=== PATIENT | male | born 1990 | race Caucasian/White ===

== ENCOUNTER 2021-06-25 10:27 | Outpatient (REF) | payer OTHER, SELFPAY ==
[2021-06-25 13:42] LABS: Alanine Aminotransferase 44 U/L (0-40); Albumin Level 4.2 g/dL (3.5-5.0); Alkaline Phosphatase 74 U/L (39-117); Anion Gap 11 (12-20); Aspartate Amino Transferase 26 U/L (5-37); Bilirubin Total 0.5 mg/dL (0.0-1.0); Blood Urea Nitrogen 16 mg/dL (9-16); Calcium 9.6 mg/dL (8.4-10.2); Carbon Dioxide 27 mmol/L (22-29); Chloride 106 mmol/L (96-108); Cholesterol 184 mg/dL; Estimated Glomerular Filt Rate > 60; Glucose Fasting 88 mg/dL (60-99); HDL Cholesterol 37 mg/dL; LDL Cholesterol Calculated 123 mg/dl; Potassium 4.7 mmol/L (3.3-5.1); Sodium 139 mmol/L (135-145); Total Protein 6.7 g/dL (6.5-8.0); Triglycerides 122 mg/dL
[2021-06-25 14:04] LABS: TSH reflex Free T4 2.23 uIU/mL (0.32-4.0)
[2021-06-26 07:52] LABS: HBc Num1 0.06 S/CO (0.00-0.79); HBsAGNum1 0.17 S/CO (0.00-0.99); HIV AB/AG Nonreactive (Nonreactive); HIV Num 1 0.06 S/CO (0.00-0.99); Hepatitis B Core Antibody Nonreactive (Nonreactive); Hepatitis B Surface Antigen Negative (Negative); ~HepC Num1 0.15 S/CO (0.00-0.79); ~Hepatitis B Surface Antibody REACTIVE (Nonreactive); ~Hepatitis C Antibody Nonreactive (Nonreactive)
[2021-06-26 08:18] LABS: Syphilis Screen Nonreactive (Nonreactive)
== END 2021-06-25 10:28 | disposition home or self-care (01) ==
LOC: HO.WFDLDS 10:27
PROVIDERS: Visit Provider Family Medicine
DX: Z00.00 Encounter for general adult medical examination without abnormal findings (principal); Z11.4 Encounter for screening for human immunodeficiency virus [HIV]
CPT/HCPCS: 36415; 80053; 80061; 84443; 86704; 86706; 86780; 86803; 87340; 87389

== ENCOUNTER 2021-10-07 07:46 | Outpatient (REF) | payer OTHER, SELFPAY ==
--- NOTE | ~2021-10-07 | XR_ITS ---
EXAMINATION: XR KNEE, BILATERAL AP STANDING XR KNEE, BILATERAL CLINICAL INFORMATION: Pain. COMPARISON: None TECHNIQUE: AP bilateral knee standing. 2 views each knee. FINDINGS: AP BILATERAL KNEE STANDING: The medial and lateral compartment joint spaces are maintained normal. No bony erosive changes, loose body or soft tissue swelling seen. RIGHT KNEE: The patellofemoral compartment joint space is normal. There are no loose bodies, bony erosive changes or joint effusion. LEFT KNEE: The patellofemoral compartment joint space is maintained. There are no bony erosive changes. No spurring or suprapatellar joint effusion. XR/XR knee RT 2V IMPRESSION: Unremarkable AP bilateral knee standing. Unremarkable bilateral knees.
--- NOTE | ~2021-10-07 | XR_ITS ---
EXAMINATION: XR KNEE, BILATERAL AP STANDING XR KNEE, BILATERAL CLINICAL INFORMATION: Pain. COMPARISON: None TECHNIQUE: AP bilateral knee standing. 2 views each knee. FINDINGS: AP BILATERAL KNEE STANDING: The medial and lateral compartment joint spaces are maintained normal. No bony erosive changes, loose body or soft tissue swelling seen. RIGHT KNEE: The patellofemoral compartment joint space is normal. There are no loose bodies, bony erosive changes or joint effusion. LEFT KNEE: The patellofemoral compartment joint space is maintained. There are no bony erosive changes. No spurring or suprapatellar joint effusion. XR/XR knee LT 2V IMPRESSION: Unremarkable AP bilateral knee standing. Unremarkable bilateral knees.
--- NOTE | ~2021-10-07 | XR_ITS ---
EXAMINATION: XR KNEE, BILATERAL AP STANDING XR KNEE, BILATERAL CLINICAL INFORMATION: Pain. COMPARISON: None TECHNIQUE: AP bilateral knee standing. 2 views each knee. FINDINGS: AP BILATERAL KNEE STANDING: The medial and lateral compartment joint spaces are maintained normal. No bony erosive changes, loose body or soft tissue swelling seen. RIGHT KNEE: The patellofemoral compartment joint space is normal. There are no loose bodies, bony erosive changes or joint effusion. LEFT KNEE: The patellofemoral compartment joint space is maintained. There are no bony erosive changes. No spurring or suprapatellar joint effusion. XR/XR knee standing BI IMPRESSION: Unremarkable AP bilateral knee standing. Unremarkable bilateral knees.
== END 2021-10-07 07:47 | disposition home or self-care (01) ==
LOC: HO.HOSX 07:46
PROVIDERS: Visit Provider Physician Assistant
DX: M22.2X1 Patellofemoral disorders, right knee (principal); M22.2X2 Patellofemoral disorders, left knee; R60.9 Edema, unspecified
CPT/HCPCS: 73560; 73565; 99202

== ENCOUNTER 2021-11-12 14:00 | Outpatient (RCR) | payer OTHER, SELFPAY ==
--- NOTE | 2021-10-01 11:56 | MHC.PT.EP ---
[facility] [place] Office [place] Office [place] Office [address] [phone] F: [phone] F: [phone] F: [phone] F: [phone] Physical Therapy Plan of Care Date of Evaluation: Date of Surgery: n/a Diagnosis: knee pain Assessment: Patient is a 31 year old R handed male who presents with s/s consistent with knee pain. He works with daily job demands including kneeling and negotiating a lot of stairs at [employer]. Patient past medical history includes wrist surgeries. Current impairments include pain, posture, ROM, strength, activity tolerance and functional mobility. Functional limitations include decreased ability to stand, run, knee, and negotiate stairs. Patient is motivated with good rehab potential. Skilled PT will address impairments and functional limitations in order to achieve goals. Frequency and Duration: The patient will be seen 2x/week for 5 weeks Short Term Goals: I With HEP - 2 weeks 90/90 lacking less than 20 - 3 weeks gastroc normal flex b/l - 3 weeks Mcfp Goals: pain free stairs - 5 weeks LEFS 60/80 - 5 weeks Pain with work 2/10 max - 5 weeks Treatment Plan: Modalities to reduce pain, spasms and effusion. Manual therapy to restore motion and function. Therapeutic exercise to improve strength and flexibility. Neuromuscular re-education for posture and balance. Therapeutic activities to return to functional activities of daily living. Electronically signed by: Jerry Woodall PT Please sign and return to therapist. Thank you for your referral.
--- NOTE | 2022-02-05 08:57 | MHC.PT.DC ---
[facility] [place] Office [place] Office [place] Office [address] [place] [address] [phone] F: [phone] F: [phone] F: [phone] F: [phone] Physical Therapy Discharge Report Diagnosis: knee pain Date of Surgery: n/a Date of Evaluation: 10/01/21 Date of Discharge: 02/05/22 Treatments to Date: 5 Cancellations to Date: No Shows to Date: Discharge Status: Improved Function Independent with HEP Discharge Summary: pt had to stop pt after last appt. pt progressing well with above program to manage s/s. however, we did discuss at length the likelihood that s/s will persist as long as stimulus/cause is still present (kneeling at work). Electronically signed by: Jerry Woodall, PT Please sign and return to therapist. Thank you for your referral.
== END 2022-02-05 08:58 | disposition home or self-care (01) ==
LOC: HO.PTCHIC 14:00
PROVIDERS: PCP Family Medicine; Visit Provider Family Medicine
DX: M25.561 Pain in right knee (principal); M25.562 Pain in left knee
CPT/HCPCS: 97110; 97140; 97161; 97530

== ENCOUNTER 2021-11-25 08:10 | Outpatient (REF) | payer OTHER, SELFPAY ==
[2021-11-25 12:20] LABS: Alanine Aminotransferase 24 U/L (0-40); Albumin Level 4.7 g/dL (3.5-5.0); Alkaline Phosphatase 76 U/L (39-117); Anion Gap 16 (12-20); Aspartate Amino Transferase 20 U/L (5-37); Bilirubin Total 0.3 mg/dL (0.0-1.0); Blood Urea Nitrogen 22 mg/dL (9-16); Calcium 9.4 mg/dL (8.4-10.2); Carbon Dioxide 25 mmol/L (22-29); Chloride 105 mmol/L (96-108); Estimated Glomerular Filt Rate > 60; Glucose Random 75 mg/dL (60-115); Potassium 4.3 mmol/L (3.3-5.1); Sodium 142 mmol/L (135-145); Total Protein 7.2 g/dL (6.5-8.0)
== END 2021-11-25 08:11 | disposition home or self-care (01) ==
LOC: HO.WFDLDS 08:10
PROVIDERS: Visit Provider Family Medicine
DX: R74.01 Elevation of levels of liver transaminase levels (principal)
CPT/HCPCS: 36415; 80053

== ENCOUNTER 2022-09-23 14:22 | Outpatient (AMB) | payer OTHER, SELFPAY ==
--- NOTE | 2022-09-23 14:30 | MHC.PC.OV ---
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 No recent labs to review. Pt reports GERD. Pt also reports diarrhea that comes intermittently in bouts. 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 Laureano Garcia, Yahaira Phan, Odilon Souza and colleagues, with an educational radha from [employer]. Review of Systems Const Denies chills, Denies fatigue, Denies fever(s), Denies headache(s) and Denies weakness Eyes Denies change in vision ENT Denies dizziness, Denies headache(s), Denies hearing loss, Denies nasal congestion, Denies sinus pain, Denies sinus pressure and Denies sore throat Card Denies chest pain, Denies lightheadedness, Denies dyspnea and Denies other (palpitations) Resp Denies cough, Denies dyspnea and Denies wheezing GI Denies abdominal pain, Denies melena, Denies hematochezia, Denies change in bowel habits, Denies dyspepsia and Denies nausea Denies hematuria and Denies dysuria Musc Denies abnormal gait, Denies myalgias, Denies arthralgias, Denies numbness and Denies tingling Skin/Breast Denies rash, Denies unusual bruising and Denies wounds Neuro Denies abnormal gait, Denies dizziness, Denies headache(s), Denies memory loss, Denies numbness, Denies Sensory deficit (Neuro), Denies tingling and Denies weakness Psych Denies anxiety, Denies depression and Denies memory loss Endo Denies cold intolerance, Denies fatigue, Denies heat intolerance, Denies polydipsia and Denies polyuria José Imguel/Lymph Denies easy bleeding and Denies easy bruising Aller/Immun Denies wheezing Physical exam (Primary Care) Vital Signs: Last Vital Signs Pulse 83 09/23/22 14:37 BP 110/62 09/23/22 14:37 Pulse Ox 99 09/23/22 14:37 BMI result Body Mass Index 31.9 Tobacco/Smoking Status: Tobacco use Status Tobacco use date assessed 09/23/22 09/23/22 14:39 Patient Tobacco Use Status Never used Tobacco 09/23/22 14:37 e-Cigarette/Vaping Use Never Used 09/23/22 14:37 Const General: no acute distress, well developed, alert and awake Nutritional Appearance: well nourished Orientation/consciousness: patient oriented x3 HENMT Head: Yes normocephalic and Yes atraumatic Ears: hearing grossly normal bilaterally and TM's normal bilaterally General nose exam: Normal external nose present and Normal nares present Mouth: Normal oral and palatal mucosa present and moist mucous membranes Teeth and gingiva: dentition normal Throat: Yes posterior oropharynx normal Eyes General: appearance normal, both eyes and all related structures Pupils: Equal, round and reactive pupils present and Pupil accommodation reflex normal EOM: EOMs intact bilaterally Neck Neck: Yes normal visual inspection, Yes no lymphadenopathy and Yes trachea midline Thyroid: Thyroid normal Carotids: no bruits Lymphatic: no lymphadenopathy noted Chest Chest palpation & inspection: normal inspection of the chest Resp Effort & Inspection: normal respiratory effort Auscultation: clear to auscultation bilaterally Cardio Rate: regular rate Rhythm: regular rhythm Heart sounds: S1 normal heart sound present, S2 normal heart sound present, no gallops, no murmurs and no rubs Bruits: no abdominal aortic bruits and no carotid bruits GI Palpation (GI): No Abdominal aortic bruit present, Soft to palpation, nontender, No hepatosplenomegaly present and No Rebound tenderness present Auscultation: normal bowel sounds General: Yes no CVA tenderness Back/Spine/Pelvis Back: no CVA tenderness Cervical Spine: cervical ROM normal and No Cervical spine tenderness Thoracic/Lumbar Spine: thoraco-lumbar ROM normal, No pain with thoraco-lumbar ROM, No thoracic spinal tenderness and No lumbar spinal tenderness Skin Lesions: no lesions Rashes: no rashes Trauma: no lacerations or abrasions Wounds: no wounds Nails: normal Neuro General: patient oriented x3 Cranial nerves: Yes Equal, round and reactive pupils present Cognition (Neuro): normal cognition Gait exam (Neuro): Normal gait present Motor exam (neuro): 5/5 motor strength present throughout Sensory Exam: No Sensory deficit (Neuro) Deep tendon reflexes (DTR's): Right patellar reflex intensity grade: 2+ and Left patellar reflex intensity grade: 2+ Extrem General: Yes normal to inspection and No edema Psych Appearance: grossly normal Affect: normal affect Attitude: cooperative Thought process: Normal thought process present Assessment and Plan Assessment & Plan (1) GERD (gastroesophageal reflux disease): Code(s): K21.9 - Gastro-esophageal reflux disease without esophagitis Plan: Trial omeprazole (2) Diarrhea: Code(s): R19.7 - Diarrhea, unspecified Plan: Hydrate well Trial FiberCon, soluble fiber (3) Immunization counseling: Code(s): Z71.85 - Encounter for immunization safety counseling Plan: Check titers (4) Adult general medical exam: Code(s): Z00.00 - Encounter for general adult medical examination without abnormal findings Plan: 32-year-old male presents for complete physical exam Encouraged healthy diet with active lifestyle and plenty of exercise Orders: Orders Comprehensive [place]. Panel Fast Today Z00.00 - Encounter for general adult medical examination without abnormal findings Lipid Panel Today Z00.00 - Encounter for general adult medical examination without abnormal findings TSH reflex Free T4 Today Z00.00 - Encounter for general adult medical examination without abnormal findings Microalbumin, Random (w Creat) Today I10 - Essential (primary) hypertension UA and rflx microscopic Today Z00.00 - Encounter for general adult medical examination without abnormal findings Hepatitis B,C Profile Today Z11.3 - Encounter for screening for infections with a predominantly sexual mode of transmission Mumps Virus IgG Antibody Today Z71. - Encounter for immunization safety counseling Rubeola IgG (Measles) Today Z71. - Encounter for immunization safety counseling Rubella IgG Antibody Today Z71. - Encounter for immunization safety counseling Varicella IgG Antibody Today Z71. - Encounter for immunization safety counseling CT NG by PCR Today Z11.3 - Encounter for screening for infections with a predominantly sexual mode of transmission Medications: New omeprazole 40 mg PO DAILY 30 days 30 caps 3RF calcium polycarbophil (FiberCon) 625 mg PO DAILY 30 days 30 tabs 2RF Coding Level of Care Code Est Pt Prev Care 18-39y(21637) Diagnoses GERD (gastroesophageal reflux disease) K21.9 Diarrhea R19.7 Immunization counseling Z71.85 Adult general medical exam Z00.00
[2022-09-23 14:37] VITALS: BP 110/62; PULSE 83; O2SAT 99; BMI 31.9
== END 2022-09-23 15:15 | disposition home or self-care (01) ==
PROVIDERS: PCP Family Medicine; Visit Provider Family Medicine
DX: K21.9 Gastro-esophageal reflux disease without esophagitis (principal); R19.7 Diarrhea, unspecified; Z71.85 Encounter for immunization safety counseling; Z00.00 Encounter for general adult medical examination without abnormal findings
CPT/HCPCS: 99395

== ENCOUNTER 2022-09-24 07:18 | Outpatient (REF) | payer OTHER, SELFPAY ==
[2022-09-24 11:48] LABS: Appearance Urine Turbid; Color Urine Yellow; Glucose Urine UA Negative (Negative); Leukocyte Esterase Urine Negative (Negative); Nitrite Urine Negative (Negative); Specific Gravity - Urine >= 1.030 (1.005-1.025); Urine Blood Negative (Negative); Urine Ketones Negative (Negative); Urine Protein Negative (Neg-Trace)
[2022-09-24 12:12] LABS: Alanine Aminotransferase 25 U/L (0-40); Albumin Level 4.4 g/dL (3.5-5.0); Alkaline Phosphatase 76 U/L (39-117); Anion Gap 16 (12-20); Aspartate Amino Transferase 19 U/L (5-37); Bilirubin Total 0.7 mg/dL (0.0-1.0); Blood Urea Nitrogen 17 mg/dL (9-16); Calcium 9.5 mg/dL (8.4-10.2); Carbon Dioxide 24 mmol/L (22-29); Chloride 106 mmol/L (96-108); Cholesterol 215 mg/dL; Estimated Glomerular Filt Rate > 60; Glucose Fasting 87 mg/dL (60-99); HDL Cholesterol 42 mg/dL; LDL Cholesterol Calculated 143 mg/dl; Potassium 4.7 mmol/L (3.3-5.1); Sodium 141 mmol/L (135-145); Total Protein 7.2 g/dL (6.5-8.0); Triglycerides 151 mg/dL
[2022-09-24 12:21] LABS: Creatinine Urine 126.33 mg/dL; Microalbum/Creatinine Ratio Ur 3.9 ug/mg cr
[2022-09-24 12:24] LABS: HBc Num1 0.07 S/CO (0.00-0.79); HBsAGNum1 0.36 S/CO (0.00-0.99); Hepatitis B Core Antibody Nonreactive (Nonreactive); Hepatitis B Surface Antigen Negative (Negative); ~HepC Num1 0.12 S/CO (0.00-0.79); ~Hepatitis B Surface Antibody REACTIVE (Nonreactive); ~Hepatitis C Antibody Nonreactive (Nonreactive)
[2022-09-24 12:30] LABS: TSH reflex Free T4 2.25 uIU/mL (0.32-4.0)
[2022-09-26 07:09] LABS: Rubella IgG Antibody 4.96 Index; Varicella IgG Antibody <135.00 index
== END 2022-09-24 07:19 | disposition home or self-care (01) ==
LOC: HO.WFDLDS 07:18
PROVIDERS: Visit Provider Family Medicine
DX: Z00.00 Encounter for general adult medical examination without abnormal findings (principal); Z71.85 Encounter for immunization safety counseling; Z11.3 Encounter for screening for infections with a predominantly sexual mode of transmission; I10 Essential (primary) hypertension
CPT/HCPCS: 36415; 80053; 80061; 81003; 82043; 84443; 86704; 86706; 86735; 86762; 86765; 86787; 86803; 87340

== ENCOUNTER 2022-10-21 13:51 | Outpatient (AMB) | payer OTHER, SELFPAY ==
--- NOTE | 2022-10-21 13:48 | MHC.PC.OV ---
Intake Visit Reasons: f/u CPE-labs Intake Note: Patient is calling to go over labs today. Allergies No Known Allergies Allergy (Verified 10/21/22 13:49) Tobacco use date assessed: 10/21/22 Dental Screening Dental Screen Date: 10/21/22 Did you have a dental visit in the last 12 months?: Yes Did you have a dental problem in the last 6 months where you did not have access to dental care?: No Was dental information given to patient?: Patient has dentist HPI f/u CPE-labs HPI Details Telemedicine encounter to follow-up lab work from his CPE Had had a previous elevation of ALT but this remains within normal limits LDL cholesterol is elevated at 143 and triglycerides have risen to 151 Urine spec gravity is high Varicella antibody is below 135 - should repeat vaccination [facility] Surgical History H/O hand surgery Social History Housing: House Alcohol intake: current Alcohol intake frequency: holidays/special occasions only Patient Tobacco Use Status: Never used Tobacco e-Cigarette/Vaping Use: Never Used Second Hand Smoke Exposure: No service: Yes Current occupational status: employed 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 Laureano Garcia, Yahaira Phan, Odilon Souza and colleagues, with an educational radha from [employer]. Physical exam (Primary Care) Tobacco/Smoking Status: Tobacco use Status Tobacco use date assessed 10/21/22 10/21/22 13:50 Patient Tobacco Use Status Never used Tobacco 10/21/22 13:50 e-Cigarette/Vaping Use Never Used 10/21/22 13:50 Telehealth Telehealth Location of provider rendering services: practice address Location of patient: other Patient Identification confirmed using: Name, : Yes Telehealth method: voice only Patient verbally consented to treatment: Yes Patient verbally consented to billing insurance company: Yes Patient informed of any privacy concerns related to visit: Yes Minutes spent on Phone/Video with Pt.: 7 Assessment and Plan Assessment & Plan (1) Hyperlipidemia: Code(s): E78.5 - Hyperlipidemia, unspecified Plan: TC and LDL cholesterol are elevated and triglycerides are slightly elevated Encouraged diet low in saturated fats and cholesterol, encouraged exercise and weight loss He will return in 3 months to recheck lipids and if he has not been able to make a significant dent in these values, will discuss medication. (2) Elevated transaminase level: Code(s): R74.01 - Elevation of levels of liver transaminase levels Plan: This appears resolved (3) Encounter for counseling regarding immunization: Code(s): Z71.85 - Encounter for immunization safety counseling Plan: Titer show immunity to measles mumps and rubella. Also you to hepatitis B Does not reach threshold for immunity to varicella so I have ordered this and Orders: Orders Basic Metabolic Panel Fasting Today E78.5 - Hyperlipidemia, unspecified Lipid Panel Today Z00.00 - Encounter for general adult medical examination without abnormal findings Varicella Immunization Today Z23 - Encounter for immunization Medications: New Varivax (PF) (varicella virus vacc live (PF)) 0.5 mL subcut ONCE 1 ea 0RF NS Z23 - Encounter for immunization Coding Level of Care Code Tele Est Pt Level 2 (34040) Diagnoses Hyperlipidemia E78.5 Elevated transaminase level R74.01 Encounter for counseling regarding immunization Z71.85
== END 2022-10-21 16:43 | disposition home or self-care (01) ==
LOC: HO.HMGFM 13:51
PROVIDERS: PCP Family Medicine; Visit Provider Family Medicine
DX: E78.5 Hyperlipidemia, unspecified (principal); R74.01 Elevation of levels of liver transaminase levels; Z71.85 Encounter for immunization safety counseling
CPT/HCPCS: 99212

== ENCOUNTER 2023-03-25 10:33 | Outpatient (AMB) | payer OTHER, SELFPAY ==
[2023-03-25 10:43] VITALS: BP 112/70; PULSE 74; RESP 13; TEMP 36.5; O2SAT 98; BMI 32.3
--- NOTE | 2023-03-25 10:43 | A.OFFPC_ITS ---
Vital Signs 3 03/25/23 10:43 Height 5 ft 7 in Weight 206 lb 4 oz BMI 32.3 BP 112/70 Blood Pressure Location Rt brachial Position Sitting Respiration 13 Pulse 74 Pulse Source Pulse Oximeter Temp 97.7 F Temp Source Temporal Artery Scan Pulse Oximetry (%) 98 Oxygen Delivery Method Room Air Intake Visit Reasons: right elbow pain Intake Note: Patient states that hes been experiencing the pain for the past 6 months. Patient states that he hasn't hit it or hurt it in anyway but his job is very active and he thinks that may be the cause. Patient states that pain feels more like an ache and is traveling down arm and into his pinky finger and finger next to pinky. Patient is also having issues with left pointer finger, there is a lumo preventing him from bending and flexing that finger fully. Media Monitor Required: No Accompanied by: Self / Same As Patient Allergies No Known Allergies Allergy (Verified 03/25/23 10:58) Medication List - Last Reconciled 03/25/23 by STEPHEN Greer calcium polycarbophil (FiberCon) 625 mg PO DAILY 30 days omeprazole 40 mg PO DAILY 30 days Tobacco use date assessed: 03/25/23 Dental Screening Dental Screen Date: 03/25/23 Did you have a dental visit in the last 12 months?: Yes Was dental information given to patient?: Patient has dentist HPI HPI Comments 2 History of Present Illness0 Details right elbow pain present for 6 months denies overt injury admits lots of physical labor at home and at work thinks this is tennis elbow tx at home - nsaids, ice w/o relief, sleeve like maria antonia wrap right hand dominant swinging hammer makes it much worse pain is on lateral aspect of elbow has radiation of pain down forearm and affects 4th and 5th fingers left index finger, has a lump, that has been present since October when he shot a nail into this same area. He shows me a picture and then shows me the area that he is concerned about on the left index finger. The area correlates directly with the puncture from the nail in October. He reports that he is up-to-date on tetanus shot. 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 Laureano Garcia, Yahaira Phan, Odilon Souza and colleagues, with an educational radha from [employer]. Review of Systems Const All systems reviewed & are unremarkable except as noted in HPI and below Physical exam (Primary Care) Vital Signs: Last Vital Signs Temp 97.7 F 03/25/23 10:43 Pulse 74 03/25/23 10:43 Resp 13 03/25/23 10:43 BP 112/70 03/25/23 10:43 Pulse Ox 98 03/25/23 10:43 Oxygen Delivery Method Room Air 03/25/23 10:43 BMI result Body Mass Index 32.3 Tobacco/Smoking Status: Tobacco use Status Tobacco use date assessed 03/25/23 03/25/23 10:52 Patient Tobacco Use Status Never used Tobacco 03/25/23 10:52 e-Cigarette/Vaping Use Never Used 03/25/23 10:52 Extrem Elbow/forearm/wrist images: 2 1. pain over lateral epicondyle w/ palp no erythema, edema or deformity normal strength and ROM Hand/finger images: 2 1. palpable scar tissues over the area where the nail injury occurred 10/2022. No erythema, edema. Does have restricted ability to close but no nerve impairment or entrapment Assessment and Plan Assessment & Plan (1) Olecranon bursitis of right elbow: Code(s): M70.21 - Olecranon bursitis, right elbow Plan: This note is constructed using voice recognition software. While every effort has been made to ensure accuracy in push connector assembler, still errors may have been included Sometimes, these errors may affect the content or meaning of the given sentence . Encouraged him to use the counterforce band. Time spent reviewing the pathophysiology and treatment of this disorder. Total time spent caring for the patient today was 40 minutes. This includes time spent before the visit reviewing the chart, time spent during the visit, and time spent after the visit on documentation (2) Keloid scar of skin: Comment: of L index finger Code(s): L91.0 - Hypertrophic scar Plan: Reassured. Advised him to massage the area to help break up the scar tissue. I do not think the needs referral to a hand surgeon or any imaging. If this continues to be a bother to him or he would like any further management he can certainly let us know. Medications: New 2 meloxicam 15 mg PO DAILY 30 days 30 tabs 0RF Changed 2 From calcium polycarbophil (FiberCon) 625 mg PO DAILY 30 days 30 tabs 2RF To calcium polycarbophil (FiberCon) 625 mg PO DAILY 90 days 90 tabs 2RF Patient Instructions: buy a counter force band and use daily use the at home exercises Coding Level of Care Code Est Pt Level 5 (24250) Diagnoses Olecranon bursitis of right elbow M70.21 Keloid scar of skin L91.0
== END 2023-03-25 11:19 | disposition home or self-care (01) ==
PROVIDERS: PCP Family Medicine; Visit Provider Nurse Practitioner Family
DX: M70.21 Olecranon bursitis, right elbow (principal); L91.0 Hypertrophic scar
CPT/HCPCS: 99215

== ENCOUNTER 2023-09-23 08:39 | Outpatient (REF) | payer OTHER, SELFPAY ==
[2023-09-23 11:53] LABS: Anion Gap 9 (12-20); Blood Urea Nitrogen 17 mg/dL (9-16); Calcium 10.3 mg/dL (8.4-10.2); Carbon Dioxide 29 mmol/L (22-29); Chloride 103 mmol/L (96-108); Cholesterol 223 mg/dL (<200); Estimated Glomerular Filt Rate > 60; Glucose Fasting 89 mg/dL (60-99); HDL Cholesterol 45 mg/dL (>40); LDL Cholesterol Calculated 147 mg/dL (<100); Potassium 4.3 mmol/L (3.3-5.1); Sodium 137 mmol/L (135-145); Triglycerides 158 mg/dL (<150)
[2023-09-23 13:01] LABS: CT PCR NOT DETECTED (Not Detect.); NG PCR NOT DETECTED (Not Detect.)
== END 2023-09-23 08:40 | disposition home or self-care (01) ==
LOC: HO.WFDLDS 08:39
PROVIDERS: Visit Provider Family Medicine
DX: Z00.00 Encounter for general adult medical examination without abnormal findings (principal); E78.5 Hyperlipidemia, unspecified; Z11.3 Encounter for screening for infections with a predominantly sexual mode of transmission
CPT/HCPCS: 80048; 80061; 87491; 87591

== ENCOUNTER 2023-10-02 08:57 | Outpatient (AMB) | payer OTHER, SELFPAY ==
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
[2023-10-02 09:18] VITALS: BP 90/60; PULSE 79; RESP 16; TEMP 36.6; O2SAT 97; BMI 32.3
== END 2023-10-02 10:19 | disposition home or self-care (01) ==
PROVIDERS: PCP Family Medicine; Visit Provider Family Medicine
DX: Z00.00 Encounter for general adult medical examination without abnormal findings (principal); E78.5 Hyperlipidemia, unspecified; K21.9 Gastro-esophageal reflux disease without esophagitis; M79.672 Pain in left foot; T30.0 Burn of unspecified body region, unspecified degree
CPT/HCPCS: 99213; 99395

== ENCOUNTER 2023-12-30 08:53 | Outpatient (REF) | payer OTHER, SELFPAY ==
[2023-12-30 12:16] LABS: Alanine Aminotransferase 41 U/L (0-40); Albumin Level 4.4 g/dL (3.5-5.0); Alkaline Phosphatase 77 U/L (39-117); Anion Gap 10 (12-20); Aspartate Amino Transferase 31 U/L (5-37); Bilirubin Total 0.6 mg/dL (0.0-1.0); Blood Urea Nitrogen 16 mg/dL (9-16); Calcium 9.4 mg/dL (8.4-10.2); Carbon Dioxide 27 mmol/L (22-29); Chloride 106 mmol/L (96-108); Cholesterol 128 mg/dL (<200); Estimated Glomerular Filt Rate > 60; Glucose Fasting 89 mg/dL (60-99); HDL Cholesterol 39 mg/dL (>40); LDL Cholesterol Calculated 75 mg/dL (<100); Potassium 4.3 mmol/L (3.3-5.1); Sodium 139 mmol/L (135-145); Triglycerides 72 mg/dL (<150)
== END 2023-12-30 08:54 | disposition home or self-care (01) ==
LOC: HO.WFDLDS 08:53
PROVIDERS: Visit Provider Family Medicine
DX: Z00.00 Encounter for general adult medical examination without abnormal findings (principal); E78.5 Hyperlipidemia, unspecified
CPT/HCPCS: 36415; 80053; 80061

== ENCOUNTER 2024-01-05 15:32 | Outpatient (AMB) | payer OTHER, SELFPAY ==
--- NOTE | 2024-01-05 15:41 | MHC.PC.OV ---
Vital Signs 01/05/24 15:42 Height 5 ft 7 in Weight 202 lb BMI 31.6 BP 116/68 Blood Pressure Location Rt brachial Position Sitting Respiration 16 Pulse 87 Pulse Source Pulse Oximeter Temp 98.4 F Temp Source Temporal Artery Scan Pulse Oximetry (%) 96 Oxygen Delivery Method Room Air Intake Visit Reasons: f/u HLD Intake Note: f/u for labs Allergies No Known Allergies Allergy (Verified 01/05/24 15:42) Tobacco use date assessed: 03/25/23 Dental Screening Dental Screen Date: 03/25/23 HPI f/u HLD HPI Details 33 y/o male presents to f/u HLD. Had started him on artovastatin. Checking x-ray for L foot pain. Patient had mentioned last office visit he wears boots for the every day and is on his feet for over 12 hours a day. Labs drawn 12/30/23. Reviewed labs with pt. Elevated ALT of 41. AST 31. Triglycerides 72. TC improved from 223 to 128. LDL improved from 147 to 75. HDL low at 39. Did note he made some diet changes. HPI Comments History of Present Illness Details Documentation assistance for Mikey Greenberg MD, was provided by Jai He,? Head Of Business Development on 01/05/2024 at 4:04 PM EST. I, Dr. Greenberg, have read, observed, and verified documentation. 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 1. Little interest or pleasure in doing things: not at all 2. Feeling down, depressed, or hopeless: not at all 3. Trouble falling or staying asleep, or sleeping too much: not at all 4. Feeling tired or having little energy: not at all 5. Poor appetite or overeating: not at all 6. Feeling bad about yourself - or that you are a failure or have let yourself or your family down: not at all 7. Trouble concentrating on things, such as reading the newspaper or watching television: not at all 8. Moving or speaking so slowly that other people could have noticed. Or the opposite - being so fidgety or restless that you have been moving around a lot more than usual: not at all 9. Thoughts that you would be better off or of hurting yourself in some way: not at all Total score: 0 Source: Developed by Drs. Laureano Garcia, Yahaira Phan, Odilon Souza and colleagues, with an educational radha from [employer]. Thrive Questionnaire Date Thrive assessed: 10/02/23 I am a: Patient What is your living situation today?: I have a steady place to live Within the past 12 months, did the food you bought not last and you didn't have the money to get more?: Never true Within the past 12 months, did you worry whether your food would run out before you got money to buy more?: Never true Do you have trouble paying for medicines?: No Do you have trouble getting transportation to medical appointments?: No Do you have trouble paying your heating and electricity bill?: No Do you have trouble taking care of your child, family member or friend?: No Do you have trouble with day-to-day activities such as bathing, preparing meals, shopping, managing finances, etc.?: No Are you currently unemployed and looking for a job?: No Are you interested in more education?: No Please select the resources that you would like help with: None Currently or been in a relationship where the following occur: No concerns reported THRIVE Score: 0 AUDIT C Alcohol Use Questionnaire (AUDIT-C) 1. How often do you have a drink containing alcohol?: 2-4 times a month 2. How many drinks containing alcohol do you have on a typical day when you are drinking?: 1 or 2 3. How often do you have six or more drinks on one occasion?: Monthly Total Score: 4 OXANA-7 AMB Questionnaire OXANA-7 Date OXANA - 7 assessed: 10/02/23 Feeling nervous, anxious, or on edge: 0 = Not at all Not being able to stop or control worryin = Not at all Worrying too much about different things: 0 = Not at all Trouble relaxin = Not at all Being so restless that it is hard to sit still: 0 = Not at all Becoming easily annoyed or irritable: 0 = Not at all Feeling afraid as if something awful might happen: 0 = Not at all Total OXANA-7 score (0-4 normal; 5-9 mild; 10-14 moderate; 15-21 severe): 0 Source: Developed by Drs. Laureano Garcia, Yahaira Phan, Odilon Souza and colleagues, with an educational radha from [employer]. Review of Systems Const Denies chills, Denies fatigue, Denies fever(s), Denies headache(s) and Denies weakness ENT Denies dizziness and Denies headache(s) Card Denies dyspnea Resp Denies cough, Denies dyspnea, Denies wheezing and Denies other (shortness of breath) Musc Denies numbness and Denies tingling Neuro Denies dizziness, Denies headache(s), Denies numbness, Denies tingling and Denies weakness Psych Denies anxiety and Denies depression Endo Denies fatigue Aller/Immun Denies wheezing Physical exam (Primary Care) Vital Signs: Last Vital Signs Temp 98.4 F 01/05/24 15:42 Pulse 87 01/05/24 15:42 Resp 16 01/05/24 15:42 BP 116/68 01/05/24 15:42 Pulse Ox 96 01/05/24 15:42 Oxygen Delivery Method Room Air 01/05/24 15:42 BMI result Body Mass Index 31.6 Tobacco/Smoking Status: Tobacco use Status Tobacco use date assessed 03/25/23 01/05/24 15:45 Patient Tobacco Use Status Never used Tobacco 01/05/24 15:45 e-Cigarette/Vaping Use Never Used 01/05/24 15:45 PHQ-9: PHQ-9 Score PHQ-9: Total score 0 01/05/24 15:48 Thrive Assessment: Date of Thrive Assessment Date Thrive assessed 10/02/23 01/05/24 15:45 Currently or been in a relationship where the following occur: No concerns reported Const General: well developed; No acute distress Nutritional Appearance: well nourished Orientation/consciousness: patient oriented x3 HENMT Head: Yes normocephalic and Yes atraumatic Eyes General: appearance normal, both eyes and all related structures Pupils: Equal, round and reactive pupils present EOM: EOMs intact bilaterally Resp Effort & Inspection: normal respiratory effort Neuro General: patient oriented x3 and gait normal Cranial nerves: Yes Equal, round and reactive pupils present Psych Affect: normal affect Coding Level of Care Code Est Pt Level 4 (56467) Diagnoses Hyperlipidemia E78.5 Elevated ALT measurement R74.01 GERD (gastroesophageal reflux disease) K21.9 Assessment & Plan Assessment & Plan (1) Hyperlipidemia: Code(s): E78.5 - Hyperlipidemia, unspecified Category: Medical Plan: Lipids?much?improved?on?atorvastatin?20?mg?daily HDL?has?dropped?a?little?too?low?however Will?have?him?switch?to?atorvastatin?20?mg?daily?and?recheck?in?a?few?months. He?will?continue?lifestyle?changes (2) Elevated ALT measurement: Code(s): R74.01 - Elevation of levels of liver transaminase levels Category: Medical Plan: Mild?elevation?in?ALT Hydrate?well Decreasing?atorvastatin?from?20?mg?daily?to?10?mg?daily?though?I?doubt?this?is?the?underlying?cause Will?recheck?this?prior?to?next?visit (3) GERD (gastroesophageal reflux disease): Code(s): K21.9 - Gastro-esophageal reflux disease without esophagitis Category: Medical Plan: Patient?notes?that?omeprazole?is?helping?and?still?working?at?lower?dose?of?20?mg?daily.? ?Continue?omeprazole Orders: Orders Comprehensive [place]. Panel Fast Today R74.01 - Elevation of levels of liver transaminase levels, Z00.00 - Encounter for general adult medical examination without abnormal findings Lipid Panel Today E78.5 - Hyperlipidemia, unspecified, Z00.00 - Encounter for general adult medical examination without abnormal findings Medications: Changed From atorvastatin 20 mg PO BEDTIME 90 days 90 tabs 1RF To atorvastatin 10 mg PO BEDTIME 90 days 90 tabs 1RF
[2024-01-05 15:42] VITALS: BP 116/68; PULSE 87; RESP 16; TEMP 36.9; O2SAT 96; BMI 31.6
== END 2024-01-05 16:06 | disposition home or self-care (01) ==
PROVIDERS: PCP Family Medicine; Visit Provider Family Medicine
DX: E78.5 Hyperlipidemia, unspecified (principal); R74.01 Elevation of levels of liver transaminase levels; K21.9 Gastro-esophageal reflux disease without esophagitis

== ENCOUNTER → 2024-01-05 15:32 | Outpatient (BNVA) | payer OTHER, SELFPAY | PROVIDERS: PCP Family Medicine; Visit Provider Family Medicine | DX: E78.5 Hyperlipidemia, unspecified (principal); R74.01 Elevation of levels of liver transaminase levels; K21.9 Gastro-esophageal reflux disease without esophagitis | CPT/HCPCS: 96127; 99212 ==

== ENCOUNTER 2024-01-26 14:29 | Outpatient (AMB) | payer OTHER, SELFPAY ==
[2024-01-26 14:37] VITALS: BP 132/74; PULSE 68; O2SAT 97; BMI 32.4
--- NOTE | 2024-01-26 14:37 | A.OFFVIS_ITS ---
Vital Signs 01/26/24 14:37 Height 5 ft 7 in Weight 206 lb 12.697 oz BMI 32.4 BP 132/74 Blood Pressure Location Rt brachial Position Sitting Pulse 68 Pulse Source Pulse Oximeter Pulse Oximetry (%) 97 Oxygen Delivery Method Room Air Intake Visit Reasons: Gastroesophageal reflux disease (GERD) Intake Note: Daryn presents in office today for a scheduled initial assessment. Pt had lab work done within the last month. CC; Relevant GI Sx as reported per pt? Abd pain, diarrhea, typically nocturnal in nature. Pt also reporting the frequent GERD. ? Recent hx of relevant surgeries? None. ? Relevant FMHx? No relevant information per pt. 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 Patient has been treated for acid reflux by his PCP and currently is taking omeprazole. Patient reports that sometimes it does help and sometimes it does not. Epigastric pain postprandially. Patient denies any nausea or vomiting. Patient reports frequent abdominal bloating and loose stools. Usually patient wakes up during the night and has to go to the bathroom urgently. Patient denies melena, hematochezia, unintentional weight loss or ribbon like stools. Patient denies dyspepsia, dysphagia or odynophagia. Patient was not tested for H pylori. No family history of IBD. No family history of celiac that he knows of. Patient denies any nausea or vomiting. Symptoms chronic nature, occasionally worse depending on what he eats. Can not pinpoint any particular food of why his symptoms would be worse 1 day and under control another day. 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 Current occupational exposures/hazards: No Cognitive needs: No Hearing needs: No Vision needs: Yes Review of Systems Const Denies weight gain and Denies weight loss ENT Reports no additional complaints, Denies dysphagia and Denies odynophagia Card Reports no additional complaints Resp Reports no additional complaints GI Reports abdominal pain (Cramping), Denies belching, Denies melena, Reports bloating, Denies change in bowel habits, Denies dysphagia, Denies excessive flatus, Denies dyspepsia, Reports heartburn, Denies diarrhea, Reports loose stools, Denies nausea, Denies odynophagia and Denies vomiting Reports no additional complaints Musc Reports no additional complaints Neuro Reports no additional complaints Psych Reports no additional complaints Endo Reports no additional complaints Physical Exam Vital Signs: Last Vital Signs Pulse 68 01/26/24 14:37 BP 132/74 01/26/24 14:37 Pulse Ox 97 01/26/24 14:37 Oxygen Delivery Method Room Air 01/26/24 14:37 BMI result Body Mass Index 32.4 Const General: healthy appearing, no acute distress and well developed Nutritional Appearance: well nourished Orientation/consciousness: patient oriented x3 Resp Effort & Inspection: normal respiratory effort, able to speak in complete sentences, no tracheal deviation and symmetric chest movement Auscultation: clear to auscultation bilaterally Cardio Rate: regular rate GI Inspection: Yes normal to inspection and No distended Palpation (GI): Soft to palpation, not firm, nontender and No hepatosplenomegaly present Auscultation: normal bowel sounds General: Yes no CVA tenderness Back/Spine/Pelvis Back: no CVA tenderness Skin General skin exam: elasticity normal, turgor normal and dry skin Neuro General: patient oriented x3 Psych Appearance: grossly normal Mental Status: mental status grossly normal Assessment & Plan Assessment & Plan (1) Elevated ALT measurement: Code(s): R74.01 - Elevation of levels of liver transaminase levels Category: Medical (2) Diarrhea: Code(s): R19.7 - Diarrhea, unspecified Category: Medical Qualifiers: Diarrhea type: functional diarrhea Qualified Code(s): K59.1 - Functional diarrhea (3) GERD (gastroesophageal reflux disease): Code(s): K21.9 - Gastro-esophageal reflux disease without esophagitis Category: Medical Qualifiers: Esophagitis presence: esophagitis presence not specified Qualified Code(s): K21.9 - Gastro-esophageal reflux disease without esophagitis (4) Postprandial abdominal bloating: Code(s): R14.0 - Abdominal distension (gaseous) (5) Postprandial epigastric pain: Code(s): R10.13 - Epigastric pain Plan Patient reports acid reflux currently on omeprazole. Patient will start taking famotidine and stop omeprazole will return for H pylori testing. Will stop famotidine 48 hours before coming to the office. Upper GI with barium swallow ordered to evaluate reflux, check for hiatal hernia. Will do lab work, thyroid study, vitamin B12, folate, vitamin-D levels. Epigastric pain postprandially n ot sure if it is related to food. Will check transglutaminase to rule out celiac. Patient was also encouraged to take probiotics and fiber. Low FODMAP diet discussed with patient. List of food recommended as well as list of food to avoid given to patient. Patient will follow-up in the office in 2 months, sooner on as needed basis. He is agreeable to this plan and verbalizes understanding of instructions. He was given the opportunity to ask questions and all questions answered. Thank you for allowing me to participate in his care Orders: Orders FL upper GI w Ba Swallow 01/26/24 K21.9 - Gastro-esophageal reflux disease without esophagitis Vitamin B12 and Folate 01/26/24 R19.7 - Diarrhea, unspecified TSH reflex Free T4 01/26/24 K59.00 - Constipation, unspecified H Pylori Breath Test 01/26/24 K21.9 - Gastro-esophageal reflux disease without esophagitis Vitamin D 25-OH (D2 and D3) 01/26/24 E55.9 - Vitamin D deficiency, unspecified Transglutaminase Ab IgG 01/26/24 R10.9 - Unspecified abdominal pain Transglutaminase IgA 01/26/24 R10.9 - Unspecified abdominal pain Medications: New famotidine (Pepcid) 20 mg PO BID 30 tabs 1RF K29.70 - Gastritis, unspecified, without bleeding Coding Level of Care Code New Pt Level 4 (69343) Diagnoses Elevated ALT measurement R74.01 Functional diarrhea K59.1 Diarrhea type: functional diarrhea Gastroesophageal reflux disease, unspecified whether esophagitis present K21.9 Esophagitis presence: esophagitis presence not specified Postprandial abdominal bloating R14.0 Postprandial epigastric pain R10.13 Time Spent (min) 45 Comment 30 minutes spent with patient and additional 15 minutes spent reviewing his records
--- OUTSIDE RECORDS SUMMARY | 2024-02-02 14:58 | XMS_ITS | Continuity of Care Document ---
Author Name [facility] Organization [facility] Care Team Providers Care Distance Education Faculty Liaison Name Role Phone [facility] Unavailable Unavailable Problems Combined list of problems from 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 It does not include entries that were removed or entered in error. Problem Status Onset Date Problem Type Date of Resolution Comments Source Encounter for issue of other medical certificate Active [address] [place] [address] ASSESSMENT, POST-DEPLOYMENT, DOCUMENTED ON MG1028 Inactive 8 Condition [facility] Pain, unspecified Inactive 8 Condition [facility] Regular astigmatism, bilateral Active 7 Condition DoD Diarrhea Active Condition Ambulatory Pharmacy GERD - Gastro-esophageal reflux disease Active Condition [facility]ulatory Pharm[facility] Hyperlipidemia Active Condition [facility] LBP - Low back pain Active Condition [facility]ulatory [facility] Obesity Active Condition [facility]ulatory [facility] obesity Active Condition DoD Outpatient Physician Consultation Active Condition DoD injury of upper extremity hand Inactive Condition DoD visit for: services physical Inactive Condition DoD refractive error - hypermetropia Inactive Condition DoD astigmatism regular Inactive Condition [facility] visit: ears/hearing exam for hearing conservation, treatment Inactive Condition [facility] visit for: occupational health / fitness exam Inactive Condition [facility] visit for: administrative purpose Inactive Condition [facility] visit for: services physical accession Inactive Condition DoD Medications Combined list of outpatient medications from 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Medications provided include 1) outpatient medications from the last 15 months, and 2) patient-reported medications. Medication Details Route Status Patient Instructions Prescription Expires Prescription Number Last Dispense Date Ordering Provider Order Date Order Qty Source diclofenac 1% topical gel See instruct ions, Apply 2 grams (upper extremit ies) or 4 grams (lower extremit ies) to affected area topicall y four times daily as needed for pain. Max total body dose of 32 grams per day, # 100 g, 0 total refill(s ), Maintena nce Ordered 100.0 0310A-A F-C-66t h [facility] [employer] Fiber Tabs 1,250 mg, Oral, 0 total refill(s ), Maintena nce Oral (given by mouth) Or[facility] (MELOXICAM) , 15 MG, TABLET, ORAL, [employer] 100 ea. BOTTLE Active [id number] 2023 30 Pharmac y Data Transac tion Service Facilit y OMEPRAZOLE (omeprazole ), 40 MG, CAPSULE DR, ORAL, GLENMARK PHARMA, 1000 ea. BOTTLE Active [id number] 4 2023 30 Pharmac y Data Transac tion Service Facilit y OMEPRAZOLE (omeprazole ), 40 MG, CAPSULE DR, ORAL, GLENMARK PHARMA, 1000 ea. BOTTLE Active [id number] 4 2023 30 Pharmac y Data Transac tion Service Facilit y OMEPRAZOLE (omeprazole ), 40 MG, CAPSULE DR, ORAL, GLENMARK PHARMA, 1000 ea. BOTTLE Active [id number] 4 2023 30 Pharmac y Data Transac tion Service Facilit y OMEPRAZOLE (omeprazole ), 40 MG, CAPSULE DR, ORAL, GLENMARK PHARMA, 1000 ea. BOTTLE Active [id number] 4 2023 30 Pharmac y Data Transac tion Service Facilit y OMEPRAZOLE (OMEPRAZOLE ), 40 MG, CAPSULE DR, ORAL, ZYDUS PHARMACEU, 1000 ea. BOTTLE Active [id number] 3 2023 30 Pharmac y Data Transac tion Service Facilit y omeprazole 40 mg oral delayed release capsule 1 cap(s), Oral, Daily, 30 to 60 minutes before a meal, # 90 cap(s), 3 total refill(s ), Maintena nce, 1 cap(s) Oral Daily,In str:30 to 60 minutes before a meal, Pharmacy : [facility] Oral (given by mouth) Ordered 90.0 0010C-D [facility] Allergies, Adverse Reactions, Alerts Combined list of allergies from 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 It does not include entries that were removed or entered in error. Substance Category Reaction Severity Reaction type Status Date Reported Comments Source No Known Allergies Drug allergy (disorder) active 09/16/2011 [facility] Immunizations Combined list of available immunizations from the 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 Immunization Series Date Given Administered By Site Reaction Lot Number CVX Code Drug Library Services Assistant Status Comments Source COVID Vaccine Pfizer 2020 WENDYGRUBER Shoul cassy, left (delt oid) [id number] PFIZER complet ed COVID Vaccine Pfizer 11/30/20 Given 0010C-D [facility] influenza, recombinant, quadrivalent, injectable, preservative free 2020 NEELA RAM, () Not Given influenza , recombina nt, quadrival ent,injec table, preservat wendy free DoD COVID Vaccine Pfizer 2020 FENIXRMARTIN Shoul cassy, left (delt oid) [id number] PFIZER complet ed COVID Vaccine Pfizer 11/02/20 Given 0010C-D [facility] influenza virus vaccine, inactivated 2020 88 sanofi pasteur complet ed influenza virus vaccine, inactivat ed 03/17/20 Given Ambulat ory Pharmac y influenza, recombinant, quadrivalent, injectable, preservative free 2020 NEELA RAM, () Not Given influenza , recombina nt, quadrival ent,injec table, preservat wendy free DoD influenza, injectable, quadrivalent- pf 2018 [id number] 150 Seqirus complet ed influenza , injectabl e, quadrival ent-pf 01/05/19 Given Ambulat ory Pharmac y Influenza, injectable, quadrivalent, preservative free 9 2018 [id number] 150 Seqirus (SEQ) complet ed Influenza , injectabl e, quadrival ent, preservat wendy free DoD anthrax vaccine 2018 [id number] Emergent Biosolutions complet ed anthrax vaccine 11/29/18 Given Ambulat ory Pharmac y anthrax vaccine 6 2018 [id number] [employer] [place] (MIP) complet ed anthrax vaccine DoD influenza, injectable, quadrivalent- pf 2017 [id number] Seqirus complet ed influenza , injectabl e, quadrival ent-pf 12/04/17 Given Ambulat ory Pharmac y Influenza, injectable, quadrivalent, preservative free 8 2017 [id number] 150 Seqirus (SEQ) comple t ed Influenza , injectabl e, quadrival ent, preservat wendy free DoD typhoid Vi capsular polysaccharid e vac 2016 [id number] 101 sanofi pasteur complet ed typhoid Vi capsular polysacch aride vac 12/19/16 Given Ambulat ory Pharmac y anthrax vaccine 2016 [id number] 24 [employer] complet ed anthrax vaccine 12/19/16 Given Ambulat ory Pharmac y Influenza, inj, MDCK, quadrivalent- pf [id number] Seqirus complet ed Influenza , inj, MDCK, quadrival ent-pf 12/19/16 Given Ambulat ory Pharmac y anthrax vaccine 5 2016 [id number] 24 [employer] [place] (MIP) complet ed anthrax vaccine DoD typhoid Vi capsular polysaccharid e vaccine 2 2016 [id number] 101 Sanofi Pasteur (PMC) complet ed typhoid Vi capsular polysacch aride vaccine DoD Influenza, injectable, Madin Susan Canine Kidney, preservative free, quadrivalent 7 [id number] Seqirus (SEQ) comple t ed Influenza , injectabl e, Madin [place] Canine Kidney, preservat wendy free, quadrival ent DoD tuberculin purified protein derivative 2016 [id number] 96 [facility] complet ed tuberculi n purified protein derivativ e 06/06/16 Given Ambulat ory Pharmac y tuberculin purified protein derivative 2016 [id number] 96 [facility] complet ed tuberculi n purified protein derivativ e 05/29/16 Given Ambulat ory Pharmac y Human Papillomaviru s 9-valent vaccine 2016 [id number] 165 Merck & Company Inc complet ed Human Papilloma virus 9-valent vaccine 03/04/16 Given Ambulat ory Pharmac y Human Papillomaviru s 9-valent vaccine 3 2016 [id number] 165 Merck (MSD) complet ed Human Papilloma virus 9-valent vaccine DoD Human Papillomaviru s 9-valent vaccine 2015 [id number] 165 Merck & Company Inc complet ed Human Papilloma virus 9-valent vaccine 11/02/15 Given Ambulat ory Pharmac y influenza, injectable, quadrivalent- pf 2015 [id number] 150 [place] complet ed influenza , injectabl e, quadrival ent-pf 11/02/15 Given Ambulat ory Pharmac y Influenza, injectable, quadrivalent, preservative free 6 2015 [id number] 150 [facility] (B) complet ed Influenza , injectabl e, quadrival ent, preservat wendy free DoD Human Papillomaviru s 9-valent vaccine 2 2015 [id number] 165 Merck (MSD) complet ed Human Papilloma virus 9-valent vaccine DoD Human Papillomaviru s 9-valent vaccine 2015 [id number] 165 [employer]. [employer] Mark One Inc complet ed Human Papilloma virus 9-valent vaccine 08/23/15 Given Ambulat ory Pharmac y Guinean Encephalitis IM 2015 [id number] 134 Valneva complet ed Guinean Encephali tis IM 08/23/15 Given Ambulat ory Pharmac y anthrax vaccine 2015 [id number] 24 [employer] Bios[employer] complet ed anthrax vaccine 08/23/15 Given Ambulat ory Pharmac y anthrax vaccine 4 2015 [id number] 24 [employer] Isela (MIP) complet ed anthrax vaccine DoD Guinean Encephalitis vaccine for intramuscular administratio n 3 2015 [id number] 134 [facility] (INT) complet ed Guinean Encephali tis vaccine for intramusc ular administr ation DoD Human Papillomaviru s 9-valent vaccine 1 2015 [id number] 165 Merck (MSD) complet ed Human Papilloma virus 9-valent vaccine DoD anthrax vaccine 2014 [id number] 24 [employer] complet ed anthrax vaccine 02/09/15 Given Ambulat ory Pharmac y anthrax vaccine 3 2014 [id number] 24 [employer] [place] (MIP) complet ed anthrax vaccine DoD influenza, injectable, quadrivalent 2014 [id number] 158 GlaxoSmithKli ne complet ed influenza , injectabl e, quadrival ent 11/30/14 Given Ambulat ory Pharmac y influenza, injectable, quadrivalent, contains preservative 0 2014 [id number] 158 [place] (SKB) complet ed influenza , injectabl e, quadrival ent, contains preservat wendy DoD Guinean Encephalitis IM 2014 [id number] [id number] 134 Valneva complet ed Guinean Encephali tis IM 08/15/14 Given Ambulat ory Pharmac y anthrax vaccine 2014 [id number] 24 [employer]olutions complet ed anthrax vaccine 08/15/14 Given Ambulat ory Pharmac y anthrax vaccine 2 2014 [id number] 24 [employer] [place] ([facility]) complet ed anthrax vaccine DoD Guinean Encephalitis vaccine for intramuscular administratio n 2 2014 [id number] 134 Intercell [employer]ical (INT) complet ed Guinean Encephali tis vaccine for intramusc ular administr ation DoD Guinean Encephalitis IM 2014 [id number] [id number] 134 Valneva complet ed Guinean Encephali tis IM 06/08/14 Given Ambulat ory Pharmac y Guinean Encephalitis vaccine for intramuscular administratio n 1 2014 [id number] [id number] 134 [employer] (INT) complet ed Guinean Encephali tis vaccine for intramusc ular administr ation DoD vaccinia (smallpox) vaccine 2014 [id number] 75 Sanofi Pasteur Incorporated complet ed vaccinia (smallpox ) vaccine 06/01/14 Given Ambulat ory Pharmac y vaccinia (smallpox) vaccine 1 2014 [id number] 75 (JASSON) complet ed vaccinia (smallpox ) vaccine DoD anthrax vaccine 2014 [id number] 24 Emergent [employer]olutions complet ed anthrax vaccine 04/25/14 Given Ambulat ory Pharmac y anthrax vaccine 0 2014 [id number] 24 [employer] [place] ([facility]) complet ed anthrax vaccine DoD typhoid Vi capsular polysaccharid e vac 2014 K1200 101 sanofi pasteur complet ed typhoid Vi capsular polysacch aride vac 04/24/14 Given Ambulat ory Pharmac y measles/mumps /rubella virus vaccine 2014 [id number] 03 Merck & Company Inc complet ed measles/m umps/rube lla virus vaccine 04/24/14 Given Ambulat ory Pharmac y measles, mumps and rubella virus vaccine 1 2014 [id number] 03 Merck (MSD) complet ed measles, mumps and rubella virus vaccine DoD typhoid Vi capsular polysaccharid e vaccine 1 2014 K1200 101 Sanofi Pasteur (PMC) complet ed typhoid Vi capsular polysacch aride vaccine DoD influenza, injectable, quadrivalent- pf 2013 [id number] 150 ID [employer] comple t ed influenza , injectabl e, quadrival ent-pf 12/02/13 Given Ambulat ory Pharmac y Influenza, injectable, quadrivalent, preservative free 4 2013 [id number] 150 (IDB) complet ed Influenza , injectabl e, quadrival ent, preservat wendy free DoD influenza, seasonal, injectable-pf 2012 [id number] 140 sanofi pasteur complet ed influenza , seasonal, injectabl e-pf 11/23/12 Given Ambulat ory Pharmac y Influenza, seasonal, injectable, preservative free 0 2012 [id number] 140 Sanofi Pasteur (PMC) complet ed Influenza , seasonal, injectabl e, preservat wendy free DoD influenza virus vaccine, live 2011 [id number] 111 Medi[employer]ellinX[employer] Inc comple t ed influenza virus vaccine, live 10/28/11 Given Ambulat ory Pharmac y influenza virus vaccine, live, attenuated, for intranasal use 0 2011 [id number] 111 Metreos Corporation, Inc. (MED) complet ed influenza virus vaccine, live, attenuate d, for intranasa l use DoD hepatitis A adult vaccine 2011 [id number] 0AA 52 GlaxoSmithKli ne complet ed hepatitis A adult vaccine 09/12/11 Given Ambulat ory Pharmac y hepatitis A vaccine, adult dosage 2 2011 [id number] 0AA 52 SmithKline (SKB) complet ed hepatitis A vaccine, adult dosage DoD Hep A, pediatric, unspecified formul 2011 [id number] 3BA 31 GlaxoSmithKli ne complet ed Hep A, pediatric , unspecifi ed formul 02/26/11 Given Ambulat ory Pharmac y tetanus, diphtheria, acellular pertu is 2011 [id number] 5AA 115 GlaxoSmithKli ne complet ed tetanus, diphtheri a, acellular pertussis 02/26/11 Given Ambulat ory Pharmac y measles/mumps /rubella virus vaccine 2011 [id number] 03 Merck & Company Inc complet ed measles/m umps/rube lla virus vaccine 02/26/11 Given Ambulat ory Pharmac y measles, mumps and rubella virus vaccine 1 2011 [id number] 03 Merck (MSD) complet ed measles, mumps and rubella virus vaccine DoD varicella virus vaccine 1 2011 21 () Not Given varicella virus vaccine DoD hepatitis A vaccine, pediatric dosage, unspecified formulation 1 2011 [id number] 3BA 31 [facility] ([facility]) complet ed hepatitis A vaccine, pediatric dosage, unspecifi ed formulati on DoD hepatitis B vaccine, unspecified formulation 1 2011 45 () Not Given hepatitis B vaccine, unspecifi ed formulati on DoD tetanus toxoid, reduced diphtheria toxoid, and acellular pertu is vaccine, adsorbed 1 2011 [id number] [id number] 115 SmithKline ([facility]) complet ed tetanus toxoid, reduced diphtheri a toxoid, and acellular pertussis vaccine, adsorbed DoD tuberculin purified protein derivative 2011 [id number] 96 sanofi pasteur complet ed tuberculi n purified protein derivativ e 02/23/11 Given Ambulat ory Pharmac y adenovirus vaccine, live 2010 [id number] 143 Teva Pharmaceutica complet ed adenoviru s vaccine, live 02/21/11 Given Ambulat ory Pharmac y influenza, seasonal, injectable-pf 2010 [id number] 140 sanofi pasteur complet ed influenza , seasonal, injectabl e-pf 02/21/11 Given Ambulat ory Pharmac y meningococcal A,C,Y,W-135 (MCV4P) 2010 [id number] 114 sanofi pasteur complet ed meningoco ccal A,C,Y,W-1 35 (MCV4P) 02/21/11 Given Ambulat ory Pharmac y poliovirus vaccine, inactivated 2010 G1500 10 sanofi pasteur complet ed polioviru s vaccine, inactivat ed 02/21/11 Given Ambulat ory Pharmac y poliovirus vaccine, inactivated 1 2010 G1500 10 Sanofi Pasteur ([facility]) complet ed polioviru s vaccine, inactivat ed DoD meningococcal polysaccharid e (groups A, C, Y and W-135) diphtheria toxoid conjugate vaccine (MCV4P) 1 2010 [id number] 114 Sanofi Pasteur ([facility]) complet ed meningoco ccal polysacch aride (groups A, C, Y and W-135) diphtheri a toxoid conjugate vaccine (MCV4P) DoD Influenza, seasonal, injectable, preservative free 1 2010 [id number] 140 Sanofi Pasteur (PMC) complet ed Influenza , seasonal, injectabl e, preservat wendy free DoD Adenovirus, type 4 and type 7, live, oral 1 2010 [id number] 143 [facility] ([facility]) complet ed Adenoviru s, type 4 and type 7, live, oral DoD Results Combined list of recent chemistry, hematology and other laboratory results from Department of Defense and Veterans Affairs, ranging from 15 months to all on record, depending upon the facility. Order Name Results Value Reference Range Date Interpretation Specimen Comments Source Infectio us Disease HIV-1/O/2 Non-Reac tive 3 (10/10/22 9:55 AM) 10/10 N Interpretiv e Data: INTERPRETAT ION: This method is a screening procedure for the detection of HIV p24 Antigen and Antibodies to HIV-1, including Group O, and/or HIV-2. NON-REACTIV E: HIV-1 antigen and HIV-1 / HIV-2 antibodies were not detected. No laboratory evidence of HIV infection. A negative test result does not exclude the possibility of exposure to or infection with HIV. HIV antibodies and/or p24 antigen may be undetectabl e in some stages of the infection and in some clinical conditions. If acute HIV infection is suspected, consider submitting another specimen to a reference laboratory for HIV-1 RNA. SCREEN REACTIVE - CONFIRMATIO N TO FOLLOW: Possible presence of HIV-1antibo dies, HIV-2 antibodies and/or HIV-1 p24 antigen. Specimen will reflex to the confirmatio n testing that fulfills the Center for Disease Control and Prevention' s HIV diagnostic algorithm. Refer to [facility] Lab Guide for additional information : [email or web address]/ [email or web address]/[email or web address]/EPIL [email or web address]/la [email or web address] x Testing performed by Marjorie brooke. Ambulator y Pharmacy Miscella neous Sendouts Repository Sample Received (10/10/22 9:55 AM) 10/10 N Ambulator y Pharmacy Infectio us Disease HIV-1/O/2. EPI NON-REAC TIVE 11/07 Result Comment: INTERPRETAT ION(S): This method is a screening procedure for the detection of HIV p24 Antigen and Antibodies to HIV-1, including Group O, and/or HIV-2. NON-REACTIV E: HIV-1 antigen and HIV-1 / HIV-2 antibodies were not detected. No laboratory evidence of HIV infection. A negative test results does not exclude the possibility of exposure to or infection with HIV. HIV antibodies and/or p24 antigen may be undetectabl e in some stages of the infection and in some clinical conditions. If acute HIV infection is suspected, consider submitting another specimen to a reference laboratory for HIV-1 RNA. SCREEN REACTIVE - CONFIRMATIO N TO FOLLOW: Possible presence of HIV-1 antibodies, HIV-2 antibodies and/or HIV-1 p24 antigen. Specimen will reflex to the confirmatio n testing that fulfills the Center for Disease Control and Prevention' s HIV diagnostic algorithm. [facility] to [facility] Guide for additional information : [email or web address]/k j/kx5/Gilda b/Pages/lab _guide.aspx Testing performed by Marjorie brooke. Performed by: [facility] B[facility] [address] [place] [id number] Amb[facility] Pharmacy Faithcella shoshanaus Sendouts Repository Sample.EPI RECEIVED 11/07 Result Comment: INTERPRETAT ION(S): Performed by: [facility] [address] [place] [phone] [facility] Pharm[facility] Vital Signs Combined list of inpatient and outpatient Vital Signs from Department of Defense and Veterans Affairs, ranging from 12 months to all on record, depending upon the facility. Vital Sign Value Date Comments Source No data available for this section Ambulatory Pharmacy Encounters Combined list of: 1) Encounters from Department of Veterans Affairs facilities going back up to thelast 18 months. 2) Encounters from the Department of Defense facilities going back up to 280 months. Location Location Details Encounter Type Encounter Number Reason For Visit Attending Provider ADM Date DC Date Status Disposition Source [place] [address](Opt ometry Clinic BMT [facility]ASC) OUTPATIENT [id number] SHELLY GRANDE 02/27 Released w/o Limitations [facility] [place] [address](O ptometr y Clinic BMT [facility]) [place] [address](MAS Delta) OUTPATIENT [id number] Cold Symptom s KAL MAO 04/07 Released w/o Limitations [facility] [place] [address](M Delta) [place], [place]NASP Occup[facility] nal Health) OUTPATIENT [id number] [employer] RPP 0800 JONATAN RIVERO 05/07 Released w/o Limitations [place] Occup[place]) [place]NA[place] Hearing Conserv[place] OUTPATIENT [id number] [employer] AUDIO. ATIF GONZALEZ 05/08 Released w/o Limitations [place]NA[place] [facility] [place] [facility]) [facility](Opt ometry) OUTPATIENT [id number] CAMERON Young 09/15 Released w/o Limitations [facility](O ptometr y) [facility] ght Medicine Clinic) OUTPATIENT [id number] 58MXS Physica l showtim e 0830 TOÑO ANDERS 09/02 Released w/o Limitations [facility](F light Medicin e Clinic) [facility](Kir and_[facility] _Team_Lob o) TELE CONSULT [id number] Notes Entered by: SANJANA MICHAELS 16 Sep 2012 1308 ------- ------- ------- ------- -- EMA BEEBE 09/16 Referred for Appointment [facility](Fauzia perla _[facility]_Te am_Lobo ) [facility]([place]_[facility] _Team_Lob o) OUTPATIENT [id number] f/u ER visit [place] NENA CAMPBELL 10/27 Released with Work/Duty Limitations [facility](K janiceand _C_Te am_Lobo ) [facility]([place]_[facility] _Team_Lob o) TELE CONSULT [id number] Notes Entered by: TRAVIS MERINO 15 Nov 2012 1109 ------- ------- ------- ------- -- NETWORK RESULTS - OTHOPED ICS - [id number] [place] NENA CAMPBELL 11/15 [facility](Fauzia irlaury _[facility]_Te am_Lobo ) [facility]([place]_[facility] _Team_Lob o) TELE CONSULT [id number] Notes Entered by: JONN GALVIN 16 Nov 2012 1115 ------- ------- ------- ------- -- NETWORK RESULTS ---ORTH OPAEDIC [id number] OF [facility] LA NENA CAMPBELL 11/16 [facility](Fauzia irjudy _[facility]_Te am_Lobo ) [facility] _Team_Roa unner) OUTPATIENT [id number] sore throat ad MONIKA VOGT 06/28 Released w/o Limitations [facility](Fauzia irand _[facility]_Te am_Road runner) [facility] OUTPATIENT [id number] anuradhau ritika lipscomb [facility] DARYN Simental 08/11 Released w/o Limitations [facility](F light Medicin e Clinic) [facility] Team E) TELE CONSULT [id number] Notes Entered by: Fauzia OROZCO 19 Aug 2013 1418 ------- ------- ------- ------- -- ANNUAL PHA, UPDATE EMA CROCKER 08/19 Other Not Elsewhere Classified [facility](K irand [facility] Team E) [facility](Chi ropractic Clinic) OUTPATIENT [id number] New visit ENID GONZALEZ 09/27 Released w/o Limitations [facility](C hiropra ctic Clinic) [facility] _Team_Roa drunner) OUTPATIENT [id number] POSSIBL E STD-PT PROVIDE D LIMITED SYMPTOM S RAFAT ROSE 09/28 Released w/o Limitations [facility]([place] _[facility]_Te am_Road runner) [facility]) OUTPATIENT [id number] Follow up ENID GONZALEZ 09/29 Released w/o Limitations [facility](C [facility]) [facility] _Team_Roa drunner) TELE CONSULT [id number] Notes Entered by: JIM ROMANO 30 Sep 2013 1419 ------- ------- ------- ------- -- LAB PAUL CHUN 09/30 Referred for Appointment [facility]([place] _[facility]_Te am[facility]) [facility]) OUTPATIENT [id number] Follow up ENID GONZALEZ 10/03 Released w/o Limitations [employer]([place] _Team_[employer] [place]) TELE CONSULT [id number] Notes Entered by: SA TD ROSE 03 Oct 2013 1304 ------- ------- ------- ------- -- Need follow up PAUL CHUN 10/03 Referred for Appointment [employer]([place] _C_Te am_[employer] [facility]) [facility]) OUTPATIENT [id number] Notes Entered by: YU MCCURDY 04 Oct 2013 1337 ------- ------- ------- ------- -- STI Chlamyd HUNG Martin 10/04 Released w/o Limitations [employer]([facility]) [employer] [id number] Follow up ENID GONZALEZ 10/07 Released w/o Limitations [employer]([facility]) [facility] OUTPATIENT [id number] Follow up ENID GONZALEZ 10/13 Released w/o Limitations [employer]([facility]) [employer]([facility] OUTPATIENT [id number] Follow up ENID GONZALEZ 10/27 Released w/o Limitations [employer]([facility]) [employer]([place] _Team[place]) OUTPATIENT [id number] [facility] NENA Pierson 04/25 Released w/o Limitations [employer]([place] _[facility]_Te am_Road runner) [employer] OUTPATIENT [id number] [facility] 24 y/o glasses wear-wa DARYN Gutierrez 09/14 Released w/o Limitations [employer](F [facility]in [facility]) [facility]([place] _[place]) TELE CONSULT [id number] Notes Entered by: ALEJANDRA MCKENZIE 14 Sep 2014 1445 ------- ------- ------- ------- -- PHA ROUTINE LASHAE PICHARDO 09/14 Other Not Elsewhere Classified [facility]([place] _[facility]_Te am_Road runner) [facility](Opt ometry) OUTPATIENT [id number] ENID MCFARLAND 09/25 Released w/o Limitations [facility](O ptometr y) [facility] Team A) TELE CONSULT [id number] Notes Entered by: HENRY MOE 02 Feb 2015 1351 ------- ------- ------- ------- -- Medical In-proc HENRY Cherry 02/02 Released to Self Care [facility]) [facility] Team A) OUTPATIENT [id number] check up DENNYS Bay 04/13 Released w/o Limitations [facility] Team A) [facility] Team A) TELE CONSULT [id number] Notes Entered by: HENRY MOE 17 Apr 2015 1634 ------- ------- ------- ------- -- Normal Lab Result HENRY MOE 04/17 Released to Self Care [facility] Team A) [facility] Team A) OUTPATIENT [id number] f/u lab DENNYS SOLANO Shannan 05/05 Released w/o Limitations [facility] Team A) [facility] Team A) TELE CONSULT [id number] Notes Entered by: HENRY MOE 14 May 2015 1421 ------- ------- ------- ------- -- Normal Lab Results HENRY MOE 05/13 Released to Self Care [facility] Team A) [facility] Team A) TELE CONSULT [id number] Notes Entered by: HENRY MOE 16 May 2015 1302 ------- ------- ------- ------- -- Normal Lab Result HENRY MOE 05/15 Released to Self Care [facility] Team A) [facility] Team A) TELE CONSULT [id number] Notes Entered by: HENRY MOE 18 May 2015 0928 ------- ------- ------- ------- -- Normal Lab Result HENRY MOE 05/17 Released to Self Care [facility] Team A) [facility] Medicine [facility]) OUTPATIENT [id number] CAMERON Boggs 08/22 Released w/o Limitations [facility]( light Medicin e Clinic) [facility] Medicine [facility]) OUTPATIENT [id number] CHANELL CADENA 08/27 Released w/o Limitations [employer](F [facility]) [employer](BO C 1) TELE CONSULT [id number] Notes Entered by: MANUEL COCHRAN 01 Oct 2015 1425 ------- ------- ------- ------- -- [place] 10 Year Record Reviews ALEJANDRA HENSLEY 09/30 [facility]) [employer]([facility]) TELE CONSULT [id number] Notes Entered by: JUAN C SALAS 21 Feb 2016 1241 ------- ------- ------- ------- -- In/Out Process ing WS AVEL SALAS 02/20 [employer]([facility]) [employer]([facility]) OUTPATIENT [id number] resp questio YESENIA Grant 03/11 Released w/o Limitations [employer](Opt ometry Clinic) OUTPATIENT [id number] ANNUAL NEW PT JESSIE MOREL 06/19 Released w/o Limitations [facility](O ptometr y Clinic) [facility] Hearing Consv) OUTPATIENT [id number] audio/O VITO RODRIGEZ 07/28 Released w/o Limitations [facility] Hearing Consv) [facility]) OUTPATIENT [id number] OH1/aud YESENIA Melvin 07/28 Released w/o Limitations [facility]) [facility]) OUTPATIENT [id number] OH2/DI ALICIA 07/31 Released w/o Limitations [facility] Group(D [facility]) [facility]) OUTPATIENT [id number] ROSI NARANJO 10/14 Released w/o Limitations [facility] Group([facility]) [facility]) OUTPATIENT [id number] Notes Entered by: Rigo OSBORN 16 Oct 2016 1450 ------- ------- ------- ------- -- Tri [facility] DARRON ELINORADRIÁN LOVE 10/16 Released w/o Limitations [facility] Group([facility]) [facility] Medical [facility]) OUTPATIENT [id number] PAULETTE PAGE 12/23 Released w/o Limitations [facility]) Theater Facility OUTPATIENT [id number] Theater Provider 09/03 Released w/o Limitations [facility] OUTPATIENT [id number] Theater Provider 09/13 Released w/o Limitations Theater Facilit y [facility] Medical [facility] Hearing Consv) OUTPATIENT [id number] Notes Entered by: BURTON GONZALEZ 25 Sep 2017 0957 ------- ------- ------- ------- -- walk in audiogr am for CHITO Woody NMI 09/25 Released w/o Limitations [facility] Medical Group([facility] Hearing Consv) [facility] Medical [facility]) OUTPATIENT [id number] Notes Entered by: GIGI GASTON 15 Oct 2017 1256 ------- ------- ------- ------- -- Walk In STI Check GIGI GASTON 10/15 Released w/o Limitations [facility]) [facility]) OUTPATIENT [id number] [facility] [phone] PAULETTE PATEL 10/20 Released w/o Limitations [facility] Medical [facility]) [address] [place] [address] Group([facility]) TELE CONSULT [id number] Notes Entered by: CURTIS SAM 20 Oct 2017 1531 ------- ------- ------- ------- -- Lab results AVEL SALAS 10/20 [facility]) [facility]) OUTPATIENT [id number] Notes Entered by: Bg AGUILAR 28 Oct 2017 1126 ------- ------- ------- ------- -- Annual [facility] ALFRED RODRIGUES V 10/28 Released w/o Limitations [facility] Medical Group([facility]) [facility] Group([facility]) OUTPATIENT [id number] Notes Entered by: CARMELINA PULIDO P 12 Nov 2017 1305 ------- ------- ------- ------- -- CRS package TAYLOR ROCA 11/12 Released w/o Limitations [facility] Group(O ptometr y Clinic) [address] [place] [address]([facility]) TELE CONSULT [id number] Notes Entered by: JESSICA HOGUE X 17 Nov 2017 1154 ------- ------- ------- ------- -- [facility] Newton l - SHRUTI THOMPSON 11/17 [facility] Medical [facility]) [facility] Medical [facility]) TELE CONSULT [id number] Notes Entered by: SHYAM COKER 01 Dec 2017 1024 ------- ------- ------- ------- -- CRS email DI MCCURDY 12/01 [facility] Medical Group(O ptometr y Clinic) [facility] Medical [facility]) OUTPATIENT [id number] BRAULIO Thompson 12/16 Released w/o Limitations [facility] Group(O ptometr y Clinic) [facility] Medical [facility]) OUTPATIENT [id number] DRHA3 [phone] PAULETTE PATEL 01/06 Released w/o Limitations [facility] Medical [facility]) [address] [place] [address]([facility]metry Clinic) OUTPATIENT [id number] Notes Entered by: CARMELINA PULIDO P 04 Feb 2018 0806 ------- ------- ------- ------- -- TAYLOR HAINES 02/04 Released w/o Limitations [address] [place] [address](O ptometr y Clinic) [address] [place] [address]([facility]) OUTPATIENT [id number] Notes Entered by: YESENIA HOLLAND 08 Feb 2018 0746 ------- ------- ------- ------- -- OH2/JACOB MELISSA 02/08 Released w/o Limitations [address] [place] [address]([facility]) [address] [place] [address]([facility] Soliz) TELE CONSULT [id number] Notes Entered by: Rigo ROMEO 23 Mar 2018 1602 ------- ------- ------- ------- -- Network Results - Optomet ry 018 REYNA YI 03/[address] [place] [address]([facility] Mart[facility]nez) [address] [place] [address]([facility] Deepak) TELE CONSULT [id number] Notes Entered by: DARIUS DEL RIO 27 Apr 2018 1408 ------- ------- ------- ------- -- SYMPTOM S/UC FOLLOWU P/REFER RITIKA-MAYI ANDRADE 04/[address] [place] [address]([facility] Deepak) [address] [place] [address]([facility] Deepak) OUTPATIENT [id number] back pain CHEYANNE PRADO 04/27 Released with Work/Duty Limitations [address] [place] [address]([facility] Deep[facility]) [address] [place] [address]([facility] Deepak) TELE CONSULT [id number] Notes Entered by: DARIUS DEL RIO 16 Aug 2018 1624 ------- ------- ------- ------- -- Network Results -URGENT CARE W/ RADIOLO GY 2018 REYNA YI 08/16 [employer]([facility] Deepak) [facility] Brea) TELE CONSULT [id number] Notes Entered by: YASHIRA PULIDO 23 Aug 2018 1135 ------- ------- ------- ------- -- Network Results -Physic al Therapy 9-06/28 REYNA YI 08/23 [facility] Group([facility] [employer]) [facility]) OUTPATIENT [id number] Notes Entered by: ROSI NARANJO 17 Nov 2018 1605 ------- ------- ------- ------- -- DRHA4 MHA ROUTINE ROSI NARANJO 11/17 Released w/o Limitations [facility] Group([facility]) [facility] Martínez) OUTPATIENT [id number] [facility] PHA KAROL WILL 11/26 Released w/o Limitations [facility] Medical [facility] [place]) [facility] Medical [facility]metry Clinic) OUTPATIENT [id number] 3 CMR JEWELS GARY 11/29 Released w/o Limitations [facility] Medical Group(O ptometr y Clinic) [facility] Medical [facility] Hearing Consv) OUTPATIENT [id number] CMR 135A JEAN-PIERRE PACK 11/29 Released w/o Limitations [facility] Group([facility]) OUTPATIENT [id number] 3 CMR/OH1 YESENIA [place] 11/29 Released w/o Limitations [facility] Medical Group(P ublic [facility]) [facility] Medical [facility]) OUTPATIENT [id number] CMR/OH2 /PE JACOB MOLINA 12/02 Released w/o Limitations [facility] Group([facility]) [facility]) OUTPATIENT [id number] DRHA5 MHA ROUTINE ROSI NARANJOER 11/07 Released w/o Limitations [employer](D [facility]) [employer]([facility] [employer]) OUTPATIENT [id number] CMR YOVANI ALDANA 12/07 Released w/o Limitations [employer]([facility] [employer]) [employer]([facility] FB [place]) OUTPATIENT [id number] CMR/PE JACOB MOLINA N 12/13 Released w/o Limitations [employer]([facility] BO) [employer]([facility]) OUTPATIENT [id number] 6 CMR JEWELS GARY 12/14 Released w/o Limitations [employer](O ptometr y Clinic) [employer]([facility] FB Hearing Consv) OUTPATIENT [id number] CMR AUDIO 135A GUAJARDOESTEFANY 12/14 Released w/o Limitations [employer]([facility] Hearing Consv) [employer](Pub lic Health) OUTPATIENT [id number] CMR/SPE GEORGINA JOEL 12/14 Released w/o Limitations [employer](P ublic Health) [employer](Chi [facility]ractic Clinic) OUTPATIENT [id number] RITO SMITH 01/04 Released w/o Limitations [employer](C [facility]tic Clinic) [employer]([facility] OUTPATIENT [id number] adj/2nd RITO SMITH 01/25 Released w/o Limitations [employer]([facility]) [employer]([facility]) OUTPATIENT [id number] adj/3rd RITO SMITH 02/06 Released w/o Limitations [employer]([facility]) [employer]([facility]) OUTPATIENT [id number] RITO SMITH 03/01 Released w/o Limitations [employer]([facility] Clinic) 0310C-AF- C-[facility] Between Visit [id number] 04/09 Discharge Disposition: Home or Self Care 0310C-A F-C-[facility] 0310A-AF- C-[facility] [employer] Between Visit [id number] 09/08 Discharge Disposition: Home or Self Care 0310A-A F-C-[facility] 7[facility] Outpatient [id number] Encount er for issue of other medical certifi tad ELIZONDO 09/08 Discharge Disposition: Home or Self Care 7379C-[facility] Center 309C-AF- C-[facility] [employer] Dental [id number] CESAR MAKOMAGLORIA MACKENZIE 12/14 Discharge Disposition: Home or Self Care 0310C-A F-C-[facility] 0310A-AF- C-[facility] Between Visit [id number] 12/30 Discharge Disposition: Home or Self Care 0310A-A F-C-[facility] Procedures Combined list of: 1) Procedures from Department of Veterans Affairs facilities going back up to thelast 18 months, not all VA non-surgical procedures are included; 2) All procedures from the Department of Defense facilities. Procedure Procedure Type Code Date Perfomer Comments Sourc e R hand surgery x2 Last 2021 309 C-AF -C-[facility] WTE 0C-AF -C-[facility] PURE TONE AUDIOMETRY (THRESHOLD); AIR ONLY 2011 DoD PATIENT EDUCATION, NOT OTHERWISE CLASSIFIED, NON-PHYSICIAN PROVIDER, INDIVIDUAL, PER SESSION 2011 DoD PURE TONE AUDIOMETRY (THRESHOLD); AIR ONLY 2015 DoD PRESCRIPTION OF OPTICAL AND PHYSICAL CHARACTERISTICS OF AND FITTING OF CONTACT LENS, WITH MEDICAL SUPERVISION OF ADAPTATION; CORNEAL LENS, BOTH EYES, EXCEPT FOR APHAKIA 2014 DoD MANUAL THERAPY TECHNIQUES (EG, MOBILIZATION/ MANIPULATION, MANUAL LYMPHATIC DRAINAGE, MANUAL TRACTION), 1 OR MORE REGIONS, EACH 15 MINUTES 2013 DoD MANUAL THERAPY TECHNIQUES (EG, MOBILIZATION/ MANIPULATION, MANUAL LYMPHATIC DRAINAGE, MANUAL TRACTION), 1 OR MORE REGIONS, EACH 15 MINUTES 2013 DoD MANUAL THERAPY TECHNIQUES (EG, MOBILIZATION/ MANIPULATION, MANUAL LYMPHATIC DRAINAGE, MANUAL TRACTION), 1 OR MORE REGIONS, EACH 15 MINUTES 2013 DoD THERAPEUTIC, PROPHYLACTIC, OR DIAGNOSTIC INJECTION (SPECIFY SUBSTANCE OR DRUG); SUBCUTANEOUS OR INTRAMUSCULAR 2013 DoD MANUAL THERAPY TECHNIQUES (EG, MOBILIZATION/ MANIPULATION, MANUAL LYMPHATIC DRAINAGE, MANUAL TRACTION), 1 OR MORE REGIONS, EACH 15 MINUTES 2013 DoD MANUAL THERAPY TECHNIQUES (EG, MOBILIZATION/ MANIPULATION, MANUAL LYMPHATIC DRAINAGE, MANUAL TRACTION), 1 OR MORE REGIONS, EACH 15 MINUTES 2013 DoD MANUAL THERAPY TECHNIQUES (EG, MOBILIZATION/ MANIPULATION, MANUAL LYMPHATIC DRAINAGE, MANUAL TRACTION), 1 OR MORE REGIONS, EACH 15 MINUTES 2013 DoD PURE TONE AUDIOMETRY (THRESHOLD); AIR ONLY 2013 DoD PURE TONE AUDIOMETRY (THRESHOLD); AIR ONLY 2012 DoD FITTING OF SPECTACLES, EXCEPT FOR APHAKIA; MONOFOCAL 2011 DoD CHIROPRACTIC MANIPULATIVE TREATMENT (CMT); SPINAL, 3-4 REGIONS 2020 DoD CHIROPRACTIC MANIPULATIVE TREATMENT (CMT); SPINAL, 3-4 REGIONS 2019 DoD CHIROPRACTIC MANIPULATIVE TREATMENT (CMT); SPINAL, 3-4 REGIONS 2019 DoD CHIROPRACTIC MANIPULATIVE TREATMENT (CMT); SPINAL, 3-4 REGIONS 2019 DoD PSYCHOLOGICAL OR NEUROPSYCHOLOGICAL TEST ADMINISTRATION, WITH SINGLE AUTOMATED, STANDARDIZED INSTRUMENT VIA ELECTRONIC PLATFORM, WITH AUTOMATED RESULT ONLY 2019 DoD VIS FUNCT SCREEN,AUTOMAT/SEMI- AUTOMAT BILAT QUANT DETERM VISUAL ACUITY,OCULAR ALIGN,COLOR VISION,PSEUDOISOCHRO MAT PLATES,& FIELD VIS (MAY INC ALL/SOME SCRN DETERM FOR CONTRAST SENSITIV,VIS UND GLARE) 2019 DoD PURE TONE AUDIOMETRY (THRESHOLD), AUTOMATED; AIR ONLY 2019 DoD ADMINISTRATION OF PATIENT-FOCUSED HEALTH RISK ASSESSMENT INSTRUMENT (EG, HEALTH HAZARD APPRAISAL) WITH SCORING AND DOCUMENTATION, PER STANDARDIZED INSTRUMENT 2019 DoD FITTING OF SPECTACLES, EXCEPT FOR APHAKIA; MONOFOCAL 2019 DoD BRIEF COMM TECH-BASE SERV,E.G. VIRT CHK-IN,BY PHYS/OTH QUAL HCP,RPT E&M SERV,PROV TO EST PT,NOT ORIG FRM REL E/M SERV PROV W/IN PREV 7DAY NOR LEAD TO E/M SRV/PX W/IN NEXT 24HR/SOON ROSALINO; 5-10 MIN DISC 2019 DoD PURE TONE AUDIOMETRY (THRESHOLD), AUTOMATED; AIR ONLY 2018 DoD ADMINISTRATION OF PATIENT-FOCUSED HEALTH RISK ASSESSMENT INSTRUMENT (EG, HEALTH HAZARD APPRAISAL) WITH SCORING AND DOCUMENTATION, PER STANDARDIZED INSTRUMENT 2018 DoD PSYCHOLOGICAL OR NEUROPSYCHOLOGICAL TEST ADMINISTRATION, WITH SINGLE AUTOMATED, STANDARDIZED INSTRUMENT VIA ELECTRONIC PLATFORM, WITH AUTOMATED RESULT ONLY 2018 DoD DETERMINATION OF REFRACTIVE STATE 2018 DoD ONLINE ASSESS &MANAG SERV PROVIDE,A QUAL NONPHYS HCP TO AN ESTABLISHED PAT/GUARDIAN,NOT ORIGINAT FRM RELAT ASSESS &MANAG SERV PROVIDE W/IN THE PREV 7 DAYS,USE THE [email or web address] NETWORK 2018 DoD SCREENING TEST, PURE TONE, AIR ONLY 2017 DoD ONLINE ASSESS &MANAG SERV PROVIDE,A QUAL NONPHYS HCP TO AN ESTABLISHED PAT/GUARDIAN,NOT ORIGINAT FRM RELAT ASSESS &MANAG SERV PROVIDE W/IN THE PREV 7 DAYS,USE THE [email or web address] NETWORK 2017 DoD OPHTHALMIC ULTRASOUND, ECHOGRAPHY, DIAGNOSTIC; CORNEAL PACHYMETRY, UNILATERAL OR BILATERAL (DETERMINATION OF CORNEAL THICKNESS) 2017 DoD TELE ASSESS & MGT SRV PROV QUAL NONPHYS HLTH CARE PRO TO EST PAT,PARENT,GUARD NOT ORIG REL ASSESS & MGT SRV PROV W/IN PREV 7 DAYS NOR LEAD ASSESS & MGT SRV/PX W/IN NXT 24 HR/SOON APT;5-10 MIN MED DIS 2017 DoD ADMINISTRATION OF PATIENT-FOCUSED HEALTH RISK ASSESSMENT INSTRUMENT (EG, HEALTH HAZARD APPRAISAL) WITH SCORING AND DOCUMENTATION, PER STANDARDIZED INSTRUMENT 2017 DoD ADMINISTRATION OF PATIENT-FOCUSED HEALTH RISK ASSESSMENT INSTRUMENT (EG, HEALTH HAZARD APPRAISAL) WITH SCORING AND DOCUMENTATION, PER STANDARDIZED INSTRUMENT 2017 DoD PURE TONE AUDIOMETRY (THRESHOLD), AUTOMATED; AIR ONLY 2017 DoD PSYCHIATRIC EVALUATION OF HOSPITAL RECORDS, OTHER PSYCHIATRIC REPORTS, PSYCHOMETRIC AND/OR PROJECTIVE TESTS, AND OTHER ACCUMULATED DATA FOR MEDICALDIAGNOSTIC PURPOSES 2016 DoD NEUROPSYCHOLOGICAL TESTING (EG, [place] CARD SORTING TEST), ADMINISTERED BY A COMPUTER, WITH QUALIFIED HEALTH SAFETY TECH INTERPRETATION AND REPORT 2016 DoD ADMINISTRATION OF PATIENT-FOCUSED HEALTH RISK ASSESSMENT INSTRUMENT (EG, HEALTH HAZARD APPRAISAL) WITH SCORING AND DOCUMENTATION, PER STANDARDIZED INSTRUMENT 2016 [facility] ONLINE ASSESS &MANAG SERV PROVIDE,A QUAL NONPHYS HCP TO AN ESTABLISHED PAT/GUARDIAN,NOT ORIGINAT FRM RELAT ASSESS &MANAG SERV PROVIDE W/IN THE PREV 7 DAYS,USE THE [email or web address] NETWORK 2016 [facility] PURE TONE AUDIOMETRY (THRESHOLD), AUTOMATED; AIR ONLY 2016 [facility] FITTING OF SPECTACLES, EXCEPT FOR APHAKIA; MONOFOCAL 2016 [facility] THERAPEUTIC, PROPHYLACTIC, OR DIAGNOSTIC INJECTION (SPECIFY SUBSTANCE OR DRUG); SUBCUTANEOUS OR INTRAMUSCULAR 2011 [facility] SCREENING TEST OF VISUAL ACUITY, QUANTITATIVE, BILATERAL 2011 [facility] Audiogram (Screening) Audiogram (Screening) 69176 2017 JACOB MOLINA [facility] Internet Med Svc Qual Nonphys Healthcare Prof Up To 7 Days Estab Patient Internet Med Sv Qual Nonphys Healthcare Prof Up To 7 Days Estab Patient 11532 2017 BECKIE PATEL Preventive Medicine Administration Of Health Risk Questionnaire Patient-Focused Preventive Medicine Administration Of Health Risk Questionnaire Patient-Focused 13800 2017 BECKIE PATEL Corneal Pachymetry Both Eyes Corneal Pachymetry Both Eyes 70948 2017 BRAULIO DELGADO Computerized Corneal Topography Computerized Corneal Topography 77765 2017 BRAULIO DELGADO Determination Of Refractive State Determination Of Refractive State 18734 2017 BRAULIO DELGADO Ophthalmological New Patient Start Comprehensive Care Ophthalmological New Patient Start Comprehensive Care 55822 2017 BRAULIO DELGADO Non-Physician Phone Call To Patient/Provider Brief (5-10min) Non-Physician Phone Call To Patient/Provider Brief (5-10min) 21661 2017 SHRUTI THOMPSON [facility] Preventive Medicine Administration Of Health Risk Questionnaire Patient-Focused Preventive Medicine Administration Of Health Risk Questionnaire Patient-Focused 15668 2017 ALFRED LAIRD V [facility] [facility] Prevent[facility] Medicine Administration Of Health Risk Questionnaire Patient-Focused Preventive Medicine Administration Of Health Risk Questionnaire Patient-Focused [id number] 2017 BECKIE PATEL Threshold Audiogram (Pure Tone) Automated Threshold Audiogram (Pure Tone) Automated 0208T 2017 MEL SPANGLER [facility] Psychiatric Diagnostic Evaluation Review of Records and Reports Psychiatric Diagnostic Evaluation Review of Records and Reports 04067 2016 DOROTHY QUEZADA Psychometric Neuropsych Testing Battery Admin By Computer Psychometric Neuropsych Testing Battery Admin By Computer 14890 2016 LELA WANG Preventive Medicine Administration Of Health Risk Questionnaire Patient-Focused Preventive Medicine Administration Of Health Risk Questionnaire Patient-Focused [id number] 2016 BECKIE PATEL Internet Med Svc Qual Nonphys Healthcare Prof Up To 7 Days Estab Patient Internet Med Svc Qual Nonphys Healthcare Prof Up To 7 Days Estab Patient 00803 2016 ROSI NARANJO Preventive Medicine Administration Of Health Risk Questionnaire Patient-Focused Preventive Medicine Administration Of Health Risk Questionnaire Patient-Focused 03478 2016 ROSI NARANJO Threshold Audiogram (Pure Tone) Automated Threshold Audiogram (Pure Tone) Automated 0208T 2016 VITO PRIEST Spectacles Services Fitting Monofocal Except For Aphakia Spectacles Services Fitting Monofocal Except For Aphakia 96991 2016 JESSIE MOREL Determination Of Refractive State Determination Of Refractive State 91457 2016 JESSIE MOREL Ophthalmological New Patient Start Comprehensive Care Ophthalmological New Patient Start Comprehensive Care 29586 2016 JESSIE MOREL Threshold Audiogram (Pure Tone) Threshold Audiogram (Pure Tone) 93628 2015 CHANELL LOOMIS Spectacles Services Fitting Monofocal Except For Aphakia Spectacles Services Fitting Monofocal Except For Aphakia 13500 2014 ENID PLEITEZ 1 FOC, 1 5A, 1 GMI. PD 65 Shiva Prescription And Fitting Bilateral Corneal Lenses (Not For Aphakia) Prescription And Fitting Bilateral Corneal Lenses (Not For Aphakia) 99710 2014 ENID PLEITEZ Ophthalmological New Patient Start Comprehensive Care Ophthalmological New Patient Start Comprehensive Care 73790 2014 ENID PLEITEZ Determination Of Refractive State Determination Of Refractive State 63730 2014 ENID PLEITEZ Mobilization Soft Ti ue Mobilization Soft Tissue 70685 2013 ENID GONZALEZ Chiropractic Manip Treatmt (CMT) Spinal Three To Four Region Chiropractic Manip Treatmt (CMT) Spinal Three To Four Region 28465 2013 ENID GONZALEZ Mobilization Soft Ti ue Mobilization Soft Tissue 67929 2013 ENID GONZALEZ Chiropractic Manip Treatmt (CMT) Spinal Three To Four Region Chiropractic Manip Treatmt (CMT) Spinal Three To Four Region 67114 2013 ENID GONZALEZ Mobilization Soft Ti ue Mobilization Soft Tissue 25051 2013 ENID GONZALEZ Chiropractic Manip Treatmt (CMT) Spinal Three To Four Region Chiropractic Manip Treatmt (CMT) Spinal Three To Four Region 53267 2013 ENID GONZALEZ Physician Supervised Injection Intramuscular Physician Supervised Injection Intramuscular 01478 2013 PAUL CHUN Per Lt Rose, ceftriaxone 250 mg IM now. Patient identifiers obtained. Allergies verified. Procedure explained to pt. Verified physician's order via AHLTA note. Ceftriaxone 250 mg drawn and given right dorsogluteal IM. [employer], Lot [id number], Exp 25 Dec 2015. Ceftriaxone reconstituted with Lidocaine 1 %, [employer], Lot [id number], Exp 23 Nov 2014. Pt in exam room x 15 mins for observation. No apparent s/e's noted. Pt instructed to contact FP should any adverse reactions occur. Pt verbalized agreement/unde rstanding. Shiva Mobilization Soft Ti ue Mobilization Soft Tissue 21766 2013 ENID GONZALEZ Chiropractic Manip Treatmt (CMT) Spinal Three To Four Region Chiropractic Manip Treatmt (CMT) Spinal Three To Four Region 48479 2013 ENID GONZALEZ Mobilization Soft Ti ue Mobilization Soft Tissue 52845 2013 ENID GONZALEZ Chiropractic Manip Treatmt (CMT) Spinal Three To Four Region Chiropractic Manip Treatmt (CMT) Spinal Three To Four Region 86995 2013 ENID GONZALEZ Mobilization Soft Ti ue Mobilization Soft Tissue 91035 2013 ENID GONZALEZ Chiropractic Manip Treatmt (CMT) Spinal Three To Four Region Chiropractic Manip Treatmt (CMT) Spinal Three To Four Region 64328 2013 ENID GONZALEZ Threshold Audiogram (Pure Tone) Threshold Audiogram (Pure Tone) 85872 2013 DARYN MALCOLM Normal Shiva Threshold Audiogram (Pure Tone) Threshold Audiogram (Pure Tone) 73950 2012 CHAGO TOÑO Bernabe Shiva Spectacles Services Fitting Monofocal Except For Aphakia Spectacles Services Fitting Monofocal Except For Aphakia 59707 2011 CAMERON AGUIRRE Determination Of Refractive State Determination Of Refractive State 41620 2011 CAMERON AGUIRRE Ophthalmological New Patient Start Comprehensive Care Ophthalmological New Patient Start Comprehensive Care 90705 2011 CAMERON AGUIRRE Threshold Audiogram (Pure Tone) Threshold Audiogram (Pure Tone) 12317 2011 ATIF GONZALEZ Audiometry Group Testing Audiometry Group Testing 55435 2011 ATIF GONZALEZ Patient education, not otherwise cla ified, non-physician provider, group, per se ion 2011 ATIF GONZALEZ Patient education, not otherwise cla ified, non-physician provider, individual, per se ion 2011 JONATAN RIVERO Screening Test Of Visual Acuity, Quantitative, Bilateral Screening Test Of Visual Acuity, Quantitative, Bilateral 30173 2011 ISA COWAN Determination Of Refractive State Determination Of Refractive State 66607 2011 ISA COWAN Spectacles Services Fitting Monofocal Except For Aphakia Spectacles Services Fitting Monofocal Except For Aphakia 96289 2011 ISA COWAN Preventive Medicine Administration Of Health Risk Questionnaire Patient-Focused Preventive Medicine Administration Of Health Risk Questionnaire Patient-Focused 89609 ROSI NARANJO Internet Med Svc Qual Nonphys Healthcare Prof Up To 7 Days Estab Patient Internet Med Svc Qual Nonphys Healthcare Prof Up To 7 Days Estab Patient 73664 ROSI NARANJO Threshold Audiogram (Pure Tone) Automated Threshold Audiogram (Pure Tone) Automated 0208T JEAN-PIERRE PACK Ophthalmological Prior Patient Start Intermediate Level Care Ophthalmological Prior Patient Start Intermediate Level Care 10453 JEWELS GARY Determination Of Refractive State Determination Of Refractive State 22140 JEWELS GARY [facility] Psychometric Neuropsych Testing Battery Admin By Computer Psychometric Neuropsych Testing Battery Admin By Computer 89134 ANGÉLICA WHEATLEY [facility] Brief communication technology-based service, e.g. virtual check-in, by a physician or other qualified health care profe ildefonso who can report evaluation and management services, provided to an established patient, not originating from a related E/M service provided within the previous 7 days nor leading to an E/M service or procedure within the next 24 hours or soonest available appointment; 5-10 minutes of medical discu hattie NARANJOROSI [facility] Ophthalmological Prior Patient Start Comprehensive Care Ophthalmological Prior Patient Start Comprehensive Care 74273 JEWELS GARY Spectacles Services Fitting Monofocal Except For Aphakia Spectacles Services Fitting Monofocal Except For Aphakia 60105 JEWELS GARY Audiogram (Screening) Audiogram (Screening) 55651 JACOB MOLINA Spirometry Spirometry 55242 JACOB MOLINA Visual Function Screening Visual Function Screening 95795 JACOB MOLINA Chiropractic Manip Treatmt (CMT) Spinal Three To Four Region Chiropractic Manip Treatmt (CMT) Spinal Three To Four Region 05337 RITO SMITH Social History Combined list of available smoking, tobacco, and other 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 Social History Type Response Date Comment Sourc e Male 05/01/2020 Ambulatory Pha rmacy Sexual Orientation Ambula tory Pharmacy Gender identity Ambulator y Pharmacy This section is an empty soc ial history section. DoD Assessment and Plan Combined list of future care activities from Department of Defense and Veterans Affairs facilities (e.g., assessment and plan notes, appointments, orders, and referrals). Additional future care activities may be listed in the Plan of Care section. Result Assessment and Plan Date Source Assessment and Plan Extracted from:Title : MHA/PHA Author: GINETTE MCKEON NP Date: 09/09/23 Encounter for issue of other medical certificate Assessment and Plan Reviewed documentation of height and weight, current medical conditions and deployment related health problems, to include screening for traumatic brain injury exposure, allergies, medications, required immunizations, medical readiness laboratory tests, audiology, and optometry examinations. Completed screenings and provided patient education as appropriate. ? Assessed and reviewed?responses to AUDIT=3, PCL-C=0, PHQ-8=0 (no elevated?risk) screening tools, at this time no tasking or consults needed. Patient aware of services available (911, One source, Jewelry Setter Services, Walk in , Walk in ER, Notify chain of command, etc) and how to contact them if needed. SM denies suicidal and homicidal ideation.? ? Preventative services reviewed and discussed per age, race, and gender. Reviewed immunization history and assessed immunization status. Reviewed physical activity including aerobic and isometric exercises.??Reviewed risk sexual risk factors and previous STD testing date, including HIV. Reviewed readiness labs and examinations needed including recommendation for lipid screening every 5 years beginning at age 35. Compared medications reported by food service technician to active medication list in medical record and any variances were documented.? ? Any complaints or issues identified while conducting the PHA have been addressed and or referred back to the patient s ?PCM for care.?family member caretaker advised to follow up with PCM, Behavioral Health, ED/911, or One Source as needed for continuation of care, and/or further evaluation during exacerbations of physical and/or psychological illness or injury. See PHA document for additional information. Thirteen minutes of total time spent reviewing records, discussing health concerns and preventative health measures with Bander And Cellophaner Helper Machine. ? 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 SM present for virtual encounter. All age/gender specific CPS IAW USPSTF are up to date. No profiles, no DLCs. IMR Green.? +WWQ.? 2.?LBP - Low back pain F/U with PCM as needed. 3.?Obesity Follow a?healthy diet, regular exercise, and weight/BMI reduction achieving a healthy weight/BMI?(BMI 18.5-25.0); F/U with?PCM/Correctional Food Service Supervisor?as needed. 4.?GERD - Gastro-esophageal reflux disease Continue Omeprazole as prescribed along with avoiding triggers such as acidic/greasy/spicy food, heavy meals before bed, and caffeine;?achieving?a healthy diet and healthy weight. F/U with PCM for persistent or worsening symptoms.? 5.?Diarrhea Continue Fiber supplement as recommended by PCM, and continue F/U with PCM for management. Evan Sotomayor CTR?AVIONICS ENGINEER-C [place] Provider Flight Medicine? [employer] [place], [place]??[id number] [facility] [phone] ? 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 Member not present today in clinic for annual PHAQ.? PHAQ completed 11/07/2020.? HIV, Repository labs ordered.? No issues or concerns at this time.? No DR,MR,FR profiles.? Member is WWQ.? ? IMR status of member reviewed in ASINE.? Member is?yellow, due Influenza vaccine. ? ? ? Ordered: omeprazole, 1 cap(s), Oral, Daily, 30 to 60 minutes before a meal, # 90 cap(s), 3 total refill(s), Maintenance, 1 cap(s) Oral Daily,Instr:30 to 60 minutes before a meal, Pharmacy: [facility] [Not filled] Administration[facility] [address] HIV-1/O/2 EPI 97594 Repository Sample EPI 9340 Unlisted E&M Service 30102 ? 2.?ASSESSMENT, POST DEPLOYMENT, DOCUMENTED ON VA6441 (A) ?MHA reviewed with member and closed.? No referrals needed. Ordered: omeprazole, 1 cap(s), Oral, Daily, 30 to 60 minutes before a meal, # 90 cap(s), 3 total refill(s), Maintenance, 1 cap(s) Oral Daily,Instr:30 to 60 minutes before a meal, Pharmacy: [facility] [Not filled] Administration,[facility] [address] HIV-1/O/2 EPI 82342 Repository Sample EPI 9340 Unlisted E&M Service 19793 ? 3.?GERD - Gastro-esophageal reflux disease ?Refilled Omeprazole 40mg qd prn for GERD symptoms.? Take 30 minutes before meal.? FU with PCM if symptoms not improving in 4 weeks. ? Orders: *Resuscitation Status ANNUAL PERIODIC HEALTH ASSESSMENT ? I. SUPPLY CHAIN LOGISTICS MANAGER INFORMATION AND DEMOGRAPHICS (SMI) 1. Last Name: SRAVANI 2. First Name: DARYN 3. Middle Name: ROSHAN 4. Assessment Date: 5. : 6. Age: 30 7. Gender: M 8. DoD ID Number: [id number] 9. Service Branch: [employer] 10. 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 Status: Active Duty 12. 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 Unit Name: [address] 14. Duty Station/Location: [facility] 15. [facility]: [id number] 16. Is this your first Periodic Health Assessment (PHA)?: N 17. Are you enrolled in a secure messaging system with your health care provider?:? Y ? 18. Current contact information: Preferred Method: Day Time Phone DSN: [id number] Day Time Phone: [phone] Night Time Phone: Email 1: [email or web address] Email 2: Address: [address] City: [place] State: [place] Zip Code: [address] ? 19. Point of contact who can always reach you: Name: abby jordan Phone 1: [phone] Phone 2: EMAIL: Address: City: State: Zip Code: ? II. DEPLOYMENT INFORMATION (DEP) 1. Total number of deployments in the PAST 5 YEARS: 1 2. [place] [facility] 3. 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 Are you going to deploy within the NEXT 120 DAYS?: N ? III. OCCUPATIONAL INFORMATION (OCC) 1 What is your occupational code: [id number] 2. 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 Does your specialty require an operational duty physical exam?: No 4. Are you currently enrolled in a medical surveillance/occupational health program?:? Yes ? IV. MEDICAL CONDITIONS (BIJU): 1. Since your last PHA, have you experienced any of the following health conditions, and if so, what is your status? Conditions with no medical care: ? ?? Conditions with medical care, but no longer under treatment: ? ?? Conditions with medical care, and NOW under treatment: 2. Since your last PHA, have you experienced any of the following health conditions, and if so, what is your status? Conditions with no medical care: ? ?? Conditions with medical care, but no longer under treatment: Recurring muscle, joint, or low back pain ? ?? Conditions with medical care, and NOW under treatment: 3. For any condition marked YES in question 1 or 2, are you currently on any profile or limited duty for that condition?Conditions: 4. Have you been based or stationed at a location where an open burn pit was used?: No 5. Have you been exposed to toxic airborne chemicals or other airborne contaminants?: No 8. Have you had any surgery since your last PHA?: No 10.a. Since your last PHA, has a health care provider recommended surgery(s) that you have not had?: No 11.a. Do you currently require hearing aids, special medical supplies, CPAP, adaptive equipment, assistive technology devices, and/or other special accommodations? No 12.a. Do you have a waiver or profile for any part of your Service's physical fitness test? No 13.a. Do you have any problems wearing a gas mask, ballistic helmet, body armor, and/or chemical/biological protective garments?: No 14.a. Have you ever been told by a health care provider that you SHOULD NOT receive an immunization for medical reasons? No 15.a. Do you have a permanent profile or an Assignment Limitation Code C? No 16.a. Are you on a temporary profile or limited duty?: No 17. During the PAST 2 years, how many times have you been placed on a temporary profile or on limited duty?: 0 ? V. INDIVIDUAL MEDICAL READINESS (IMR) 1. Do you have any allergies? No 3. Do you have red medical warning dog tags?: Not required 4. Do you wear corrective lenses?: Yes 5. How many pairs of glasses do you have?: 2 or more 6. Do you have gas mask inserts?: Yes ? . BEHAVIORAL HEALTH (MHA) 1. a. Over the PAST MONTH, what major life stressors have you experienced that are a cause of significant concern or make it difficult for you to do your work, take care of things at home, or get along with other people (for example, serious conflicts with others, relationship problems, or a legal, disciplinary or financial problem)? : None ? 2. a. In the PAST YEAR did you receive care for any mental health condition or concern such as, but not limited to post traumatic stress disorder (PTSD), depression, anxiety disorder, alcohol abuse or substance abuse? : No ? 3. What prescription or over-the counter medications (including herbals/supplements) for sleep, pain, combat stress, or a mental health problem are you CURRENTLY taking? : None ? 4. a. In the past 12 months, have you gambled? No 5. a. How often do you have a drink containing alcohol? 2-4 times a month 5. b. How many drinks containing alcohol do you have on a typical day when you are drinking? 1 or 2 5. c. How often do you have six or more drinks on one occasion? Never ? 6. Have you ever had any experience that was so frightening, horrible, or upsetting that in the PAST MONTH, you: 6. a. Have had nightmares about it or thought about it when you did not want to? No 6. b. Tried hard not to think about it or went out of your way to avoid situations that remind you of it? No 6. c. Were constantly on guard, watchful or easily startled? No 6. d. [place] numb or detached from others, activities, or your surroundings? No 6. e. [place] guilt or unable to stop blaming yourself or others for the event(s) or any problems the event(s) may have caused? Not answered ? 7. Over the LAST 2 WEEKS, how often have you been bothered by the following problems? 7. a. Little interest or pleasure in doing things: Not at all 7. b. Feeling down, depressed, or hopeless: Not at all ? 8. Would you like to schedule an appointment with a health care provider to discuss any health concern(s)?: No 9. Are you interested in receiving information or assistance for a stress, emotional or alcohol concern?: 10. Are you interested in receiving assistance for a family or relationship concern?: No 11. Would you like to schedule a visit with a awning craftsperson, mental health care provider, or a community support counselor?: No ? VII. FAMILY HISTORY AND LIFESTYLE (LIF) 1. Overall, how would you rate your health during the PAST MONTH?: Excellent 2. Member indicates that family members have the following problems: Cancer, Heart-related conditio 3. The following family members has/had a history of cancer: ? ?? Unknown Type of Cancer: Grandfather 4. The following family members has/had a history of heart-related conditions: ? ?? High Blood Pressure: Mother, Grandfather 6. I participate in moderate intensity physical activites at least 2.5 hours, or a combination of moderate and vigorous aerobic activites, for at least 75 minutes per week.: Yes 7. In a typical week, I do physical activities specifically designed to STRENGTHEN my muscles: ?2 Day(s) per week 8. What prescriptions or yyus-dmj-tlapvvn medications are you CURRENTLY taking for health problems on a ROUTINE BASIS?: ibuprofen 9. Which of the following products have you taken since your last PHA: ? ? None of the above 11. Think about the PAST 30 DAYS. How often did you eat/drink the following foods/beverages? ? ? Fruits: 1 or 2 servings per week ? ? Vegetables: 2 servings per day ? ? Starchy Vegetables: 3 to 6 servings per week ? ? Whole Grains: 3 to 6 servings per week ? ? Dairy and Calcium Containing Foods: 1 or 2 servings per week ? ? Fish: 1 or 2 servings per week ? ? Lean Protein: 1 or 2 servings per week ? ? Sugar-Sweetened Beverages: Rarely or Never 13.a. In the PAST 30 DAYS, which of the following products have you used on at least one day? ? ? None 15. Which of the following best describes your past tobacco use? I have never used tobacco products. 16. Are you regularly exposed to secondhand smoke: No 17. During the LAST 2 WEEKS, how many hours of sleep did you get on most days?: 7 to 9 hours 18. During the LAST 2 WEEKS, have you felt impaired or unable to adequately perform due to sleepiness or poor quality sleep?: No 19. Have you had any unexplained weight loss or gain since your last PHA?: No 20. Member is not at risk for sexually transmitted infections. 22. Since your last PHA, what, if anything, have you and your partner used to keep from getting ? I am actively taking steps to prevent , including: IUD 23. In the last year, have you or your partner had a scare, where you were not trying to get but were worried enough to use a home test?: No ? X. OTHER MEDICAL (OTH) 1. Rate the amount of pain you have had, on average, over the PAST 24 HOURS: 2 2. Are you receiving treatment for pain?: Yes 3. Since your last PHA, have you received care or treatment for any medical and/or mental health condition(s) from a civilian or non- facility?: No 5. Member acknowledged responsibility for reporting health issues. 7. Woud you like to schedule an appointment with a health care provider to discuss any health concerns?: No ? XI. SEPARATION AND SHELTER 1. Are you planning to separate or retire within the next year from Active Duty or [place] Duty (activated for greater than 30 continuous days) OR do you intend to file a claim for disability compensation with the [employer] Benefits Administration?: No ? PART B. RECORD REVIEW AND RECOMMENDATIONS I. RECORD REVIEWER INFORMATION 1. Last Name: Armani 2. First Name: Rosi 3. Middle Name: Cosmo 4. 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 Title: Physician Publication Manager (PA) 7. EMAIL: [email or web address] 8. Facility: [facility] 9. Unit: [facility] 10. Address: [address] [place] [address] 11. State: [place] 12. Zip Code: [address] 13. Phone: [phone] 14. Date Record Review: ? II. MEDICAL SCREENING 1. Date of family member caretaker's most recent PHA: 2. family member caretaker's most recently documented height: 5 feet 7 inches? ?Date: 3. family member caretaker's most recently documented weight: 190 pounds? Date: 4. family member caretaker's most recently documented blood pressure readin/78? Date: 5. Does the family member caretaker have a history of abnormal blood pressure since their last PHA? No 6. What is the date of the family member caretaker's most recently documented cholesterol test? No Cholesterol Test Documented 8. List of family member caretaker's active medications listed in their permanent medical record: Methocarbamol 750mg PO PRN Ibuprofen 400mg PO, OTC, prn Omeprazole 40mg, PO, once daily 9. Is there a discrepancy between the active medication record review and the family member caretaker's self-reported list of medications?: No 10. List documented significant care the family member caretaker has received since their last PHA from a provider OUTSIDE the Health System: No Outside Care Documented 11. Is there a discrepancy between the family member caretaker's list of OUTSIDE care (from OTH5), and the OUTSIDE care found in the record?: No 12. List documented significant care the family member caretaker has received since their last PHA from a provider INSIDE the Health System: No Inside [facility] Documented 14. Confirm that vaccine exemptions are listed in the medical record for each vaccine listed: Not Answered ? III. OCCUPATION-SPECIFIC EXAMINATIONS 2. When was the family member caretaker's most recently documented evaluation?: ? IV. FAMILY HISTORY AND LIFESTYLE 1. Does the [id number] reflect the family member caretaker's reported family history?: Yes ? VII. INDIVIDUAL MEDICAL READINESS 1. Does the family member caretaker have an Assignment Limitation Code C?: No 3. Most recently documented dental exam: Classification: 1 4. Is the family member caretaker current on all required immunizations in the immunization tracking system?: No: Influenza, [place] 5. Is the family member caretaker current with Service-specific requirements for glasses and gas mask inserts?: Yes 6. Does the family member caretaker have the following laboratory tests documented in their permanent medical record? ? ? HIV test within the PAST 24 months: Yes? ? G6PD results on file: Yes? ? Blood type and Rh on file: Yes? ? DNA test on file: Yes IX. ADDITIONAL RECORD REVIEWER COMMENTS 1. This record review does NOT have a need for provider notification or referral.2. Additional comments about this record review that need to be forwarded to the [facility] completing PART C: ? ? Date Record Review Completed: --------- PART C. HEALTH CARE PROVIDER I. MENTAL HEALTH ASSESSMENT (MHA) PROVIDER INFORMATION 1. Last Name: Armani 2. First Name: Rosi 3. Middle Name: Cosmo 4. 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 Title: Physician Publication Manager ([place]) 7. EMAIL: [email or web address] 8. Facility: [address] [place] [address] 9. Unit: [facility] 10. Address: [address] [place] [address] 11. State: [place] 12. Zip Code: [address] 13. Phone: [phone] 14. Date HCP Review initiated: ? 1.? Member marked that they did not have a concern or a difficulty with a major life stressor. ? 2.? Address concerns identified on member questions 2 and 3. ? ? History of mental health care: N/A ? Member's response:? Provider's comments: ? ? Medications: N/A ? Member's response:? Provider's comments: Ibuprofen 400mg prn ? 3.? Member's AUDIT-C screening score was 2. (nothing required) ? 4.? Member did not la nena yes on two or more of questions 6a through 6e. 5.? Member did not la nena More than half the days or nearly every day on question 7a or 7b. ? 6.? Suicide risk evaluation. 6. a. Ask: Over the past month, have you wished you were or wished you could go to sleep and not wake up?: No 6. b. Ask: Have you actually had any thoughts of killing yourself?: No 6. f. 1. Ask: In you lifetime, have you done anything, started to do anything, or prepared to do anything to end your life?: No 6. g. Further risk assessment comments: ? 7.? Member states that they have not had thoughts or concerns over the past month that they might hurt or lose control with someone. ? 9. Summary of Provider's identified concerns needing referrals: None 11. Comments: Member denies any MH issues.? Member c/o intermittent low back pain.? Member has gone to Chiropractor and Physical Therapy for evaluation and treatment. ? 13. Supplemental services recommended/information provided: ? ? No supplemental services required ? Date MHA Certified: ? III. PERIODIC HEALTH ASSESSMENT (PHA) PROVIDER INFORMATION 1. Last Name: Armani 2. First Name: Rosi 3. Middle Name: Cosmo 4. 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 Title: Physician Publication Manager ([place]) 7. EMAIL: [email or web address] 8. Facility: [address] 9. Unit: [facility] 10. Address: [address] [place] [address] 11. State: [place] 12. Zip Code: [address] 13. Phone: [phone] 14. Date HCP Review initiated: ? IV. PERIODIC HEALTH ASSESSMENT PROVIDER RECOMMENDATIONS and REFERRALS 1. Provider concerns with this assessment: No issues or concerns identified ? V. SUMMARY AND COMMENTS 1. Additional information summarizing findings during the family member caretaker assessment: ? 2. Provider Comments: ? ? . INDIVIDUAL MEDICAL READINESS DISPOSITION DETERMINATION ? ? BIJU: Ready? ? DEN: Ready? ? IMM: Ready? ? LAB: Ready? ? ME: Ready ? ? IMR Status: Fully Medically Ready ? VII. SERVICE MEDICAL DEPLOYABILITY EVALUATION INDICATED Based on your review of all documentation, is the family member caretaker medically deployable without limitations?? Reference Yonis 6490.07 ? ?Yes (family member caretaker DOES NOT currently have a medical condition that limits deployability) ? Date PHA Completed: ? END OF [id number] REPORT ? [place] Review Summary ? Does the member have 4 or more consecutive fitness exemptions or any waist circumference exemptions?? No. ? Does the member have a history of a RILO/MEB?? No. ? Does the member have any abnormal laboratory results since their last PHA?? No. ? Does the member have any pathology or radiology results since their last PHA?? No. ? Does the member have any outstanding medical concerns/open consults or referrals?? No. ? Is the member currently under specialty medical care?? No. ? Does the member have any conditions that dictate a referral to the [facility]?? No. ? Active Medical Conditions:? None. ? 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 Cleared for PRAP duties: NA ? Medical surveillance examination requirements up to date: NA ? 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 Cleared for continued service: Yes ? Cleared for mobility duties: Yes ? Cleared for participation in AF physical fitness program: Yes ? END OF [place] SUMMARY ? 02/02/2024 Ambulatory Pharmacy Functional Status Combined list of recent functional and cognitive assessments recorded at [employer] ([place] Functional [place] Measurement (FIM) Scale: 1 = Total Assistance (Subject = 0% +), 2 = Maximal Assistance (Subject = 25% +), 3 = Moderate Assistance (Subject = 50% +), 4 = Minimal Assistance (Subject = 75% +), 5 = Supervision, 6 = Modified [place] (Device), 7 = Complete [place] (Timely, Safely). Assessment Date/Time Source Assessment Type Assessment Skill Assessment Score Assessment Details No data available for this section
== END 2024-01-26 15:19 | disposition home or self-care (01) ==
PROVIDERS: PCP Family Medicine; Visit Provider Nurse Practitioner Family
DX: R74.01 Elevation of levels of liver transaminase levels (principal); K59.1 Functional diarrhea; K21.9 Gastro-esophageal reflux disease without esophagitis; R14.0 Abdominal distension (gaseous); R10.13 Epigastric pain
CPT/HCPCS: 99204

== ENCOUNTER 2024-01-26 14:29 | Outpatient (REF) | payer OTHER, SELFPAY ==
[2024-01-26 18:03] LABS: Folate 10.1 ng/mL (> or = 4.0); Vitamin B12 430 pg/mL (200-900)
[2024-01-26 21:34] LABS: TSH reflex Free T4 2.47 uIU/mL (0.32-4.0)
[2024-01-27 17:43] LABS: Transglutaminase Ab IgG <1.0 U/mL; Transglutaminase IgA <1.0 U/mL
[2024-01-31 14:48] LABS: Vitamin D 25-OH, D2 <4 ng/mL; Vitamin D 25-OH, D3 26 ng/mL; Vitamin D 25-OH, Total 26 ng/mL (30-100)
--- OUTSIDE RECORDS SUMMARY | 2024-02-02 15:07 | XMS_ITS | Continuity of Care Document ---
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 It does not include entries that were removed or entered in error. Problem Status Onset Date Problem Type Date of Resolution Comments Source Encounter for issue of other medical certificate Active [address] [place] [address] ASSESSMENT, POST-DEPLOYMENT, DOCUMENTED ON [id number] Inactive 8 Condition [facility] Pain, unspecified Inactive 8 Condition [facility] Regular astigmatism, bilateral Active 7 Condition DoD [...] Inactive Condition DoD astigmatism regular Inactive Condition [facility] visit: ears/hearing exam for hearing conservation, treatment Inactive Condition [facility] visit for: occupational health / fitness exam Inactive Condition [facility] visit for: administrative purpose Inactive Condition [facility] visit for: services physical accession Inactive Condition [...] (given by mouth) Ordered 0310C-A [facility] MELOXICAM (MELOXICAM) , 15 MG, TABLET, ORAL, [employer] 100 ea. BOTTLE Active [id number] 2023 30 Pharmac y Data Transac tion Service Facilit y OMEPRAZOLE (omeprazole ), 40 MG, CAPSULE DR, ORAL, GLENMARK PHARMA, 1000 ea. BOTTLE Active [id number] 4 2023 30 Pharmac y Data Transac tion Service Facilit y OMEPRAZOLE (omeprazole ), 40 MG, CAPSULE DR, ORAL, GLENMARK PHARMA, 1000 ea. BOTTLE Active [id number] 2023 30 Pharmac y Data Transac tion Service Facilit y OMEPRAZOLE (omeprazole ), 40 MG, CAPSULE DR, ORAL, GLENMARK PHARMA, 1000 ea. BOTTLE Active [id number] 2023 30 Pharmac y Data Transac tion Service Facilit y OMEPRAZOLE (omeprazole ), 40 MG, CAPSULE DR, ORAL, GLENMARK PHARMA, 1000 ea. BOTTLE Active [id number] 4 2023 30 Pharmac y Data Transac tion Service Facilit y OMEPRAZOLE (OMEPRAZOLE ), 40 MG, CAPSULE DR, ORAL, ZYDUS PHARMACEU, 1000 ea. 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 Source COVID Vaccine Pfizer 2020 WENDYGRUBER Shoul cassy, left (delt oid) [id number] PFIZER complet ed COVID Vaccine Pfizer 11/30/20 Given 0010C-D [facility] influenza, recombinant, quadrivalent, injectable, preservative free 2020 NEELA RAM, () Not Given influenza , recombina nt, quadrival ent,injec table, preservat wendy free DoD COVID Vaccine Pfizer 2020 FENIXRMARTIN Shoul cassy, left (delt oid) [id number] PFIZER complet ed COVID Vaccine Pfizer 11/02/20 Given 0010C-D [facility] influenza virus vaccine, inactivated 2020 88 sanofi pasteur complet ed influenza virus vaccine, inactivat ed 03/17/20 Given Ambulat ory Pharmac y influenza, recombinant, quadrivalent, injectable, preservative free 2020 NEELA RAM, () Not Given influenza , recombina nt, quadrival ent,injec table, preservat wendy free DoD influenza, injectable, quadrivalent- pf 2018 [id number] 150 Seqirus complet ed influenza , injectabl e, quadrival ent-pf 01/05/19 Given Ambulat ory Pharmac y Influenza, injectable, quadrivalent, preservative free 9 2018 [id number] 150 Seqirus (SEQ) complet ed Influenza , injectabl e, quadrival ent, preservat wendy free DoD anthrax vaccine 2018 [id number] 24 Emergent Biosolutions complet ed anthrax vaccine 11/29/18 Given Ambulat ory Pharmac y anthrax vaccine 6 2018 [id number] 24 [employer] [place] (MIP) complet ed anthrax vaccine DoD influenza, injectable, quadrivalent- pf 2017 [id number] 150 Seqirus complet ed influenza , injectabl e, quadrival ent-pf 12/04/17 Given Ambulat ory Pharmac y Influenza, injectable, quadrivalent, preservative free 8 2017 [id number] 150 Seqirus (SEQ) comple t ed Influenza , injectabl e, quadrival ent, preservat wendy free DoD typhoid Vi capsular polysaccharid e vac 2016 [id number] 101 sanofi pasteur complet ed typhoid Vi capsular polysacch aride vac 12/19/16 Given Ambulat ory Pharmac y anthrax vaccine 2016 [id number] 24 [employer] complet ed anthrax vaccine 12/19/16 Given Ambulat ory Pharmac y Influenza, inj, MDCK, quadrivalent- pf [id number] Seqirus complet ed Influenza , inj, MDCK, quadrival ent-pf 12/19/16 Given Ambulat ory Pharmac y anthrax vaccine 5 2016 [id number] 24 [employer] [place] (MIP) complet ed anthrax vaccine DoD typhoid Vi capsular polysaccharid e vaccine 2 2016 [id number] 101 Sanofi Pasteur (PMC) complet ed typhoid Vi capsular polysacch aride vaccine DoD Influenza, injectable, Madin Susan Canine Kidney, preservative free, quadrivalent 7 [id number] 171 Seqirus (SEQ) comple t ed Influenza , injectabl e, Madin [place] Canine Kidney, preservat wendy free, quadrival ent DoD tuberculin purified protein derivative 2016 [id number] 96 [facility] complet ed tuberculi n purified protein derivativ e 06/06/16 Given Ambulat ory Pharmac y tuberculin purified protein derivative 2016 [id number] 96 [facility] complet ed tuberculi n purified protein derivativ e 05/29/16 Given Ambulat ory Pharmac y Human Papillomaviru s 9-valent vaccine 2016 [id number] 165 Merck & Company Inc complet ed Human Papilloma virus 9-valent vaccine 03/04/16 Given Ambulat ory Pharmac y Human Papillomaviru s 9-valent vaccine 3 2016 [id number] 165 Merck (MSD) complet ed Human Papilloma virus 9-valent vaccine DoD Human Papillomaviru s 9-valent vaccine 2015 [id number] 165 Merck & Company Inc complet ed Human Papilloma virus 9-valent vaccine 11/02/15 Given Ambulat ory Pharmac y influenza, injectable, quadrivalent- pf 2015 [id number] 150 [facility] complet ed influenza , injectabl e, quadrival ent-pf 11/02/15 Given Ambulat ory Pharmac y Influenza, injectable, quadrivalent, preservative free 6 2015 [id number] 150 [facility] (B) complet ed Influenza , injectabl e, quadrival ent, preservat wendy free DoD Human Papillomaviru s 9-valent vaccine 2 2015 [id number] 165 Merck (MSD) complet ed Human Papilloma virus 9-valent vaccine DoD Human Papillomaviru s 9-valent vaccine 2015 [id number] 165 [employer] & Page[employer] Inc complet ed Human Papilloma virus 9-valent vaccine 08/23/15 Given Ambulat ory Pharmac y Faroese Encephalitis IM 2015 [id number] 134 Valneva complet ed Faroese Encephali tis IM 08/23/15 Given Ambulat ory Pharmac y anthrax vaccine 2015 [id number] 24 Emergent [employer] complet ed anthrax vaccine 08/23/15 Given Ambulat ory Pharmac y anthrax vaccine 4 2015 [id number] 24 [employer] [place] (MIP) complet ed anthrax vaccine DoD Faroese Encephalitis vaccine for intramuscular administratio n 3 2015 [id number] [id number] 134 [facility] (INT) complet ed Faroese Encephali tis vaccine for intramusc ular administr ation DoD Human Papillomaviru s 9-valent vaccine 1 2015 [id number] 165 Merck (MSD) complet ed Human Papilloma virus 9-valent vaccine DoD anthrax vaccine 2014 [id number] 24 [employer] complet ed anthrax vaccine 02/09/15 Given Ambulat ory Pharmac y anthrax vaccine 3 2014 [id number] 24 [employer] [place] (MIP) complet ed anthrax vaccine DoD influenza, injectable, quadrivalent 2014 [id number] 158 GlaxoSmithKli ne complet ed influenza , injectabl e, quadrival ent 11/30/14 Given Ambulat ory Pharmac y influenza, injectable, quadrivalent, contains preservative 0 2014 [id number] 158 [place] (SKB) complet ed influenza , injectabl e, quadrival ent, contains preservat wendy DoD Faroese Encephalitis IM 2014 [id number] [id number] 134 Valneva complet ed Faroese Encephali tis IM 08/15/14 Given Ambulat ory Pharmac y anthrax vaccine 2014 [id number] 24 Emergent [employer]olutions complet ed anthrax vaccine 08/15/14 Given Ambulat ory Pharmac y anthrax vaccine 2 2014 [id number] 24 [employer] [place] ([facility]) complet ed anthrax vaccine DoD Faroese Encephalitis vaccine for intramuscular administratio n 2 2014 [id number] 4E 134 Intercell Biomedical (INT) complet ed Faroese Encephali tis vaccine for intramusc ular administr ation DoD Faroese Encephalitis IM 2014 [id number] 2E 134 Valneva complet ed Faroese Encephali tis IM 06/08/14 Given Ambulat ory Pharmac y Faroese Encephalitis vaccine for intramuscular administratio n 1 2014 [id number] 2E 134 [employer] (INT) complet ed Faroese Encephali tis vaccine for intramusc ular administr ation DoD vaccinia (smallpox) vaccine 2014 [id number] 75 Sanofi Pasteur Incorporated complet ed vaccinia (smallpox ) vaccine 06/01/14 Given Ambulat ory Pharmac y vaccinia (smallpox) vaccine 1 2014 [id number] 75 (JASSON) complet ed vaccinia (smallpox ) vaccine DoD anthrax vaccine 2014 [id number] 24 Emergent Biosolutions complet ed anthrax vaccine 04/25/14 Given Ambulat ory Pharmac y anthrax vaccine 0 2014 [id number] 24 [employer] [place] ([facility]) complet ed anthrax vaccine DoD typhoid Vi capsular polysaccharid e vac 2014 K1200 101 sanofi pasteur complet ed typhoid Vi capsular polysacch aride vac 04/24/14 Given Ambulat ory Pharmac y measles/mumps /rubella virus vaccine 2014 [id number] 03 Merck & Company Inc complet ed measles/m umps/rube lla virus vaccine 04/24/14 Given Ambulat ory Pharmac y measles, mumps and rubella virus vaccine 1 2014 [id number] 03 Merck (MSD) complet ed measles, mumps [...] wendy free DoD influenza, seasonal, injectable-pf 2012 [id number] 140 sanofi pasteur complet ed influenza , seasonal, injectabl e-pf 11/23/12 Given Ambulat ory Pharmac y Influenza, seasonal, injectable, preservative free 0 2012 [id number] 140 Sanofi Pasteur (PMC) complet ed Influenza , seasonal, injectabl e, preservat wendy free DoD influenza virus vaccine, live 2011 [id number] 111 MediPixalateune Inc comple t ed influenza virus vaccine, live 10/28/11 Given Ambulat ory Pharmac y influenza virus vaccine, live, attenuated, for intranasal use 0 2011 [id number] 111 Curio, Inc. (MED) complet ed influenza virus vaccine, [...] y tetanus, diphtheria, acellular pertu is 2011 [id number] 115 GlaxoSmithKli ne complet ed tetanus, [...] unspecified formulation 1 2011 [id number] 31 [facility] (COX MONETT) complet ed hepatitis A vaccine, pediatric dosage, unspecifi ed formulati on DoD hepatitis B vaccine, unspecified formulation 1 2011 45 () Not Given hepatitis B vaccine, unspecifi ed formulati on DoD tetanus toxoid, reduced diphtheria toxoid, and acellular pertu is vaccine, adsorbed 1 2011 [id number] 5AA 115 SmithKline (COX [place]ETT) complet ed tetanus toxoid, reduced diphtheri a toxoid, and acellular pertussis vaccine, adsorbed DoD tuberculin purified protein derivative 2011 [id number] 96 sanofi pasteur complet ed tuberculi n purified protein derivativ e 02/23/11 Given Ambulat ory Pharmac y adenovirus vaccine, live 2010 [id number] 8 143 Teva Pharmaceutica complet ed adenoviru s vaccine, live 02/21/11 Given Ambulat ory Pharmac y influenza, seasonal, injectable-pf 2010 [id number] 140 sanofi pasteur complet ed influenza , seasonal, injectabl e-pf 02/21/11 Given Ambulat ory Pharmac y meningococcal A,C,Y,W-135 (MCV4P) 2010 [id number] 114 sanofi pasteur complet ed meningoco ccal A,C,Y,W-1 35 (MCV4P) 02/21/11 Given Ambulat ory Pharmac y poliovirus vaccine, inactivated 2010 G1500 10 sanofi pasteur complet ed polioviru s vaccine, inactivat ed 02/21/11 Given Ambulat ory Pharmac y poliovirus vaccine, inactivated 1 2010 G1500 10 Sanofi Pasteur ([facility]) complet ed polioviru s vaccine, inactivat ed DoD meningococcal polysaccharid e (groups A, C, Y and W-135) diphtheria toxoid conjugate vaccine (MCV4P) 1 2010 [id number] 114 Sanofi Pasteur ([facility]) complet ed meningoco ccal polysacch aride (groups A, C, Y and W-135) diphtheri a toxoid conjugate vaccine (MCV4P) DoD Influenza, seasonal, injectable, preservative free 1 2010 [id number] 140 Sanofi Pasteur (PMC) complet ed Influenza , seasonal, injectabl e, preservat wendy free DoD Adenovirus, type 4 and type 7, live, oral 1 2010 [id number] 8 143 [facility] (BRR) complet ed Adenoviru s, type [...] Prevention' s HIV diagnostic algorithm. Refer to [facility] Lab Guide for additional information : [email or web address] health.[email or web address]/ [email or web address]/[email or web address]/EPIL [email or web address]/la [email or web address] x Testing performed by Marjorie brooek. Ambulator y Pharmacy Miscella neous Sendouts Repository [...] Prevention' s HIV diagnostic algorithm. Refer to [facility] Lab Guide for additional information : [email or web address]/k j/kx5/Gilda b/Pages/lab _guide.aspx Testing performed by Marjorie brooke. Performed by: Epidemiolog y Laboratory Service [employer] SecurityAM/Fort[facility] Bldg [address] [place] [phone] Ambulator y Pharmacy Faithcella shoshanaus Sendouts Repository Sample.EPI RECEIVED 11/07 Result Comment: INTERPRETAT ION(S): Performed by: Epidemiolog y Laboratory Service [employer] Bldg [address] [place] [phone] Ambulator y Pharmacy Vital Signs Combined list [...] Date DC Date Status Disposition Source [place] [address](Opt ometry Clinic BMT WHASC) OUTPATIENT [id number] SHELLY GRANDE 02/27 Released w/o Limitations [facility] [place] [address](O ptometr y Clinic BMT WHASC) [place] [facility] [place] [address](MAS Delta) OUTPATIENT [id number] Cold Symptom s KAL MAO 04/07 Released w/o Limitations [facility] [place] [address](M Delta) [place](NASP Occupatio nal Health) OUTPATIENT [id number] USA[employer] RPP 0800 JONATAN RIVERO 05/07 Released w/o Limitations [place]NA[place] Occup[place] ional Health) [place] Hearing Conservat [place] OUTPATIENT [id number] USAF AUDIO. ATIF GONZALEZ 05/08 Released w/o Limitations [place]NASP Hearing Conserv ation) [facility](Opt ometry) OUTPATIENT [id number] CAMERON Young 09/15 Released w/o Limitations [facility](O ptometr y) [facility] ght Medicine Clinic) OUTPATIENT [id number] 58MXS Physica l showtim e 0830 TOÑO ANDERS 09/02 Released w/o Limitations [facility](F light Medicin e Clinic) [facility](Kir and_[facility] _Team_Lob o) TELE CONSULT [id number] Notes Entered by: SANJANA MICHAELS 16 Sep 2012 1308 ------- ------- ------- ------- -- EMA BEEBE 09/16 Referred for Appointment [facility](Fauzia perla _[facility]_Te am_Lobo ) [facility]([place]_[facility] _Team_Lob o) OUTPATIENT [id number] f/u ER visit [place] CAMPBELL 10/27 Released with Work/Duty Limitations [facility](K janiceand _C_Te am_Lobo ) [facility]([place]_[facility] _Team_Lob o) TELE CONSULT [id number] Notes Entered by: TRAVIS MERINO 15 Nov 2012 1109 ------- ------- ------- ------- -- NETWORK RESULTS - OTHOPED ICS - [id number] [place] CAMPBELL 11/15 [facility](Fauzia irlaury _[facility]_Te am_Lobo ) [facility] [employer]([place]_[facility] _Team_Lob o) TELE CONSULT [id number] Notes Entered by: JONN GALVIN 16 Nov 2012 1115 ------- ------- ------- ------- -- NETWORK RESULTS ---ORTH OPAEDIC [id number] OF [facility] [place] CAMPBELL 11/16 [facility](Fauzia irjudy _[facility]_Te am_Lobo ) [facility](Deondre [facility] _Team_Roa unner) OUTPATIENT [id number] sore throat ad MONIKA VOGT 06/28 Released w/o Limitations [facility](Fauzia irand _[facility]_Te am_Road runner) [facility] OUTPATIENT [id number] anuradhau ritika [facility] DARYN Simental 08/11 Released w/o Limitations [facility](F light Medicin e Clinic) [facility] Team E) TELE CONSULT [id number] Notes Entered by: Fauzia OROZCO 19 Aug 2013 1418 ------- ------- ------- ------- -- ANNUAL PHA, UPDATE EMA CROCKER 08/19 Other Not Elsewhere Classified [facility](K irand [facility] Team E) [facility](Chi ropractic Clinic) OUTPATIENT [id number] New visit ENID GONZALEZ 09/27 Released w/o Limitations [facility](C hiropra ctic Clinic) [facility] _Team_Roa drunner) OUTPATIENT [id number] POSSIBL E STD-PT PROVIDE D LIMITED SYMPTOM S RAFAT ROSE 09/28 Released w/o Limitations [facility] [employer]([place] _FHC_Te am_Road runner) [facility] [employer]([facility]) OUTPATIENT [id number] Follow up ENID GONZALEZ 09/29 Released w/o Limitations [employer] [facility] [employer]([facility]) [facility] [employer](Kir [facility] _Team_[place]oa drunner) TELE CONSULT [id number] Notes Entered by: JIM ROMANO 30 Sep 2013 1419 ------- ------- ------- ------- -- LAB PAUL CHUN 09/30 Referred for Appointment [facility]([place] _FHC_Te am_Road runner) [facility]) OUTPATIENT [id number] Follow up ENID GONZALEZ 10/03 Released w/o Limitations [employer] [facility] [employer]([place]_[facility] _Team_[place]oa drun[place]) TELE CONSULT [id number] Notes Entered by: SA TD ROSE 03 Oct 2013 1304 ------- ------- ------- ------- -- Need follow up PAUL CHUN 10/03 Referred for Appointment [facility]([place] _C_Te am_Road runner) [facility]) OUTPATIENT [id number] Notes Entered by: YU MCCURDY 04 Oct 2013 1337 ------- ------- ------- ------- -- STI Chlamyd HUNG Martin 10/04 Released w/o Limitations [facility] [employer]([facility]) [facility] [employer] OUTPATIENT [id number] Follow up ENID GONZALEZ 10/07 Released w/o Limitations [employer] [facility] [employer]([facility]) [facility](Chi ropractic Clinic) OUTPATIENT [id number] Follow up ENID GONZALEZ 10/13 Released w/o Limitations [employer] [facility] [employer](C hiropra ctic Clinic) [facility] [employer](Chi ropractic Clinic) OUTPATIENT [id number] Follow up ENID GONZALEZ 10/27 Released w/o Limitations [facility] [employer](C hiropra ctic Clinic) [facility] [employer]([place]_[facility] _Team_[place]) OUTPATIENT [id number] [facility] [place] NENA Pierson 04/25 Released w/o Limitations [employer] [facility] [employer]([place] _[facility]_Te am_Road runner) [facility] OUTPATIENT [id number] 60[address] mxs 24 y/o glasses wear-wa DARYN Gutierrez 09/14 Released w/o Limitations [facility] [employer](F light Medicin e Clinic) [facility]([place]_[facility] _Team_[place]) TELE CONSULT [id number] Notes Entered by: ALEJANDRA MCKENZIE 14 Sep 2014 1445 ------- ------- ------- ------- -- PHA ROUTINE LASHAE PICHARDO 09/14 Other Not Elsewhere Classified [facility]([place] _[facility]_Te am_Road runner) [facility](Opt ometry) OUTPATIENT [id number] ENID MCFARLAND 09/25 Released w/o Limitations [facility](O ptometr y) [facility] Team A) TELE CONSULT [id number] Notes Entered by: HENRY MOE 02 Feb 2015 1351 ------- ------- ------- ------- -- Medical In-proc HENRY Cherry 02/02 Released to Self Care [facility] Team A) OUTPATIENT [id number] check up DENNYS Bay 04/13 Released w/o Limitations [facility] Team A) [facility] Team A) TELE CONSULT [id number] Notes Entered by: HENRY MOE 17 Apr 2015 1634 ------- ------- ------- ------- -- Normal Lab Result HENRY MOE 04/17 Released to Self Care [facility] Team A) [facility] Team A) OUTPATIENT [id number] f/u lab DENNYS SOLANO Shannan 05/05 Released w/o Limitations [facility] Team A) [facility] Team A) TELE CONSULT [id number] Notes Entered by: HENRY MOE 14 May 2015 1421 ------- ------- ------- ------- -- Normal Lab Results HERNY MOE 05/13 Released to Self Care [facility] Team A) [facility] Team A) TELE CONSULT [id number] Notes Entered by: HENRY MOE 16 May 2015 1302 ------- ------- ------- ------- -- Normal Lab Result HENRY MOE 05/15 Released to Self Care [facility] Team A) [facility] Team A) TELE CONSULT [id number] Notes Entered by: HENRY MOE 18 May 2015 0928 ------- ------- ------- ------- -- Normal Lab Result HENRY MOE 05/17 Released to Self Care [facility] Team A) [facility]) OUTPATIENT [id number] CAMERON Boggs 08/22 Released w/o Limitations [facility]( light Medicin e Clinic) [facility]) OUTPATIENT [id number] CHANELL CADENA 08/27 Released w/o Limitations [employer](F light Medicin e Clinic) [employer](BO C 1) TELE CONSULT [id number] Notes Entered by: MANUEL COCHRAN 01 Oct 2015 1425 ------- ------- ------- ------- -- [facility] 10 Year Record Reviews ALEJANDRA HENSLEY 09/30 [facility](B [facility]) [facility]) TELE CONSULT [id number] Notes Entered by: JUAN C SALAS 21 Feb 2016 1241 ------- ------- ------- ------- -- In/Out Process ing WS AVEL SALAS 02/20 [facility]) [facility]) OUTPATIENT [id number] resp questio YESENIA Grant 03/11 Released w/o Limitations [facility](Opt ometry Clinic) OUTPATIENT [id number] ANNUAL NEW PT JESSIE MOREL 06/19 Released w/o Limitations [facility](O ptometr y Clinic) [facility] [facility] Hearing Consv) OUTPATIENT [id number] audio/O VITO RODRIGEZ 07/28 Released w/o Limitations [facility]) OUTPATIENT [id number] OH1/aud YESENIA Melvin 07/28 Released w/o Limitations [facility]) [facility]) OUTPATIENT [id number] OH2/DI ALICIA 07/31 Released w/o Limitations [facility]) OUTPATIENT [id number] A [id number] ROSI NARANJO 10/14 Released w/o Limitations [facility]) [facility]) OUTPATIENT [id number] Notes Entered by: Rigo OSBORN 16 Oct 2016 1450 ------- ------- ------- ------- -- Tri [facility] DARRON ELINORADRIÁN LOVE 10/16 Released w/o Limitations [facility]) [facility] Medical [facility]) OUTPATIENT [id number] PAULETTE PAGE 12/23 Released w/o Limitations [facility]) Theater Facility OUTPATIENT [id number] Theater Provider 09/03 Released w/o Limitations [facility] Facility OUTPATIENT [id number] Theater Provider 09/13 Released w/o Limitations Theater Facilit y [facility] Medical [facility] Hearing Consv) OUTPATIENT [id number] Notes Entered by: BURTON GONZALEZ 25 Sep 2017 0957 ------- ------- ------- ------- -- walk in audiogr am for CHITO Woody NMI 09/25 Released w/o Limitations [facility] Hearing Consv) [facility]) OUTPATIENT [id number] Notes Entered by: GIGI GASTON 15 Oct 2017 1256 ------- ------- ------- ------- -- Walk In STI Check GIGI GASTON 10/15 Released w/o Limitations [facility]) [facility]) OUTPATIENT [id number] [facility] [phone] PAULETTE PATEL 10/20 Released w/o Limitations [facility] Medical [facility]) [address] [place] [address] Group([facility]) TELE CONSULT [id number] Notes Entered by: CURTIS SAM 20 Oct 2017 1531 ------- ------- ------- ------- -- Lab results AVEL SALAS 10/20 [facility]) [facility]) OUTPATIENT [id number] Notes Entered by: Bg AGUILAR 28 Oct 2017 1126 ------- ------- ------- ------- -- Annual [facility] ALFRED RODRIGUES V 10/28 Released w/o Limitations [facility]) [facility]) OUTPATIENT [id number] Notes Entered by: CARMELINA PULIDO P 12 Nov 2017 1305 ------- ------- ------- ------- -- CRS package TAYLOR ROCA 11/12 Released w/o Limitations [facility](O ptometr y Clinic) [address] [place] [address]([facility]) TELE CONSULT [id number] Notes Entered by: JESSICA HOGUE X 17 Nov 2017 1154 ------- ------- ------- ------- -- [facility] Newton l - SHRUTI THOMPSON 11/17 [facility]) [facility]) TELE CONSULT [id number] Notes Entered by: SHYAM COKER 01 Dec 2017 1024 ------- ------- ------- ------- -- CRS email DI MCCURDY 12/01 [facility](O ptometr y Clinic) [facility] Medical [facility] OUTPATIENT [id number] BRAULIO Thompson 12/16 Released w/o Limitations [facility](O ptometr y Clinic) [facility] Medical [facility]) OUTPATIENT [id number] DRHA3 [phone] PAULETTE PATEL 01/06 Released w/o Limitations [facility]) [address] [place] [address]([facility]) OUTPATIENT [id number] Notes Entered by: CARMELINA PULIDO P 04 Feb 2018 0806 ------- ------- ------- ------- -- TAYLOR HAINES 02/04 Released w/o Limitations [address] [place] [address](O ptometr y Clinic) [address] [place] [address]([facility]) OUTPATIENT [id number] Notes Entered by: YESENIA HOLLAND 08 Feb 2018 0746 ------- ------- ------- ------- -- OH2/JACOB MELISSA 02/08 Released w/o Limitations [address] [place] [address]([facility]) [address] [place] [address]([facility]) TELE CONSULT [id number] Notes Entered by: Rigo ROMEO 23 Mar 2018 1602 ------- ------- ------- ------- -- Network Results - Optomet ry 018 REYNA YI 03/[address] [place] [address]([facility] Mart[facility]nez) [address] [place] [address]([facility] Deepak) TELE CONSULT [id number] Notes Entered by: DARIUS DEL RIO 27 Apr 2018 1408 ------- ------- ------- ------- -- SYMPTOM S/UC FOLLOWU P/REFER RITIKA-MAYI ANDRADE 04/[address] [place] [address]([facility] Deepak) [address] [place] [address]([facility] Deepak) OUTPATIENT [id number] back pain CHEYANNE PRADO 04/27 Released with Work/Duty Limitations [address] [place] [address]([facility] Deep[facility]) [address] [place] [address]([facility] Deep[facility]) TELE CONSULT [id number] Notes Entered by: DARIUS DEL RIO 16 Aug 2018 1624 ------- ------- ------- ------- -- Network Results -URGENT CARE W/ RADIOLO GY 2018 REYNA YI 08/16 [facility] Group([facility] Deep[facility]) [facility] Brea) TELE CONSULT [id number] Notes Entered by: YASHIRA PULIDO 23 Aug 2018 1135 ------- ------- ------- ------- -- Network Results -Physic al Therapy 9-06/28 REYNA YI 08/23 [facility]) [facility]) OUTPATIENT [id number] Notes Entered by: ROSI NARANJO 17 Nov 2018 1605 ------- ------- ------- ------- -- DRHA4 MHA ROUTINE ROSI NARANJO 11/17 Released w/o Limitations [facility]) [facility] Mart[facility]nez) OUTPATIENT [id number] [facility] PHA KAROL WILL 11/26 Released w/o Limitations [facility] Mart[facility]) [facility]metry Clinic) OUTPATIENT [id number] CMR JEWELS GARY 11/29 Released w/o Limitations [facility](O ptometr y Clinic) [facility] Hearing Consv) OUTPATIENT [id number] CMR 135A JEAN-PIERRE PACK 11/29 Released w/o Limitations [facility]) [facility]) OUTPATIENT [id number] CMR/OH1 YESENIA HOLLAND 11/29 Released w/o Limitations [facility](P ublic [facility]) [facility]) OUTPATIENT [id number] CMR/OH2 /PE JACOB MOLINA 12/02 Released w/o Limitations [facility]) [facility]) OUTPATIENT [id number] DRHA5 MHA ROUTINE ROSI NARANJOER 11/07 Released w/o Limitations [employer]([facility]) [employer]([facility] FB [facility]HI [employer]) OUTPATIENT [id number] CMR YOVANI ALDANA 12/07 Released w/o Limitations [employer] [facility] [employer]([facility] FB [facility]) OUTPATIENT [id number] CMR/PE JACOB MOLINA N 12/13 Released w/o Limitations [employer] [facility] [employer](Opt [facility]metry Clinic) OUTPATIENT [id number] CMR JEWELS GARY 12/14 Released w/o Limitations [employer](O ptometr y Clinic) [employer]([facility] FB Hearing Consv) OUTPATIENT [id number] CMR AUDIO 135A GUAJARDOESTEFANY 12/14 Released w/o Limitations [employer] [facility] [employer](Pub lic Health) OUTPATIENT [id number] CMR/SPE GEORGINA JOEL 12/14 Released w/o Limitations [employer](P ublic Health) [employer] [facility](Chi ropractic Clinic) OUTPATIENT [id number] RITO SMITH 01/04 Released w/o Limitations [employer](C hiropra ctic Clinic) [employer] [facility](Chi [facility]practic Clinic) OUTPATIENT [id number] adj/2nd RITO SMITH 01/25 Released w/o Limitations [employer](C hiropra ctic Clinic) [employer] [facility](Chi [facility]practic Clinic) OUTPATIENT [id number] adj/3rd RITO SMITH 02/06 Released w/o Limitations [employer](C hiropra ctic Clinic) [employer] [facility](Chi ropractic Clinic) OUTPATIENT [id number] RITO SMITH 03/01 Released w/o Limitations [employer](C hiropra ctic Clinic) 0310C-AF- C-66th [facility] Pal Between Visit [id number] 04/09 Discharge Disposition: Home or Self Care 0310C-A F-C-66t h [facility] 0310A-AF- C-[facility] Between Visit [id number] 09/08 Discharge Disposition: Home or Self Care 0310A-A F-C-66t h [facility] 7379C-[facility] [id number] Encount er for issue of other medical certifi tad ELIZONDO 09/08 Discharge Disposition: Home or Self Care 7379C-[facility] Center 309C-AF- C-[facility]th [facility] Dental [id number] CESAR MAKOMAGLORIA MACKENZIE 12/14 Discharge Disposition: Home or Self Care 0310C-A F-C-66t h [facility] 0310A-AF- C-66th [facility] Between Visit [id number] 12/30 Discharge Disposition: Home or Self Care [...] PROVIDE W/IN THE PREV 7 DAYS,USE THE [employer] NETWORK 2018 DoD SCREENING TEST, PURE TONE, AIR ONLY 2017 DoD ONLINE ASSESS &MANAG SERV PROVIDE,A QUAL NONPHYS HCP TO AN ESTABLISHED PAT/GUARDIAN,NOT ORIGINAT FRM RELAT ASSESS &MANAG SERV PROVIDE W/IN THE PREV 7 DAYS,USE THE [employer] NETWORK 2017 DoD OPHTHALMIC ULTRASOUND, ECHOGRAPHY, DIAGNOSTIC; [...] ADMINISTERED BY A COMPUTER, WITH QUALIFIED HEALTH CANNONEER INTERPRETATION AND REPORT 2016 DoD ADMINISTRATION OF PATIENT-FOCUSED HEALTH RISK ASSESSMENT INSTRUMENT (EG, HEALTH HAZARD APPRAISAL) WITH SCORING AND DOCUMENTATION, PER STANDARDIZED INSTRUMENT 2016 [facility] ONLINE ASSESS &MANAG SERV PROVIDE,A QUAL NONPHYS HCP TO AN ESTABLISHED PAT/GUARDIAN,NOT ORIGINAT FRM RELAT ASSESS &MANAG SERV PROVIDE W/IN THE PREV 7 DAYS,USE THE [employer] NETWORK 2016 [facility] PURE TONE AUDIOMETRY (THRESHOLD), AUTOMATED; AIR ONLY 2016 [facility] FITTING OF SPECTACLES, EXCEPT FOR APHAKIA; MONOFOCAL 2016 [facility] THERAPEUTIC, PROPHYLACTIC, OR DIAGNOSTIC INJECTION (SPECIFY SUBSTANCE OR DRUG); SUBCUTANEOUS OR INTRAMUSCULAR 2011 [facility] SCREENING TEST OF VISUAL ACUITY, QUANTITATIVE, BILATERAL 2011 [facility] Audiogram (Screening) Audiogram (Screening) 23077 2017 JACOB MOLINA [facility] Internet Med Svc Qual Nonphys Healthcare Prof Up To 7 Days Estab Patient Internet Med Sv Qual Nonphys Healthcare Prof Up To 7 Days Estab Patient 31196 2017 BECKIE PATEL Preventive Medicine Administration Of Health Risk Questionnaire Patient-Focused Preventive Medicine Administration Of Health Risk Questionnaire Patient-Focused 68818 2017 BECKIE PATEL Corneal Pachymetry Both Eyes Corneal Pachymetry Both Eyes 99330 2017 BRAULIO DELGADO Computerized Corneal Topography Computerized Corneal Topography 96328 2017 BRAULIO DELGADO Determination Of Refractive State Determination Of Refractive State 71261 2017 BRAULIO DELGADO Ophthalmological New Patient Start Comprehensive Care Ophthalmological New Patient Start Comprehensive Care 25142 2017 BRAULIO DELGADO Non-Physician Phone Call To Patient/Provider Brief (5-10min) Non-Physician Phone Call To Patient/Provider Brief (5-10min) 53823 2017 SHRUTI THOMPSON [facility] Preventive Medicine Administration Of Health Risk Questionnaire Patient-Focused Preventive Medicine Administration Of Health Risk Questionnaire Patient-Focused 25479 2017 ALFRED LAIRD V [facility] Preventive Medicine Administration Of Health Risk Questionnaire Patient-Focused Preventive Medicine Administration Of Health Risk Questionnaire Patient-Focused 39758 2017 BECKIE PATEL Threshold Audiogram (Pure Tone) Automated Threshold Audiogram (Pure Tone) Automated 0208T 2017 MEL SPANGLER [facility] Psychiatric Diagnostic Evaluation Review of Records and Reports Psychiatric Diagnostic Evaluation Review of Records and Reports 17320 2016 DOROTHY QUEZADA Psychometric Neuropsych Testing Battery Admin By Computer Psychometric Neuropsych Testing Battery Admin By Computer 15859 2016 LELA WANG Preventive Medicine Administration Of Health Risk Questionnaire Patient-Focused Preventive Medicine Administration Of Health Risk Questionnaire Patient-Focused 25116 2016 BECKIE PATEL Internet Med Svc Qual Nonphys Healthcare Prof Up To 7 Days Estab Patient Internet Med Svc Qual Nonphys Healthcare Prof Up To 7 Days Estab Patient 52812 2016 ROSI NARANJO Preventive Medicine Administration Of Health Risk Questionnaire Patient-Focused Preventive Medicine Administration Of Health Risk Questionnaire Patient-Focused 79591 2016 ROSI NARANJO Threshold Audiogram (Pure Tone) Automated Threshold Audiogram (Pure Tone) Automated 0208T 2016 VITO PRIEST [employer] Fitting Monofocal Except For Aphakia [employer] Fitting Monofocal Except For Aphakia 45375 2016 JESSIE MOREL Determination Of Refractive State Determination Of Refractive State 42539 2016 JESSIE MOREL Ophthalmological New Patient Start Comprehensive Care Ophthalmological New Patient Start Comprehensive Care 37328 2016 JESSIE MOREL Threshold Audiogram (Pure Tone) Threshold Audiogram (Pure Tone) 94730 2015 CHANELL LOOMIS [employer] Fitting Monofocal Except For Aphakia [employer] Fitting Monofocal Except For Aphakia 74394 2014 ENID PLEITEZ 1 FOC, 1 5A, 1 GMI. PD 65 Shiva Prescription And Fitting Bilateral Corneal Lenses (Not For Aphakia) Prescription And Fitting Bilateral Corneal Lenses (Not For Aphakia) 03949 2014 ENID PLEITEZ Ophthalmological New Patient Start Comprehensive Care Ophthalmological New Patient Start Comprehensive Care 82756 2014 ENID PLEITEZ Determination Of Refractive State Determination Of Refractive State 44784 2014 ENID PLEITEZ Mobilization Soft Ti ue Mobilization Soft Tissue 56664 2013 ENID GONZALEZ Chiropractic Manip Treatmt (CMT) Spinal Three To Four Region Chiropractic Manip Treatmt (CMT) Spinal Three To Four Region 51420 2013 ENID GONZALEZ Mobilization Soft Ti ue Mobilization Soft Tissue 53588 2013 ENID GONZALEZ Chiropractic Manip Treatmt (CMT) Spinal Three To Four Region Chiropractic Manip Treatmt (CMT) Spinal Three To Four Region 47676 2013 ENID GONZALEZ Mobilization Soft Ti ue Mobilization Soft Tissue 08061 2013 ENID GONZALEZ Chiropractic Manip Treatmt (CMT) Spinal Three To Four Region Chiropractic Manip Treatmt (CMT) Spinal Three To Four Region 04351 2013 ENID GONZALEZ Physician Supervised Injection Intramuscular Physician Supervised Injection Intramuscular 01648 2013 PAUL CHUN Per Lt Rose, ceftriaxone 250 mg IM now. Patient identifiers obtained. Allergies verified. Procedure explained to pt. Verified physician's order via [facility] note. Ceftriaxone 250 mg drawn and given right dorsogluteal IM. SwitchNote, Lot [id number], Exp 25 Dec 2015. Ceftriaxone reconstituted with Lidocaine 1 %, SwitchNote, Lot [id number], Exp 23 Nov 2014. Pt in exam room x 15 mins for observation. No apparent s/e's noted. Pt instructed to contact FP should any adverse reactions occur. Pt verbalized agreement/unde rstanding. Shiva Mobilization Soft Ti ue Mobilization Soft Tissue 91443 2013 ENID GONZALEZ Chiropractic Manip Treatmt (CMT) Spinal Three To Four Region Chiropractic Manip Treatmt (CMT) Spinal Three To Four Region 53008 2013 ENID GONZALEZ Mobilization Soft Ti ue Mobilization Soft Tissue 74727 2013 ENID GONZALEZ Chiropractic Manip Treatmt (CMT) Spinal Three To Four Region Chiropractic Manip Treatmt (CMT) Spinal Three To Four Region 82796 2013 ENID GONZALEZ Mobilization Soft Ti ue Mobilization Soft Tissue 72870 2013 ENID GONZALEZ Chiropractic Manip Treatmt (CMT) Spinal Three To Four Region Chiropractic Manip Treatmt (CMT) Spinal Three To Four Region 75035 2013 ENID GONZALEZ Threshold Audiogram (Pure Tone) Threshold Audiogram (Pure Tone) 00716 2013 DARYN MALCOLM Normal Shiva Threshold Audiogram (Pure Tone) Threshold Audiogram (Pure Tone) 32225 2012 CHAGO TOÑO Bernabe Shiva [employer] Fitting Monofocal Except For Aphakia [employer] Fitting Monofocal Except For Aphakia 69487 2011 CAMERON AGUIRRE Determination Of Refractive State Determination Of Refractive State 31352 2011 CAMERON AGUIRRE Ophthalmological New Patient Start Comprehensive Care Ophthalmological New Patient Start Comprehensive Care 03207 2011 CAMERON AGUIRRE Threshold Audiogram (Pure Tone) Threshold Audiogram (Pure Tone) 28922 2011 ATIF GONZALEZ Audiometry Group Testing Audiometry Group Testing 48899 2011 ATIF GONZALEZ Patient education, not otherwise cla ified, non-physician provider, group, per se ion 2011 ATIF GONZALEZ Patient education, not otherwise cla ified, non-physician provider, individual, per se ion 2011 JONATAN RIVERO Screening Test Of Visual Acuity, Quantitative, Bilateral Screening Test Of Visual Acuity, Quantitative, Bilateral 99349 2011 ISA COWAN Determination Of Refractive State Determination Of Refractive State 44986 2011 ISA COWAN [employer] Fitting Monofocal Except For Aphakia [employer] Fitting Monofocal Except For Aphakia 24162 2011 ISA COWAN Preventive Medicine Administration Of Health Risk Questionnaire Patient-Focused Preventive Medicine Administration Of Health Risk Questionnaire Patient-Focused 01465 ROSI NARANJO Internet Med Svc Qual Nonphys Healthcare Prof Up To 7 Days Estab Patient Internet Med Svc Qual Nonphys Healthcare Prof Up To 7 Days Estab Patient 23993 ROSI NARANJO Threshold Audiogram (Pure Tone) Automated Threshold Audiogram (Pure Tone) Automated 0208T JEAN-PIERRE PACK Ophthalmological Prior Patient Start Intermediate Level Care Ophthalmological Prior Patient Start Intermediate Level Care 89711 JEWELS GARY Determination Of Refractive State Determination Of Refractive State 36977 JEWELS GARY [facility] Psychometric Neuropsych Testing Battery Admin By Computer Psychometric Neuropsych Testing Battery Admin By Computer 77923 ANGÉLICA WHEATLEY [facility] Brief communication technology-based service, e.g. virtual check-in, [...] 5-10 minutes of medical discu hattie NARANJOROSI [facility] Ophthalmological Prior Patient Start Comprehensive Care Ophthalmological Prior Patient Start Comprehensive Care 87838 JEWELS GARY [employer] Fitting Monofocal Except For Aphakia [employer] Fitting Monofocal Except For Aphakia 92568 JEWELS GARY Audiogram (Screening) Audiogram (Screening) 00815 JACOB MOLINA Spirometry Spirometry 28077 JACOB MOLINA Visual Function Screening Visual Function Screening 50090 JACOB MOLINA Chiropractic Manip Treatmt (CMT) Spinal Three To Four Region Chiropractic Manip Treatmt (CMT) Spinal Three To Four Region 69974 RITO SMITH Social History Combined list of [...] aware of services available (911, One source, [employer], Walk in , Walk in ER, [...] at age 37. Compared medications reported by lunchroom food service supervisor to active medication list in medical record and any variances were documented.? ? Any complaints or issues identified while conducting the PHA have been addressed and or referred back to the patient s ?PCM for care.?membership assistant advised to follow up with PCM, Behavioral Health, ED/911, or One Source as needed for continuation of care, and/or further evaluation during exacerbations of physical and/or psychological illness or injury. See PHA document for additional information. Thirteen minutes of total time spent reviewing records, discussing health concerns and preventative health measures with Superintendent Transportation. ? 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 4.?GERD - Gastro-esophageal reflux disease Continue Omeprazole as prescribed along with avoiding triggers such as acidic/greasy/spicy food, heavy meals before bed, and caffeine;?achieving?a healthy diet and healthy weight. F/U with PCM for persistent or worsening symptoms.? 5.?Diarrhea Continue Fiber supplement as recommended by PCM, and continue F/U with PCM for management. Evan Sotomayor CTR?RIB TRIM SEPARATOR-C [facility] Provider Flight Medicine? [employer] [place]ae [place], CESAR??[address] [facility] [phone] ? 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 Member not present today in clinic for annual PHAQ.? PHAQ completed 11/07/2020.? HIV, Repository labs ordered.? No issues or concerns at this time.? No DR,MR,FR profiles.? Member is WWQ.? ? IMR status of member reviewed in ASIOH.? Member is?yellow, due Influenza vaccine. ? ? ? Ordered: omeprazole, 1 cap(s), Oral, Daily, 30 to 60 minutes before a meal, # 90 cap(s), 3 total refill(s), Maintenance, 1 cap(s) Oral Daily,Instr:30 to 60 minutes before a meal, Pharmacy: [facility] [Not filled] Administration[facility] [place] [address] HIV-1/O/2 EPI [id number] Repository Sample EPI [id number] Unlisted E[employer]M Service 37455 ? 2.?ASSESSMENT, POST DEPLOYMENT, DOCUMENTED ON EF1906 (A) ?MHA reviewed with member and closed.? No referrals needed. Ordered: omeprazole, 1 cap(s), Oral, Daily, 30 to 60 minutes before a meal, # 90 cap(s), 3 total refill(s), Maintenance, 1 cap(s) Oral Daily,Instr:30 to 60 minutes before a meal, Pharmacy: [facility] [Not filled] [facility] [place] [address] HIV-1/O/2 EPI 02211 Repository Sample EPI 9340 Unlisted E&M Service 68534 ? 3.?GERD - Gastro-esophageal reflux disease ?Refilled Omeprazole 40mg qd prn for GERD symptoms.? Take 30 minutes before meal.? FU with PCM if symptoms not improving in 4 weeks. ? Orders: *Resuscitation Status ANNUAL PERIODIC HEALTH ASSESSMENT ? I. VEGETABLE INSPECTOR INFORMATION AND DEMOGRAPHICS (SMI) 1. Last Name: SRAVANI 2. First Name: DARYN 3. Middle Name: ROSHAN 4. Assessment Date: 5. : 6. Age: 30 7. Gender: M 8. [employer] ID Number: [id number] 9. Service Branch: [employer] 10. 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 Status: Active Duty 12. 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 Unit Name: [address] [employer] 14. Duty Station/Location: [facility] 15. [facility]: [id number] 16. Is this your first Periodic Health Assessment (PHA)?: N 17. Are you enrolled in a secure messaging system with your health care provider?:? Y ? 18. Current contact information: Preferred Method: Day Time Phone DSN: [id number] Day Time Phone: [phone] Night Time Phone: Email 1: [email or web address] Email 2: Address: [address] City: [place] State: [place] Zip Code: [address] ? 19. Point of contact who can always reach you: Name: abby jordan Phone 1: [phone] Phone 2: EMAIL: Address: City: State: Zip Code: ? II. DEPLOYMENT INFORMATION (DEP) 1. Total number of deployments in the PAST 5 YEARS: 1 2. [place] [facility] 3. 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 Are you [...] watchful or easily startled? No 6. d. [place] numb or detached from others, activities, or your surroundings? No 6. e. [place] guilt or unable to stop blaming yourself [...] like to schedule a visit with a teachers' aide, mental health care provider, or a community [...] Day(s) per week 8. What prescriptions or igzj-wzq-[id number] medications are you CURRENTLY taking for health [...] health concerns?: No ? XI. SEPARATION AND FCI 1. Are you planning to separate or retire within the next year from Active Duty or [employer] Duty (activated for greater than 30 continuous days) OR do you intend to file a claim for disability compensation with the [employer]?: No ? PART B. RECORD REVIEW AND RECOMMENDATIONS I. RECORD REVIEWER INFORMATION 1. Last Name: Armani 2. First Name: Rosi 3. Middle Name: Cosmo 4. Service Branch: [employer] 5. 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 Title: Physician Manager Critical Care Unit ([place] 7. EMAIL: [email or web address] 8. Facility: [facility] 9. Unit: [facility] 10. Address: [address] [place] [address] 11. State: [place] 12. Zip Code: [address] 13. Phone: [phone] 14. Date Record Review: ? II. MEDICAL SCREENING 1. Date of membership assistant's most recent PHA: 2. membership assistant's most recently documented height: 5 feet 7 inches? ?Date: 3. membership assistant's most recently documented weight: 190 pounds? Date: 4. membership assistant's most recently documented blood pressure readin/78? Date: 5. Does the membership assistant have a history of abnormal blood pressure since their last PHA? No 6. What is the date of the membership assistant's most recently documented cholesterol test? No Cholesterol Test Documented 8. List of membership assistant's active medications listed in their permanent medical record: Methocarbamol 750mg PO PRN Ibuprofen 400mg PO, OTC, prn Omeprazole 40mg, PO, once daily 9. Is there a discrepancy between the active medication record review and the membership assistant's self-reported list of medications?: No 10. List documented significant care the membership assistant has received since their last PHA from a provider OUTSIDE the Health System: No Outside Care Documented 11. Is there a discrepancy between the membership assistant's list of OUTSIDE care (from OTH5), and the OUTSIDE care found in the record?: No 12. List documented significant care the membership assistant has received since their last PHA from a provider INSIDE the Health System: No Inside Care Documented 14. Confirm that vaccine exemptions are listed in the medical record for each vaccine listed: Not Answered ? III. OCCUPATION-SPECIFIC EXAMINATIONS 2. When was the membership assistant's most recently documented evaluation?: ? IV. FAMILY HISTORY AND LIFESTYLE 1. Does the [id number] reflect the membership assistant's reported family history?: Yes ? VII. INDIVIDUAL MEDICAL READINESS 1. Does the membership assistant have an Assignment Limitation Code C?: No 3. Most recently documented dental exam: Classification: 1 4. Is the membership assistant current on all required immunizations in the immunization tracking system?: No: Influenza, [place] 5. Is the membership assistant current with Service-specific requirements for glasses and gas mask inserts?: Yes 6. Does the membership assistant have the following laboratory tests documented in [...] need to be forwarded to the Health Mold Dresser completing PART C: ? ? Date Record Review Completed: --------- PART C. HEALTH CARE PROVIDER I. MENTAL HEALTH ASSESSMENT (MHA) PROVIDER INFORMATION 1. Last Name: Armani 2. First Name: Rosi 3. Middle Name: Cosmo 4. Service Branch: [employer] 5. 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 Title: Physician Manager Critical Care Unit ([place] 7. EMAIL: [email or web address] 8. Facility: [address] [place] [address] 9. Unit: [facility] 10. Address: [address] [place] [address] 11. State: [place] 12. Zip Code: [address] 13. Phone: [phone] 14. Date HCP Review initiated: ? 1.? [...] 3. Middle Name: Cosmo 4. Service Branch: [employer] 5. 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 Title: Physician Manager Critical Care Unit ([place]) 7. EMAIL: [email or web address] 8. Facility: [address] 9. Unit: [facility] 10. Address: [address] [place] [address] 11. State: [place] 12. Zip Code: [address] 13. Phone: [phone] 14. Date HCP Review initiated: ? IV. PERIODIC HEALTH ASSESSMENT PROVIDER RECOMMENDATIONS and REFERRALS 1. Provider concerns with this assessment: No issues or concerns identified ? V. SUMMARY AND COMMENTS 1. Additional information summarizing findings during the membership assistant assessment: ? 2. Provider Comments: ? ? . INDIVIDUAL MEDICAL READINESS DISPOSITION DETERMINATION ? ? BIJU: Ready? ? DEN: Ready? ? IMM: Ready? ? LAB: Ready? ? ME: Ready ? ? IMR Status: Fully Medically Ready ? VII. SERVICE MEDICAL DEPLOYABILITY EVALUATION INDICATED Based on your review of all documentation, is the membership assistant medically deployable without limitations?? Reference Yonis 6490.07 ? ?Yes (membership assistant DOES NOT currently have a medical condition that limits deployability) ? Date PHA Completed: ? END OF [id number] REPORT ? [facility] Review Summary ? Does the member have [...] that dictate a referral to the [facility] Board?? No. ? Active Medical Conditions:? None. ? 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 Cleared for PRAP duties: NA ? Medical surveillance examination requirements up to date: NA ? 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 Cleared for continued service: Yes ? Cleared for mobility duties: Yes ? Cleared for participation in AF physical fitness program: Yes ? END OF [facility] SUMMARY ? 02/02/2024 Ambulatory Pharmacy Functional Status Combined list of recent functional and cognitive assessments recorded at [employer] [place] Functional Bascom Measurement (FIM) Scale: 1 = Total Assistance (Subject = 0% +), 2 = Maximal Assistance (Subject = 25% +), 3 = Moderate Assistance (Subject = 50% +), 4 = Minimal Assistance (Subject = 75% +), 5 = Supervision, 6 = Modified Bascom (Device), 7 = Complete Bascom (Timely, Safely). Assessment Date/Time Source Assessment Type Assessment Skill Assessment Score Assessment Details No data available for this section
== END 2024-01-26 14:30 | disposition home or self-care (01) ==
LOC: HO.LAB 14:29
PROVIDERS: PCP Family Medicine; Visit Provider Nurse Practitioner Family
DX: K21.9 Gastro-esophageal reflux disease without esophagitis (principal); R19.7 Diarrhea, unspecified; K59.00 Constipation, unspecified; E55.9 Vitamin D deficiency, unspecified; R10.9 Unspecified abdominal pain
CPT/HCPCS: 36415; 82306; 82607; 82746; 84443; 86364; 99202

== ENCOUNTER 2024-02-05 08:53 | Outpatient (REF) | payer OTHER, SELFPAY ==
--- NOTE | ~2024-02-05 | FL_ITS ---
EXAMINATION: XR FLUOROSCOPY UPPER GI WITH AIR CLINICAL INFORMATION: Reflux. Dysphagia. Abdominal pain. COMPARISON: None TECHNIQUE: Fluoroscopic air contrast upper GI examination was performed utilizing standard techniques with thin and thick barium and effervescent granules. Numerous spot images were obtained. FINDINGS: Lateral cine images of the oropharynx and hypopharynx demonstrate normal swallow mechanism with normal epiglottic inversion and soft palate elevation. No tracheal penetration, glottic or subglottic aspiration identified. No nasopharyngeal reflux present. Hypopharyngeal structures appear normal without evidence of mass or diverticulum. There was no significant cricopharyngeal achalasia. Dual and single contrast images of the esophagus demonstrate normal caliber, contour, and mucosal pattern. No evidence of stricture, mass, or ulcerations identified. Esophageal peristalsis was normal. A very small type I hiatal hernia is present. No significant gastroesophageal reflux was seen during the course of the examination and on reflux views. Dual contrast and single contrast images of the stomach demonstrated a normal contour. The gastric rugal folds and gastric area have a thickened appearance, suggestive of gastritis. No masses or ulcerations are seen. Contrast freely passed into the gastric antrum and duodenal bulb without delay. Single and air-contrast images of the duodenal bulb demonstrate no abnormality. The duodenal sweep has a normal appearance, course, and mucosal fold appearance. The imaged proximal jejunum has a normal fold pattern and caliber. There is rapid transit of the barium column, with the distal ileum opacified in less than 10 minutes. FLUOROSCOPY TIME: 5 minutes 6 seconds Number of Spot Images: 6 Number of Cine: 16 DOSE AREA PRODUCT: 3562 uGy-m2 (microgray-meter squared) FL/FL upper GI w Ba Swallow IMPRESSION: 1. Very small type I hiatal hernia. 2. Thickened appearance of the areae gastrica and gastric rugal folds, suggestive of gastritis. 3. Rapid transit of the barium column, with the distal ileal opacified less than 10 minutes. Etiology is unclear. This procedure was performed by Daryn Britton PA-C, and supervised by Dr. Trinh Electronically signed by: Attila Trinh MD 02/05/2024 03:43 PM [facility]
--- OUTSIDE RECORDS SUMMARY | 2024-02-05 08:56 | XMS_ITS | Continuity of Care Document ---
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 It does not include entries that were removed or entered in error. Problem Status Onset Date Problem Type Date of Resolution Comments Source Encounter for issue of other medical certificate Active [address] [place] [address] ASSESSMENT, POST-DEPLOYMENT, DOCUMENTED ON [id number] Inactive 8 Condition [facility] Pain, unspecified Inactive 8 Condition [facility] Regular astigmatism, bilateral Active 7 Condition [...] Inactive Condition DoD astigmatism regular Inactive Condition [facility] visit: ears/hearing exam for hearing conservation, treatment Inactive Condition [facility] visit for: occupational health / fitness exam Inactive Condition [facility] visit for: administrative purpose Inactive Condition [facility] visit for: services physical accession Inactive [...] (given by mouth) Ordered 0310C-[facility] MELOXICAM (MELOXICAM) , 15 MG, TABLET, ORAL, [employer] 100 ea. BOTTLE Active [id number] 4 2023 30 Pharmac y Data Transac tion Service Facilit y OMEPRAZOLE (omeprazole ), 40 MG, CAPSULE DR, ORAL, GLENMARK PHARMA, 1000 ea. BOTTLE Active [id number] 2023 30 Pharmac y Data Transac tion Service Facilit y OMEPRAZOLE (omeprazole ), 40 MG, CAPSULE DR, ORAL, GLENMARK PHARMA, 1000 ea. BOTTLE Active [id number] 2023 30 Pharmac y Data Transac tion Service Facilit y OMEPRAZOLE (omeprazole ), 40 MG, CAPSULE DR, ORAL, GLENMARK PHARMA, 1000 ea. BOTTLE Active [id number] 4 2023 30 Pharmac y Data Transac tion Service Facilit y OMEPRAZOLE (omeprazole ), 40 MG, CAPSULE DR, ORAL, GLENMARK PHARMA, 1000 ea. BOTTLE Active [id number] 4 2023 30 Pharmac y Data Transac tion Service Facilit y OMEPRAZOLE (OMEPRAZOLE ), 40 MG, CAPSULE DR, ORAL, ZYDUS PHARMACEU, 1000 ea. BOTTLE Active [id number] 3 2023 30 Pharmac y Data Transac tion Service Facilit y omeprazole 40 mg oral delayed release capsule 1 cap(s), Oral, Daily, 30 to 60 minutes before a meal, # 90 cap(s), 3 total refill(s ), Maintena nce, 1 cap(s) Oral Daily,In str:30 to 60 minutes before a meal, Pharmacy : [facility] Oral (given by mouth) Ordered 90.0 0010C-D [facility] Allergies, Adverse Reactions, Alerts Combined list [...] Site Reaction Lot Number CVX Code Drug Geophysical Drafter Status Comments Source COVID Vaccine Pfizer 2020 WENDYGRUBER Shoul cassy, left (delt oid) [id number] PFIZER complet ed COVID Vaccine Pfizer 11/30/20 Given 0010C-D [facility] influenza, recombinant, quadrivalent, injectable, preservative free 2020 NEELA RAM, () Not Given influenza , recombina nt, quadrival ent,injec table, preservat wendy free DoD COVID Vaccine Pfizer 2020 FENIXRMARTIN Shoul cassy, left (delt oid) [id number] PFIZER complet ed COVID Vaccine Pfizer 11/02/20 Given 0010C-D [facility] influenza virus vaccine, inactivated 2020 88 sanofi pasteur complet ed influenza virus vaccine, inactivat ed 03/17/20 Given Ambulat ory Pharmac y influenza, recombinant, quadrivalent, injectable, preservative free 2020 NEELA RAM, () Not Given influenza , recombina nt, quadrival ent,injec table, preservat wendy free DoD influenza, injectable, quadrivalent- pf 2018 [id number] 150 Seqirus complet ed influenza , injectabl e, quadrival ent-pf 01/05/19 Given Ambulat ory Pharmac y Influenza, injectable, quadrivalent, preservative free 9 2018 [id number] 150 Seqirus (SEQ) complet ed Influenza , injectabl e, quadrival ent, preservat wendy free DoD anthrax vaccine 2018 [id number] Emergent [employer] complet ed anthrax vaccine 11/29/18 Given Ambulat ory Pharmac y anthrax vaccine 6 2018 [id number] 24 [employer] [place] (MIP) complet ed anthrax vaccine DoD influenza, injectable, quadrivalent- pf 2017 [id number] 150 Seqirus complet ed influenza , injectabl e, quadrival ent-pf 12/04/17 Given Ambulat ory Pharmac y Influenza, injectable, quadrivalent, preservative free 8 2017 [id number] 150 Seqirus (SEQ) comple t ed Influenza , injectabl e, quadrival ent, preservat wendy free DoD typhoid Vi capsular polysaccharid e vac 2016 [id number] 101 sanofi pasteur complet ed typhoid Vi capsular polysacch aride vac 12/19/16 Given Ambulat ory Pharmac y anthrax vaccine 2016 [id number] 24 [employer] complet ed anthrax vaccine 12/19/16 Given Ambulat ory Pharmac y Influenza, inj, MDCK, quadrivalent- pf [id number] Seqirus complet ed Influenza , inj, MDCK, quadrival ent-pf 12/19/16 Given Ambulat ory Pharmac y anthrax vaccine 5 2016 [id number] 24 [employer] [place] (MIP) complet ed anthrax vaccine DoD typhoid Vi capsular polysaccharid e vaccine 2 2016 [id number] 101 Sanofi Pasteur (PMC) complet ed typhoid Vi capsular polysacch aride vaccine DoD Influenza, injectable, Madin Susan Canine Kidney, preservative free, quadrivalent 7 [id number] 171 Seqirus (SEQ) comple t ed Influenza , injectabl e, Madin [place] Canine Kidney, preservat wendy free, quadrival ent DoD tuberculin purified protein derivative 2016 [id number] 96 [facility] complet ed tuberculi n purified protein derivativ e 06/06/16 Given Ambulat ory Pharmac y tuberculin purified protein derivative 2016 [id number] 96 [facility] complet ed tuberculi n purified protein derivativ e 05/29/16 Given Ambulat ory Pharmac y Human Papillomaviru s 9-valent vaccine 2016 [id number] 165 Merck & Company Inc complet ed Human Papilloma virus 9-valent vaccine 03/04/16 Given Ambulat ory Pharmac y Human Papillomaviru s 9-valent vaccine 3 2016 [id number] 165 Merck (MSD) complet ed Human Papilloma virus 9-valent vaccine DoD Human Papillomaviru s 9-valent vaccine 2015 [id number] 165 Merck & Company Inc complet ed Human Papilloma virus 9-valent vaccine 11/02/15 Given Ambulat ory Pharmac y influenza, injectable, quadrivalent- pf 2015 [id number] 150 [employer] sd complet ed influenza , injectabl e, quadrival ent-pf 11/02/15 Given Ambulat ory Pharmac y Influenza, injectable, quadrivalent, preservative free 6 2015 [id number] 150 [facility] (B) complet ed Influenza , injectabl e, quadrival ent, preservat wendy free DoD Human Papillomaviru s 9-valent vaccine 2 2015 [id number] 165 Merck (MSD) complet ed Human Papilloma virus 9-valent vaccine DoD Human Papillomaviru s 9-valent vaccine 2015 [id number] 165 [employer] complet ed Human Papilloma virus 9-valent vaccine 08/23/15 Given Ambulat ory Pharmac y [place] Encephalitis IM 2015 [id number] 134 Valneva complet ed [place] Encephali tis IM 08/23/15 Given Ambulat ory Pharmac y anthrax vaccine 2015 [id number] 24 [employer] complet ed anthrax vaccine 08/23/15 Given Ambulat ory Pharmac y anthrax vaccine 4 2015 [id number] 24 [employer] [place] (MIP) complet ed anthrax vaccine DoD [place] Encephalitis vaccine for intramuscular administratio n 3 2015 [id number] 134 [facility] (INT) complet ed [place] Encephali tis vaccine for intramusc ular administr ation DoD Human Papillomaviru s 9-valent vaccine 1 2015 [id number] 165 Merck (MSD) complet ed Human Papilloma virus 9-valent vaccine DoD anthrax vaccine 2014 [id number] 24 [employer] complet ed anthrax vaccine 02/09/15 Given Ambulat ory Pharmac y anthrax vaccine 3 2014 [id number] 24 [employer] [place] (MIP) complet ed anthrax vaccine DoD influenza, injectable, quadrivalent 2014 [id number] 158 GlaxoSmithKli ne complet ed influenza , injectabl e, quadrival ent 11/30/14 Given Ambulat ory Pharmac y influenza, injectable, quadrivalent, contains preservative 0 2014 [id number] 158 [facility] (SKB) complet ed influenza , injectabl e, quadrival ent, contains preservat wendy DoD [place] Encephalitis IM 2014 [id number] [id number] 134 Valneva complet ed [place] Encephali tis IM 08/15/14 Given Ambulat ory Pharmac y anthrax vaccine 2014 [id number] 24 [employer] complet ed anthrax vaccine 08/15/14 Given Ambulat ory Pharmac y anthrax vaccine 2 2014 [id number] 24 [employer] [place] ([facility]) complet ed anthrax vaccine DoD [place] Encephalitis vaccine for intramuscular administratio n 2 2014 [id number] 134 Intercell [employer] (INT) complet ed [place] Encephali tis vaccine for intramusc ular administr ation DoD [place] Encephalitis IM 2014 [id number] 134 Valneva complet ed [place] Encephali tis IM 06/08/14 Given Ambulat ory Pharmac y [place] Encephalitis vaccine for intramuscular administratio n 1 2014 [id number] 2E 134 [employer] (INT) complet ed [place] Encephali tis vaccine for intramusc ular administr ation DoD vaccinia (smallpox) vaccine 2014 [id number] 75 Sanofi Pasteur Incorporated complet ed vaccinia (smallpox ) vaccine 06/01/14 Given Ambulat ory Pharmac y vaccinia (smallpox) vaccine 1 2014 [id number] 75 (JASSON) complet ed vaccinia (smallpox ) vaccine DoD anthrax vaccine 2014 [id number] 24 [employer] complet ed anthrax vaccine 04/25/14 Given Ambulat ory Pharmac y anthrax vaccine 0 2014 [id number] 24 [employer] [place] ([facility]) complet ed anthrax vaccine DoD typhoid Vi capsular polysaccharid e vac 2014 K1200 101 sanofi pasteur complet ed typhoid Vi capsular polysacch aride vac 04/24/14 Given Ambulat ory Pharmac y measles/mumps /rubella virus vaccine 2014 [id number] 03 Merck & Company Inc complet ed measles/m umps/rube lla virus vaccine 04/24/14 Given Ambulat ory Pharmac y measles, mumps and rubella virus vaccine 1 2014 [id number] 03 Merck (MSD) complet ed measles, mumps [...] wendy free DoD influenza, seasonal, injectable-pf 2012 [id number] 140 sanofi pasteur complet ed influenza , seasonal, injectabl e-pf 11/23/12 Given Ambulat ory Pharmac y Influenza, seasonal, injectable, preservative free 0 2012 [id number] 140 Sanofi Pasteur (PMC) complet ed Influenza , seasonal, injectabl e, preservat wendy free DoD influenza virus vaccine, live 2011 [id number] 111 [employer] Inc comple t ed influenza virus vaccine, live 10/28/11 Given Ambulat ory Pharmac y influenza virus vaccine, live, attenuated, for intranasal use 0 2011 [id number] 111 [employer] (MED) complet ed influenza virus vaccine, [...] y tetanus, diphtheria, acellular pertu is 2011 [id number] 115 GlaxoSmithKli ne complet ed tetanus, [...] unspecified formulation 1 2011 [id number] 31 [facility] ([facility]) complet ed hepatitis A vaccine, pediatric dosage, unspecifi ed formulati on DoD hepatitis B vaccine, unspecified formulation 1 2011 45 () Not Given hepatitis B vaccine, unspecifi ed formulati on DoD tetanus toxoid, reduced diphtheria toxoid, and acellular pertu is vaccine, adsorbed 1 2011 [id number] 5AA 115 [employer]Kline ([facility]) complet ed tetanus toxoid, reduced diphtheri a toxoid, and acellular pertussis vaccine, adsorbed DoD tuberculin purified protein derivative 2011 [id number] 96 sanofi pasteur complet ed tuberculi n purified protein derivativ e 02/23/11 Given Ambulat ory Pharmac y adenovirus vaccine, live 2010 [id number] 143 Teva Pharmaceutica complet ed adenoviru s vaccine, live 02/21/11 Given Ambulat ory Pharmac y influenza, seasonal, injectable-pf 2010 [id number] 140 sanofi pasteur complet ed influenza , seasonal, injectabl e-pf 02/21/11 Given Ambulat ory Pharmac y meningococcal A,C,Y,W-135 (MCV4P) 2010 [id number] 114 sanofi pasteur complet ed meningoco ccal A,C,Y,W-1 35 (MCV4P) 02/21/11 Given Ambulat ory Pharmac y poliovirus vaccine, inactivated 2010 G1500 10 sanofi pasteur complet ed polioviru s vaccine, inactivat ed 02/21/11 Given Ambulat ory Pharmac y poliovirus vaccine, inactivated 1 2010 G1500 10 Sanofi Pasteur ([facility]) complet ed polioviru s vaccine, inactivat ed DoD meningococcal polysaccharid e (groups A, C, Y and W-135) diphtheria toxoid conjugate vaccine (MCV4P) 1 2010 [id number] 114 Sanofi Pasteur ([facility]) complet ed meningoco ccal polysacch aride (groups A, C, Y and W-135) diphtheri a toxoid conjugate vaccine (MCV4P) DoD Influenza, seasonal, injectable, preservative free 1 2010 [id number] 140 Sanofi Pasteur (PMC) complet ed Influenza , seasonal, injectabl e, preservat wendy free DoD Adenovirus, type 4 and type 7, live, oral 1 2010 [id number] 143 [facility] (BRR) complet ed Adenoviru s, type 4 [...] Prevention' s HIV diagnostic algorithm. Refer to [facility] Lab Guide for additional information : [email or web address]/EPIL [email or web address]/la [email or web address] x Testing performed [...] Prevention' s HIV diagnostic algorithm. Refer to [facility] Lab Guide for additional information : [email or web address]/Gilda b/[email or web address] _[email or web address] Testing performed by Marjorie brooke. Performed by: [facility] [address] [place] [phone] Ambulator y Pharmacy Faithcella shoshanaus Sendouts Repository Sample.EPI RECEIVED 11/07 Result Comment: INTERPRETAT ION(S): Performed by: Epidemiolog y [facility] [address] [place] [phone] Ambulator y Pharmacy Vital Signs Combined list [...] Date DC Date Status Disposition Source [place] [facility] [place] [address](Opt ometry Clinic BMT WHASC) OUTPATIENT [id number] SHELLY GRANDE 02/27 Released w/o Limitations [facility] [place] [address](O ptometr y Clinic BMT WHASC) [place] [facility] [place] [address](MAS Delta) OUTPATIENT [id number] Cold Symptom s KAL MAO 04/07 Released w/o Limitations [facility] [place] [address](M Delta) [place], [place](NASP Occupatio nal Health) OUTPATIENT [id number] USAF RPP 0800 JONATAN RIVERO 05/07 Released w/o Limitations [place]NA[place] Occup[place] ional Health) [place] Hearing Conservat [place] OUTPATIENT [id number] USAF AUDIO. ATIF GONZALEZ 05/08 Released w/o Limitations [place]NASP Hearing Conserv [place]ion[place] [facility](Opt ometry) OUTPATIENT [id number] CAMERON Young 09/15 Released w/o Limitations [facility](O ptometr y) [facility] ght Medicine Clinic) OUTPATIENT [id number] 58MXS Physica l showtim e 0830 TOÑO ANDERS 09/02 Released w/o Limitations [facility](F light Medicin e Clinic) [facility](Kir and_[facility] _Team_Lob o) TELE CONSULT [id number] Notes Entered by: SANJANA MICHAELS 16 Sep 2012 1308 ------- ------- ------- ------- -- EMA BEEBE 09/[address] [facility](Fauzia perla _[facility]_Te am_Lobo ) [facility]([place] _Team_Lob o) OUTPATIENT [id number] f/u ER visit [place] NE[place] CAMPBELL 10/27 Released with Work/Duty Limitations [facility](K janiceand _C_Te am_Lobo ) [facility]([place] _Team_Lob o) TELE CONSULT [id number] Notes Entered by: TRAVIS MERINO 15 Nov 2012 1109 ------- ------- ------- ------- -- NETWORK RESULTS - OTHOPED ICS - [id number] [place]AMPBELL 11/15 [facility](Fauzia irlaury _[facility]_Te am_Lobo ) [employer]([place]_[facility] _Team_Lob o) TELE CONSULT [id number] Notes Entered by: JONN GALVIN 16 Nov 2012 1115 ------- ------- ------- ------- -- NETWORK RESULTS ---ORTH OPAEDIC [id number] OF [facility] [place] NENA CAMPBELL 11/16 [facility](Fauzia irjudy _[facility]_Te am_Lobo ) [facility](Deondre [facility] _Team_Roa unner) OUTPATIENT [id number] sore throat ad MONIKA VOGT 06/28 Released w/o Limitations [facility](Fauzia irand _[facility]_Te am_Road runner) [facility] [id number] anuradhau ritika lipscomb [facility] DARYN Simental 08/11 Released w/o Limitations [facility](F light Medicin e Clinic) [facility] Team E) TELE CONSULT [id number] Notes Entered by: Fauzia OROZCO 19 Aug 2013 1418 ------- ------- ------- ------- -- ANNUAL PHA, UPDATE EMA CROCKER 08/19 Other Not Elsewhere Classified [facility](K irand [facility] Team E) [facility](Chi ropractic Clinic) OUTPATIENT [id number] New visit ENID GONZALEZ 09/27 Released w/o Limitations [facility](C hiropra ctic Clinic) [facility] _Team_Roa drunner) OUTPATIENT [id number] POSSIBL E STD-PT PROVIDE D LIMITED SYMPTOM S RAFAT ROSE 09/28 Released w/o Limitations [employer]([place] _FHC_Te am_Road runner) [employer]([facility]) OUTPATIENT [id number] Follow up ENID GONZALEZ 09/29 Released w/o Limitations [employer](C [facility]) [employer](Kir [facility] _Team_Roa drunner) TELE CONSULT [id number] Notes Entered by: JIM ROMANO 30 Sep 2013 1419 ------- ------- ------- ------- -- LAB PAUL HCUN 09/30 Referred for Appointment [employer] [facility]([place] _FHC_Te am_Road runner) [facility]) OUTPATIENT [id number] Follow up ENID GONZALEZ 10/03 Released w/o Limitations [employer]([place] _Team_Roa drunner) TELE CONSULT [id number] Notes Entered by: SA TD ROSE 03 Oct 2013 1304 ------- ------- ------- ------- -- Need follow up PAUL CHUN 10/03 Referred for Appointment [facility]([place] _C_Te am_Road runner) [facility]) OUTPATIENT [id number] Notes Entered by: YU MCCURDY 04 Oct 2013 1337 ------- ------- ------- ------- -- STI Chlamyd HUNG Martin 10/04 Released w/o Limitations [employer]([facility]) [employer] OUTPATIENT [id number] Follow up ENID GONZALEZ 10/07 Released w/o Limitations [employer]([facility]) [facility](Chi ropractic Clinic) OUTPATIENT [id number] Follow up ENID GONZALEZ 10/13 Released w/o Limitations [employer](C hiropra ctic Clinic) [employer](Chi ropractic Clinic) OUTPATIENT [id number] Follow up ENID GONZALEZ 10/27 Released w/o Limitations [employer](C hiropra ctic Clinic) [employer]([place] _Team_[place]) OUTPATIENT [id number] [facility] [place] Pierson 04/25 Released w/o Limitations [employer]([place] [facility]_Te am_Road runner) [facility] [employer] OUTPATIENT [id number] 60[address] mxs 24 y/o glasses wear-wa DARYN Gutierrez 09/14 Released w/o Limitations [employer](F light Medicin e Clinic) [facility]([place] _Team_[place]) TELE CONSULT [id number] Notes Entered by: ALEJANDRA MCKENZIE 14 Sep 2014 1445 ------- ------- ------- ------- -- PHA ROUTINE LASHAE PICHARDO 09/14 Other Not Elsewhere Classified [facility]([place] [facility]_Te am_Road runner) [facility](Opt ometry) OUTPATIENT [id number] ENID MCFARLAND 09/25 Released w/o Limitations [facility](O ptometr y) [facility] Team A) TELE CONSULT [id number] Notes Entered by: HENRY MOE 02 Feb 2015 1351 ------- ------- ------- ------- -- Medical In-proc HENRY Cherry 02/02 Released to Self Care [facility] Team A) [facility] Team A) OUTPATIENT [id number] check up DENNYS Bay 04/13 Released w/o Limitations [facility] Team A) [facility] Team A) TELE CONSULT [id number] Notes Entered by: HENRY MOE 17 Apr 2015 1634 ------- ------- ------- ------- -- Normal Lab Result HENRY MOE 04/17 Released to Self Care [facility] Team A) [facility] Team A) OUTPATIENT [id number] f/u lab DENNYS SOLANO Shannan 05/05 Released w/o Limitations [facility] Team A) [facility] Team A) TELE CONSULT [id number] Notes Entered by: HENRY MOE 14 May 2015 1421 ------- ------- ------- ------- -- Normal Lab Results HENRY MOE 05/13 Released to Self Care [facility] Team A) [facility] Team A) TELE CONSULT [id number] Notes Entered by: HENRY MOE 16 May 2015 1302 ------- ------- ------- ------- -- Normal Lab Result HENRY MOE 05/15 Released to Self Care [facility] Team A) [facility] Team A) TELE CONSULT [id number] Notes Entered by: HENRY MOE 18 May 2015 0928 ------- ------- ------- ------- -- Normal Lab Result HENRY MOE 05/17 Released to Self Care [facility] Team A) [facility] Medicine [facility]) OUTPATIENT [id number] CAMERON Boggs 08/22 Released w/o Limitations [facility]( light Medicin e Clinic) [facility] Medicine [facility]) OUTPATIENT [id number] CHANELL CADENA 08/27 Released w/o Limitations [employer](F light Medicin e Clinic) [employer](BO C 1) TELE CONSULT [id number] Notes Entered by: MANUEL COCHRAN 01 Oct 2015 1425 ------- ------- ------- ------- -- [facility] 10 Year Record Reviews ALEJANDRA HENSLEY 09/30 [facility](B [facility]) [facility] [employer]([facility]) TELE CONSULT [id number] Notes Entered by: JUAN C SALAS 21 Feb 2016 1241 ------- ------- ------- ------- -- In/Out Process ing WS AVEL SALAS 02/20 [facility] [employer]([facility]) [facility] [employer]([facility]) OUTPATIENT [id number] resp questio YESENIA Grant 03/11 Released w/o Limitations [employer](Opt ometry Clinic) OUTPATIENT [id number] ANNUAL NEW PT JESSIE MOREL 06/19 Released w/o Limitations [facility](O ptometr y Clinic) [facility] Hearing Consv) OUTPATIENT [id number] audio/O VITO RODRIGEZ 07/28 Released w/o Limitations [facility]) [facility]) OUTPATIENT [id number] OH1/aud YESENIA Melvin 07/28 Released w/o Limitations [facility]) [facility]) OUTPATIENT [id number] OH2/DI ALICIA 07/31 Released w/o Limitations [facility](D [facility]) [facility]) OUTPATIENT [id number] ROSI NARANJO 10/14 Released w/o Limitations [facility]) [facility]) OUTPATIENT [id number] Notes Entered by: Rigo OSBORN 16 Oct 2016 1450 ------- ------- ------- ------- -- [facility] DARRON ELINORADRIÁN LOVE 10/16 Released w/o Limitations [facility]) [facility]) OUTPATIENT [id number] PAULETTE PAGE 12/23 Released w/o Limitations [facility]) Theater Facility OUTPATIENT [id number] Theater Provider 09/03 Released w/o Limitations [facility] Facility OUTPATIENT [id number] Theater Provider 09/13 Released w/o Limitations Theater Facilit y [facility] Hearing Consv) OUTPATIENT [id number] Notes Entered by: BURTON GONZALEZ 25 Sep 2017 0957 ------- ------- ------- ------- -- walk in audiogr am for CHITO Woody NMI 09/25 Released w/o Limitations [facility] Hearing Consv) [facility]) OUTPATIENT [id number] Notes Entered by: GIGI GASTON 15 Oct 2017 1256 ------- ------- ------- ------- -- Walk In STI Check GIGI GASTON 10/15 Released w/o Limitations [facility]) [facility]) OUTPATIENT [id number] [facility] [phone] PAULETTE PATEL 10/20 Released w/o Limitations [facility]) [address] [place] [address] Group([facility]) TELE CONSULT [id number] Notes Entered by: CURTIS SAM 20 Oct 2017 1531 ------- ------- ------- ------- -- Lab results AVEL SALAS 10/20 [facility]) [facility]) OUTPATIENT [id number] Notes Entered by: Bg AGUILAR 28 Oct 2017 1126 ------- ------- ------- ------- -- Annual [facility] ALFRED RODRIGUES V 10/28 Released w/o Limitations [facility]) [facility](Opt ometry Clinic) OUTPATIENT [id number] Notes Entered by: CARMELINA PULIDO P 12 Nov 2017 1305 ------- ------- ------- ------- -- CRS package TAYLOR ROCA 11/12 Released w/o Limitations [facility](O ptometr y Clinic) [address] [place] [address]([facility]) TELE CONSULT [id number] Notes Entered by: JESSICA HOGUE X 17 Nov 2017 1154 ------- ------- ------- ------- -- [facility] eliseo Newton l - SHRUTI THOMPSON 11/17 [facility]) [facility](Opt [facility]metry Clinic) TELE CONSULT [id number] Notes Entered by: SHYAM COKER 01 Dec 2017 1024 ------- ------- ------- ------- -- CRS email DI MCCURDY 12/01 [facility]ometr y Clinic) [facility](Opt [facility]metry Clinic) OUTPATIENT [id number] BRAULIO Thompson 12/16 Released w/o Limitations [facility]r y Clinic) [facility]) OUTPATIENT [id number] [phone] PAULETTE PATEL 01/06 Released w/o Limitations [facility]) [address] [place] [address](Opt ometry Clinic) OUTPATIENT [id number] Notes Entered by: CARMELINA PULIDO P 04 Feb 2018 0806 ------- ------- ------- ------- -- TAYLOR HAINES 02/04 Released w/o Limitations [address] [place] [address](O ptometr y Clinic) [address] [place] [address]([facility]) OUTPATIENT [id number] Notes Entered by: YESENIA HOLLAND 08 Feb 2018 0746 ------- ------- ------- ------- -- OH2/JACOB MELISSA 02/08 Released w/o Limitations [address] [place] [address]([facility]) [address] [place] [address]([facility] Soliz) TELE CONSULT [id number] Notes Entered by: Rigo ROMEO 23 Mar 2018 1602 ------- ------- ------- ------- -- Network Results - Optomet ry 018 REYNA YI 03/[address] [place] [address]([facility] Martínez) [address] [place] [address]([facility] Deepak) TELE CONSULT [id number] Notes Entered by: DARIUS DEL RIO 27 Apr 2018 1408 ------- ------- ------- ------- -- SYMPTOM S/UC FOLLOWU P/REFER RITIKA-MAYI ANDRADE 04/[address] [place] [address]([facility] Deepak) [address] [place] [address]([facility] Deepak) OUTPATIENT [id number] back pain CHEYANNE PRADO 04/27 Released with Work/Duty Limitations [address] [place] [address]([facility] Deepak) [address] [place] [address]([facility] Deepak) TELE CONSULT [id number] Notes Entered by: DARIUS DEL RIO 16 Aug 2018 1624 ------- ------- ------- ------- -- Network Results -URGENT CARE W/ RADIOLO GY 2018 REYNA YI 08/16 [employer]([facility] Deepak) [facility] Brea) TELE CONSULT [id number] Notes Entered by: YASHIRA PULIDO 23 Aug 2018 1135 ------- ------- ------- ------- -- Network Results -Physic al Therapy 9-06/28 REYNA YI 08/23 [facility] Wood[place]) [facility]) OUTPATIENT [id number] Notes Entered by: ROSI NARANJO 17 Nov 2018 1605 ------- ------- ------- ------- -- DRHA4 MHA ROUTINE ROSI NARANJO 11/17 Released w/o Limitations [facility]) [facility] Martínez) OUTPATIENT [id number] [facility] PHA KAROL WILL 11/26 Released w/o Limitations [facility] Mart[facility]) [facility](Opt ometry Clinic) OUTPATIENT [id number] CMR JEWELS GARY 11/29 Released w/o Limitations [facility](O ptometr y Clinic) [facility] Hearing Consv) OUTPATIENT [id number] CMR 135A JEAN-PIERRE PACK 11/29 Released w/o Limitations [facility]) [facility]) OUTPATIENT [id number] CMR/OH1 YESENIA HOLLAND 11/29 Released w/o Limitations [facility](P ublic [facility]) [facility]) OUTPATIENT [id number] CMR/OH2 /PE JACOB MOLINA 12/02 Released w/o Limitations [facility]) [facility]) OUTPATIENT [id number] DRHA5 MHA ROUTINE ROSI NARANJOER 11/07 Released w/o Limitations [employer](D [facility]) [facility]([facility] [place]) OUTPATIENT [id number] CMR YOVANI ALDANA 12/07 Released w/o Limitations [facility] [employer] [facility]([facility]) OUTPATIENT [id number] CMR/PE JACOB MOLINA N 12/13 Released w/o Limitations [facility] [employer] [facility] [employer] [facility](Opt ometry Clinic) OUTPATIENT [id number] CMR JEWELS GARY 12/14 Released w/o Limitations [employer](O ptometr y Clinic) [employer]([facility] Hearing Consv) OUTPATIENT [id number] CMR AUDIO 135A GUAJARDOESTEFANY 12/14 Released w/o Limitations [employer] [facility] [employer] [facility](Pub lic Health) OUTPATIENT [id number] 2 CMR/SPE GEORGINA JOEL 12/14 Released w/o Limitations [employer](P ublic Health) [facility](Chi ropractic Clinic) OUTPATIENT [id number] RITO SMITH 01/04 Released w/o Limitations [employer](C hiropra ctic Clinic) [facility](Chi ropractic Clinic) OUTPATIENT [id number] adj/2nd RITO SMITH 01/25 Released w/o Limitations [facility] [employer] [facility](C hiropra ctic Clinic) [facility] [employer] [facility](Chi ropractic Clinic) OUTPATIENT [id number] adj/3rd RITO SMITH 02/06 Released w/o Limitations [employer](C hiropra ctic Clinic) [facility] [employer] [facility](Chi ropractic Clinic) OUTPATIENT [id number] RITO SMITH 03/01 Released w/o Limitations [facility] [employer] [facility](C hiropra ctic Clinic) 0310C-AF- C-66th [facility] Between Visit [id number] 04/09 Discharge Disposition: Home or Self Care 0310C-A F-C-[facility]t [facility] [place] 0310A-AF- C-[facility] Between Visit [id number] 09/08 Discharge Disposition: Home or Self Care 0310A-A F-C-66t [facility] 7379C-[facility] [id number] Encount er for issue of other medical certifi tad ELIZONDO 09/08 Discharge Disposition: Home or Self Care 7379C-L [facility] Center 309C-AF- C-[facility] Dental [id number] CESAR MAKOMAGLORIA MACKENZIE 12/14 Discharge Disposition: Home or Self Care 0310C-A F-C-66t [facility] 0310A-AF- C-[facility]th [facility] Between Visit [id number] 12/30 Discharge Disposition: Home or Self Care [...] PROVIDE W/IN THE PREV 7 DAYS,USE THE [employer] NETWORK 2018 DoD SCREENING TEST, PURE TONE, AIR ONLY 2017 DoD ONLINE ASSESS &MANAG SERV PROVIDE,A QUAL NONPHYS HCP TO AN ESTABLISHED PAT/GUARDIAN,NOT ORIGINAT FRM RELAT ASSESS &MANAG SERV PROVIDE W/IN THE PREV 7 DAYS,USE THE [employer] NETWORK 2017 DoD OPHTHALMIC ULTRASOUND, ECHOGRAPHY, DIAGNOSTIC; [...] ADMINISTERED BY A COMPUTER, WITH QUALIFIED HEALTH BUSINESS LEADER INTERPRETATION AND REPORT 2016 DoD ADMINISTRATION OF PATIENT-FOCUSED HEALTH RISK ASSESSMENT INSTRUMENT (EG, HEALTH HAZARD APPRAISAL) WITH SCORING AND DOCUMENTATION, PER STANDARDIZED INSTRUMENT 2016 [facility] ONLINE ASSESS &MANAG SERV PROVIDE,A QUAL NONPHYS HCP TO AN ESTABLISHED PAT/GUARDIAN,NOT ORIGINAT FRM RELAT ASSESS &MANAG SERV PROVIDE W/IN THE PREV 7 DAYS,USE THE [employer] NETWORK 2016 [facility] PURE TONE AUDIOMETRY (THRESHOLD), AUTOMATED; AIR ONLY 2016 [facility] FITTING OF SPECTACLES, EXCEPT FOR APHAKIA; MONOFOCAL 2016 [facility] THERAPEUTIC, PROPHYLACTIC, OR DIAGNOSTIC INJECTION (SPECIFY SUBSTANCE OR DRUG); SUBCUTANEOUS OR INTRAMUSCULAR 2011 [facility] SCREENING TEST OF VISUAL ACUITY, QUANTITATIVE, BILATERAL 2011 [facility] Audiogram (Screening) Audiogram (Screening) 17329 2017 JACOB MOLINA [facility] Internet Med Svc Qual Nonphys Healthcare Prof Up To 7 Days Estab Patient Internet Med Sv Qual Nonphys Healthcare Prof Up To 7 Days Estab Patient 33777 2017 BECKIE PATEL Preventive Medicine Administration Of Health Risk Questionnaire Patient-Focused Preventive Medicine Administration Of Health Risk Questionnaire Patient-Focused 60954 2017 BECKIE PATEL Corneal Pachymetry Both Eyes Corneal Pachymetry Both Eyes 06229 2017 BRAULIO DELGADO Computerized Corneal Topography Computerized Corneal Topography 16666 2017 BRAULIO DELGADO Determination Of Refractive State Determination Of Refractive State 53524 2017 BRAULIO DELGADO Ophthalmological New Patient Start Comprehensive Care Ophthalmological New Patient Start Comprehensive Care 39162 2017 BRAULIO DELGADO Non-Physician Phone Call To Patient/Provider Brief (5-10min) Non-Physician Phone Call To Patient/Provider Brief (5-10min) 48349 2017 SHRUTI THOMPSON [facility] Preventive Medicine Administration Of Health Risk Questionnaire Patient-Focused Preventive Medicine Administration Of Health Risk Questionnaire Patient-Focused 70905 2017 ALFRED LAIRD V [facility] Preventive Medicine Administration Of Health Risk Questionnaire Patient-Focused Preventive Medicine Administration Of Health Risk Questionnaire Patient-Focused 17278 2017 BECKIE PATEL Threshold Audiogram (Pure Tone) Automated Threshold Audiogram (Pure Tone) Automated 0208T 2017 MEL SPANGLER [facility] Psychiatric Diagnostic Evaluation Review of Records and Reports Psychiatric Diagnostic Evaluation Review of Records and Reports 62014 2016 DOROTHY QUEZADA Psychometric Neuropsych Testing Battery Admin By Computer Psychometric Neuropsych Testing Battery Admin By Computer 74635 2016 LELA WANG Preventive Medicine Administration Of Health Risk Questionnaire Patient-Focused Preventive Medicine Administration Of Health Risk Questionnaire Patient-Focused 39430 2016 BECKIE PATEL Internet Med Svc Qual Nonphys Healthcare Prof Up To 7 Days Estab Patient Internet Med Svc Qual Nonphys Healthcare Prof Up To 7 Days Estab Patient 36926 2016 ROSI NARANJO Preventive Medicine Administration Of Health Risk Questionnaire Patient-Focused Preventive Medicine Administration Of Health Risk Questionnaire Patient-Focused 74046 2016 ROSI NARANJO Threshold Audiogram (Pure Tone) Automated Threshold Audiogram (Pure Tone) Automated 0208T 2016 VITO PRIEST [employer] Fitting Monofocal Except For Aphakia Spectacles Services Fitting Monofocal Except For Aphakia 33890 2016 JESSIE MOREL Determination Of Refractive State Determination Of Refractive State 04905 2016 JESSIE MOREL Ophthalmological New Patient Start Comprehensive Care Ophthalmological New Patient Start Comprehensive Care 14395 2016 JESSIE MOREL Threshold Audiogram (Pure Tone) Threshold Audiogram (Pure Tone) 06541 2015 CHANELL LOOMIS [employer] Fitting Monofocal Except For Aphakia [employer] Services Fitting Monofocal Except For Aphakia 36301 2014 ENID PLEITEZ 1 FOC, 1 5A, 1 GMI. PD 65 Shiva Prescription And Fitting Bilateral Corneal Lenses (Not For Aphakia) Prescription And Fitting Bilateral Corneal Lenses (Not For Aphakia) 13079 2014 ENID PLEITEZ Ophthalmological New Patient Start Comprehensive Care Ophthalmological New Patient Start Comprehensive Care 88313 2014 ENID PLEITEZ Determination Of Refractive State Determination Of Refractive State 78097 2014 ENID PLEITEZ Mobilization Soft Ti ue Mobilization Soft Tissue 53323 2013 ENID GONZALEZ Chiropractic Manip Treatmt (CMT) Spinal Three To Four Region Chiropractic Manip Treatmt (CMT) Spinal Three To Four Region 87248 2013 ENID GONZALEZ Mobilization Soft Ti ue Mobilization Soft Tissue 44989 2013 ENID GONZALEZ Chiropractic Manip Treatmt (CMT) Spinal Three To Four Region Chiropractic Manip Treatmt (CMT) Spinal Three To Four Region 16401 2013 ENID GONZALEZ Mobilization Soft Ti ue Mobilization Soft Tissue 35425 2013 ENID GONZALEZ Chiropractic Manip Treatmt (CMT) Spinal Three To Four Region Chiropractic Manip Treatmt (CMT) Spinal Three To Four Region 39799 2013 ENID GONZALEZ Physician Supervised Injection Intramuscular Physician Supervised Injection Intramuscular 19102 2013 PAUL CHUN Per Lt Rose, ceftriaxone 250 mg IM now. Patient identifiers obtained. Allergies verified. Procedure explained to pt. Verified physician's order via AHLTA note. Ceftriaxone 250 mg drawn and given right dorsogluteal IM. [employer], Lot [id number], Exp 25 Dec 2015. Ceftriaxone reconstituted with Lidocaine 1 %, [employer], Lot [id number], Exp 23 Nov 2014. Pt in exam room x 15 mins for observation. No apparent s/e's noted. Pt instructed to contact FP should any adverse reactions occur. Pt verbalized agreement/unde rstanding. Shiva Mobilization Soft Ti ue Mobilization Soft Tissue 61117 2013 ENID GONZALEZ Chiropractic Manip Treatmt (CMT) Spinal Three To Four Region Chiropractic Manip Treatmt (CMT) Spinal Three To Four Region 41389 2013 ENID GONZALEZ Mobilization Soft Ti ue Mobilization Soft Tissue 53200 2013 ENID GONZALEZ Chiropractic Manip Treatmt (CMT) Spinal Three To Four Region Chiropractic Manip Treatmt (CMT) Spinal Three To Four Region 50573 2013 ENID GONZALEZ Mobilization Soft Ti ue Mobilization Soft Tissue 25775 2013 ENID GONZALEZ Chiropractic Manip Treatmt (CMT) Spinal Three To Four Region Chiropractic Manip Treatmt (CMT) Spinal Three To Four Region 90346 2013 ENID GONZALEZ Threshold Audiogram (Pure Tone) Threshold Audiogram (Pure Tone) 65256 2013 DARYN MALCOLM Normal Shiva Threshold Audiogram (Pure Tone) Threshold Audiogram (Pure Tone) 53668 2012 CHAGO TOÑO Bernabe Shiva [employer] Fitting Monofocal Except For Aphakia Spectacles Services Fitting Monofocal Except For Aphakia 24725 2011 CAMERON AGUIRRE Determination Of Refractive State Determination Of Refractive State 88402 2011 ACMERON AGUIRRE Ophthalmological New Patient Start Comprehensive Care Ophthalmological New Patient Start Comprehensive Care 67086 2011 CAMERON AGUIRRE Threshold Audiogram (Pure Tone) Threshold Audiogram (Pure Tone) 72580 2011 ATIF GONZALEZ Audiometry Group Testing Audiometry Group Testing 44804 2011 ATIF GONZALEZ Patient education, not otherwise cla ified, non-physician provider, group, per se ion 2011 ATIF GONZALEZ Patient education, not otherwise cla ified, non-physician provider, individual, per se ion 2011 JONATAN RIVERO Screening Test Of Visual Acuity, Quantitative, Bilateral Screening Test Of Visual Acuity, Quantitative, Bilateral 95205 2011 ISA COWAN Determination Of Refractive State Determination Of Refractive State 60253 2011 ISA COWAN [employer] Services Fitting Monofocal Except For Aphakia Spectacles Services Fitting Monofocal Except For Aphakia 41193 2011 ISA COWAN Preventive Medicine Administration Of Health Risk Questionnaire Patient-Focused Preventive Medicine Administration Of Health Risk Questionnaire Patient-Focused 78271 ROSI NARANJO Internet Med Svc Qual Nonphys Healthcare Prof Up To 7 Days Estab Patient Internet Med Svc Qual Nonphys Healthcare Prof Up To 7 Days Estab Patient 43769 ROSI NARANJO Threshold Audiogram (Pure Tone) Automated Threshold Audiogram (Pure Tone) Automated 0208T JEAN-PIERRE PACK Ophthalmological Prior Patient Start Intermediate Level Care Ophthalmological Prior Patient Start Intermediate Level Care 84308 JEWELS GARY Determination Of Refractive State Determination Of Refractive State 98677 JEWELS GARY [facility] Psychometric Neuropsych Testing Battery Admin By Computer Psychometric Neuropsych Testing Battery Admin By Computer 14991 ANGÉLICA WHEATLEY [facility] Brief communication technology-based service, e.g. virtual [...] 5-10 minutes of medical discu hattie NARANJOROSI [facility] Ophthalmological Prior Patient Start Comprehensive Care Ophthalmological Prior Patient Start Comprehensive Care 55989 JEWELS GARY [employer] [facility] Fitting Monofocal Except For Aphakia Spectacles Services Fitting Monofocal Except For Aphakia 56180 JEWELS GARY Audiogram (Screening) Audiogram (Screening) 52956 JACOB MOLINA Spirometry Spirometry 88818 JACOB MOLINA Visual Function Screening Visual Function Screening 91976 JACOB MOLINA Chiropractic Manip Treatmt (CMT) Spinal Three To Four Region Chiropractic Manip Treatmt (CMT) Spinal Three To Four Region 26995 RITO SMITH Social History Combined list of [...] aware of services available (911, One source, Screw Remover Services, Walk in , Walk in ER, [...] at age 37. Compared medications reported by disability services coordinator to active medication list in medical record and any variances were documented.? ? Any complaints or issues identified while conducting the PHA have been addressed and or referred back to the patient s ?PCM for care.?count team member advised to follow up with PCM, Behavioral Health, ED/911, or One Source as needed for continuation of care, and/or further evaluation during exacerbations of physical and/or psychological illness or injury. See PHA document for additional information. Thirteen minutes of total time spent reviewing records, discussing health concerns and preventative health measures with Welder [employer]. ? Extracted from:Title: Annual DoD MHA/PHA Author: EVAN SOTOMAYOR NP Date: 10/01/22 1.?EXAM/ASSESSMENT, OCCUPATIONAL, CREDIT RISK OFFICER PERIODIC HEALTH ASSESSMENT (PHA) This encounter contains [...] reduction achieving a healthy weight/BMI?(BMI 18.5-25.0); F/U with?PCM/Rug Dyer Helper?as needed. 4.?GERD - Gastro-esophageal reflux disease Continue Omeprazole as prescribed along with avoiding triggers such as acidic/greasy/spicy food, heavy meals before bed, and caffeine;?achieving?a healthy diet and healthy weight. F/U with PCM for persistent or worsening symptoms.? 5.?Diarrhea Continue Fiber supplement as recommended by PCM, and continue F/U with PCM for management. Evan Sotomayor CTR?DEVELOPMENT MGR-C [facility] Provider Flight Medicine? [employer] Kae [place], CESAR??[id number] [facility] [phone] ? Extracted from:Title: DOD MHA/PHA Author: ROSI NARANJO PA-C Date: 11/07/20 1.?EXAM/ASSESSMENT, OCCUPATIONAL, CREDIT RISK OFFICER PERIODIC HEALTH ASSESSMENT (PHA) Medical record review accomplished.? Member not present today in clinic for annual PHAQ.? PHAQ completed 11/07/2020.? HIV, Repository labs ordered.? No issues or concerns at this time.? No DR,MR,FR profiles.? Member is WWQ.? ? IMR status of member reviewed in ASINH.? Member is?yellow, due Influenza vaccine. ? ? ? Ordered: omeprazole, 1 cap(s), Oral, Daily, 30 to 60 minutes before a meal, # 90 cap(s), 3 total refill(s), Maintenance, 1 cap(s) Oral Daily,Instr:30 to 60 minutes before a meal, Pharmacy: [facility] [Not filled] Administration,[facility]oc [facility] [address]97 HIV-1/O/2 EPI 57920 Repository Sample EPI 9340 Unlisted E&M Service 27717 ? 2.?ASSESSMENT, POST DEPLOYMENT, DOCUMENTED ON LL9051 (A) ?MHA reviewed with member and closed.? No referrals needed. Ordered: omeprazole, 1 cap(s), Oral, Daily, 30 to 60 minutes before a meal, # 90 cap(s), 3 total refill(s), Maintenance, 1 cap(s) Oral Daily,Instr:30 to 60 minutes before a meal, Pharmacy: [facility] [Not filled] Administration,[facility]-Foc [facility] 58102 HIV-1/O/2 EPI 16691 Repository Sample EPI 9340 Unlisted E&M Service 57743 ? 3.?GERD - Gastro-esophageal reflux disease ?Refilled Omeprazole 40mg qd prn for GERD symptoms.? Take 30 minutes before meal.? FU with PCM if symptoms not improving in 4 weeks. ? Orders: *Resuscitation Status ANNUAL PERIODIC HEALTH ASSESSMENT ? I. CREDIT RISK OFFICER INFORMATION AND DEMOGRAPHICS (SMI) 1. Last Name: SRAVANI 2. First Name: DARYN 3. Middle Name: ROSHAN 4. Assessment Date: 5. : 6. Age: 30 7. Gender: M 8. [employer] ID Number: [id number] 9. Service Branch: [employer] 10. 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 Status: Active Duty 12. 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 Unit Name: [address] 14. Duty Station/Location: [facility] 15. [facility]: [id number] 16. Is this your first Periodic Health Assessment (PHA)?: N 17. Are you enrolled in a secure messaging system with your health care provider?:? Y ? 18. Current contact information: Preferred Method: Day Time Phone DSN: [id number] Day Time Phone: [phone] Night Time Phone: Email 1: [email or web address] Email 2: Address: [address] [place] [facility] City: [place] State: [place] Zip Code: [address] ? 19. Point of contact who can always reach you: Name: abby jordan Phone 1: [phone] Phone 2: EMAIL: Address: City: State: Zip Code: ? II. DEPLOYMENT INFORMATION (DEP) 1. Total number of deployments in the PAST 5 YEARS: 1 2. [place] [facility] 3. 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 [...] watchful or easily startled? No 6. d. [place] numb or detached from others, activities, or your surroundings? No 6. e. [place] guilt or unable to stop blaming yourself [...] like to schedule a visit with a montessori toddler teacher, mental health care provider, or a community [...] Day(s) per week 8. What prescriptions or xtip-yag-etytlok medications are you CURRENTLY taking for health [...] health concerns?: No ? XI. SEPARATION AND INTERMEDIATE 1. Are you planning to separate or retire within the next year from Active Duty or [place] [employer] (activated for greater than 30 continuous days) OR do you intend to file a claim for disability compensation with the [employer]?: No ? PART B. RECORD REVIEW AND RECOMMENDATIONS I. RECORD REVIEWER INFORMATION 1. Last Name: Armani 2. First Name: Rosi 3. Middle Name: Cosmo 4. Service Branch: [employer] 5. 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 Title: Physician Parish Visitor ([place]) 7. EMAIL: [email or web address] 8. Facility: [facility] 9. Unit: [facility] 10. Address: [address] [place] [address] 11. State: [place] 12. Zip Code: [address] 13. Phone: [phone] 14. Date Record Review: ? II. MEDICAL SCREENING 1. Date of count team member's most recent PHA: 2. count team member's most recently documented height: 5 feet 7 inches? ?Date: 3. count team member's most recently documented weight: 190 pounds? Date: 4. count team member's most recently documented blood pressure readin/78? Date: 5. Does the count team member have a history of abnormal blood pressure since their last PHA? No 6. What is the date of the count team member's most recently documented cholesterol test? No Cholesterol Test Documented 8. List of count team member's active medications listed in their permanent medical record: Methocarbamol 750mg PO PRN Ibuprofen 400mg PO, OTC, prn Omeprazole 40mg, PO, once daily 9. Is there a discrepancy between the active medication record review and the count team member's self-reported list of medications?: No 10. List documented significant care the count team member has received since their last PHA from a provider OUTSIDE the Health System: No Outside Care Documented 11. Is there a discrepancy between the count team member's list of OUTSIDE care (from OTH5), and the OUTSIDE care found in the record?: No 12. List documented significant care the count team member has received since their last PHA from a provider INSIDE the Health System: No Inside Care Documented 14. Confirm that vaccine exemptions are listed in the medical record for each vaccine listed: Not Answered ? III. OCCUPATION-SPECIFIC EXAMINATIONS 2. When was the count team member's most recently documented evaluation?: ? IV. FAMILY HISTORY AND LIFESTYLE 1. Does the [id number] reflect the count team member's reported family history?: Yes ? VII. INDIVIDUAL MEDICAL READINESS 1. Does the count team member have an Assignment Limitation Code C?: No 3. Most recently documented dental exam: Classification: 1 4. Is the count team member current on all required immunizations in the immunization tracking system?: No: Influenza, [place] 5. Is the count team member current with Service-specific requirements for glasses and gas mask inserts?: Yes 6. Does the count team member have the following laboratory tests documented in [...] need to be forwarded to the Health Senior Automation Engineer completing PART C: ? ? Date Record Review Completed: --------- PART C. HEALTH CARE PROVIDER I. MENTAL HEALTH ASSESSMENT (MHA) PROVIDER INFORMATION 1. Last Name: Armani 2. First Name: Rosi 3. Middle Name: Cosmo 4. Service Branch: [employer] 5. 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 Title: Physician Parish Visitor ([place]) 7. EMAIL: [email or web address] 8. Facility: [address] [place] [address] 9. Unit: [facility] 10. Address: [address] [place] [address] 11. State: [place] 12. Zip Code: [address] 13. Phone: [phone] 14. Date HCP Review initiated: ? 1.? [...] 3. Middle Name: Cosmo 4. Service Branch: [employer] 5. 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 Title: Physician Parish Visitor ([place]) 7. EMAIL: [email or web address] 8. Facility: [address] [facility] [address] 9. Unit: [facility] 10. Address: [address] [place] [address] 11. State: [place] 12. Zip Code: [address] 13. Phone: [phone] 14. Date HCP Review initiated: ? IV. PERIODIC HEALTH ASSESSMENT PROVIDER RECOMMENDATIONS and REFERRALS 1. Provider concerns with this assessment: No issues or concerns identified ? V. SUMMARY AND COMMENTS 1. Additional information summarizing findings during the count team member assessment: ? 2. Provider Comments: ? ? . INDIVIDUAL MEDICAL READINESS DISPOSITION DETERMINATION ? ? BIJU: Ready? ? DEN: Ready? ? IMM: Ready? ? LAB: Ready? ? ME: Ready ? ? IMR Status: Fully Medically Ready ? VII. SERVICE MEDICAL DEPLOYABILITY EVALUATION INDICATED Based on your review of all documentation, is the count team member medically deployable without limitations?? Reference Yonis 6490.07 ? ?Yes (count team member DOES NOT currently have a medical condition that limits deployability) ? Date PHA Completed: ? END OF [id number] REPORT ? [facility] Review Summary ? Does the member have [...] conditions that dictate a referral to the [facility]?? No. ? Active Medical Conditions:? None. ? 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 Cleared for PRAP duties: NA ? Medical surveillance examination requirements up to date: NA ? 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 Cleared for continued service: Yes ? Cleared for mobility duties: Yes ? Cleared for participation in AF physical fitness program: Yes ? END OF [facility] SUMMARY ? 02/05/2024 Ambulatory Pharmacy Functional Status Combined list of recent functional and cognitive assessments recorded at [facility] [employer] [facility] [place] Functional [place] Measurement (FIM) Scale: 1 = Total Assistance (Subject = 0% +), 2 = Maximal Assistance (Subject = 25% +), 3 = Moderate Assistance (Subject = 50% +), 4 = Minimal Assistance (Subject = 75% +), 5 = Supervision, 6 = Modified [place] (Device), 7 = Complete [place] (Timely, Safely). Assessment Date/Time Source Assessment Type Assessment Skill Assessment Score Assessment Details No data available for this section
== END 2024-02-05 08:54 | disposition home or self-care (01) ==
LOC: HO.XRAY 08:53
PROVIDERS: PCP Family Medicine; Visit Provider Nurse Practitioner Family
DX: K21.9 Gastro-esophageal reflux disease without esophagitis (principal)
CPT/HCPCS: 74240

== ENCOUNTER → 2024-02-05 08:55 | Outpatient (BNV) | payer OTHER, SELFPAY | PROVIDERS: PCP Family Medicine; Visit Provider Physician Assistant Surgical | DX: R13.10 Dysphagia, unspecified (principal) | CPT/HCPCS: 74246; 74248 ==

== ENCOUNTER → 2024-02-10 12:49 | Outpatient (BNVA) | payer OTHER, SELFPAY | PROVIDERS: PCP Family Medicine; Visit Provider Nurse Practitioner Family | DX: Z11.0 Encounter for screening for intestinal infectious diseases (principal) | CPT/HCPCS: 99211 ==

== ENCOUNTER 2024-02-12 13:57 | Outpatient (REF) | payer OTHER, SELFPAY ==
--- OUTSIDE RECORDS SUMMARY | 2024-02-12 13:59 | XMS_ITS | Continuity of Care Document ---
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 It does not include entries that were removed or entered in error. Problem Status Onset Date Problem Type Date of Resolution Comments Source Encounter for issue of other medical certificate Active [address] [place] [address] ASSESSMENT, POST-DEPLOYMENT, DOCUMENTED ON [id number] Inactive 8 Condition [facility] Pain, unspecified Inactive 8 Condition [facility] Regular astigmatism, bilateral Active 7 Condition DoD [...] Inactive Condition DoD astigmatism regular Inactive Condition [facility] visit: ears/hearing exam for hearing conservation, treatment Inactive Condition [facility] visit for: occupational health / fitness exam Inactive Condition [facility] visit for: administrative purpose Inactive Condition [facility] visit for: services physical accession Inactive Condition [...] (given by mouth) Ordered 0310C-A [facility]t [facility] MELOXICAM (MELOXICAM) , 15 MG, TABLET, ORAL, [employer] 100 ea. BOTTLE Active [id number] 2023 30 Pharmac y Data Transac tion Service Facilit y OMEPRAZOLE (omeprazole ), 40 MG, CAPSULE DR, ORAL, GLENMARK PHARMA, 1000 ea. BOTTLE Active [id number] 2023 30 Pharmac y Data Transac tion Service Facilit y OMEPRAZOLE (omeprazole ), 40 MG, CAPSULE DR, ORAL, GLENMARK PHARMA, 1000 ea. BOTTLE Active [id number] 2023 30 Pharmac y Data Transac tion Service Facilit y OMEPRAZOLE (omeprazole ), 40 MG, CAPSULE DR, ORAL, GLENMARK PHARMA, 1000 ea. BOTTLE Active [id number] 2023 30 Pharmac y Data Transac tion Service Facilit y OMEPRAZOLE (omeprazole ), 40 MG, CAPSULE DR, ORAL, GLENMARK PHARMA, 1000 ea. BOTTLE Active [id number] 4 2023 30 Pharmac y Data Transac tion Service Facilit y OMEPRAZOLE (OMEPRAZOLE ), 40 MG, CAPSULE DR, ORAL, ZYDUS PHARMACEU, 1000 ea. BOTTLE Active [id number] 3 2023 30 Pharmac y Data Transac tion Service Facilit y omeprazole 40 mg oral delayed release capsule 1 cap(s), Oral, Daily, 30 to 60 minutes before a meal, # 90 cap(s), 3 total refill(s ), Maintena nce, 1 cap(s) Oral Daily,In str:30 to 60 minutes before a meal, Pharmacy : [facility] Oral (given by mouth) Ordered 90.0 0010C-D [facility] Allergies, Adverse Reactions, Alerts Combined list of [...] Site Reaction Lot Number CVX Code Drug Bilingual Executive Assistant Status Comments Source COVID Vaccine Pfizer 2020 WENDYGRUBER Shoul cassy, left (delt oid) [id number] PFIZER complet ed COVID Vaccine Pfizer 11/30/20 Given 0010C-D [facility] influenza, recombinant, quadrivalent, injectable, preservative free 2020 NEELA RAM, () Not Given influenza , recombina nt, quadrival ent,injec table, preservat wendy free DoD COVID Vaccine Pfizer 2020 FENIXRMARTIN Shoul cassy, left (delt oid) [id number] PFIZER complet ed COVID Vaccine Pfizer 11/02/20 Given 0010C-D [facility] influenza virus vaccine, inactivated 2020 88 sanofi pasteur complet ed influenza virus vaccine, inactivat ed 03/17/20 Given Ambulat ory Pharmac y influenza, recombinant, quadrivalent, injectable, preservative free 2020 NEELA RAM, () Not Given influenza , recombina nt, quadrival ent,injec table, preservat wendy free DoD influenza, injectable, quadrivalent- pf 2018 [id number] 150 Seqirus complet ed influenza , injectabl e, quadrival ent-pf 01/05/19 Given Ambulat ory Pharmac y Influenza, injectable, quadrivalent, preservative free 9 2018 [id number] 150 Seqirus (SEQ) complet ed Influenza , injectabl e, quadrival ent, preservat wendy free DoD anthrax vaccine 2018 [id number] 24 Emergent [employer] complet ed anthrax vaccine 11/29/18 Given Ambulat ory Pharmac y anthrax vaccine 6 2018 [id number] 24 [employer] [place] (MIP) complet ed anthrax vaccine DoD influenza, injectable, quadrivalent- pf 2017 [id number] 150 Seqirus complet ed influenza , injectabl e, quadrival ent-pf 12/04/17 Given Ambulat ory Pharmac y Influenza, injectable, quadrivalent, preservative free 8 2017 [id number] 150 Seqirus (SEQ) comple t ed Influenza , injectabl e, quadrival ent, preservat wendy free DoD typhoid Vi capsular polysaccharid e vac 2016 [id number] 101 sanofi pasteur complet ed typhoid Vi capsular polysacch aride vac 12/19/16 Given Ambulat ory Pharmac y anthrax vaccine 2016 [id number] 24 [employer] complet ed anthrax vaccine 12/19/16 Given Ambulat ory Pharmac y Influenza, inj, MDCK, quadrivalent- pf [id number] Seqirus complet ed Influenza , inj, MDCK, quadrival ent-pf 12/19/16 Given Ambulat ory Pharmac y anthrax vaccine 5 2016 [id number] 24 [employer] [place] (MIP) complet ed anthrax vaccine DoD typhoid Vi capsular polysaccharid e vaccine 2 2016 [id number] 101 Sanofi Pasteur (PMC) complet ed typhoid Vi capsular polysacch aride vaccine DoD Influenza, injectable, Madin Susan Canine Kidney, preservative free, quadrivalent 7 [id number] 171 Seqirus (SEQ) comple t ed Influenza , injectabl e, Madin [place]orne Canine Kidney, preservat wendy free, quadrival ent DoD tuberculin purified protein derivative 2016 [id number] 96 [facility] complet ed tuberculi n purified protein derivativ e 06/06/16 Given Ambulat ory Pharmac y tuberculin purified protein derivative 2016 [id number] 96 [facility] complet ed tuberculi n purified protein derivativ e 05/29/16 Given Ambulat ory Pharmac y Human Papillomaviru s 9-valent vaccine 2016 [id number] 165 Merck & Company Inc complet ed Human Papilloma virus 9-valent vaccine 03/04/16 Given Ambulat ory Pharmac y Human Papillomaviru s 9-valent vaccine 3 2016 [id number] 165 Merck (MSD) complet ed Human Papilloma virus 9-valent vaccine DoD Human Papillomaviru s 9-valent vaccine 2015 [id number] 165 Merck & Company Inc complet ed Human Papilloma virus 9-valent vaccine 11/02/15 Given Ambulat ory Pharmac y influenza, injectable, quadrivalent- pf 2015 [id number] 150 [employer] complet ed influenza , injectabl e, quadrival ent-pf 11/02/15 Given Ambulat ory Pharmac y Influenza, injectable, quadrivalent, preservative free 6 2015 [id number] 150 [facility] (B) complet ed Influenza , injectabl e, quadrival ent, preservat wendy free DoD Human Papillomaviru s 9-valent vaccine 2 2015 [id number] 165 Merck (MSD) complet ed Human Papilloma virus 9-valent vaccine DoD Human Papillomaviru s 9-valent vaccine 2015 [id number] 165 [employer] Inc complet ed Human Papilloma virus 9-valent vaccine 08/23/15 Given Ambulat ory Pharmac y Hungarian Encephalitis IM 2015 [id number] 4E 134 Valneva complet ed Hungarian Encephali tis IM 08/23/15 Given Ambulat ory Pharmac y anthrax vaccine 2015 [id number] 24 [employer] complet ed anthrax vaccine 08/23/15 Given Ambulat ory Pharmac y anthrax vaccine 4 2015 [id number] 24 [employer] Isela (MIP) complet ed anthrax vaccine DoD Hungarian Encephalitis vaccine for intramuscular administratio n 3 2015 [id number] [id number] [address] [facility] (INT) complet ed Hungarian Encephali tis vaccine for intramusc ular administr ation DoD Human Papillomaviru s 9-valent vaccine 1 2015 [id number] 165 Merck (MSD) complet ed Human Papilloma virus 9-valent vaccine DoD anthrax vaccine 2014 [id number] 24 [employer] complet ed anthrax vaccine 02/09/15 Given Ambulat ory Pharmac y anthrax vaccine 3 2014 [id number] 24 [employer] [place] (MIP) complet ed anthrax vaccine DoD influenza, injectable, quadrivalent 2014 [id number] 158 GlaxoSmithKli ne complet ed influenza , injectabl e, quadrival ent 11/30/14 Given Ambulat ory Pharmac y influenza, injectable, quadrivalent, contains preservative 0 2014 [id number] 158 [place] (SKB) complet ed influenza , injectabl e, quadrival ent, contains preservat wendy DoD Hungarian Encephalitis IM 2014 [id number] [id number] 134 Valneva complet ed Hungarian Encephali tis IM 08/15/14 Given Ambulat ory Pharmac y anthrax vaccine 2014 [id number] 24 [employer] complet ed anthrax vaccine 08/15/14 Given Ambulat ory Pharmac y anthrax vaccine 2 2014 [id number] 24 [employer] [place] ([facility]) complet ed anthrax vaccine DoD Hungarian Encephalitis vaccine for intramuscular administratio n 2 2014 [id number] 4E 134 Intercell [employer]ical (INT) complet ed Hungarian Encephali tis vaccine for intramusc ular administr ation DoD Hungarian Encephalitis IM 2014 [id number] 2E 134 Valneva complet ed Hungarian Encephali tis IM 06/08/14 Given Ambulat ory Pharmac y Hungarian Encephalitis vaccine for intramuscular administratio n 1 2014 [id number] 2E 134 [employer] (INT) complet ed Hungarian Encephali tis vaccine for intramusc ular administr ation DoD vaccinia (smallpox) vaccine 2014 [id number] 75 Sanofi Pasteur Incorporated complet ed vaccinia (smallpox ) vaccine 06/01/14 Given Ambulat ory Pharmac y vaccinia (smallpox) vaccine 1 2014 [id number] 75 (JASSON) complet ed vaccinia (smallpox ) vaccine DoD anthrax vaccine 2014 [id number] 24 [employer] complet ed anthrax vaccine 04/25/14 Given Ambulat ory Pharmac y anthrax vaccine 0 2014 [id number] 24 [employer] [place] ([facility]) complet ed anthrax vaccine DoD typhoid Vi capsular polysaccharid e vac 2014 K1200 101 sanofi pasteur complet ed typhoid Vi capsular polysacch aride vac 04/24/14 Given Ambulat ory Pharmac y measles/mumps /rubella virus vaccine 2014 [id number] 03 Merck & Company Inc complet ed measles/m umps/rube lla virus vaccine 04/24/14 Given Ambulat ory Pharmac y measles, mumps and rubella virus vaccine 1 2014 [id number] 03 Merck (MSD) complet ed measles, mumps [...] wendy free DoD influenza, seasonal, injectable-pf 2012 [id number] 140 sanofi pasteur complet ed influenza , seasonal, injectabl e-pf 11/23/12 Given Ambulat ory Pharmac y Influenza, seasonal, injectable, preservative free 0 2012 [id number] 140 Sanofi Pasteur (PMC) complet ed Influenza , seasonal, injectabl e, preservat wendy free DoD influenza virus vaccine, live 2011 [id number] 111 [employer]ie[employer] Inc comple t ed influenza virus vaccine, live 10/28/11 Given Ambulat ory Pharmac y influenza virus vaccine, live, attenuated, for intranasal use 0 2011 [id number] 111 Cloubrain, Inc. (MED) complet ed influenza virus vaccine, [...] y tetanus, diphtheria, acellular pertu is 2011 [id number] 5AA 115 GlaxoSmithKli ne complet ed tetanus, [...] unspecified formulation 1 2011 [id number] 31 [facility] ([facility]) complet ed hepatitis A vaccine, pediatric dosage, unspecifi ed formulati on DoD hepatitis B vaccine, unspecified formulation 1 2011 45 () Not Given hepatitis B vaccine, unspecifi ed formulati on DoD tetanus toxoid, reduced diphtheria toxoid, and acellular pertu is vaccine, adsorbed 1 2011 [id number] 115 SmithKline ([facility]) complet ed tetanus toxoid, reduced diphtheri a toxoid, and acellular pertussis vaccine, adsorbed DoD tuberculin purified protein derivative 2011 [id number] 96 sanofi pasteur complet ed tuberculi n purified protein derivativ e 02/23/11 Given Ambulat ory Pharmac y adenovirus vaccine, live 2010 [id number] 143 Teva Pharmaceutica complet ed adenoviru s vaccine, live 02/21/11 Given Ambulat ory Pharmac y influenza, seasonal, injectable-pf 2010 [id number] 140 sanofi pasteur complet ed influenza , seasonal, injectabl e-pf 02/21/11 Given Ambulat ory Pharmac y meningococcal A,C,Y,W-135 (MCV4P) 2010 [id number] 114 sanofi pasteur complet ed meningoco ccal A,C,Y,W-1 35 (MCV4P) 02/21/11 Given Ambulat ory Pharmac y poliovirus vaccine, inactivated 2010 G1500 10 sanofi pasteur complet ed polioviru s vaccine, inactivat ed 02/21/11 Given Ambulat ory Pharmac y poliovirus vaccine, inactivated 1 2010 G1500 10 Sanofi Pasteur ([facility]) complet ed polioviru s vaccine, inactivat ed DoD meningococcal polysaccharid e (groups A, C, Y and W-135) diphtheria toxoid conjugate vaccine (MCV4P) 1 2010 [id number] 114 Sanofi Pasteur ([facility]) complet ed meningoco ccal polysacch aride (groups A, C, Y and W-135) diphtheri a toxoid conjugate vaccine (MCV4P) DoD Influenza, seasonal, injectable, preservative free 1 2010 [id number] 140 Sanofi Pasteur (PMC) complet ed Influenza , seasonal, injectabl e, preservat wendy free DoD Adenovirus, type 4 and type 7, live, oral 1 2010 [id number] 8 143 [facility] ([facility]) complet ed Adenoviru s, type [...] Prevention' s HIV diagnostic algorithm. Refer to [facility] Lab Guide for additional information : [email or web address] by [email or web address]. health.[facility]/ [email or web address]/[email or web address]/EPIL ab/Pages/la b_guide.asp x Testing performed by [...] Prevention' s HIV diagnostic algorithm. Refer to [employer] Lab Guide for additional information : [email or web address]/k j/kx5/Gilda b/Pages/lab _guide.aspx Testing performed by Marjorie brooke. Performed by: Epidemiolog y Laboratory Service [facility] [address] [place] [phone] Ambulator y Pharmacy Faithcella shoshanaus Sendouts Repository Sample.EPI RECEIVED 11/07 Result Comment: INTERPRETAT ION(S): Performed by: Epidemiolog y Laboratory Service [facility] [address] [place] [phone] Ambulator y Pharmacy Vital Signs Combined list [...] Date DC Date Status Disposition Source [place] [address](Opt ometry Clinic BMT WHASC) OUTPATIENT [id number] SHELLY GRANDE 02/27 Released w/o Limitations [facility] [place] [address](O ptometr y Clinic BMT WHASC) [place] [address](MAS Delta) OUTPATIENT [id number] Cold Symptom s KAL MAO 04/07 Released w/o Limitations [facility] [place] [address](M Delta) [place], [place](NASP Occupatio nal Health) OUTPATIENT [id number] [employer] RPP 0800 JONATAN RIVERO 05/07 Released w/o Limitations [place] Occup[place] Hearing Conservat [place] OUTPATIENT [id number] USAF AUDIO. ATIF GONZALEZ 05/08 Released w/o Limitations [place]NA[place] Hearing [place]ion) [facility](Opt ometry) OUTPATIENT [id number] CAMERON Young 09/15 Released w/o Limitations [facility](O ptometr y) [facility]) OUTPATIENT [id number] 58MXS Physica l showtim e 0830 TOÑO ANDERS 09/02 Released w/o Limitations [facility](F light Medicin e Clinic) [facility](Kir and_[facility] _Team_Lob o) TELE CONSULT [id number] Notes Entered by: SANJANA MICHAELS 16 Sep 2012 1308 ------- ------- ------- ------- -- EMA BEEBE 09/16 Referred for Appointment [facility](Fauzia perla _[facility]_Te am_Lobo ) [facility]([place]_[facility] _Team_Lob o) OUTPATIENT [id number] f/u ER visit [place] NENA CAMPBELL 10/27 Released with Work/Duty Limitations [facility](K janiceand _C_Te am_Lobo ) [facility]([place]_[facility] _Team_Lob o) TELE CONSULT [id number] Notes Entered by: TRAVIS MERINO 15 Nov 2012 1109 ------- ------- ------- ------- -- NETWORK RESULTS - OTHOPED ICS - [id number] [place] NENA CAMPBELL 11/15 [facility](Fauzia irlaury _[facility]_Te am_Lobo ) [facility] [employer]([place]re [place]_[facility] _Team_Lob o) TELE CONSULT [id number] Notes Entered by: JONN GALVIN 16 Nov 2012 1115 ------- ------- ------- ------- -- NETWORK RESULTS ---ORTH OPAEDIC [id number] OF [facility] LA NENA CAMPBELL 11/16 [facility](Fauzia irjudy _[facility]_Te am_Lobo ) [facility](Deondre [facility] _Team_[place]) OUTPATIENT [id number] sore throat ad MONIKA VOGT 06/28 Released w/o Limitations [facility](Fauzia irand _[facility]_Te am_Road runner) [facility] OUTPATIENT [id number] anuradhau ritika lipscomb [facility] DARYN Simental 08/11 Released w/o Limitations [facility](F light Medicin e Clinic) [facility] Team E) TELE CONSULT [id number] Notes Entered by: Fauzia OROZCO 19 Aug 2013 1418 ------- ------- ------- ------- -- ANNUAL PHA, UPDATE EMA CROCKER 08/19 Other Not Elsewhere Classified [facility](K irand [facility] Team E) [facility](Chi ropractic Clinic) OUTPATIENT [id number] New visit ENID GONZALEZ 09/27 Released w/o Limitations [facility](C hiropra ctic Clinic) [facility] _Team_[place]un[place]) OUTPATIENT [id number] POSSIBL E STD-PT PROVIDE D LIMITED SYMPTOM S RAFAT ROSE 09/28 Released w/o Limitations [employer]([place] _[facility]_Te am_Road runner) [facility] [employer]([facility]) OUTPATIENT [id number] Follow up ENID GONZALEZ 09/29 Released w/o Limitations [employer](C [facility]) [facility] [employer](Kir [facility] _Team_[place]) TELE CONSULT [id number] Notes Entered by: JIM ROMANO 30 Sep 2013 1419 ------- ------- ------- ------- -- LAB PAUL CHUN 09/30 Referred for Appointment [facility]([place] _[facility]_Te am_Road runner) [facility]) OUTPATIENT [id number] Follow up ENID GONZALEZ 10/03 Released w/o Limitations [employer]([place]_[facility] _Team_[place]) TELE CONSULT [id number] Notes Entered by: SA TD ROSE 03 Oct 2013 1304 ------- ------- ------- ------- -- Need follow up PAUL CHUN 10/03 Referred for Appointment [facility]([place] _C_Te am_Road runner) [facility]) OUTPATIENT [id number] Notes Entered by: YU MCCURDY 04 Oct 2013 1337 ------- ------- ------- ------- -- STI Chlamyd HUNG Martin 10/04 Released w/o Limitations [employer]([facility]) [facility] [employer] OUTPATIENT [id number] Follow up ENID GONZALEZ 10/07 Released w/o Limitations [employer]([facility] [address]) [facility](Chi ropractic Clinic) OUTPATIENT [id number] Follow up ENID GONZALEZ 10/13 Released w/o Limitations [employer] [facility] [employer](C hiropra ctic Clinic) [facility] [employer](Chi ropractic Clinic) OUTPATIENT [id number] Follow up ENID GONZALEZ 10/27 Released w/o Limitations [employer](C hiropra ctic Clinic) [facility] [employer]([place]_[facility] _Team_[place]) OUTPATIENT [id number] [facility] LA NENA Pierson 04/25 Released w/o Limitations [employer]([place] _[facility]_Te am_Road runner) [facility] [employer]([facility] OUTPATIENT [id number] 60[address] m[address] 24 y/o glasses wear-wa DARYN Gutierrez 09/14 Released w/o Limitations [employer] [facility] [employer](F light Medicin e Clinic) [facility]([place]_[facility] _Team_[place]) TELE CONSULT [id number] Notes Entered by: ALEJANDRA MCKENZIE 14 Sep 2014 1445 ------- ------- ------- ------- -- PHA ROUTINE LASHAE PICHARDO 09/14 Other Not Elsewhere Classified [facility]([place] _[facility]_Te am_Road runner) [facility](Opt ometry) OUTPATIENT [id number] ENID MCFARLAND 09/25 Released w/o Limitations [facility](O ptometr y) [facility] Team A) TELE CONSULT [id number] Notes Entered by: HENRY MOE 02 Feb 2015 1351 ------- ------- ------- ------- -- Medical In-proc HENRY Cherry 02/02 [facility] Team A) OUTPATIENT [id number] check up DENNYS Bay 04/13 Released w/o Limitations [facility] Team A) [facility] Team A) TELE CONSULT [id number] Notes Entered by: HENRY MOE 17 Apr 2015 1634 ------- ------- ------- ------- -- Normal Lab Result HENRY MOE 04/17 [facility]ased to [facility] Team A) [facility] Team A) OUTPATIENT [id number] f/u lab DENNYS SOLANO Shannan 05/05 Released w/o Limitations [facility] Team A) [facility] Team A) TELE CONSULT [id number] Notes Entered by: HENRY MOE 14 May 2015 1421 ------- ------- ------- ------- -- Normal Lab Results HENRY MOE 05/13 [facility]ased [facility] Team A) [facility] Team A) TELE CONSULT [id number] Notes Entered by: HENRY MOE 16 May 2015 1302 ------- ------- ------- ------- -- Normal Lab Result HENRY MOE 05/15 [facility]ased [facility] Team A) [facility] Team A) TELE CONSULT [id number] Notes Entered by: HENRY MOE 18 May 2015 0928 ------- ------- ------- ------- -- Normal Lab Result HENRY MOE 05/17 [facility]ased [facility] Team A) [facility]) OUTPATIENT [id number] CAMERON Boggs 08/22 Released w/o Limitations [facility]( light Medicin e Clinic) [facility]) OUTPATIENT [id number] CHANELL CADENA 08/27 Released w/o Limitations [employer](F light Medicin e Clinic) [employer](BO C 1) TELE CONSULT [id number] Notes Entered by: MANUEL COCHRAN 01 Oct 2015 1425 ------- ------- ------- ------- -- [facility] 10 Year Record Reviews ALEJANDRA HENSLEY 09/30 [facility](B [facility]) [facility] [employer]([facility]) TELE CONSULT [id number] Notes Entered by: JUAN C SALAS 21 Feb 2016 1241 ------- ------- ------- ------- -- In/Out Process ing WS AVEL SALAS 02/20 [facility] [employer]([facility]) [facility] [employer]([facility]) OUTPATIENT [id number] resp questio YESENIA Grant 03/11 Released w/o Limitations [employer](Opt ometry Clinic) OUTPATIENT [id number] ANNUAL NEW PT JESSIE MOREL 06/19 Released w/o Limitations [facility](O ptometr y Clinic) [facility] Hearing Consv) OUTPATIENT [id number] audio/O VITO RODRIGEZ 07/28 Released w/o Limitations [facility] Hearing Consv) [facility]) OUTPATIENT [id number] OH1/aud YESENIA Melvin 07/28 Released w/o Limitations [facility]) [facility]) OUTPATIENT [id number] OH2/DI ALICIA 07/31 Released w/o Limitations [facility]) [facility]) OUTPATIENT [id number] A [id number] ROSI NARANJO 10/14 Released w/o Limitations [facility]) [facility]) OUTPATIENT [id number] Notes Entered by: Rigo OSBORN 16 Oct 2016 1450 ------- ------- ------- ------- -- Tri [facility] DARRON ELINORADRIÁN LOVE 10/16 Released w/o Limitations [facility]) [facility]) OUTPATIENT [id number] PAULETTE PAGE 12/23 Released w/o Limitations [facility]) Theater Facility OUTPATIENT [id number] Theater Provider 09/03 Released w/o Limitations [facility] OUTPATIENT [id number] Theater Provider 09/13 Released w/o Limitations Theater Facilit y [facility] Medical [facility] Hearing Consv) OUTPATIENT [id number] Notes Entered by: BURTON GONZALEZ 25 Sep 2017 0957 ------- ------- ------- ------- -- walk in audiogr am for CHITO Woody NMI 09/25 Released w/o Limitations [facility] Hearing Consv) [facility]) OUTPATIENT [id number] Notes Entered by: GIGI GASTON 15 Oct 2017 1256 ------- ------- ------- ------- -- Walk In STI Check GIGI GASTON 10/15 Released w/o Limitations [facility]) [facility]) OUTPATIENT [id number] [facility] [phone] PAULETTE PATEL 10/20 Released w/o Limitations [facility] Medical [facility]) [address] [place] [address] Group([facility]) TELE CONSULT [id number] Notes Entered by: CURTIS SAM 20 Oct 2017 1531 ------- ------- ------- ------- -- Lab results AVEL SALAS 10/20 [facility]) [facility]) OUTPATIENT [id number] Notes Entered by: Bg AGUILAR 28 Oct 2017 1126 ------- ------- ------- ------- -- Annual [facility] ALFRED RODRIGUES V 10/28 Released w/o Limitations [facility]) [facility]) OUTPATIENT [id number] Notes Entered by: CARMELINA PULIDO P 12 Nov 2017 1305 ------- ------- ------- ------- -- CRS package TAYLOR ROCA 11/12 Released w/o Limitations [facility] pt[facility] y Clinic) [address] [place] [address]([facility]) TELE CONSULT [id number] Notes Entered by: JESSICA HOGUE X 17 Nov 2017 1154 ------- ------- ------- ------- -- [facility] eliseo Newton l - SHRUTI THOMPSON 11/17 [facility]) [facility]) TELE CONSULT [id number] Notes Entered by: SHYAM COKER 01 Dec 2017 1024 ------- ------- ------- ------- -- CRS email DI MCCURDY 12/01 [facility]) [facility]) OUTPATIENT [id number] BRAULIO Thompson 12/16 Released w/o Limitations [facility]) [facility] Medical [facility]) OUTPATIENT [id number] DRHA3 [phone] PAULETTE PATEL 01/06 Released w/o Limitations [facility]) [address] [place] [address]([facility]) OUTPATIENT [id number] Notes Entered by: CARMELINA PULIDO P 04 Feb 2018 0806 ------- ------- ------- ------- -- TAYLOR HAINES 02/04 Released w/o Limitations [address] [place] [address](O ptometr y Clinic) [address] [place] [address]([facility]) OUTPATIENT [id number] Notes Entered by: YESENIA HOLLAND 08 Feb 2018 0746 ------- ------- ------- ------- -- OH2/JACOB MELISSA 02/08 Released w/o Limitations [address] [place] [address]([facility]) [address] [place] [address]([facility] Soliz) TELE CONSULT [id number] Notes Entered by: Rigo ROMEO 23 Mar 2018 1602 ------- ------- ------- ------- -- Network Results - Optomet ry 018 REYNA YI 03/[address] [place] [address]([facility] Martínez) [address] [place] [address]([facility] Deepak) TELE CONSULT [id number] Notes Entered by: DARIUS DEL RIO 27 Apr 2018 1408 ------- ------- ------- ------- -- SYMPTOM S/UC FOLLOWU P/REFER RITIKA-MAYI ANDRADE 04/[address] [place] [address]([facility] Deepak) [address] [place] [address]([facility] Deepak) OUTPATIENT [id number] back pain CHEYANNE PRADO 04/27 Released with Work/Duty Limitations [address] [place] [address]([facility] Deepak) [address] [place] [address]([facility] Deepak) TELE CONSULT [id number] Notes Entered by: DARIUS DEL RIO 16 Aug 2018 1624 ------- ------- ------- ------- -- Network Results -URGENT CARE W/ RADIOLO GY 2018 REYNA YI 08/16 [facility] [employer]([facility] Deepak) [facility] Brea) TELE CONSULT [id number] Notes Entered by: YASHIRA PULIDO 23 Aug 2018 1135 ------- ------- ------- ------- -- Network Results -Physic al Therapy 9-06/28 REYNA YI 08/23 [facility] Mears) [facility]) OUTPATIENT [id number] Notes Entered by: ORSI NARANJO 17 Nov 2018 1605 ------- ------- ------- ------- -- DRHA4 MHA ROUTINE ROSI NARANJO 11/17 Released w/o Limitations [facility]) [facility] Martínez) OUTPATIENT [id number] [facility] PHA KAROL WILL 11/26 Released w/o Limitations [facility] Martínez) [facility]) OUTPATIENT [id number] CMR JEWELS GARY 11/29 Released w/o Limitations [facility](O ptometr y Clinic) [facility] Hearing Consv) OUTPATIENT [id number] CMR 135A JEAN-PIERRE PACK 11/29 Released w/o Limitations [facility] Hearing Consv) [facility]) OUTPATIENT [id number] CMR/OH1 YESENIA HOLLAND 11/29 Released w/o Limitations [facility]) [facility]) OUTPATIENT [id number] CMR/OH2 /PE JACOB MOLINA 12/02 Released w/o Limitations [facility]) [facility]) OUTPATIENT [id number] DRHA5 MHA ROUTINE ROSI NARANJOER 11/07 Released w/o Limitations [employer](D [facility]) [employer]([facility] FB [facility] Mears) OUTPATIENT [id number] CMR YOVANI ALDANA 12/07 Released w/o Limitations [employer] [facility]) [employer]([facility] FB [facility]) OUTPATIENT [id number] CMR/PE JACOB MOLINA N 12/13 Released w/o Limitations [employer] [facility] BO) [facility] [facility]) OUTPATIENT [id number] CMR JEWELS GARY 12/14 Released w/o Limitations [employer] [facility](O ptometr y Clinic) [employer]([facility] FB Hearing Consv) OUTPATIENT [id number] CMR AUDIO 135A GUAJARDOESTEFANY 12/14 Released w/o Limitations [employer] [facility] Hearing Consv) [employer] [facility](Pub lic Health) OUTPATIENT [id number] CMR/SPE GEORGINA JOEL 12/14 Released w/o Limitations [employer] [facility](P ublic Health) [facility] [facility]) OUTPATIENT [id number] RITO SMITH 01/04 Released w/o Limitations [employer] [facility](C hiropra ctic Clinic) [employer] [facility]ic [facility]) OUTPATIENT [id number] adj/2nd RITO SMITH 01/25 Released w/o Limitations [employer] [facility]) [facility]ic [facility]) OUTPATIENT [id number] adj/3rd RITO SMITH 02/06 Released w/o Limitations [employer] [facility](C [facility]ropra [facility]tic Clinic) [employer](Chi [facility]ractic Clinic) OUTPATIENT [id number] RITO SMITH 03/01 Released w/o Limitations [employer] [facility](C hiropra ctic Clinic) 0310C-AF- C-66th [facility] Between Visit [id number] 04/09 Discharge Disposition: Home or Self Care 0310C-A F-C-66t h [facility] [employer] 0310A-AF- C-[facility]th [facility] [employer] Between Visit [id number] 09/08 Discharge Disposition: Home or Self Care 0310A-A F-C-66t h [facility] [employer] 7379C-[facility] Outpatient [id number] Encount er for issue of other medical certifi tad ELIZONDO 09/08 Discharge Disposition: Home or Self Care 7379C-L incoln Center 309C-AF- C-66th [facility] [employer] Dental [id number] CESAR MAKOMAGLORIA MACKENZIE 12/14 Discharge Disposition: Home or Self Care 0310C-A F-C-66t h [facility] [employer] 0310A-AF- C-66th [facility] [employer] Between Visit [id number] 12/30 Discharge Disposition: Home or Self Care [...] SPECTACLES, EXCEPT FOR APHAKIA; MONOFOCAL 2011 DoD THERAPEUTIC, PROPHYLACTIC, OR DIAGNOSTIC INJECTION (SPECIFY SUBSTANCE OR DRUG); SUBCUTANEOUS OR INTRAMUSCULAR 2011 DoD SCREENING TEST OF VISUAL ACUITY, QUANTITATIVE, BILATERAL 2011 DoD CHIROPRACTIC MANIPULATIVE TREATMENT (CMT); SPINAL, [...] PROVIDE W/IN THE PREV 7 DAYS,USE THE [employer] COMM NETWORK 2018 DoD SCREENING TEST, PURE TONE, AIR ONLY 2017 DoD ONLINE ASSESS &MANAG SERV PROVIDE,A QUAL NONPHYS HCP TO AN ESTABLISHED PAT/GUARDIAN,NOT ORIGINAT FR RELAT ASSESS &MANAG SERV PROVIDE W/IN THE PREV 7 DAYS,USE THE [employer] COMM NETWORK 2017 DoD OPHTHALMIC ULTRASOUND, ECHOGRAPHY, DIAGNOSTIC; [...] ADMINISTERED BY A COMPUTER, WITH QUALIFIED HEALTH CLIENT SERVICE EXECUTIVE INTERPRETATION AND REPORT 2016 [facility] ADMINISTRATION OF PATIENT-FOCUSED HEALTH RISK ASSESSMENT INSTRUMENT (EG, HEALTH HAZARD APPRAISAL) WITH SCORING AND DOCUMENTATION, PER STANDARDIZED INSTRUMENT 2016 [facility] ONLINE ASSESS &MANAG SERV PROVIDE,A QUAL NONPHYS HCP TO AN ESTABLISHED PAT/GUARDIAN,NOT ORIGINAT FRM RELAT ASSESS &MANAG SERV PROVIDE W/IN THE PREV 7 DAYS,USE THE INTERNET/[employer] NETWORK 2016 [facility] PURE TONE AUDIOMETRY (THRESHOLD), AUTOMATED; AIR ONLY 2016 [facility] FITTING OF SPECTACLES, EXCEPT FOR APHAKIA; MONOFOCAL 2016 [facility] Audiogram (Screening) Audiogram (Screening) 99595 2017 JACOB MOLINA [facility] Internet Med Svc Qual Nonphys Healthcare Prof Up To 7 Days Estab Patient Internet Med Svc Qual Nonphys Healthcare Prof Up To 7 Days Estab Patient 37388 2017 BECKIE PATEL Preventive Medicine Administration Of Health Risk Questionnaire Patient-Focused Preventive Medicine Administration Of Health Risk Questionnaire Patient-Focused 03964 2017 BECKIE PATEL Corneal Pachymetry Both Eyes Corneal Pachymetry Both Eyes 38731 2017 BRAULIO DELGADO Computerized Corneal Topography Computerized Corneal Topography 33485 2017 BRAULIO DELGADO Determination Of Refractive State Determination Of Refractive State 81184 2017 BRAULIO DELGADO Ophthalmological New Patient Start Comprehensive Care Ophthalmological New Patient Start Comprehensive Care 82936 2017 BRAULIO DELGADO Non-Physician Phone Call To Patient/Provider Brief (5-10min) Non-Physician Phone Call To Patient/Provider Brief (5-10min) 74569 2017 SHRUTI THOMPSON [facility] Preventive Medicine Administration Of Health Risk Questionnaire Patient-Focused Preventive Medicine Administration Of Health Risk Questionnaire Patient-Focused 99763 2017 ALFRED LAIRD V [facility] Preventive Medicine Administration Of Health Risk Questionnaire Patient-Focused Preventive Medicine Administration Of Health Risk Questionnaire Patient-Focused 19846 2017 BECKIE PATEL Threshold Audiogram (Pure Tone) Automated Threshold Audiogram (Pure Tone) Automated 0208T 2017 MEL SPANGLER [facility] Psychiatric Diagnostic Evaluation Review of Records and Reports Psychiatric Diagnostic Evaluation Review of Records and Reports 89686 2016 DOROTHY QUEZADA Psychometric Neuropsych Testing Battery Admin By Computer Psychometric Neuropsych Testing Battery Admin By Computer 98994 2016 LELA WANG Preventive Medicine Administration Of Health Risk Questionnaire Patient-Focused Preventive Medicine Administration Of Health Risk Questionnaire Patient-Focused 55676 2016 BECKIE PATEL Internet Med Svc Qual Nonphys Healthcare Prof Up To 7 Days Estab Patient Internet Med Svc Qual Nonphys Healthcare Prof Up To 7 Days Estab Patient 14887 2016 ROSI NARANJO Preventive Medicine Administration Of Health Risk Questionnaire Patient-Focused Preventive Medicine Administration Of Health Risk Questionnaire Patient-Focused 18991 2016 ROSI NARANJO Threshold Audiogram (Pure Tone) Automated Threshold Audiogram (Pure Tone) Automated 0208T 2016 VITO PRIEST [employer] Fitting Monofocal Except For Aphakia [employer] Fitting Monofocal Except For Aphakia 19525 2016 JESSIE MOREL Determination Of Refractive State Determination Of Refractive State 16117 2016 JESSIE MOREL Ophthalmological New Patient Start Comprehensive Care Ophthalmological New Patient Start Comprehensive Care 54994 2016 JESSIE MOREL Threshold Audiogram (Pure Tone) Threshold Audiogram (Pure Tone) 07645 2015 CHANELL LOOMIS [employer] Fitting Monofocal Except For Aphakia [employer] Fitting Monofocal Except For Aphakia 73431 2014 ENID PLEITEZ 1 FOC, 1 5A, 1 GMI. PD 65 Shiva Prescription And Fitting Bilateral Corneal Lenses (Not For Aphakia) Prescription And Fitting Bilateral Corneal Lenses (Not For Aphakia) 97216 2014 ENID PLEITEZ Ophthalmological New Patient Start Comprehensive Care Ophthalmological New Patient Start Comprehensive Care 36397 2014 ENID PLEITEZ Determination Of Refractive State Determination Of Refractive State 59091 2014 ENID PLEITEZ Mobilization Soft Ti ue Mobilization Soft Tissue 49483 2013 ENID GONZALEZ Chiropractic Manip Treatmt (CMT) Spinal Three To Four Region Chiropractic Manip Treatmt (CMT) Spinal Three To Four Region 54582 2013 ENID GONZALEZ Mobilization Soft Ti ue Mobilization Soft Tissue 64527 2013 ENID GONZALEZ Chiropractic Manip Treatmt (CMT) Spinal Three To Four Region Chiropractic Manip Treatmt (CMT) Spinal Three To Four Region 65176 2013 ENID GONZALEZ Mobilization Soft Ti ue Mobilization Soft Tissue 57623 2013 ENID GONZALEZ Chiropractic Manip Treatmt (CMT) Spinal Three To Four Region Chiropractic Manip Treatmt (CMT) Spinal Three To Four Region 61400 2013 ENID GONZALEZ Physician Supervised Injection Intramuscular Physician Supervised Injection Intramuscular 21532 2013 PAUL CHUN Per Lt Rose, ceftriaxone 250 mg IM now. Patient identifiers obtained. Allergies verified. Procedure explained to pt. Verified physician's order via AHLTA note. Ceftriaxone 250 mg drawn and given right dorsogluteal IM. [employer] Lot [id number], Exp 25 Dec 2015. Ceftriaxone reconstituted with Lidocaine 1 %, [employer] Lot [id number], Exp 23 Nov 2014. Pt in exam room x 15 mins for observation. No apparent s/e's noted. Pt instructed to contact FP should any adverse reactions occur. Pt verbalized agreement/unde rstanding. Shiva Mobilization Soft Ti ue Mobilization Soft Tissue 98975 2013 ENID GONZALEZ Chiropractic Manip Treatmt (CMT) Spinal Three To Four Region Chiropractic Manip Treatmt (CMT) Spinal Three To Four Region 38581 2013 ENID GONZALEZ Mobilization Soft Ti ue Mobilization Soft Tissue 60281 2013 ENID GONZALEZ Chiropractic Manip Treatmt (CMT) Spinal Three To Four Region Chiropractic Manip Treatmt (CMT) Spinal Three To Four Region 77002 2013 ENID GONZALEZ Mobilization Soft Ti ue Mobilization Soft Tissue 75363 2013 ENID GONZALEZ Chiropractic Manip Treatmt (CMT) Spinal Three To Four Region Chiropractic Manip Treatmt (CMT) Spinal Three To Four Region 51878 2013 ENID GONZALEZ Threshold Audiogram (Pure Tone) Threshold Audiogram (Pure Tone) 63285 2013 DARYN MALCOLM Normal Shiva Threshold Audiogram (Pure Tone) Threshold Audiogram (Pure Tone) 85169 2012 CHAGO TOÑO Bernabe Shiva [employer] Fitting Monofocal Except For Aphakia [employer] Fitting Monofocal Except For Aphakia 96883 2011 CAMERON AGUIRRE Determination Of Refractive State Determination Of Refractive State 83391 2011 CAMERON AGUIRRE Ophthalmological New Patient Start Comprehensive Care Ophthalmological New Patient Start Comprehensive Care 69767 2011 CAMERON AGUIRRE Threshold Audiogram (Pure Tone) Threshold Audiogram (Pure Tone) 19006 2011 ATIF GONZALEZ Audiometry Group Testing Audiometry Group Testing 36535 2011 ATIF GONZALEZ Patient education, not otherwise cla ified, non-physician provider, group, per se ion 2011 ATIF GONZALEZ Patient education, not otherwise cla ified, non-physician provider, individual, per se ion 2011 JONATAN RIVERO Screening Test Of Visual Acuity, Quantitative, Bilateral Screening Test Of Visual Acuity, Quantitative, Bilateral 71155 2011 ISA COWAN Determination Of Refractive State Determination Of Refractive State 96123 2011 ISA COWAN [employer] Fitting Monofocal Except For Aphakia [employer] Fitting Monofocal Except For Aphakia 30286 2011 ISA COWAN Preventive Medicine Administration Of Health Risk Questionnaire Patient-Focused Preventive Medicine Administration Of Health Risk Questionnaire Patient-Focused 08339 ROSI NARANJO Internet Med Svc Qual Nonphys Healthcare Prof Up To 7 Days Estab Patient Internet Med Svc Qual Nonphys Healthcare Prof Up To 7 Days Estab Patient 30897 ROSI NARANJO Threshold Audiogram (Pure Tone) Automated Threshold Audiogram (Pure Tone) Automated 0208T JEAN-PIERRE PACK Ophthalmological Prior Patient Start Intermediate Level Care Ophthalmological Prior Patient Start Intermediate Level Care 63408 JEWELS GARY Determination Of Refractive State Determination Of Refractive State 59973 JEWELS GARY [facility] Psychometric Neuropsych Testing Battery Admin By Computer Psychometric Neuropsych Testing Battery Admin By Computer 53389 ANGÉLICA WHEATLEY [facility] Brief communication technology-based service, e.g. virtual check-in, [...] 5-10 minutes of medical discu hattie NARANJOROSI [facility] Ophthalmological Prior Patient Start Comprehensive Care Ophthalmological Prior Patient Start Comprehensive Care 48537 JEWELS GARY [employer] Fitting Monofocal Except For Aphakia [employer] Fitting Monofocal Except For Aphakia 21573 JEWELS GARY Audiogram (Screening) Audiogram (Screening) 92582 JACOB MOLINA Spirometry Spirometry 54739 JACOB MOLINA Visual Function Screening Visual Function Screening 27845 JACOB MOLINA Chiropractic Manip Treatmt (CMT) Spinal Three To Four Region Chiropractic Manip Treatmt (CMT) Spinal Three To Four Region 77932 RITO SMITH Social History Combined list of [...] aware of services available (911, One [facility], [employer], Walk in , Walk in ER, [...] at age 37. Compared medications reported by legal service specialist to active medication list in medical record and any variances were documented.? ? 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 See PHA document for additional information. Thirteen minutes of total time spent reviewing records, discussing health concerns and preventative health measures with [employer] Assistant Manager. ? 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 4.?GERD - Gastro-esophageal reflux disease Continue Omeprazole as prescribed along with avoiding triggers such as acidic/greasy/spicy food, heavy meals before bed, and caffeine;?achieving?a healthy diet and healthy weight. F/U with PCM for persistent or worsening symptoms.? 5.?Diarrhea Continue Fiber supplement as recommended by PCM, and continue F/U with PCM for management. Evan Sotomayor CTR?AREA REPRESENTATIVE-C [facility] Provider Flight Medicine? [employer] Kae [place], CESAR??[id number] [facility] [phone] ? 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 Member not present today in clinic for annual PHAQ.? PHAQ completed 11/07/2020.? HIV, Repository labs ordered.? No issues or concerns at this time.? No DR,MR,FR profiles.? Member is WWQ.? ? IMR status of member reviewed in ASIWI.? Member is?yellow, due Influenza vaccine. ? ? ? Ordered: omeprazole, 1 cap(s), Oral, Daily, 30 to 60 minutes before a meal, # 90 cap(s), 3 total refill(s), Maintenance, 1 cap(s) Oral Daily,Instr:30 to 60 minutes before a meal, Pharmacy: [facility] [Not filled] [facility] [address] HIV-1/O/2 EPI [id number] Repository Sample EPI [id number] Unlisted [employer] 86064 ? 2.?ASSESSMENT, POST DEPLOYMENT, DOCUMENTED ON [id number] (A) ?MHA reviewed with member and closed.? No referrals needed. Ordered: omeprazole, 1 cap(s), Oral, Daily, 30 to 60 minutes before a meal, # 90 cap(s), 3 total refill(s), Maintenance, 1 cap(s) Oral Daily,Instr:30 to 60 minutes before a meal, Pharmacy: [facility] [Not filled] Administration,[facility] [address] HIV-1/O/2 EPI 19739 Repository Sample EPI [id number] Unlisted [employer] Service 86166 ? 3.?GERD - Gastro-esophageal reflux disease ?Refilled Omeprazole 40mg qd prn for GERD symptoms.? Take 30 minutes before meal.? FU with PCM if symptoms not improving in 4 weeks. ? Orders: *Resuscitation Status ANNUAL PERIODIC HEALTH ASSESSMENT ? I. GAS ENGINE MECHANIC INFORMATION AND DEMOGRAPHICS (SMI) 1. Last Name: SRAVANI 2. First Name: DARYN 3. Middle Name: ROSHAN 4. Assessment Date: 5. : 6. Age: 30 7. Gender: M 8. [employer] ID Number: [id number] 9. Service Branch: [employer] 10. 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 Status: Active Duty 12. 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 Unit Name: [address] 14. Duty Station/Location: [facility] 15. [facility]: [id number] 16. Is this your first Periodic Health Assessment (PHA)?: N 17. Are you enrolled in a secure messaging system with your health care provider?:? Y ? 18. Current contact information: Preferred Method: Day Time Phone DSN: [id number] Day Time Phone: [phone] Night Time Phone: Email 1: [email or web address] Email 2: Address: [address] City: [place] State: [place] Zip Code: [address] ? 19. Point of contact who can always reach you: Name: abby jordan Phone 1: [phone] Phone 2: EMAIL: Address: City: State: Zip Code: ? II. DEPLOYMENT INFORMATION (DEP) 1. Total number of deployments in the PAST 5 YEARS: 1 2. Primary [facility] last [facility] 3. 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 Are you [...] watchful or easily startled? No 6. d. [place] numb or detached from others, activities, or your surroundings? No 6. e. [place] guilt or unable to stop blaming yourself [...] like to schedule a visit with a occupancy specialist, mental health care provider, or a community [...] Day(s) per week 8. What prescriptions or [id number] medications are you CURRENTLY taking for health [...] health concerns?: No ? XI. SEPARATION AND CARE HOME 1. Are you planning to separate or retire within the next year from Active Duty or [place] Duty (activated for greater than 30 continuous days) OR do you intend to file a claim for disability compensation with the [employer]?: No ? PART B. RECORD REVIEW AND RECOMMENDATIONS I. RECORD REVIEWER INFORMATION 1. Last Name: Armani 2. First Name: Rosi 3. Middle Name: Cosmo 4. Service Branch: [employer] 5. 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 EMAIL: [email or web address] 8. Facility: [facility] 9. Unit: [facility] 10. Address: [address] [place] [address] 11. State: [place] 12. Zip Code: [address] 13. Phone: [phone] 14. Date Record Review: ? II. MEDICAL SCREENING 1. Date of architecture faculty member's most recent PHA: 2. architecture faculty member's most recently documented height: 5 feet 7 inches? ?Date: 3. architecture faculty member's most recently documented weight: 190 pounds? Date: 4. architecture faculty member's most recently documented blood pressure readin/78? Date: 5. Does the architecture faculty member have a history of abnormal blood pressure since their last PHA? No 6. What is the date of the architecture faculty member's most recently documented cholesterol test? No Cholesterol Test Documented 8. List of architecture faculty member's active medications listed in their permanent medical record: Methocarbamol 750mg PO PRN Ibuprofen 400mg PO, OTC, prn Omeprazole 40mg, PO, once daily 9. Is there a discrepancy between the active medication record review and the architecture faculty member's self-reported list of medications?: No 10. List documented significant care the architecture faculty member has received since their last PHA from a provider OUTSIDE the Health System: No Outside Care Documented 11. Is there a discrepancy between the architecture faculty member's list of OUTSIDE care (from OTH5), and the OUTSIDE care found in the record?: No 12. List documented significant care the architecture faculty member has received since their last PHA from a provider INSIDE the Health System: No Inside Care Documented 14. Confirm that vaccine exemptions are listed in the medical record for each vaccine listed: Not Answered ? III. OCCUPATION-SPECIFIC EXAMINATIONS 2. When was the architecture faculty member's most recently documented evaluation?: ? IV. FAMILY HISTORY AND LIFESTYLE 1. Does the [id number] reflect the architecture faculty member's reported family history?: Yes ? VII. INDIVIDUAL MEDICAL READINESS 1. Does the architecture faculty member have an Assignment Limitation Code C?: No 3. Most recently documented dental exam: Classification: 1 4. Is the architecture faculty member current on all required immunizations in the immunization tracking system?: No: Influenza, [place] 5. Is the architecture faculty member current with Service-specific requirements for glasses and gas mask inserts?: Yes 6. Does the architecture faculty member have the following laboratory tests documented [...] need to be forwarded to the [facility] Architect completing PART C: ? ? Date Record Review Completed: --------- PART C. HEALTH CARE PROVIDER I. MENTAL HEALTH ASSESSMENT (MHA) PROVIDER INFORMATION 1. Last Name: Armani 2. First Name: Rosi 3. Middle Name: Cosmo 4. Service Branch: [employer] 5. 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 EMAIL: [email or web address] 8. Facility: [address] [place] [address] 9. Unit: [facility] 10. Address: [address] [place] [address] 11. State: [place] 12. Zip Code: [address] 13. Phone: [phone] 14. Date HCP Review initiated: ? 1.? [...] 3. Middle Name: Cosmo 4. Service Branch: [employer] 5. 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 EMAIL: [email or web address] 8. Facility: [address] 9. Unit: [facility] 10. Address: [address] [place] [address] 11. State: [place] 12. Zip Code: [address] 13. Phone: [phone] 14. Date HCP Review initiated: ? IV. PERIODIC HEALTH ASSESSMENT PROVIDER RECOMMENDATIONS and REFERRALS 1. Provider concerns with this assessment: No issues or concerns identified ? V. SUMMARY AND COMMENTS 1. Additional information summarizing findings during the architecture faculty member assessment: ? 2. Provider Comments: ? ? . INDIVIDUAL MEDICAL READINESS DISPOSITION DETERMINATION ? ? BIJU: Ready? ? DEN: Ready? ? IMM: Ready? ? LAB: Ready? ? ME: Ready ? ? IMR Status: Fully Medically Ready ? VII. SERVICE MEDICAL DEPLOYABILITY EVALUATION INDICATED Based on your review of all documentation, is the architecture faculty member medically deployable without limitations?? Reference Yonis 6490.07 ? ?Yes (architecture faculty member DOES NOT currently have a medical condition that limits deployability) ? Date PHA Completed: ? END OF [id number] REPORT ? [facility] Review Summary ? Does the member have [...] physical fitness program: Yes ? END OF [facility] SUMMARY ? 02/12/2024 Ambulatory Pharmacy Functional Status Combined list of recent functional and cognitive assessments recorded at [employer] [facility] [employer] [facility] [employer] [place] Functional [place] Measurement (FIM) Scale: 1 = Total Assistance (Subject = 0% +), 2 = Maximal Assistance (Subject = 25% +), 3 = Moderate Assistance (Subject = 50% +), 4 = Minimal Assistance (Subject = 75% +), 5 = Supervision, 6 = Modified [place] (Device), 7 = Complete [place] (Timely, Safely). Assessment Date/Time Source Assessment Type Assessment Skill Assessment Score Assessment Details No data available for this section
[2024-02-13 14:59] LABS: H Pylori Breath Test Negative (Negative)
== END 2024-02-12 13:58 | disposition home or self-care (01) ==
LOC: HO.LNP 13:57
PROVIDERS: Visit Provider Nurse Practitioner Family
DX: K21.9 Gastro-esophageal reflux disease without esophagitis (principal)
CPT/HCPCS: 83013

== ENCOUNTER 2024-04-14 08:17 | Outpatient (REF) | payer OTHER, SELFPAY ==
--- OUTSIDE RECORDS SUMMARY | 2024-04-14 08:28 | XMS_ITS | Continuity of Care Document ---
Author Name [facility] Organization [facility] Care Team Providers Care Boiler Tube Blower Name Role Phone [facility] Unavailable Unavailable Problems Combined list of problems from 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 It does not include entries that were removed or entered in error. Problem Status Onset Date Problem Type Date of Resolution Comments Source Encounter for issue of other medical certificate Active 09/09/2023 Diagnosis [id number] ASSESSMENT, POST-DEPLOYMENT, DOCUMENTED ON [id number] Inactive 09/13/2017 Condition DoD Pain, unspecified Inactive 09/03/2017 Condition DoD Regular astigmatism, bilateral Active 06/19/2016 Condition DoD Diarrhea Active Condition [facility] GERD - Gastro-esophageal reflux disease Active Condition [facility] Hyperlipidemia Active Condition 0310A-A F-[facility] LBP - Low back pain Active Condition 03 10C-AF[facility] Obesity Active Condition 0310[facility] obesity Active Condition [facility] Outpatient Physician Consultation Active Condition DoD injury of upper extremity hand Inactive Condition [facility] visit for: services physical Inactive Condition [facility] refractive error - hypermetropia Inactive Condition [facility] astigmatism regular Inactive Condition D oD visit: ears/hearing exam for hearing conservation, treatment Inactive Condition [facility] visit for: occupational health / fitness exam Inactive Condition [facility] visit for: administrative purpose Inactive Condition [facility] visit for: services physical accession [...] nce Ordered 100.0 0310A-A F-C-[facility] [employer] Fiber Tabs 1,250 mg, Oral, 0 total refill(s ), Maintena nce Oral (given by mouth) Ordered 0310C-A F[facility] MELOXICAM (MELOXICAM) , 15 MG, TABLET, ORAL, [employer] 100 ea. BOTTLE Active [id number] 2023 30 Pharmac y Data Transac tion Service Facilit y OMEPRAZOLE (omeprazole ), 40 MG, CAPSULE DR, ORAL, GLENMARK PHARMA, 1000 ea. BOTTLE Active [id number] 2023 30 Pharmac y Data Transac tion Service Facilit y OMEPRAZOLE (omeprazole ), 40 MG, CAPSULE DR, ORAL, GLENMARK PHARMA, 1000 ea. BOTTLE Active [id number] 2023 30 Pharmac y Data Transac tion Service Facilit y OMEPRAZOLE (omeprazole ), 40 MG, CAPSULE DR, ORAL, GLENMARK PHARMA, 1000 ea. BOTTLE Active [id number] 2023 30 Pharmac y Data Transac tion Service Facilit y OMEPRAZOLE (omeprazole ), 40 MG, CAPSULE DR, ORAL, GLENMARK PHARMA, 1000 ea. BOTTLE Active [id number] 4 2023 30 Pharmac y Data Transac tion Service Facilit y OMEPRAZOLE (OMEPRAZOLE ), 40 MG, CAPSULE DR, ORAL, [employer] PHARMACEU, 1000 ea. BOTTLE Active [id number] 3 2023 30 Pharmac y Data Transac tion Service Facilit y omeprazole 40 mg oral delayed release capsule 1 cap(s), Oral, Daily, 30 to 60 minutes before a meal, # 90 cap(s), 3 total refill(s ), Maintena nce, Pharmacy : [facility] Oral (given by mouth) Ordered 90.0 0010C-D [facility] Allergies, Adverse Reactions, Alerts Combined list of allergies from 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 It does not include entries that were removed or entered in error. Substance Category Reaction Severity Reaction type Status Date Reported Comments Source No Known Allergies Drug allergy (disorder) active 09/16/2011 [facility] Immunizations Combined list of available immunizations from the 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 Immunization Series Date Given Administered By Site Reaction Lot Number CVX Code Drug Director Post Status Comments Source COVID Vaccine Pfizer 2020 WENDYGRUBER Shoul cassy, left (delt oid) [id number] PFIZER complet ed COVID Vaccine Pfizer 11/30/20 Given 0010C-D [facility] influenza, recombinant, quadrivalent, injectable, preservative free 2020 NEELA RAM, () Not Given influenza , recombina nt, quadrival ent,injec table, preservat wendy free DoD COVID Vaccine Pfizer 2020 FENIXRMARTIN Shoul cassy, left (delt oid) [id number] PFIZER complet ed COVID Vaccine Pfizer 11/02/20 Given 0010C-D [facility] influenza virus vaccine, inactivated 2020 88 sanofi pasteur complet ed influenza virus vaccine, inactivat ed 03/17/20 Given Ambulat ory Pharmac y influenza, recombinant, quadrivalent, injectable, preservative free 2020 NEELA RAM, () Not Given influenza , recombina nt, quadrival ent,injec table, preservat wendy free DoD influenza, injectable, quadrivalent- pf 2018 [id number] 150 Seqirus complet ed influenza , injectabl e, quadrival ent-pf 01/05/19 Given Ambulat ory Pharmac y Influenza, injectable, quadrivalent, preservative free 9 2018 [id number] 150 Seqirus (SEQ) complet ed Influenza , injectabl e, quadrival ent, preservat wendy free DoD anthrax vaccine 2018 [id number] Emergent Biosolutions complet ed anthrax vaccine 11/29/18 Given Ambulat ory Pharmac y anthrax vaccine 6 2018 [id number] [employer] [place] (MIP) complet ed anthrax vaccine DoD influenza, injectable, quadrivalent- pf 2017 [id number] 150 Seqirus complet ed influenza , injectabl e, quadrival ent-pf 12/04/17 Given Ambulat ory Pharmac y Influenza, injectable, quadrivalent, preservative free 8 2017 [id number] 150 Seqirus (SEQ) comple t ed Influenza , injectabl e, quadrival ent, preservat wendy free DoD typhoid Vi capsular polysaccharid e vac 2016 [id number] 101 sanofi pasteur complet ed typhoid Vi capsular polysacch aride vac 12/19/16 Given Ambulat ory Pharmac y anthrax vaccine 2016 [id number] 24 [employer] complet ed anthrax vaccine 12/19/16 Given Ambulat ory Pharmac y Influenza, inj, MDCK, quadrivalent- pf 2016 [id number] 171 Seqirus complet ed Influenza , inj, MDCK, quadrival ent-pf 12/19/16 Given Ambulat ory Pharmac y anthrax vaccine 5 2016 [id number] 24 [employer] [place] (MIP) complet ed anthrax vaccine DoD typhoid Vi capsular polysaccharid e vaccine 2 2016 [id number] 101 Sanofi Pasteur (PMC) complet ed typhoid Vi capsular polysacch aride vaccine DoD Influenza, injectable, Madin [place] Canine Kidney, preservative free, quadrivalent 7 2016 [id number] 171 Seqirus (SEQ) comple t ed Influenza , injectabl e, Madin [place] Canine Kidney, preservat wendy free, quadrival ent DoD tuberculin purified protein derivative 2016 [id number] 96 [facility] complet ed tuberculi n purified protein derivativ e 06/06/16 Given Ambulat ory Pharmac y tuberculin purified protein derivative 2016 [id number] 96 [facility] complet ed tuberculi n purified protein derivativ e 05/29/16 Given Ambulat ory Pharmac y Human Papillomaviru s 9-valent vaccine 2016 [id number] 165 Merck & Company Inc complet ed Human Papilloma virus 9-valent vaccine 03/04/16 Given Ambulat ory Pharmac y Human Papillomaviru s 9-valent vaccine 3 2016 [id number] 165 Merck (MSD) complet ed Human Papilloma virus 9-valent vaccine DoD Human Papillomaviru s 9-valent vaccine 2015 [id number] 165 Merck & Company Inc complet ed Human Papilloma virus 9-valent vaccine 11/02/15 Given Ambulat ory Pharmac y influenza, injectable, quadrivalent- pf 2015 [id number] 150 GlaxoSmithKli ne complet ed influenza , injectabl e, quadrival ent-pf 11/02/15 Given Ambulat ory Pharmac y Influenza, injectable, quadrivalent, preservative free 6 2015 [id number] 150 Smithine (SKB) complet ed Influenza , injectabl e, quadrival ent, preservat wendy free DoD Human Papillomaviru s 9-valent vaccine 2 2015 [id number] 165 Merck (MSD) complet ed Human Papilloma virus 9-valent vaccine DoD Human Papillomaviru s 9-valent vaccine 2015 [id number] 165 Driverdo & Lola Pirindola Inc complet ed Human Papilloma virus 9-valent vaccine 08/23/15 Given Ambulat ory Pharmac y Ivorian Encephalitis IM 2015 [id number] 134 Valneva complet ed Ivorian Encephali tis IM 08/23/15 Given Ambulat ory Pharmac y anthrax vaccine 2015 [id number] 24 Emergent Biosolutions complet ed anthrax vaccine 08/23/15 Given Ambulat ory Pharmac y anthrax vaccine 4 2015 [id number] 24 [employer] [place] (MIP) complet ed anthrax vaccine DoD Ivorian Encephalitis vaccine for intramuscular administratio n 3 2015 [id number] 134 [facility] (INT) complet ed Ivorian Encephali tis vaccine for intramusc ular administr ation DoD Human Papillomaviru s 9-valent vaccine 1 2015 [id number] 165 Merck (MSD) complet ed Human Papilloma virus 9-valent vaccine DoD anthrax vaccine 2014 [id number] 24 Emergent Biosolutions complet ed anthrax vaccine 02/09/15 Given Ambulat ory Pharmac y anthrax vaccine 3 2014 [id number] 24 [employer] [place] (MIP) complet ed anthrax vaccine DoD influenza, injectable, quadrivalent 2014 [id number] 158 GlaxoSmithKli ne complet ed influenza , injectabl e, quadrival ent 11/30/14 Given Ambulat ory Pharmac y influenza, injectable, quadrivalent, contains preservative 0 2014 [id number] 158 SmithKline (SKB) complet ed influenza , injectabl e, quadrival ent, contains preservat wendy DoD Ivorian Encephalitis IM 2014 [id number] [id number] 134 Valneva complet ed Ivorian Encephali tis IM 08/15/14 Given Ambulat ory Pharmac y anthrax vaccine 2014 [id number] 24 Emergent Biosolutions complet ed anthrax vaccine 08/15/14 Given Ambulat ory Pharmac y anthrax vaccine 2 2014 [id number] 24 [employer] [place] ([facility]) complet ed anthrax vaccine DoD Ivorian Encephalitis vaccine for intramuscular administratio n 2 2014 [id number] 134 Intercell [employer]ical (INT) complet ed Ivorian Encephali tis vaccine for intramusc ular administr ation DoD Ivorian Encephalitis IM 2014 [id number] 2E 134 Valneva complet ed Ivorian Encephali tis IM 06/08/14 Given Ambulat ory Pharmac y Ivorian Encephalitis vaccine for intramuscular administratio n 1 2014 [id number] 134 [employer] (INT) complet ed Ivorian Encephali tis vaccine for intramusc ular administr ation DoD vaccinia (smallpox) vaccine 2014 [id number] 75 Sanofi Pasteur Incorporated complet ed vaccinia (smallpox ) vaccine 06/01/14 Given Ambulat ory Pharmac y vaccinia (smallpox) vaccine 1 2014 [id number] 75 (JASSON) complet ed vaccinia (smallpox ) vaccine DoD anthrax vaccine 2014 [id number] 24 Emergent Biosolutions complet ed anthrax vaccine 04/25/14 Given Ambulat ory Pharmac y anthrax vaccine 0 2014 [id number] 24 [employer] [place] ([facility]) complet ed anthrax vaccine DoD typhoid Vi capsular polysaccharid e vac 2014 K1200 101 sanofi pasteur complet ed typhoid Vi capsular polysacch aride vac 04/24/14 Given Ambulat ory Pharmac y measles/mumps /rubella virus vaccine 2014 [id number] 03 Merck & Company Inc complet ed measles/m umps/rube lla virus vaccine 04/24/14 Given Ambulat ory Pharmac y measles, mumps and rubella virus vaccine 1 2014 [id number] 03 Merck (MSD) complet ed measles, mumps [...] wendy free DoD influenza, seasonal, injectable-pf 2012 [id number] 140 sanofi pasteur complet ed influenza , seasonal, injectabl e-pf 11/23/12 Given Ambulat ory Pharmac y Influenza, seasonal, injectable, preservative free 0 2012 [id number] 140 Sanofi Pasteur (PMC) complet ed Influenza , seasonal, injectabl e, preservat wendy free DoD influenza virus vaccine, live 2011 [id number] 111 Medimmune Inc comple t ed influenza virus vaccine, live 10/28/11 Given Ambulat ory Pharmac y influenza virus vaccine, live, attenuated, for intranasal use 0 2011 [id number] 111 [employer], Inc. (MED) complet ed influenza virus vaccine, [...] y tetanus, diphtheria, acellular pertu is 2011 [id number] 115 GlaxoSmithKli ne complet ed tetanus, [...] unspecified formulation 1 2011 [id number] 31 [facility] ([facility]) complet ed hepatitis A vaccine, pediatric dosage, unspecifi ed formulati on DoD hepatitis B vaccine, unspecified formulation 1 2011 45 () Not Given hepatitis B vaccine, unspecifi ed formulati on DoD tetanus toxoid, reduced diphtheria toxoid, and acellular pertu is vaccine, adsorbed 1 2011 [id number] 115 [facility] ([facility]) complet ed tetanus toxoid, reduced diphtheri a toxoid, and acellular pertussis vaccine, adsorbed DoD tuberculin purified protein derivative 2011 [id number] 96 sanofi pasteur complet ed tuberculi n purified protein derivativ e 02/23/11 Given Ambulat ory Pharmac y adenovirus vaccine, live 2010 [id number] 143 Teva Pharmaceutica complet ed adenoviru s vaccine, live 02/21/11 Given Ambulat ory Pharmac y influenza, seasonal, injectable-pf 2010 [id number] 140 sanofi pasteur complet ed influenza , seasonal, injectabl e-pf 02/21/11 Given Ambulat ory Pharmac y meningococcal A,C,Y,W-135 (MCV4P) 2010 [id number] 114 sanofi pasteur complet ed meningoco ccal A,C,Y,W-1 35 (MCV4P) 02/21/11 Given Ambulat ory Pharmac y poliovirus vaccine, inactivated 2010 G1500 10 sanofi pasteur complet ed polioviru s vaccine, inactivat ed 02/21/11 Given Ambulat ory Pharmac y poliovirus vaccine, inactivated 1 2010 G1500 10 Sanofi Pasteur ([facility]) complet ed polioviru s vaccine, inactivat ed DoD meningococcal polysaccharid e (groups A, C, Y and W-135) diphtheria toxoid conjugate vaccine (MCV4P) 1 2010 [id number] 114 Sanofi Pasteur (PMC) complet ed meningoco ccal polysacch aride (groups A, C, Y and W-135) diphtheri a toxoid conjugate vaccine (MCV4P) DoD Influenza, seasonal, injectable, preservative free 1 2010 [id number] 140 Sanofi Pasteur (PMC) complet ed Influenza , seasonal, injectabl e, preservat wendy free DoD Adenovirus, type 4 and type 7, live, oral 1 2010 [id number] 143 [employer] (BRR) complet ed Adenoviru s, type 4 and type 7, live, oral DoD Results Combined list of recent chemistry, hematology and other laboratory results from Department of Defense and Veterans Affairs, ranging from 15 months to all on record, depending upon the facility. Order Name Results Value Reference Range Date Interpretation Specimen Comments Source Infectiou s Disease HIV-1/O/2 Non-Reac tive 3 (10/10/22 9:55 [...] Prevention' s HIV diagnostic algorithm. Refer to [facility] Lab Guide for additional information : https://[employer]x. health.[facility]/ kj/kx5/EPIL ab/Pages/la b_guide.asp x Testing performed by [employer] System[employer]alile[employer] ce. 5600A-US AFSA EPILAB Miscellan eous Sendouts Repository Sample Received (10/10/22 9:55 AM) 10/10 N 5600A- AFSAM EPILAB Infectiou s Disease HIV-1/O/2. EPI NON-REAC TIVE 11/07 Result [...] Prevention' s HIV diagnostic algorithm. Refer to [facility] Lab Guide for additional information : [email or web address] .[facility]/k j/kx5/EPILa b/Pages/lab _guide.aspx Testing performed by Marjorie brooke. Performed by: Epidemiolog y Laboratory Service [employer] [facility] [address] [place] [phone] 0010[facility] Miscellan eous Sendouts Repository Sample.EPI RECEIVED 11/07 Result Comment: INTERPRETAT ION(S): Performed by: Epidemiolog y Laboratory Service [employer] [facility] [address] [place] [phone] 0010A-Da [facility] Encounters Combined list of: 1) Encounters from Department of Veterans Affairs facilities going backup to the last 18 months, not all VA inpatient encounters are included; 2) Encounters from the Department of Defense facilities going backup to 280 months. Location Location Details Encounter Type Encounter Number Reason For Visit Attending Provider ADM Date DC Date Status Disposition Source [place] [address] [id number] SHELLY GRANDE 02/27 Released w/o Limitations [facility] [place] [address](O ptometr y Clinic BMT WHASC) [place] [address](MAS Delta) OUTPATIENT [id number] Cold Symptom s KAL MAO 04/07 Released w/o Limitations [facility] [place] [address](M Delta) [place], [place](NASP Occup[facility] nal Health) OUTPATIENT [id number] [employer] RPP 0800 JONATAN RIVERO 05/07 Released w/o Limitations [place] Occup[place] Hearing Conservat ion[place] OUTPATIENT [id number] [employer] AUDIO. ATIF GONZALEZ 05/08 Released w/o Limitations [place] Hearing [facility]ion) [facility](Opt ometry) OUTPATIENT [id number] CAMERON Young 09/15 Released w/o Limitations [facility](O ptometr y) [facility] OUTPATIENT [id number] 58MXS Physica l showtim e 0830 TOÑO ANDERS 09/02 Released w/o Limitations [facility](F light Medicin e Clinic) [facility]([place]_[facility] _Team_Lob o) TELE CONSULT [id number] Notes Entered by: SANJANA MICHAELS 16 Sep 2012 1308 ------- ------- ------- ------- -- EMA BEEBE 09/16 Referred for Appointment [facility](Fauzia perla _[facility]_Te am_Lobo ) [facility]([place]_[facility] _Team_Lob o) OUTPATIENT [id number] f/u ER visit [place] CAMPBELL 10/27 Released with Work/Duty Limitations [employer](Fauzia irlaury _C_Te am_Lobo ) [facility]([place]_[facility] _Team_Lob o) TELE CONSULT [id number] Notes Entered by: TRAVIS MERINO 15 Nov 2012 1109 ------- ------- ------- ------- -- NETWORK RESULTS - OTHOPED ICS - [id number] [place] CAMPBELL 11/15 [employer](Fauzia [place] _[facility]_Te am_Lobo ) [employer]([place]_[facility] _Team_Lob o) TELE CONSULT [id number] Notes Entered by: JONN GALVIN M 16 Nov 2012 1115 ------- ------- ------- ------- -- NETWORK RESULTS ---ORTH OPAEDIC [id number] OF [facility] [place] NENA CAMPBELL 11/16 [employer](Fauzia irand _[facility]_Te am_Lobo ) [facility](Deondre mccartneyand_[facility] _Team_[place]) OUTPATIENT [id number] sore throat ad MONIKA VOGT 06/28 Released w/o Limitations [employer](K irand _C_Te am_Road runner) [employer]([facility]) OUTPATIENT [id number] vladislav lipscomb [facility] DARYN Simental 08/11 Released w/o Limitations [facility](F light Medicin e Clinic) [facility] Team E) TELE CONSULT [id number] Notes Entered by: Fauzia OROZCO 19 Aug 2013 1418 ------- ------- ------- ------- -- ANNUAL PHA, UPDATE EMA CROCKER 08/19 Other Not Elsewhere Classified [employer](Fauzia irjudy [facility] Team E) [facility](Chi ropractic Clinic) OUTPATIENT [id number] New visit ENID GONZALEZ 09/27 Released w/o Limitations [employer](C hiropra ctic Clinic) [facility](Deondre [facility] _Team_Roa drunner) OUTPATIENT [id number] POSSIBL E STD-PT PROVIDE D LIMITED SYMPTOM S RAFAT ROSE 09/28 Released w/o Limitations [employer]([place] _[facility]_Te am_Road runner) [employer]([facility]) OUTPATIENT [id number] Follow up ENID GONZALEZ 09/29 Released w/o Limitations [employer](C [facility]) [employer](Kir [facility] _Team_[place]oa drunner) TELE CONSULT [id number] Notes Entered by: JIM ROMANO 30 Sep 2013 1419 ------- ------- ------- ------- -- LAB PAUL CHUN 09/30 Referred for Appointment [employer]([place] _[facility]_Te am_Road runner) [facility]) OUTPATIENT [id number] Follow up ENID GONZALEZ 10/03 Released w/o Limitations [facility](C [facility]) [employer](Kir and_[facility] _Team_Roa drunner) TELE CONSULT [id number] Notes Entered by: SA TD ROSE 03 Oct 2013 1304 ------- ------- ------- ------- -- Need follow up PAUL CHUN 10/03 Referred for Appointment [employer] [employer] [facility](K irand _C_Te am_Road runner) [facility]) OUTPATIENT [id number] Notes Entered by: YU MCCURDY 04 Oct 2013 1337 ------- ------- ------- ------- -- STI HUNG Gary 10/04 Released w/o Limitations [employer]([facility]) [employer]([facility]) OUTPATIENT [id number] Follow up ENID GONZALEZ 10/07 Released w/o Limitations [facility](C hiropra ctic Clinic) [facility](Chi ropractic Clinic) OUTPATIENT [id number] Follow up ENID GONZALEZ 10/13 Released w/o Limitations [facility](C hiropra ctic Clinic) [facility](Chi ropractic Clinic) OUTPATIENT [id number] Follow up ENID GONZALEZ 10/27 Released w/o Limitations [facility](C hiropra ctic Clinic) [facility](Kir [facility] _Team_[place]) OUTPATIENT [id number] [facility] LA NENA Pierson 04/25 Released w/o Limitations [facility]([place] _[facility]_Te am_Road runner) [facility] OUTPATIENT [id number] [employer] [employer] 24 y/o glasses wear-wa DARYN Gutierrez 09/14 Released w/o Limitations [facility](F light Medicin e Clinic) [facility](Kir biband_[facility] _Team_[place]) TELE CONSULT [id number] Notes Entered by: ALEJANDRA MCKENZIE 14 Sep 2014 1445 ------- ------- ------- ------- -- PHA ROUTINE LASHAE PICHARDO 09/14 Other Not Elsewhere Classified [facility](K irjudy _[facility]_Te am_Road runner) [facility](Opt ometry) OUTPATIENT [id number] ENID MCFARLAND 09/25 Released w/o Limitations [facility](O ptometr y) [facility](Brian smith [facility] Team A) TELE CONSULT [id number] Notes Entered by: HENRY MOE 02 Feb 2015 1351 ------- ------- ------- ------- -- Medical In-proc HENRY Cherry 02/02 Released to Self Care [facility](Fauzia san [facility] Team A) [facility](Brian smith [facility] Team A) OUTPATIENT [id number] check up alcides SOLANO DENNYS N 04/13 Released w/o Limitations [employer](Fauzia [facility] Team A) [employer](Brian [facility] Team A) TELE CONSULT [id number] Notes Entered by: HENRY MOE 17 Apr 2015 1634 ------- ------- ------- ------- -- Normal Lab Result HENRY MOE 04/17 Released to Self Care [facility](Fauzia [facility] Team A) [employer](Brian [facility] Team A) OUTPATIENT [id number] f/u DENNYS Hernández N 05/05 Released w/o Limitations [facility] Medical Group([facility] Team A) [facility] Medical Group([facility] Team A) TELE CONSULT [id number] Notes Entered by: HENRY MOE 14 May 2015 1421 ------- ------- ------- ------- -- Normal Lab Results HENRY MOE 05/13 Released to Self Care [facility] Medical Group([facility]zia [facility] Team A) [facility] Medical Group([facility] Team A) TELE CONSULT [id number] Notes Entered by: HENRY MOE 16 May 2015 1302 ------- ------- ------- ------- -- Normal Lab Result HENRY MOE 05/15 Released to Self Care [employer]([facility] Team [facility]) [employer]([facility] Team A) TELE CONSULT [id number] Notes Entered by: HENRY MOE 18 May 2015 0928 ------- ------- ------- ------- -- Normal Lab Result HENRY MOE 05/17 Released to Self Care [facility] Medical Group([facility] Team A) [facility] Medical Group([facility]) OUTPATIENT [id number] CAMERON Boggs 08/22 Released w/o Limitations [employer](F light Medicin e Clinic) [facility] Medical Group([facility]) OUTPATIENT [id number] TINNITU Vijaya CHANELL LOOMIS 08/27 Released w/o Limitations [employer](F light Medicin e Clinic) [employer](BO C 1) TELE CONSULT [id number] Notes Entered by: MANUEL COCHRAN 01 Oct 2015 1425 ------- ------- ------- ------- -- [facility] 10 Year Record Reviews ALEJANDRA HENSLEY 09/30 [employer](B [facility] 1) [employer]([facility]) TELE CONSULT [id number] Notes Entered by: JUAN C SALAS 21 Feb 2016 1241 ------- ------- ------- ------- -- In/Out Process ing WS AVEL SALAS 02/20 [employer](D [facility]) [employer]([facility]) OUTPATIENT [id number] resp questio YESENIA Grant 03/11 Released w/o Limitations [employer](P [facility]) [employer]([facility]) OUTPATIENT [id number] ANNUAL NEW PT JESSIE MOREL 06/19 Released w/o Limitations [employer](O ptometr y Clinic) [employer]([facility] Hearing Consv) OUTPATIENT [id number] audio/O H VITO PRIEST 07/28 Released w/o Limitations [employer] [employer]([facility]) OUTPATIENT [id number] OH1/aud YESENIA Melvin 07/28 Released w/o Limitations [employer](P [facility]) [employer]([facility]) OUTPATIENT [id number] OH2/DI ALICIA 07/31 Released w/o Limitations [employer] [employer]([facility]) OUTPATIENT [id number] TON NARANJO 10/14 Released w/o Limitations [facility] Medical Group([facility]) [employer]([facility]) OUTPATIENT [id number] Notes Entered by: Rigo OSBORN 16 Oct 2016 1450 ------- ------- ------- ------- -- [facility] DARRON ELINORADRIÁN LOVE 10/16 Released w/o Limitations [facility] Medical Group([facility]) [facility]) OUTPATIENT [id number] PAULETTE PAGE 12/23 Released w/o Limitations [facility] Medical Group([facility]) Theater Facility OUTPATIENT [id number] Theater Provider 09/03 Released w/o Limitations [facility] Facility OUTPATIENT [id number] Theater Provider 09/13 Released w/o Limitations Theater Facilit y [facility] Medical [facility] Hearing Consv) OUTPATIENT [id number] Notes Entered by: BURTON GONZALEZ 25 Sep 2017 0957 ------- ------- ------- ------- -- walk in audiogr am for deployCHITO Yun [facility] 09/25 Released w/o Limitations [facility] Medical Group([facility] Hearing Consv) [facility] Medical Group([facility]) OUTPATIENT [id number] Notes Entered by: GIGI GASTON 15 Oct 2017 1256 ------- ------- ------- ------- -- Walk In STI Check GIGI GASTON 10/15 Released w/o Limitations [facility] Medical Group([facility]) [facility] Medical Group([facility]) OUTPATIENT [id number] [facility] [phone] PAULETTE PATEL 10/20 Released w/o Limitations [facility] Medical Group([facility]) [facility] Medical Group([facility]) TELE CONSULT [id number] Notes Entered by: CURTIS SAM 20 Oct 2017 1531 ------- ------- ------- ------- -- Lab results AVEL SALAS Daniel 10/20 [facility] Medical Group([facility]) [facility]) OUTPATIENT [id number] Notes Entered by: Bg AGUILAR 28 Oct 2017 1126 ------- ------- ------- ------- -- Annual [facility] ALFRED RODRIGUES V 10/28 Released w/o Limitations [facility] Medical [facility]) [facility] Medical Group([facility]) OUTPATIENT [id number] Notes Entered by: CARMELINA PULIDO P 12 Nov 2017 1305 ------- ------- ------- ------- -- CRS package TAYLOR ROCA 11/12 Released w/o Limitations [facility](O ptometr y Clinic) [address] [place] [address]([facility]) TELE CONSULT [id number] Notes Entered by: JESSICA HOGUE X 17 Nov 2017 1154 ------- ------- ------- ------- -- Optomet eliseo Newton l - SHRUTI THOMPSON 11/17 [facility]) [facility](Opt [facility]metry Clinic) TELE CONSULT [id number] Notes Entered by: SHYAM COKER 01 Dec 2017 1024 ------- ------- ------- ------- -- CRS email DI MCCURDY 12/01 [facility] Medical Group(O ptometr y Clinic) [facility]metry Clinic) OUTPATIENT [id number] BRAULIO Thompson 12/16 Released w/o Limitations [facility] Medical Group(O ptometr y Clinic) [address] [place] [address]([facility]) OUTPATIENT [id number] [phone] PAULETTE PATEL 01/06 Released w/o Limitations [address] [place] [address]([facility]) [address] [place] [address](Opt [facility]metry Clinic) OUTPATIENT [id number] Notes Entered by: CARMELINA PULIDO P 04 Feb 2018 0806 ------- ------- ------- ------- -- TAYLOR HAINES 02/04 Released w/o Limitations [address] [place] [address](O ptometr y Clinic) [address] [place] [address]([facility]) OUTPATIENT [id number] Notes Entered by: YESENIA HOLLAND 08 Feb 2018 0746 ------- ------- ------- ------- -- OH2/JACOB MELISSA 02/08 Released w/o Limitations [address] [place] [address]([facility]) [address] [place] [address]([facility]) TELE CONSULT [id number] Notes Entered by: Rigo ROMEO 23 Mar 2018 1602 ------- ------- ------- ------- -- Network Results - Optomet ry 018 REYNA YI 03/[address] [place] [address]([facility] Soliz) [address] [place] [address]([facility] Deepak) TELE CONSULT [id number] Notes Entered by: DARIUS DEL RIO 27 Apr 2018 1408 ------- ------- ------- ------- -- SYMPTOM S/UC FOLLOWU P/REFER RITIKA-MAYI ANDRADE 04/[address] [place] [address]([facility] [place]) [address] [place] [address]([facility] Deepak) OUTPATIENT [id number] back pain CHEYANNE PRADO 04/27 Released with Work/Duty Limitations [address] [place] [address]([facility] [place]) [address] [place] [address]([facility] [place]) TELE CONSULT [id number] Notes Entered by: DARIUS DEL RIO 16 Aug 2018 1624 ------- ------- ------- ------- -- Network Results -URGENT CARE W/ RADIOLO GY 2018 REYNA YI 08/16 [facility] Medical Group([facility] Deepak) [facility] Medical Group([facility] Brea) TELE CONSULT [id number] Notes Entered by: YASHIRA PULIDO 23 Aug 2018 1135 ------- ------- ------- ------- -- Network Results -Physic al Therapy 9-06/28 REYNA YI 08/23 [facility]) OUTPATIENT [id number] Notes Entered by: TON NARANJO 17 Nov 2018 1605 ------- ------- ------- ------- -- LINDSAY Bg ROUTINE TON NARANJO 11/17 Released w/o Limitations [facility] Medical Group([facility]) [facility] Group([facility] Martínez) OUTPATIENT [id number] DOD KAROL BOOKER 11/26 Released w/o Limitations [facility] [employer]) [facility] Medical Group([facility]) OUTPATIENT [id number] CMR JEWELS GARY 11/29 Released w/o Limitations [facility] Medical Group(O ptometr y Clinic) [facility] Hearing Consv) OUTPATIENT [id number] CMR 135A JEAN-PIERRE PACK 11/29 Released w/o Limitations [facility] Medical Group([facility] Hearing Consv) [facility] Medical Group([facility]) OUTPATIENT [id number] CMR/OH1 YESENIA HOLLAND 11/29 Released w/o Limitations [facility] Medical Group(P ublic Health) [facility]) OUTPATIENT [id number] CMR/OH2 /PE JACOB MOLINA 12/02 Released w/o Limitations [facility] Medical Group([facility]) [employer]([facility]) OUTPATIENT [id number] DRHA5 TON HOWARD 11/07 Released w/o Limitations [employer]([facility]) [employer]([facility]) OUTPATIENT [id number] CMR PHA YOVANI NASH N 12/07 Released w/o Limitations [employer]([facility]) [employer]([facility]) OUTPATIENT [id number] CMR/PE JACOB MOLINA N 12/13 Released w/o Limitations [employer]([facility]) [employer]([facility]) OUTPATIENT [id number] CMR JEWELS GARY 12/14 Released w/o Limitations [employer](O ptometr y Clinic) [employer]([facility] Hearing Consv) OUTPATIENT [id number] CMR AUDIO 135A ESTEFANY GUAJARDO 12/14 Released w/o Limitations [employer]([facility] Hearing Consv) [employer]([facility]) OUTPATIENT [id number] CMR/SPE GEORGINA JOEL 12/14 Released w/o Limitations [employer](P ublic Health) [employer]([facility]ic Clinic) OUTPATIENT [id number] RITO SMITH 01/04 Released w/o Limitations [employer](C hiropra ctic Clinic) [employer]([facility]) OUTPATIENT [id number] adj/2nd RITO SMITH 01/25 Released w/o Limitations [employer]([facility]tic Clinic) [employer]([facility]) OUTPATIENT [id number] adj/3rd RITO SMITH 02/06 Released w/o Limitations [employer](C [facility]tic Clinic) [employer]([facility]ic Clinic) OUTPATIENT [id number] RITO SMITH 03/01 Released w/o Limitations [employer](C hiropra ctic Clinic) 0310A-AF- C-[facility] [employer] Between Visit [id number] 09/08 Discharge Disposition: Home or Self Care 0310A-A F-C-66t h [employer] 7379C-[facility] Outpatient [id number] Encount er for issue of other medical certifi tad ELIZONDO 09/08 Discharge Disposition: Home or Self Care [id number] [facility] 309C-AF- C-66 [employer] Dental [id number] CESAR MANN 12/14 Discharge Disposition: Home or Self Care 0310C-A F-C-66t h [employer] -AF- C-66 [employer] Between Visit [id number] 12/30 Discharge Disposition: Home or Self Care 0310A-A F-C-66t [facility] [employer] Procedures Combined list of: 1) Procedures from Department of Veterans Affairs facilities going back up to thelast 18 months, not all VA non-surgical procedures are included; 2) All procedures from the Department of Defense facilities. Procedure Procedure Type Code Date Perfomer Comments Sourc e R hand surgery x2 Last 2021 309 C-AF- C-66 [employer] WTE 0C-AF- C-66 [employer] Audiogram (Screening) Audiogram (Screening) 37579 2017 JACOB MOLINA Internet Med Svc Qual Nonphys Healthcare Prof Up To 7 Days Estab Patient Internet Med Svc Qual Nonphys Healthcare Prof Up To 7 Days Estab Patient 32490 2017 BECKIE PATEL Preventive Medicine Administration Of Health Risk Questionnaire Patient-Focused Preventive Medicine Administration Of Health Risk Questionnaire Patient-Focused 04168 2017 BECKIE PATEL Corneal Pachymetry Both Eyes Corneal Pachymetry Both Eyes 72550 2017 BRAULIO DELGADO Computerized Corneal Topography Computerized Corneal Topography 97639 2017 BRAULIO DELGADO Determination Of Refractive State Determination Of Refractive State 37370 2017 BRAULIO DELGADO Ophthalmological New Patient Start Comprehensive Care Ophthalmological New Patient Start Comprehensive Care 93732 10/26/ 2018 BRAULIO DELGADO [facility] Non-Physician Phone Call To Patient/Provider Brief (5-10min) Non-Physician Phone Call To Patient/Provider Brief (5-10min) 21868 2017 SHRUTI THOMPSON [facility] Preventive Medicine Administration Of Health Risk Questionnaire Patient-Focused Preventive Medicine Administration Of Health Risk Questionnaire Patient-Focused 33754 2017 ALFRED LAIRD V [facility] Preventive Medicine Administration Of Health Risk Questionnaire Patient-Focused Preventive Medicine Administration Of Health Risk Questionnaire Patient-Focused 51440 2017 BECKIE PATEL Threshold Audiogram (Pure Tone) Automated Threshold Audiogram (Pure Tone) Automated 0208T 2017 MEL SPANGLER [facility] Psychiatric Diagnostic Evaluation Review of Records and Reports Psychiatric Diagnostic Evaluation Review of Records and Reports 35528 2016 DOROTHY QUEZADA Psychometric Neuropsych Testing Battery Admin By Computer Psychometric Neuropsych Testing Battery Admin By Computer 41966 2016 LELA WANG [facility] Preventive Medicine Administration Of Health Risk Questionnaire Patient-Focused Preventive Medicine Administration Of Health Risk Questionnaire Patient-Focused 96452 2016 BECKIE PATEL Internet Med Svc Qual Nonphys Healthcare Prof Up To 7 Days Estab Patient Internet Med Svc Qual Nonphys Healthcare Prof Up To 7 Days Estab Patient 36822 2016 TON NARANJO Preventive Medicine Administration Of Health Risk Questionnaire Patient-Focused Preventive Medicine Administration Of Health Risk Questionnaire Patient-Focused 57740 2016 TON NARANJO Threshold Audiogram (Pure Tone) Automated Threshold Audiogram (Pure Tone) Automated 0208T 2016 VITO PRIEST [facility] Spectacles Services Fitting Monofocal Except For Aphakia Spectacles Services Fitting Monofocal Except For Aphakia 04289 2016 JESSIE MOREL Determination Of Refractive State Determination Of Refractive State 71481 2016 JESSIE MOREL Ophthalmological New Patient Start Comprehensive Care Ophthalmological New Patient Start Comprehensive Care 50863 2016 JESSIE MOREL Threshold Audiogram (Pure Tone) Threshold Audiogram (Pure Tone) 22283 2015 CHANELL LOOMIS Spectacles Services Fitting Monofocal Except For Aphakia Spectacles Services Fitting Monofocal Except For Aphakia 15174 2014 ENID PLEITEZ 1 FOC, 1 5A, 1 GMI. PD 65 [facility] Prescription And Fitting Bilateral Corneal Lenses (Not For Aphakia) Prescription And Fitting Bilateral Corneal Lenses (Not For Aphakia) 18366 2014 ENID PLEITEZ Ophthalmological New Patient Start Comprehensive Care Ophthalmological New Patient Start Comprehensive Care 93673 2014 ENID PLEITEZ Determination Of Refractive State Determination Of Refractive State 19779 2014 ENID PLEITEZ Mobilization Soft Ti ue Mobilization Soft Tissue 22563 2013 ENID GONZALEZ Chiropractic Manip Treatmt (CMT) Spinal Three To Four Region Chiropractic Manip Treatmt (CMT) Spinal Three To Four Region 39577 2013 ENID GONZALEZ Mobilization Soft Ti ue Mobilization Soft Tissue 74273 2013 ENID GONZALEZ Chiropractic Manip Treatmt (CMT) Spinal Three To Four Region Chiropractic Manip Treatmt (CMT) Spinal Three To Four Region 59349 2013 ENID GONZALEZ Mobilization Soft Ti ue Mobilization Soft Tissue 37292 2013 ENID GONZALEZ Chiropractic Manip Treatmt (CMT) Spinal Three To Four Region Chiropractic Manip Treatmt (CMT) Spinal Three To Four Region 37729 2013 ENID GONZALEZ Physician Supervised Injection Intramuscular Physician Supervised Injection Intramuscular 30905 2013 PAUL CHUN Per Lt Rose, ceftriaxone 250 mg IM now. Patient identifiers obtained. Allergies verified. Procedure explained to pt. Verified physician's order via [facility] note. Ceftriaxone 250 mg drawn and given right dorsogluteal IM. [facility] [id number], Exp 25 Dec 2015. Ceftriaxone reconstituted with Lidocaine 1 %, [facility] [id number], Exp 23 Nov 2014. Pt in exam room x 15 mins for observation. No apparent s/e's noted. Pt instructed to contact FP should any adverse reactions occur. Pt verbalized agreement/under standing. Shiva Mobilization Soft Ti ue Mobilization Soft Tissue 06443 2013 ENID GONZALEZ Chiropractic Manip Treatmt (CMT) Spinal Three To Four Region Chiropractic Manip Treatmt (CMT) Spinal Three To Four Region 31085 2013 ENID GONZALEZ Mobilization Soft Ti ue Mobilization Soft Tissue 98307 2013 ENID GONZALEZ Chiropractic Manip Treatmt (CMT) Spinal Three To Four Region Chiropractic Manip Treatmt (CMT) Spinal Three To Four Region 64522 2013 ENID GONZALEZ Mobilization Soft Ti ue Mobilization Soft Tissue 79758 2013 ENID GONZALEZ Chiropractic Manip Treatmt (CMT) Spinal Three To Four Region Chiropractic Manip Treatmt (CMT) Spinal Three To Four Region 72553 2013 ENID GONZALEZ Threshold Audiogram (Pure Tone) Threshold Audiogram (Pure Tone) 34030 2013 DARYN MALCOLM Threshold Audiogram (Pure Tone) Threshold Audiogram (Pure Tone) 92012 2012 TOÑO ANDERS Spectacles Services Fitting Monofocal Except For Aphakia Spectacles Services Fitting Monofocal Except For Aphakia 71721 2011 CAMERON AGUIRRE Determination Of Refractive State Determination Of Refractive State 30565 2011 CAMERON AGUIRRE Ophthalmological New Patient Start Comprehensive Care Ophthalmological New Patient Start Comprehensive Care 42848 2011 CAMERON AGUIRRE Threshold Audiogram (Pure Tone) Threshold Audiogram (Pure Tone) 37984 2011 ATIF GONZALEZ Audiometry Group Testing Audiometry Group Testing 14574 2011 ATIF GONZALEZ Patient education, not otherwise cla ified, non-physician provider, group, per se ion 2011 ATIF GONZALEZ Patient education, not otherwise cla ified, non-physician provider, individual, per se ion 2011 JONATAN RIVERO Screening Test Of Visual Acuity, Quantitative, Bilateral Screening Test Of Visual Acuity, Quantitative, Bilateral 09847 2011 ISA COWAN Determination Of Refractive State Determination Of Refractive State 24136 2011 ISA COWAN Spectacles Services Fitting Monofocal Except For Aphakia Spectacles Services Fitting Monofocal Except For Aphakia 29432 2011 ISA COWAN [facility] Preventive Medicine Administration Of Health Risk Questionnaire Patient-Focused Preventive Medicine Administration Of Health Risk Questionnaire Patient-Focused 37642 TON NARANJO [facility] Internet Med Svc Qual Nonphys Healthcare Prof Up To 7 Days Estab Patient Internet Med Svc Qual Nonphys Healthcare Prof Up To 7 Days Estab Patient 39464 TON NARANJOER [facility] Threshold Audiogram (Pure Tone) Automated Threshold Audiogram (Pure Tone) Automated 0208T JEAN-PIERRE PACK [facility] Ophthalmological Prior Patient Start Intermediate Level Care Ophthalmological Prior Patient Start Intermediate Level Care 68312 JEWELS GARY Determination Of Refractive State Determination Of Refractive State 39760 JEWELS GARY Psychometric Neuropsych Testing Battery Admin By Computer Psychometric Neuropsych Testing Battery Admin By Computer 63463 ANGÉLICA WHEATLEY [facility] Brief communication technology-based service, e.g. virtual check-in, by a physician or other qualified health care proflela fregoso who can report evaluation and management services, provided to an established patient, not originating from a related E/M service provided within the previous 7 days nor leading to an E/M service or procedure within the next 24 hours or soonest available appointment; 5-10 minutes of medical discu ion TON NARANJO [facility] Ophthalmological Prior Patient Start Comprehensive Care Ophthalmological Prior Patient Start Comprehensive Care 20907 JEWELS GARY Spectacles Services Fitting Monofocal Except For Aphakia Spectacles Services Fitting Monofocal Except For Aphakia 68239 JEEWLS GARY Audiogram (Screening) Audiogram (Screening) 67407 JACOB MOLINA Spirometry Spirometry 92730 JACOB MOLINA Visual Function Screening Visual Function Screening 63644 JACOB MOLINA Chiropractic Manip Treatmt (CMT) Spinal Three To Four Region Chiropractic Manip Treatmt (CMT) Spinal Three To Four Region 34811 RITO SMITH Social History Combined list of available smoking, tobacco, and other 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 Social History Type Response Date Comment Sour e Male 05/01/2020 Ambulatory Pha rmacy Sexual [...] aware of services available (911, One source, [employer], Walk in , Walk in ER, Notify [email or web address], etc) and how to contact them if [...] at age 37. Compared medications reported by services delivery driver to active medication list in medical record and any variances were documented.? ? Any complaints or issues identified while conducting the PHA have been addressed and or referred back to the patient s ?PCM for care.?crew member advised to follow up with PCM, Behavioral Health, ED/911, or One [facility] as needed for continuation of care, and/or further evaluation during exacerbations of physical and/or psychological illness or injury. See PHA document for additional information. Thirteen minutes of total time spent reviewing records, discussing health concerns and preventative health measures with Boxing Machine Operator. ? 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 4.?GERD - Gastro-esophageal reflux disease Continue Omeprazole as prescribed along with avoiding triggers such as acidic/greasy/spicy food, heavy meals before bed, and caffeine;?achieving?a healthy diet and healthy weight. F/U with PCM for persistent or worsening symptoms.? 5.?Diarrhea Continue Fiber supplement as recommended by PCM, and continue F/U with PCM for management. Evan Sotomayor CTR?MACHINE STRIPPER-C [facility] Provider Flight Medicine? [employer] [place]??[address] [facility] [phone] ? 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 Member not present today in clinic for annual PHAQ.? PHAQ completed 11/07/2020.? HIV, Repository labs ordered.? No issues or concerns at this time.? No DR,MR,FR profiles.? Member is WWQ.? ? IMR status of member reviewed in ASIMS.? Member is?yellow, due Influenza vaccine. ? ? ? Ordered: omeprazole, 1 cap(s), Oral, Daily, 30 to 60 minutes before a meal, # 90 cap(s), 3 total refill(s), Maintenance, 1 cap(s) Oral Daily,Instr:30 to 60 minutes before a meal, Pharmacy: [facility] [Not filled] Administration,[facility] 67674 HIV-1/O/2 EPI 60060 Repository Sample EPI 9340 Unlisted E&M Service 35086 ? 2.?ASSESSMENT, POST DEPLOYMENT, DOCUMENTED ON WP7244 (MHA) ?MHA reviewed with member and closed.? No referrals needed. Ordered: omeprazole, 1 cap(s), Oral, Daily, 30 to 60 minutes before a meal, # 90 cap(s), 3 total refill(s), Maintenance, 1 cap(s) Oral Daily,Instr:30 to 60 minutes before a meal, Pharmacy: [facility] [Not filled] Administration,[facility] 64341 HIV-1/O/2 EPI 86985 Repository Sample EPI 9340 Unlisted E&M Service 71359 ? 3.?GERD - Gastro-esophageal reflux disease ?Refilled Omeprazole 40mg qd prn for GERD symptoms.? Take 30 minutes before meal.? FU with PCM if symptoms not improving in 4 weeks. ? Orders: *Resuscitation Status ANNUAL PERIODIC HEALTH ASSESSMENT ? I. VIBRATION TECHNICIAN INFORMATION AND DEMOGRAPHICS (SMI) 1. Last Name: SRAVANI 2. First Name: DARYN 3. Middle Name: ROSHAN 4. Assessment Date: 5. : 6. Age: 30 7. Gender: M 8. DoD ID Number: [id number] 9. Service Branch: [employer] 10. 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 Status: Active Duty 12. 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 Unit Name: [address] 14. Duty Station/Location: [facility] 15. UIC: [id number] 16. Is this your first Periodic Health Assessment (PHA)?: N 17. Are you enrolled in a secure messaging system with your health care provider?:? Y ? 18. Current contact information: Preferred Method: Day Time Phone DSN: [id number] Day Time Phone: [phone] Night Time Phone: Email 1: [email or web address] Email 2: Address: [address] City: [place] State: [place] Zip Code: [address] ? 19. Point of contact who can always reach you: Name: abby jordan Phone 1: [phone] Phone 2: EMAIL: Address: City: State: Zip Code: ? II. DEPLOYMENT INFORMATION (DEP) 1. Total number of deployments in the PAST 5 YEARS: 1 2. Primary country of last deployment: [facility] 3. 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 Are you [...] watchful or easily startled? No 6. d. [place] numb or detached from others, activities, or your surroundings? No 6. e. [place] guilt or unable to stop blaming yourself [...] like to schedule a visit with a emergency room doctor, mental health care provider, or a community [...] Day(s) per week 8. What prescriptions or ialj-ecn-jeqroux medications are you CURRENTLY taking for health [...] the next year from Active Duty or [place] Duty (activated for greater than 30 continuous days) OR do you intend to file a claim for disability compensation with the [employer] Benefits Administration?: No ? PART B. RECORD REVIEW AND RECOMMENDATIONS I. RECORD REVIEWER INFORMATION 1. Last Name: Armani 2. First Name: Ton 3. Middle Name: Cosmo 4. Service Branch: [employer] 5. 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 Title: Physician Zinc Miner ([place]) 7. EMAIL: [email or web address] 8. Facility: [address] 9. Unit: [facility] 10. Address: [address] [place] [address] 11. State: [place] 12. Zip Code: [address] 13. Phone: [phone] 14. Date Record Review: ? II. MEDICAL SCREENING 1. Date of crew member's most recent PHA: 2. crew member's most recently documented height: 5 feet 7 inches? ?Date: 3. crew member's most recently documented weight: 190 pounds? Date: 4. crew member's most recently documented blood pressure readin/78? Date: 5. Does the crew member have a history of abnormal blood pressure since their last PHA? No 6. What is the date of the crew member's most recently documented cholesterol test? No Cholesterol Test Documented 8. List of crew member's active medications listed in their permanent medical record: Methocarbamol 750mg PO PRN Ibuprofen 400mg PO, OTC, prn Omeprazole 40mg, PO, once daily 9. Is there a discrepancy between the active medication record review and the crew member's self-reported list of medications?: No 10. List documented significant care the crew member has received since their last PHA from a provider OUTSIDE the Health System: No Outside Care Documented 11. Is there a discrepancy between the crew member's list of OUTSIDE care (from OTH5), and the OUTSIDE care found in the record?: No 12. List documented significant care the crew member has received since their last PHA from a provider INSIDE the Health System: No Inside Care Documented 14. Confirm that vaccine exemptions are listed in the medical record for each vaccine listed: Not Answered ? III. OCCUPATION-SPECIFIC EXAMINATIONS 2. When was the crew member's most recently documented evaluation?: ? IV. FAMILY HISTORY AND LIFESTYLE 1. Does the [id number] reflect the crew member's reported family history?: Yes ? VII. INDIVIDUAL MEDICAL READINESS 1. Does the crew member have an Assignment Limitation Code C?: No 3. Most recently documented dental exam: Classification: 1 4. Is the crew member current on all required immunizations in the immunization tracking system?: No: Influenza, [place] 5. Is the crew member current with Service-specific requirements for glasses and gas mask inserts?: Yes 6. Does the crew member have the following laboratory tests documented [...] need to be forwarded to the Health Record Press Operator completing PART C: ? ? Date Record Review Completed: PART C. HEALTH CARE PROVIDER I. MENTAL HEALTH ASSESSMENT (MHA) PROVIDER INFORMATION 1. Last Name: Armani 2. First Name: Ton 3. Middle Name: Cosmo 4. Service Branch: [employer] 5. 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 Title: Physician Zinc Miner ([place]) 7. EMAIL: [email or web address] 8. Facility: [facility] 9. Unit: [facility] 10. Address: [facility] 11. State: [place] 12. Zip Code: [address] 13. Phone: [phone] 14. Date HCP Review initiated: ? 1.? [...] 1. Last Name: Armani 2. First Name: Ton 3. Middle Name: Marinelli 4. Service Branch: [employer] 5. 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 Title: Physician Zinc Miner ([place]) 7. EMAIL: [email or web address] 8. Facility: [address] [place] [address] 9. Unit: [facility] 10. Address: [address] [place] [address] 11. State: [place] 12. Zip Code: [address] 13. Phone: [phone] 14. Date HCP Review initiated: ? IV. PERIODIC HEALTH ASSESSMENT PROVIDER RECOMMENDATIONS and REFERRALS 1. Provider concerns with this assessment: No issues or concerns identified ? V. SUMMARY AND COMMENTS 1. Additional information summarizing findings during the crew member assessment: ? 2. Provider Comments: ? ? . INDIVIDUAL MEDICAL READINESS DISPOSITION DETERMINATION ? ? BIJU: Ready? ? DEN: Ready? ? IMM: Ready? ? LAB: Ready? ? ME: Ready ? ? IMR Status: Fully Medically Ready ? VII. SERVICE MEDICAL DEPLOYABILITY EVALUATION INDICATED Based on your review of all documentation, is the crew member medically deployable without limitations?? Reference Yonis 6490.07 ? ?Yes (crew member DOES NOT currently have a medical condition that limits deployability) ? Date PHA Completed: ? END OF [id number] REPORT -- ? [facility] Review Summary ? Does the member have [...] conditions that dictate a referral to the [facility]?? No. ? Active Medical Conditions:? None. ? 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 Cleared for PRAP duties: NA ? Medical surveillance examination requirements up to date: NA ? 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 Cleared for continued service: Yes ? Cleared for mobility duties: Yes ? Cleared for participation in AF physical fitness program: Yes ? END OF [facility] SUMMARY -- ? 04/14/[address] [place] [address] Assessment and Plan Extracted from:Title : MHA/PHA [...] aware of services available (911, One source, [employer], Walk in , Walk in ER, [...] at age 37. Compared medications reported by services delivery driver to active medication list in medical record and any variances were documented.? ? Any complaints or issues identified while conducting the PHA have been addressed and or referred back to the patient s ?PCM for care.?crew member advised to follow up with PCM, Behavioral Health, ED/911, or One Source as needed for continuation of care, and/or further evaluation during exacerbations of physical and/or psychological illness or injury. See PHA document for additional information. Thirteen minutes of total time spent reviewing records, discussing health concerns and preventative health measures with Boxing Machine Operator. ? 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 4.?GERD - Gastro-esophageal reflux disease Continue Omeprazole as prescribed along with avoiding triggers such as acidic/greasy/spicy food, heavy meals before bed, and caffeine;?achieving?a healthy diet and healthy weight. F/U with PCM for persistent or worsening symptoms.? 5.?Diarrhea Continue Fiber supplement as recommended by PCM, and continue F/U with PCM for management. Evan Sotomayor CTR?MACHINE STRIPPER-C [facility] Provider Flight Medicine? ?[employer] [place]??[address] [facility] [phone] ? 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 Member not present today in clinic for annual PHAQ.? PHAQ completed 11/07/2020.? HIV, Repository labs ordered.? No issues or concerns at this time.? No DR,MR,FR profiles.? Member is WWQ.? ? IMR status of member reviewed in ASIIL.? Member is?yellow, due Influenza vaccine. ? ? ? Ordered: omeprazole, 1 cap(s), Oral, Daily, 30 to 60 minutes before a meal, # 90 cap(s), 3 total refill(s), Maintenance, 1 cap(s) Oral Daily,Instr:30 to 60 minutes before a meal, Pharmacy: [facility] [Not filled] Administration,[facility] [address]139 HIV-1/O/2 [facility] 67495 Repository Sample EPI 9340 Unlisted E&M Service 55815 ? 2.?ASSESSMENT, POST DEPLOYMENT, DOCUMENTED ON TC4712 (MHA) ?MHA reviewed with member and closed.? No referrals needed. Ordered: omeprazole, 1 cap(s), Oral, Daily, 30 to 60 minutes before a meal, # 90 cap(s), 3 total refill(s), Maintenance, 1 cap(s) Oral Daily,Instr:30 to 60 minutes before a meal, Pharmacy: [facility] [Not filled] [facility] [address] HIV-1/O/2 EPI 99355 Repository Sample EPI 9340 Unlisted E&M Service 03748 ? 3.?GERD - Gastro-esophageal reflux disease ?Refilled Omeprazole 40mg qd prn for GERD symptoms.? Take 30 minutes before meal.? FU with PCM if symptoms not improving in 4 weeks. ? Orders: *Resuscitation Status ANNUAL PERIODIC HEALTH ASSESSMENT ? I. VIBRATION TECHNICIAN INFORMATION AND DEMOGRAPHICS (SMI) 1. Last Name: SRAVANI 2. First Name: DARYN 3. Middle Name: ROSHAN 4. Assessment Date: 5. : 6. Age: 30 7. Gender: M 8. DoD ID Number: [id number] 9. Service Branch: [employer] 10. 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 Status: Active Duty 12. 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 Unit Name: [address] 14. Duty Station/Location: [facility] 15. UIC: [id number] 16. Is this your first Periodic Health Assessment (PHA)?: N 17. Are you enrolled in a secure messaging system with your health care provider?:? Y ? 18. Current contact information: Preferred Method: Day Time Phone DSN: [id number] Day Time Phone: [phone] Night Time Phone: Email 1: [email or web address] Email 2: Address: [address] City: [place] State: [place] Zip Code: [address] ? 19. Point of contact who can always reach you: Name: abby jordan Phone 1: [phone] Phone 2: EMAIL: Address: City: State: Zip Code: ? II. DEPLOYMENT INFORMATION (DEP) 1. Total number of deployments in the PAST 5 YEARS: 1 2. [facility] 3. 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 Are [...] watchful or easily startled? No 6. d. [place] numb or detached from others, activities, or your surroundings? No 6. e. [place] guilt or unable to stop blaming yourself [...] like to schedule a visit with a emergency room doctor, mental health care provider, or a community [...] Day(s) per week 8. What prescriptions or luru-dvt-gyiqssz medications are you CURRENTLY taking for health [...] the next year from Active Duty or [place] Duty (activated for greater than 30 continuous days) OR do you intend to file a claim for disability compensation with the Veterans Benefits Administration?: No ? PART B. RECORD REVIEW AND RECOMMENDATIONS I. RECORD REVIEWER INFORMATION 1. Last Name: Armani 2. First Name: Ton 3. Middle Name: Cosmo 4. Service Branch: [employer] 5. 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 Title: Physician Zinc Miner ([place]) 7. EMAIL: [email or web address] 8. Facility: [address] [place] [address] 9. Unit: [facility] 10. Address: [address] [place] [address] 11. State: [place] 12. Zip Code: [address] 13. Phone: [phone] 14. Date Record Review: ? II. MEDICAL SCREENING 1. Date of crew member's most recent PHA: 2. crew member's most recently documented height: 5 feet 7 inches? ?Date: 3. crew member's most recently documented weight: 190 pounds? Date: 4. crew member's most recently documented blood pressure readin/78? Date: 5. Does the crew member have a history of abnormal blood pressure since their last PHA? No 6. What is the date of the crew member's most recently documented cholesterol test? No Cholesterol Test Documented 8. List of crew member's active medications listed in their permanent medical record: Methocarbamol 750mg PO PRN Ibuprofen 400mg PO, OTC, prn Omeprazole 40mg, PO, once daily 9. Is there a discrepancy between the active medication record review and the crew member's self-reported list of medications?: No 10. List documented significant care the crew member has received since their last PHA from a provider OUTSIDE the Health System: No Outside Care Documented 11. Is there a discrepancy between the crew member's list of OUTSIDE care (from OT5), and the OUTSIDE care found in the record?: No 12. List documented significant care the crew member has received since their last PHA from a provider INSIDE the Health System: No Inside Care Documented 14. Confirm that vaccine exemptions are listed in the medical record for each vaccine listed: Not Answered ? III. OCCUPATION-SPECIFIC EXAMINATIONS 2. When was the crew member's most recently documented evaluation?: ? IV. FAMILY HISTORY AND LIFESTYLE 1. Does the [id number] reflect the crew member's reported family history?: Yes ? VII. INDIVIDUAL MEDICAL READINESS 1. Does the crew member have an Assignment Limitation Code C?: No 3. Most recently documented dental exam: Classification: 1 4. Is the crew member current on all required immunizations in the immunization tracking system?: No: Influenza, [place] 5. Is the crew member current with Service-specific requirements for glasses and gas mask inserts?: Yes 6. Does the crew member have the following laboratory tests documented [...] need to be forwarded to the Health Record Press Operator completing PART C: ? ? Date Record Review Completed: PART C. HEALTH CARE PROVIDER I. MENTAL HEALTH ASSESSMENT (MHA) PROVIDER INFORMATION 1. Last Name: Armani 2. First Name: Ton 3. Middle Name: Cosom 4. Service Branch: [employer] 5. 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 Title: Physician Zinc Miner ([place]) 7. EMAIL: [email or web address] 8. Facility: [address] 9. Unit: [facility] 10. Address: [address] [place] [address] 11. State: [place] 12. Zip Code: [address] 13. Phone: [phone] 14. Date HCP Review initiated: ? 1.? [...] 1. Last Name: Armani 2. First Name: Ton 3. Middle Name: Marinelli 4. Service Branch: [employer] 5. 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 Title: Physician Zinc Miner ([place]) 7. EMAIL: [email or web address] 8. Facility: [facility] 9. Unit: [facility] 10. Address: [address] [place] [address] 11. State: [place] 12. Zip Code: [address] 13. Phone: [phone] 14. Date HCP Review initiated: ? IV. PERIODIC HEALTH ASSESSMENT PROVIDER RECOMMENDATIONS and REFERRALS 1. Provider concerns with this assessment: No issues or concerns identified ? V. SUMMARY AND COMMENTS 1. Additional information summarizing findings during the crew member assessment: ? 2. Provider Comments: ? ? . INDIVIDUAL MEDICAL READINESS DISPOSITION DETERMINATION ? ? BIJU: Ready? ? DEN: Ready? ? IMM: Ready? ? LAB: Ready? ? ME: Ready ? ? IMR Status: Fully Medically Ready ? VII. SERVICE MEDICAL DEPLOYABILITY EVALUATION INDICATED Based on your review of all documentation, is the crew member medically deployable without limitations?? Reference Yonis 6490.07 ? ?Yes (crew member DOES NOT currently have a medical condition that limits deployability) ? Date PHA Completed: ? END OF [id number] REPORT -- ? [facility] Review Summary ? Does the member have [...] conditions that dictate a referral to the [employer] Board?? No. ? Active Medical Conditions:? None. ? 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 Cleared for PRAP duties: NA ? Medical surveillance examination requirements up to date: NA ? 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 Cleared for continued service: Yes ? Cleared for mobility duties: Yes ? Cleared for participation in AF physical fitness program: Yes ? END OF [facility] SUMMARY -- ? 04/14/2024 [id number] [facility] Assessment and Plan Extracted from:Title : MHA/PHA [...] aware of services available (911, One source, [employer], Walk in , Walk in ER, Notify chain of command, etc) and how to contact them if needed. denies suicidal and homicidal ideation.? ? Preventative [...] at age 37. Compared medications reported by services delivery driver to active medication list in medical record and any variances were documented.? ? Any complaints or issues identified while conducting the PHA have been addressed and or referred back to the patient s ?PCM for care.?crew member advised to follow up with PCM, Behavioral Health, ED/911, or [employer] as needed for continuation of care, and/or further evaluation during exacerbations of physical and/or psychological illness or injury. See PHA document for additional information. Thirteen minutes of total time spent reviewing records, discussing health concerns and preventative health measures with Boxing Machine Operator. ? 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 4.?GERD - Gastro-esophageal reflux disease Continue Omeprazole as prescribed along with avoiding triggers such as acidic/greasy/spicy food, heavy meals before bed, and caffeine;?achieving?a healthy diet and healthy weight. F/U with PCM for persistent or worsening symptoms.? 5.?Diarrhea Continue Fiber supplement as recommended by PCM, and continue F/U with PCM for management. Evan Sotomayor CTR?MACHINE STRIPPER-C [facility] Provider Flight Medicine? 66?[employer] [place]??[address] [facility] [phone] ? 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 Member not present today in clinic for annual PHAQ.? PHAQ completed 11/07/2020.? HIV, Repository labs ordered.? No issues or concerns at this time.? No DR,MR,FR profiles.? Member is WWQ.? ? IMR status of member reviewed in [facility].? Member is?yellow, due Influenza vaccine. ? ? ? Ordered: omeprazole, 1 cap(s), Oral, Daily, 30 to 60 minutes before a meal, # 90 cap(s), 3 total refill(s), Maintenance, 1 cap(s) Oral Daily,Instr:30 to 60 minutes before a meal, Pharmacy: [facility] [Not filled] [facility] [address] HIV-1/O/2 EPI 86994 Repository Sample EPI 9340 Unlisted E&M Service 81651 ? 2.?ASSESSMENT, POST DEPLOYMENT, DOCUMENTED ON [id number] (MHA) ?MHA reviewed with member and closed.? No referrals needed. Ordered: omeprazole, 1 cap(s), Oral, Daily, 30 to 60 minutes before a meal, # 90 cap(s), 3 total refill(s), Maintenance, 1 cap(s) Oral Daily,Instr:30 to 60 minutes before a meal, Pharmacy: [facility] [Not filled] Administration[facility] [address] HIV-1/O/2 EPI 36100 Repository Sample EPI 9340 Unlisted E&M Service 17853 ? 3.?GERD - Gastro-esophageal reflux disease ?Refilled Omeprazole 40mg qd prn for GERD symptoms.? Take 30 minutes before meal.? FU with PCM if symptoms not improving in 4 weeks. ? Orders: *Resuscitation Status ANNUAL PERIODIC HEALTH ASSESSMENT ? I. VIBRATION TECHNICIAN INFORMATION AND DEMOGRAPHICS (SMI) 1. Last Name: SRAVANI 2. First Name: DARYN 3. Middle Name: ROSHAN 4. Assessment Date: 5. : 6. Age: 30 7. Gender: M 8. DoD ID Number: [id number] 9. Service Branch: [employer] 10. 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 Status: Active Duty 12. 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 Unit Name: [address] 14. Duty Station/Location: [facility] 15. [facility]: [id number] 16. Is this your first Periodic Health Assessment (PHA)?: N 17. Are you enrolled in a secure messaging system with your health care provider?:? Y ? 18. Current contact information: Preferred Method: Day Time Phone DSN: [id number] Day Time Phone: [phone] Night Time Phone: Email 1: [email or web address] Email 2: Address: [address] City: [place] State: [place] Zip Code: [address] ? 19. Point of contact who can always reach you: Name: abby jordan Phone 1: [phone] Phone 2: EMAIL: Address: City: State: Zip Code: ? II. DEPLOYMENT INFORMATION (DEP) 1. Total number of deployments in the PAST 5 YEARS: 1 2. Primary [facility] 3. 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 Are [...] watchful or easily startled? No 6. d. [place] numb or detached from others, activities, or your surroundings? No 6. e. [place] guilt or unable to stop blaming yourself [...] like to schedule a visit with a emergency room doctor, mental health care provider, or a community [...] Day(s) per week 8. What prescriptions or ztdt-gxt-qzrtwdg medications are you CURRENTLY taking for health [...] the next year from Active Duty or [place] Duty (activated for greater than 30 continuous days) OR do you intend to file a claim for disability compensation with the Veterans Benefits Administration?: No ? PART B. RECORD REVIEW AND RECOMMENDATIONS I. RECORD REVIEWER INFORMATION 1. Last Name: Armani 2. First Name: Ton 3. Middle Name: Cosmo 4. Service Branch: [employer] 5. 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 Title: Physician Zinc Miner ([place]) 7. EMAIL: [email or web address] 8. Facility: [address] 9. Unit: [facility] 10. Address: [address] [place] [address] 11. State: [place] 12. Zip Code: [address] 13. Phone: [phone] 14. Date Record Review: ? II. MEDICAL SCREENING 1. Date of crew member's most recent PHA: 2. crew member's most recently documented height: 5 feet 7 inches? ?Date: 3. crew member's most recently documented weight: 190 pounds? Date: 4. crew member's most recently documented blood pressure readin/78? Date: 5. Does the crew member have a history of abnormal blood pressure since their last PHA? No 6. What is the date of the crew member's most recently documented cholesterol test? No Cholesterol Test Documented 8. List of crew member's active medications listed in their permanent medical record: Methocarbamol 750mg PO PRN Ibuprofen 400mg PO, OTC, prn Omeprazole 40mg, PO, once daily 9. Is there a discrepancy between the active medication record review and the crew member's self-reported list of medications?: No 10. List documented significant care the crew member has received since their last PHA from a provider OUTSIDE the Health System: No Outside Care Documented 11. Is there a discrepancy between the crew member's list of OUTSIDE care (from OTH[facility]), and the OUTSIDE care found in the record?: No 12. List documented significant care the crew member has received since their last PHA from a provider INSIDE the Health System: No Inside Care Documented 14. Confirm that vaccine exemptions are listed in the medical record for each vaccine listed: Not Answered ? III. OCCUPATION-SPECIFIC EXAMINATIONS 2. When was the crew member's most recently documented evaluation?: ? IV. FAMILY HISTORY AND LIFESTYLE 1. Does the [id number] reflect the crew member's reported family history?: Yes ? VII. INDIVIDUAL MEDICAL READINESS 1. Does the crew member have an Assignment Limitation Code C?: No 3. Most recently documented dental exam: Classification: 1 4. Is the crew member current on all required immunizations in the immunization tracking system?: No: Influenza, [place] 5. Is the crew member current with Service-specific requirements for glasses and gas mask inserts?: Yes 6. Does the crew member have the following laboratory tests documented [...] need to be forwarded to the Health Record Press Operator completing PART C: ? ? Date Record Review Completed: PART C. HEALTH CARE PROVIDER I. MENTAL HEALTH ASSESSMENT (MHA) PROVIDER INFORMATION 1. Last Name: Armani 2. First Name: Ton 3. Middle Name: Cosmo 4. Service Branch: [employer] 5. 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 Title: Physician [employer]er ([place]) 7. EMAIL: [email or web address] 8. Facility: [facility] 9. Unit: [facility] 10. Address: [address] [place] [address] 11. State: [place] 12. Zip Code: [address] 13. Phone: [phone] 14. Date HCP Review initiated: ? 1.? [...] 1. Last Name: Armani 2. First Name: Ton 3. Middle Name: Cosmo 4. Service Branch: [employer] 5. 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 Title: Physician [employer]inc Miner ([place]) 7. EMAIL: [email or web address] 8. Facility: [address] [place] [address] 9. Unit: [facility] 10. Address: [address] [place] [address] 11. State: [place] 12. Zip Code: [address] 13. Phone: [phone] 14. Date HCP Review initiated: ? IV. PERIODIC HEALTH ASSESSMENT PROVIDER RECOMMENDATIONS and REFERRALS 1. Provider concerns with this assessment: No issues or concerns identified ? V. SUMMARY AND COMMENTS 1. Additional information summarizing findings during the crew member assessment: ? 2. Provider Comments: ? ? . INDIVIDUAL MEDICAL READINESS DISPOSITION DETERMINATION ? ? BIJU: Ready? ? DEN: Ready? ? IMM: Ready? ? LAB: Ready? ? ME: Ready ? ? IMR Status: Fully Medically Ready ? VII. SERVICE MEDICAL DEPLOYABILITY EVALUATION INDICATED Based on your review of all documentation, is the crew member medically deployable without limitations?? Reference [facility] 6490.07 ? ?Yes (crew member DOES NOT currently have a medical condition that limits deployability) ? Date PHA Completed: ? END OF [id number] REPORT -- ? [facility] Review Summary ? Does the member have [...] conditions that dictate a referral to the [facility]?? No. ? Active Medical Conditions:? None. ? 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 Cleared for PRAP duties: NA ? Medical surveillance examination requirements up to date: NA ? 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 Cleared for continued service: Yes ? Cleared for mobility duties: Yes ? Cleared for participation in AF physical fitness program: Yes ? END OF [facility] SUMMARY -- ? 04/14/[address] [place] [address] Functional Status Combined list of recent functional and cognitive assessments recorded at [facility] [employer] [facility] (VA).VA Functional [place] Measurement (FIM) Scale: 1 = Total Assistance (Subject = 0% +), 2 = Maximal Assistance (Subject = 25% +), 3 = Moderate Assistance (Subject = 50% +), 4 = Minimal Assistance (Subject = 75% +), 5 = Supervision, 6 = Modified [place] (Device), 7 = Complete [place] (Timely, Safely). Assessment Date/Time Source Assessment Type Assessment Skill Assessment Score Assessment Details No data available for this section
[2024-04-14 12:21] LABS: Alanine Aminotransferase 42 U/L (0-40); Albumin Level 4.5 g/dL (3.5-5.0); Alkaline Phosphatase 73 U/L (39-117); Anion Gap 10 (12-20); Aspartate Amino Transferase 30 U/L (5-37); Bilirubin Total 0.6 mg/dL (0.0-1.0); Blood Urea Nitrogen 15 mg/dL (9-16); Calcium 9.4 mg/dL (8.4-10.2); Carbon Dioxide 27 mmol/L (22-29); Chloride 108 mmol/L (96-108); Cholesterol 144 mg/dL (<200); Estimated Glomerular Filt Rate > 60; Glucose Fasting 92 mg/dL (60-99); HDL Cholesterol 46 mg/dL (>40); LDL Cholesterol Calculated 83 mg/dL (<100); Potassium 4.9 mmol/L (3.3-5.1); Sodium 140 mmol/L (135-145); Total Protein 7.5 g/dL (6.5-8.0); Triglycerides 79 mg/dL (<150)
== END 2024-04-14 08:18 | disposition home or self-care (01) ==
LOC: HO.WFDLDS 08:17
PROVIDERS: Visit Provider Family Medicine
DX: Z00.00 Encounter for general adult medical examination without abnormal findings (principal); R74.01 Elevation of levels of liver transaminase levels; E78.5 Hyperlipidemia, unspecified
CPT/HCPCS: 36415; 80053; 80061

== ENCOUNTER 2024-04-20 14:24 | Outpatient (AMB) | payer OTHER, SELFPAY ==
--- NOTE | 2024-04-20 14:28 | MHC.PC.OV ---
Vital Signs 04/20/24 14:33 Height 5 ft 7 in Weight 209 lb 4 oz BMI 32.8 BP 116/70 Blood Pressure Location Rt brachial Position Sitting Respiration 14 Pulse 67 Pulse Source Pulse Oximeter Temp 98.4 F Temp Source Oral Pulse Oximetry (%) 96 Oxygen Delivery Method Room Air Intake Visit Reasons: f/u HLD Intake Note: follow up lab review Interactive Digital Media Specialist Required: No Allergies No Known Allergies Allergy (Verified 04/20/24 14:29) Tobacco use date assessed: 03/25/23 Dental Screening Dental Screen Date: 03/25/23 HPI f/u HLD HPI Details 33 y/o male presents to f/u HLD. Labs were drawn 04/14/24. Reviewed labs with pt. Triglycerides 79. TC 144. LDL 83. HDL 46. He is on artovastatin 10mg. ALT 42. HPI Comments History of Present Illness Details Documentation assistance for Mikey Greenberg MD, was provided by Jai He,? Architectural Design Lecturer on 04/20/2024 at 3:20 PM EST. I, Dr. Greenberg, have read, observed, and verified documentation. ?? 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 1. Little interest or pleasure in doing things: not at all 2. Feeling down, depressed, or hopeless: not at all 3. Trouble falling or staying asleep, or sleeping too much: not at all 4. Feeling tired or having little energy: not at all 5. Poor appetite or overeating: not at all 6. Feeling bad about yourself - or that you are a failure or have let yourself or your family down: not at all 7. Trouble concentrating on things, such as reading the newspaper or watching television: not at all 8. Moving or speaking so slowly that other people could have noticed. Or the opposite - being so fidgety or restless that you have been moving around a lot more than usual: not at all 9. Thoughts that you would be better off or of hurting yourself in some way: not at all Total score: 0 Source: Developed by Drs. Laureano Garcia, Yahaira Phan, Odilon Souza and colleagues, with an educational radha from [employer]. Thrive Questionnaire Date Thrive assessed: 01/05/24 I am a: Patient What is your living situation today?: I have a steady place to live Within the past 12 months, did the food you bought not last and you didn't have the money to get more?: Never true Within the past 12 months, did you worry whether your food would run out before you got money to buy more?: Never true Do you have trouble paying for medicines?: No Do you have trouble getting transportation to medical appointments?: No Do you have trouble paying your heating and electricity bill?: No Do you have trouble taking care of your child, family member or friend?: No Do you have trouble with day-to-day activities such as bathing, preparing meals, shopping, managing finances, etc.?: No Are you currently unemployed and looking for a job?: No Are you interested in more education?: No Please select the resources that you would like help with: None Currently or been in a relationship where the following occur: No concerns reported THRIVE Score: 0 AUDIT C Alcohol Use Questionnaire (AUDIT-C) 1. How often do you have a drink containing alcohol?: 2-3 times a week 2. How many drinks containing alcohol do you have on a typical day when you are drinking?: 1 or 2 3. How often do you have six or more drinks on one occasion?: Monthly Total Score: 5 OXANA-7 AMB Questionnaire OXANA-7 Date OXANA - 7 assessed: 10/02/23 Feeling nervous, anxious, or on edge: 0 = Not at all Not being able to stop or control worryin = Not at all Worrying too much about different things: 0 = Not at all Trouble relaxin = Not at all Being so restless that it is hard to sit still: 0 = Not at all Becoming easily annoyed or irritable: 3 = Nearly every day Feeling afraid as if something awful might happen: 0 = Not at all Total OXANA-7 score (0-4 normal; 5-9 mild; 10-14 moderate; 15-21 severe): 3 Source: Developed by Drs. Laureano Garcia, Yahaira Phan, Odilon Souza and colleagues, with an educational radha from [employer]. Review of Systems Const Denies chills, Denies fatigue, Denies fever(s), Denies headache(s) and Denies weakness ENT Denies dizziness and Denies headache(s) Card Denies dyspnea Resp Denies cough, Denies dyspnea, Denies wheezing and Denies other (shortness of breath) Musc Denies numbness and Denies tingling Neuro Denies dizziness, Denies headache(s), Denies numbness, Denies tingling and Denies weakness Psych Denies anxiety and Denies depression Endo Denies fatigue Aller/Immun Denies wheezing Physical exam (Primary Care) Vital Signs: Last Vital Signs Temp 98.4 F 04/20/24 14:33 Pulse 67 04/20/24 14:33 Resp 14 04/20/24 14:33 BP 116/70 04/20/24 14:33 Pulse Ox 96 04/20/24 14:33 Oxygen Delivery Method Room Air 04/20/24 14:33 BMI result Body Mass Index 32.8 Tobacco/Smoking Status: Tobacco use Status Tobacco use date assessed 03/25/23 04/20/24 14:36 Patient Tobacco Use Status Never used Tobacco 04/20/24 14:36 e-Cigarette/Vaping Use Never Used 04/20/24 14:36 PHQ-9: PHQ-9 Score PHQ-9: Total score 0 04/20/24 15:17 Thrive Assessment: Date of Thrive Assessment Date Thrive assessed 01/05/24 04/20/24 14:36 Currently or been in a relationship where the following occur: No concerns reported Const General: well developed; No acute distress Nutritional Appearance: well nourished Orientation/consciousness: patient oriented x3 HENMT Head: Yes normocephalic and Yes atraumatic Eyes General: appearance normal, both eyes and all related structures Pupils: Equal, round and reactive pupils present EOM: EOMs intact bilaterally Resp Effort & Inspection: normal respiratory effort Neuro General: patient oriented x3 and gait normal Cranial nerves: Yes Equal, round and reactive pupils present Psych Affect: normal affect Coding Level of Care Code Est Pt Level 3 (06365) Diagnoses Elevated ALT measurement R74.01 Hyperlipidemia E78.5 Assessment & Plan Assessment & Plan (1) Elevated ALT measurement: Code(s): R74.01 - Elevation of levels of liver transaminase levels Category: Medical Plan: ALT?liver?enzyme?remains?mildly?elevated. Will?have?check?ultrasound?liver Encouraged?weight?loss (2) Hyperlipidemia: Code(s): E78.5 - Hyperlipidemia, unspecified Category: Medical Plan: LDL?cholesterol?remains?controlled?on?atorvastatin. HDL?is?within?normal?range Continue?exercise Continue?atorvastatin Encouraged?weight?loss Orders: Orders US abdomen medina w elastography Today R74.01 - Elevation of levels of liver transaminase levels
[2024-04-20 14:33] VITALS: BP 116/70; PULSE 67; RESP 14; TEMP 36.9; O2SAT 96; BMI 32.8
--- OUTSIDE RECORDS SUMMARY | 2024-04-20 17:47 | XMS_ITS | Continuity of Care Document ---
Author Name [facility] Organization [facility] Care Team Providers Care Parimutuel Ticket Seller Name Role Phone [facility] Unavailable Unavailable Problems Combined list of problems from 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 It does not include entries that were removed or entered in error. Problem Status Onset Date Problem Type Date of Resolution Comments Source Encounter for issue of other medical certificate Active 09/09/2023 Diagnosis [facility] ASSESSMENT, POST-DEPLOYMENT, DOCUMENTED ON XV1730 Inactive 09/13/2017 Condition DoD Pain, unspecified Inactive [...] 0310C-AF-C- [facility] [employer] [place] obesity Active Condition [facility] Outpatient Physician Consultation Active Condition DoD injury of upper extremity hand Inactive Condition [facility] visit for: services physical Inactive Condition DoD refractive error - hypermetropia Inactive Condition [facility] astigmatism regular Inactive Condition D oD visit: ears/hearing exam for hearing conservation, treatment Inactive Condition [facility] visit for: occupational health / fitness exam Inactive Condition [facility] visit for: administrative purpose Inactive Condition [facility] visit for: services physical accession Inactive Condition DoD Medications Combined list of outpatient medications from 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Medications provided include 1) outpatient medications from the last 15 months, and 2) patient-reported medications. Medication Details Route Status Patient Instructions Prescription Expires Prescription Number Last Dispense Date Ordering Provider Order Date Order Qty Source MELOXICAM (MELOXICAM) , 15 MG, TABLET, ORAL, CIPLA [employer] 100 ea. BOTTLE Active [id number] 2023 30 Pharmac y Data Transac tion Service Facilit y OMEPRAZOLE (omeprazole ), 40 MG, CAPSULE DR, ORAL, GLENMARK PHARMA, 1000 ea. BOTTLE Active [id number] 4 2023 30 Pharmac y Data Transac tion Service Facilit y OMEPRAZOLE (omeprazole ), 40 MG, CAPSULE DR, ORAL, GLENMARK PHARMA, 1000 ea. BOTTLE Active [id number] 2023 30 Pharmac y Data Transac tion Service Facilit y OMEPRAZOLE (omeprazole ), 40 MG, CAPSULE DR, ORAL, GLENMARK PHARMA, 1000 ea. BOTTLE Active [id number] 4 2023 30 Pharmac y Data Transac tion Service Facilit y OMEPRAZOLE (omeprazole ), 40 MG, CAPSULE DR, ORAL, GLENMARK PHARMA, 1000 ea. BOTTLE Active [id number] 4 2023 30 Pharmac y Data Transac tion Service Facilit y OMEPRAZOLE (OMEPRAZOLE ), 40 MG, CAPSULE DR, ORAL, ZYDUS PHARMACEU, 1000 ea. BOTTLE Active [id number] 3 2023 30 Pharmac y Data Transac tion Service Facilit y Allergies, Adverse Reactions, Alerts Combined list of [...] Site Reaction Lot Number CVX Code Drug Casino Slot Supervisor Status Comments Source COVID Vaccine Pfizer 2020 NELSYYGRUBER Leidy cassy, left (delt oid) [id number] PFIZER complet ed COVID Vaccine Pfizer 11/30/20 Given 0010C-D [facility] influenza, recombinant, quadrivalent, injectable, preservative free 2020 NEELA RAM, () Not Given influenza , recombina nt, quadrival ent,injec table, preservat wendy free [facility] COVID Vaccine Pfizer 2020 FENIXRMARTIN Leidy cassy, left (delt oid) [id number] PFIZER complet ed COVID Vaccine Pfizer 11/02/20 Given 0010C-D [facility] influenza virus vaccine, inactivated 2020 88 sanofi pasteur complet ed influenza virus vaccine, inactivat ed 03/17/20 Given Ambulat ory Pharmac y influenza, recombinant, quadrivalent, injectable, preservative free 2020 NEELA RA, () Not Given influenza , recombina nt, quadrival ent,injec table, preservat wendy free DoD influenza, injectable, quadrivalent- pf 2018 [id number] 150 Seqirus complet ed influenza , injectabl e, quadrival ent-pf 01/05/19 Given Ambulat ory Pharmac y Influenza, injectable, quadrivalent, preservative free 9 2018 [id number] 150 Seqirus (SEQ) complet ed Influenza , injectabl e, quadrival ent, preservat wendy free DoD anthrax vaccine 2018 [id number] Emergent Biosolutions complet ed anthrax vaccine 11/29/18 Given Ambulat ory Pharmac y anthrax vaccine 6 2018 [id number] Emergent [employer] Spring (MIP) complet ed anthrax vaccine DoD influenza, injectable, quadrivalent- pf 2017 [id number] 150 Seqirus complet ed influenza , injectabl e, quadrival ent-pf 12/04/17 Given Ambulat ory Pharmac y Influenza, injectable, quadrivalent, preservative free 8 2017 [id number] 150 Seqirus (SEQ) comple t ed Influenza , injectabl e, quadrival ent, preservat wendy free DoD typhoid Vi capsular polysaccharid e vac 2016 [id number] 101 sanofi pasteur complet ed typhoid Vi capsular polysacch aride vac 12/19/16 Given Ambulat ory Pharmac y anthrax vaccine 2016 [id number] 24 [employer] complet ed anthrax vaccine 12/19/16 Given Ambulat ory Pharmac y Influenza, inj, MDCK, quadrivalent- pf 2016 [id number] 171 Seqirus complet ed Influenza , inj, MDCK, quadrival ent-pf 12/19/16 Given Ambulat ory Pharmac y anthrax vaccine 5 2016 [id number] 24 [employer]gent [employer] Isela (MIP) complet ed anthrax vaccine DoD typhoid Vi capsular polysaccharid e vaccine 2 2016 [id number] 101 Sanofi Pasteur (PMC) complet ed typhoid Vi capsular polysacch aride vaccine DoD Influenza, injectable, Madin [place] Canine Kidney, preservative free, quadrivalent 7 2016 [id number] 171 Seqirus (SEQ) comple t ed Influenza , injectabl e, Madin Susan Canine Kidney, preservat wendy free, quadrival ent DoD tuberculin purified protein derivative 2016 [id number] 96 [facility] complet ed tuberculi n purified protein derivativ e 06/06/16 Given Ambulat ory Pharmac y tuberculin purified protein derivative 2016 [id number] 96 [facility] complet ed tuberculi n purified protein derivativ e 05/29/16 Given Ambulat ory Pharmac y Human Papillomaviru s 9-valent vaccine 2016 [id number] 165 Merck & Company Inc complet ed Human Papilloma virus 9-valent vaccine 03/04/16 Given Ambulat ory Pharmac y Human Papillomaviru s 9-valent vaccine 3 2016 [id number] 165 Merck (MSD) complet ed Human Papilloma virus 9-valent vaccine DoD Human Papillomaviru s 9-valent vaccine 2015 [id number] 165 Merck & Company Inc complet ed Human Papilloma virus 9-valent vaccine 11/02/15 Given Ambulat ory Pharmac y influenza, injectable, quadrivalent- pf 2015 [id number] 150 GlaxoSmithKli ne complet ed influenza , injectabl e, quadrival ent-pf 11/02/15 Given Ambulat ory Pharmac y Influenza, injectable, quadrivalent, preservative free 6 2015 [id number] 150 FindTheBest (SKB) complet ed Influenza , injectabl e, quadrival ent, preservat wendy free DoD Human Papillomaviru s 9-valent vaccine 2 2015 [id number] 165 Merck (MSD) complet ed Human Papilloma virus 9-valent vaccine DoD Human Papillomaviru s 9-valent vaccine 2015 [id number] 165 Merck & Company Inc complet ed Human Papilloma virus 9-valent vaccine 08/23/15 Given Ambulat ory Pharmac y Nigerian Encephalitis IM 2015 [id number] [id number] 134 Valneva complet ed Nigerian Encephali tis IM 08/23/15 Given Ambulat ory Pharmac y anthrax vaccine 2015 [id number] 24 Emergent Biosolutions complet ed anthrax vaccine 08/23/15 Given Ambulat ory Pharmac y anthrax vaccine 4 2015 [id number] 24 [employer] Isela (MIP) complet ed anthrax vaccine DoD Nigerian Encephalitis vaccine for intramuscular administratio n 3 2015 [id number] 134 Intercell Biomedical (INT) complet ed Nigerian Encephali tis vaccine for intramusc ular administr ation DoD Human Papillomaviru s 9-valent vaccine 1 2015 [id number] 165 Merck (MSD) complet ed Human Papilloma virus 9-valent vaccine DoD anthrax vaccine 2014 [id number] 24 Emergent Biosolutions complet ed anthrax vaccine 02/09/15 Given Ambulat ory Pharmac y anthrax vaccine 3 2014 [id number] 24 [employer] Isela (MIP) complet ed anthrax vaccine DoD influenza, injectable, quadrivalent 2014 [id number] 158 GlaxoSmithKli ne complet ed influenza , injectabl e, quadrival ent 11/30/14 Given Ambulat ory Pharmac y influenza, injectable, quadrivalent, contains preservative 0 2014 [id number] 158 SmithKline (SKB) complet ed influenza , injectabl e, quadrival ent, contains preservat wendy DoD Nigerian Encephalitis IM 2014 [id number] [id number] 134 Valneva complet ed Nigerian Encephali tis IM 08/15/14 Given Ambulat ory Pharmac y anthrax vaccine 2014 [id number] 24 Emergent Biosolutions complet ed anthrax vaccine 08/15/14 Given Ambulat ory Pharmac y anthrax vaccine 2 2014 [id number] 24 [employer] Spring (MIP) complet ed anthrax vaccine DoD Nigerian Encephalitis vaccine for intramuscular administratio n 2 2014 [id number] [id number] 134 Intercell Biomedical (INT) complet ed Nigerian Encephali tis vaccine for intramusc ular administr ation DoD Nigerian Encephalitis IM 2014 [id number] 2E 134 Valneva complet ed Nigerian Encephali tis IM 06/08/14 Given Ambulat ory Pharmac y Nigerian Encephalitis vaccine for intramuscular administratio n 1 2014 [id number] [id number] 134 [facility] [employer] (INT) complet ed Nigerian Encephali tis vaccine for intramusc ular administr ation DoD vaccinia (smallpox) vaccine 2014 [id number] 75 Sanofi Pasteur Incorporated complet ed vaccinia (smallpox ) vaccine 06/01/14 Given Ambulat ory Pharmac y vaccinia (smallpox) vaccine 1 2014 [id number] 75 (JASSON) complet ed vaccinia (smallpox ) vaccine DoD anthrax vaccine 2014 [id number] 24 Emergent Biosolutions complet ed anthrax vaccine 04/25/14 Given Ambulat ory Pharmac y anthrax vaccine 0 2014 [id number] 24 [employer] Spring (MIP) complet ed anthrax vaccine DoD typhoid Vi capsular polysaccharid e vac 2014 K1200 101 sanofi pasteur complet ed typhoid Vi capsular polysacch aride vac 04/24/14 Given Ambulat ory Pharmac y measles/mumps /rubella virus vaccine 2014 [id number] 03 Merck & Company Inc complet ed measles/m umps/rube lla virus vaccine 04/24/14 Given Ambulat ory Pharmac y measles, mumps and rubella virus vaccine 1 2014 [id number] 03 Merck (MSD) complet ed measles, mumps [...] wendy free DoD influenza, seasonal, injectable-pf 2012 [id number] 140 sanofi pasteur complet ed influenza , seasonal, injectabl e-pf 11/23/12 Given Ambulat ory Pharmac y Influenza, seasonal, injectable, preservative free 0 2012 [id number] 140 Sanofi Pasteur (PMC) complet ed Influenza , seasonal, injectabl e, preservat wendy free DoD influenza virus vaccine, live 2011 [id number] 111 TournEase[employer] Inc comple t ed influenza virus vaccine, live 10/28/11 Given Ambulat ory Pharmac y influenza virus vaccine, live, attenuated, for intranasal use 0 2011 [id number] 111 agri.capital, Inc. (MED) complet ed influenza virus vaccine, [...] y tetanus, diphtheria, acellular pertu is 2011 [id number] 5AA 115 GlaxoSmithKli ne complet ed tetanus, [...] unspecified formulation 1 2011 [id number] 31 SmithKline (SKB) complet ed hepatitis A vaccine, pediatric dosage, unspecifi ed formulati on DoD hepatitis B vaccine, unspecified formulation 1 2011 45 () Not Given hepatitis B vaccine, unspecifi ed formulati on DoD tetanus toxoid, reduced diphtheria toxoid, and acellular pertu is vaccine, adsorbed 1 2011 [id number] 5AA 115 SmithKline (SKB) complet ed tetanus toxoid, reduced diphtheri a toxoid, and acellular pertussis vaccine, adsorbed DoD tuberculin purified protein derivative 2011 [id number] 96 sanofi pasteur complet ed tuberculi n purified protein derivativ e 02/23/11 Given Ambulat ory Pharmac y adenovirus vaccine, live 2010 [id number] 143 Teva Pharmaceutica ls complet ed adenoviru s vaccine, live 02/21/11 Given Ambulat ory Pharmac y influenza, seasonal, injectable-pf 2010 [id number] 140 sanofi pasteur complet ed influenza , seasonal, injectabl e-pf 02/21/11 Given Ambulat ory Pharmac y meningococcal A,C,Y,W-135 (MCV4P) 2010 [id number] 114 sanofi pasteur complet ed meningoco ccal A,C,Y,W-1 35 (MCV4P) 02/21/11 Given Ambulat ory Pharmac y poliovirus vaccine, inactivated 2010 G1500 10 sanofi pasteur complet ed polioviru s vaccine, inactivat ed 02/21/11 Given Ambulat ory Pharmac y poliovirus vaccine, inactivated 1 2010 G1500 10 Sanofi Pasteur (PMC) complet ed polioviru s vaccine, inactivat ed DoD meningococcal polysaccharid e (groups A, C, Y and W-135) diphtheria toxoid conjugate vaccine (MCV4P) 1 2010 [id number] 114 Sanofi Pasteur (PMC) complet ed meningoco ccal polysacch aride (groups A, C, Y and W-135) diphtheri a toxoid conjugate vaccine (MCV4P) DoD Influenza, seasonal, injectable, preservative free 1 2010 [id number] 140 Sanofi Pasteur (PMC) complet ed Influenza , seasonal, injectabl e, preservat wendy free DoD Adenovirus, type 4 and type 7, live, oral 1 2010 [id number] 143 [facility] (BRR) complet ed Adenoviru s, type 4 [...] Prevention' s HIV diagnostic algorithm. Refer to [facility] Lab Guide for additional information : [email or web address]/ [email or web address]/EPIL ab/[email or web address]/la [email or web address] x Testing performed by [employer] ce. 5600A-US AFSAM EPIL[facility] Miscellan eous Sendouts Repository Sample Received (10/10/22 9:55 AM) 10/10 N 5600A-[facility] AFS[facility] EPIL[facility] Infectiou s Disease HIV-1/O/2. EPI [...] Prevention' s HIV diagnostic algorithm. Refer to [facility] Lab Guide for additional information : [email or web address]/k j/kx5/Gilda shelton/Pages/lab _guide.aspx Testing performed by Marjorie brooke. Performed by: Epidemiolog y Laboratory [facility] [address] [place] [address], [place] [address] Miscellan eous Sendouts Repository Sample.EPI RECEIVED 11/07 Result Comment: INTERPRETAT ION(S): Performed by: Epidemiolog y Laboratory Service [facility] [address] [place] [address], [place] [address] [facility] Encounters Combined list of: 1) Encounters from Department of [facility] Affairs facilities going backup to the last 18 months, not all VA inpatient encounters are included; 2) Encounters from the Department of Defense facilities going backup to 280 months. Location Location Details Encounter Type Encounter Number Reason For Visit Attending Provider ADM Date DC Date Status Disposition Source [facility] [place] [address](Opt ometry Clinic BMT [facility]) OUTPATIENT [id number] SHELLY GRANDE 02/27 Released w/o Limitations [facility] [place] [address](O ptometr y Clinic BMT [facility]) [facility] [place] [address](MAS Delta) OUTPATIENT [id number] Cold Symptom s KAL MAO 04/07 Released w/o Limitations [facility] [place] [address](M Delta) [place], [place](NASP Occup[facility] nal Health) OUTPATIENT [id number] [employer] RPP 0800 JONATAN RIVERO 05/07 Released w/o Limitations [place] Occup[place] OUTPATIENT [id number] [employer] AUDIO. ATIF GONZALEZ 05/08 Released w/o Limitations [place] at[place]) [facility](Opt ometry) OUTPATIENT [id number] CAMERON Young 09/15 Released w/o Limitations [facility](O ptometr y) [facility]) OUTPATIENT [id number] 58MXS Physica l showtim e 0830 TOÑO ANDERS Srinivasa 09/02 Released w/o Limitations [facility](F light Medicin e Clinic) [facility]([place]_FHC _Team_Lob o) TELE CONSULT [id number] Notes Entered by: SANJANA MICHAELS 16 Sep 2012 1308 ------- ------- ------- ------- -- EMA BEEBE 09/16 Referred for Appointment [facility]([place] _FHC_Te am_Lobo ) [facility]([place]_FHC _Team_Lob o) OUTPATIENT [id number] f/u ER visit LA NENA CAMPBELL 10/27 Released with Work/Duty Limitations [facility]([place] _FHC_Te am_Lobo ) [facility]([place]_FHC _Team_Lob o) TELE CONSULT [id number] Notes Entered by: TRAVIS MERINO 15 Nov 2012 1109 ------- ------- ------- ------- -- NETWORK RESULTS - OTHOPED ICS - [id number] [place] NENA CAMPBELL 11/15 [facility]([place] _FHC_Te am_Lobo ) [facility]([place]_FHC _Team_Lob o) TELE CONSULT [id number] Notes Entered by: JONN GALVIN 16 Nov 2012 1115 ------- ------- ------- ------- -- NETWORK RESULTS ---ORTH OPAEDIC [id number] OF [facility] LA NENA CAMPBELL 11/16 [facility]([place] _FHC_Te am_Lobo ) [facility] _Team_Roa drunner) OUTPATIENT [id number] sore throat ad MONIKA VOGT 06/28 Released w/o Limitations [facility](K irjudy _[facility]_Te am_Road runner) [facility] OUTPATIENT [id number] vladislav pteerson ute [facility] DARYN Simental 08/11 Released w/o Limitations [facility](F light Medicin e Clinic) [facility] Team E) TELE CONSULT [id number] Notes Entered by: Fauzia OROZCO 19 Aug 2013 1418 ------- ------- ------- ------- -- ANNUAL PHA, UPDATE EMA CROCKER 08/19 Other Not Elsewhere Classified [facility] Team E) [facility] OUTPATIENT [id number] New visit ENID GONZALEZ 09/27 Released w/o Limitations [facility] Medical [facility] _Team_Roa drunner) OUTPATIENT [id number] POSSIBL E STD-PT PROVIDE D LIMITED SYMPTOM S RAFAT RAPP 09/28 Released w/o Limitations [facility]_Te am_Road runner) [facility] Medical [facility] OUTPATIENT [id number] Follow up ENID GONZALEZ 09/29 Released w/o Limitations [facility](C hiropra ctic [facility]) [facility] _Team_Roa drunner) TELE CONSULT [id number] Notes Entered by: JIM ROMANO 30 Sep 2013 1419 ------- ------- ------- ------- -- LAB PAUL CHUN 09/30 Referred for Appointment [facility] _FHC_Te am_Road runner) [facility](Chi ropractic Clinic) OUTPATIENT [id number] Follow up ENID GONZALEZ 10/03 Released w/o Limitations [employer](C hiropra ctic Clinic) [facility] [employer](Deondre bibjudy[facility] _Team_Roa [place]) TELE CONSULT [id number] Notes Entered by: SA TD RAPP 03 Oct 2013 1304 ------- ------- ------- ------- -- Need follow up PAUL CHUN 10/03 Referred for Appointment [facility] [employer](K irjudy _C_Te am_Road runner) [facility]) OUTPATIENT [id number] Notes Entered by: YU MCCURDY 04 Oct 2013 1337 ------- ------- ------- ------- -- STI Chlamyd ia HUNG MCCURDY 10/04 Released w/o Limitations [employer] [facility] [employer]([facility]) [facility](Chi ropractic Clinic) OUTPATIENT [id number] Follow up ENID GONZALEZ 10/07 Released w/o Limitations [facility] [employer](C hiropra ctic Clinic) [facility](Chi ropractic Clinic) OUTPATIENT [id number] Follow up ENID GONZALEZ 10/13 Released w/o Limitations [facility](C hiropra ctic Clinic) [facility] ropractic Clinic) OUTPATIENT [id number] Follow up ENID GONZALEZ 10/27 Released w/o Limitations [employer] [facility] [employer](C hiropra ctic Clinic) [facility](Kir biband[facility] _Team_Maurice barrientos) OUTPATIENT [id number] [facility] LA NENA Pierson 04/25 Released w/o Limitations [employer] [facility] [employer]([place] _FHC_Te am_Road runner) [facility] [employer]([facility]) OUTPATIENT [id number] 60th mxs 24 y/o glasses wear-wa DARYN Gutierrez 09/14 Released w/o Limitations [employer] [facility] [employer](F light Medicin e Clinic) [facility] [employer](Deondre judy[facility] _Team_Maurice barrientos) TELE CONSULT [id number] Notes Entered by: ALEJANDRA MCKENZIE 14 Sep 2014 1445 ------- ------- ------- ------- -- PHA ROUTINE LASHAE PICHARDO 09/14 Other Not Elsewhere Classified [facility] [employer](K alisiajudy _[facility]_Te am_Road runner) [facility] [employer](Opt ometry) OUTPATIENT [id number] ENID MCFARLAND 09/25 Released w/o Limitations [facility](O ptometr y) [facility] Team A) TELE CONSULT [id number] Notes Entered by: HENRY MOE 02 Feb 2015 1351 ------- ------- ------- ------- -- Medical In-proc HENRY Cherry 02/02 Released to Self Care [facility]) [facility] Team A) OUTPATIENT [id number] check up thyrhoi DENNYS Srinivasan 04/13 Released w/o Limitations [facility](Fauzia jamesFormer[facility] Team [facility]) [facility] Team A) TELE CONSULT [id number] Notes Entered by: HENRY MOE 17 Apr 2015 1634 ------- ------- ------- ------- -- Normal Lab Result HENRY MOE 04/17 Released to Self Care [facility](Fauzia jamesFormer[facility] Team A) [employer]([facility] Team A) OUTPATIENT [id number] f/u lab DENNYS SOLANO 05/05 Released w/o Limitations [facility](Fauzia jamesFormerly [facility] Team A) [facility] Team A) TELE CONSULT [id number] Notes Entered by: HENRY MOE 14 May 2015 1421 ------- ------- ------- ------- -- Normal Lab Results HENRY MOE 05/13 Released to Self Care [facility](Fauzia [facility] Team A) [facility](Brian [facility] Team A) TELE CONSULT [id number] Notes Entered by: HENRY MOE 16 May 2015 1302 ------- ------- ------- ------- -- Normal Lab Result HENRY MOE 05/15 Released to Self Care [facility](Fauzia [facility] Team A) [facility](Brian [facility] Team A) TELE CONSULT [id number] Notes Entered by: HENRY MOE 18 May 2015 0928 ------- ------- ------- ------- -- Normal Lab Result HENRY MOE 05/17 Released to Self Care [facility] Team A) [facility]) OUTPATIENT [id number] CAMERON Boggs 08/22 Released w/o Limitations [facility]( light Medicin e Clinic) [facility]) OUTPATIENT [id number] [facility] CHANELL CABRAL 08/27 Released w/o Limitations [facility]( light Medicin e Clinic) [facility] 1) TELE CONSULT [id number] Notes Entered by: MANUEL COCHRAN 01 Oct 2015 1425 ------- ------- ------- ------- -- [facility] 10 Year Record Reviews ALEJANDRA HENSLEY 09/30 [facility]) [facility]) TELE CONSULT [id number] Notes Entered by: JUAN C SALAS 21 Feb 2016 1241 ------- ------- ------- ------- -- In/Out Process ing AVEL HAAS 02/20 [employer](D [facility]) [employer]([facility]) OUTPATIENT [id number] resp questio YESENIA Grant 03/11 Released w/o Limitations [employer](P [facility]) [employer](Opt [facility]metry Clinic) OUTPATIENT [id number] ANNUAL NEW PT MOREL JESSIE B 06/19 Released w/o Limitations [employer](O ptometr y Clinic) [employer]([facility] Hearing Consv) OUTPATIENT [id number] audio/O H CEM VITO J 07/28 Released w/o Limitations [employer]([facility] Hearing Consv) [employer]([facility]) OUTPATIENT [id number] OH1/aud YESENIA Melvin 07/28 Released w/o Limitations [employer]([facility]) [employer]([facility]) OUTPATIENT [id number] OH2/PE DI DA SILVA 07/31 Released w/o Limitations [employer]([facility]) [employer]([facility]) OUTPATIENT [id number] [facility] [id number] TON NARANJO 10/14 Released w/o Limitations [employer]([facility]) [facility]) OUTPATIENT [id number] Notes Entered by: Rigo OSBORN 16 Oct 2016 1450 ------- ------- ------- ------- -- Tri Service ELINOR TALBOT 10/16 Released w/o Limitations [employer]([facility]) [employer]([facility]) OUTPATIENT [id number] PAULETTE PAGE 12/23 Released w/o Limitations [facility]) Theater Facility OUTPATIENT [id number] Theater Provider 09/03 Released w/o Limitations [facility] Theater Facility OUTPATIENT [id number] Theater Provider 09/13 Released w/o Limitations Theater Facilit y [employer]([facility] Hearing Consv) OUTPATIENT [id number] Notes Entered by: BURTON GONZALEZ 25 Sep 2017 0957 ------- ------- ------- ------- -- walk in audiogr am for CHITO Woody NMI 09/25 Released w/o Limitations [address] [place] [address]([facility] Hearing Consv) [address] [place] [address]([facility]) OUTPATIENT [id number] Notes Entered by: GIGI GASTON 15 Oct 2017 1256 ------- ------- ------- ------- -- Walk In STI Check GIGI GASTON 10/15 Released w/o Limitations [address] [place] [address]([facility]) [address] [place] [address]([facility]) OUTPATIENT [id number] [facility] [phone] PAULETTE PATEL 10/20 Released w/o Limitations [address] [place] [address]([facility]) [address] [place] [address]([facility]) TELE CONSULT [id number] Notes Entered by: CURITS SAM 20 Oct 2017 1531 ------- ------- ------- ------- -- Lab results AVEL SALAS 10/[address] [place] [address]([facility]) [address] [place] [address]([facility]) OUTPATIENT [id number] Notes Entered by: Bg AGUILAR 28 Oct 2017 1126 ------- ------- ------- ------- -- Annual DOD ALFRED RODRIGUES V 10/28 Released w/o Limitations [address] [place] [address]([facility]) [address] [place] [address](Opt ometry Clinic) OUTPATIENT [id number] Notes Entered by: CARMELINA PULIDO P 12 Nov 2017 1305 ------- ------- ------- ------- -- TAYLOR Melchor 11/12 Released w/o Limitations [facility](O ptometr y Clinic) [address] [place] [address]([facility]) TELE CONSULT [id number] Notes Entered by: JESSICA HOGUE UE X 17 Nov 2017 1154 ------- ------- ------- ------- -- Optomet eliseo Newton l - SHRUTI THOMPSON 11/17 [facility]) [facility]) TELE CONSULT [id number] Notes Entered by: SHYAM COKER 01 Dec 2017 1024 ------- ------- ------- ------- -- CRS email DI MCCURDY 12/01 [facility](O ptometr y Clinic) [facility] Medical [facility](Opt ometry Clinic) OUTPATIENT [id number] preop BRAULIO DELGADO 12/16 Released w/o Limitations [facility](O ptometr y Clinic) [address] [place] [address]([facility]) OUTPATIENT [id number] DR3 [phone] PAULETTE PATEL 01/06 Released w/o Limitations [address] [place] [address]([facility]) [facility] Medical [facility](Opt ometry Clinic) OUTPATIENT [id number] Notes Entered by: CARMELINA PULIDO P 04 Feb 2018 0806 ------- ------- ------- ------- -- CRS TAYLOR CANTU 02/04 Released w/o Limitations [facility](O ptometr y Clinic) [address] [place] [address]([facility]) OUTPATIENT [id number] Notes Entered by: YESENIA HOLLAND 08 Feb 2018 0746 ------- ------- ------- ------- -- OH2/JACOB MELISSA 02/08 Released w/o Limitations [address] [place] [address]([facility]) [address] [place] [address]([facility]) TELE CONSULT [id number] Notes Entered by: Rigo ROMEO 23 Mar 2018 1602 ------- ------- ------- ------- -- Network Results - Optomet ry 018 REYNA YI 03/[address] [place] [address]([facility] [address] [place] [address]([facility]) TELE CONSULT [id number] Notes Entered by: DARIUS DEL RIO 27 Apr 2018 1408 ------- ------- ------- ------- -- SYMPTOM S/UC FOLLOWU P/REFER RAL-MAYI ANDRADE 04/[address] [place] [address]([facility] [place]) [address] [place] [address]([facility] [employer]) OUTPATIENT [id number] back pain CHEYANNE PRADO 04/27 Released with Work/Duty Limitations [address] [place] [address]([facility] [employer]) [address] [place] [address]([facility] [employer]) TELE CONSULT [id number] Notes Entered by: DARIUS DEL RIO 16 Aug 2018 1624 ------- ------- ------- ------- -- Network Results -URGENT CARE W/ RADIOLO GY 2018 REYNA YI 08/[address] [place] [address](Dimas GRAYSON Celestina [place]) [address] [place] [address] TELE CONSULT [id number] Notes Entered by: YASHIRA PULIDO 23 Aug 2018 1135 ------- ------- ------- ------- -- Network Results -Physic al Therapy 9-06/28 REYNA YI 08/[address] [place] [address]( [facility] [address] [place] [address]([facility]) OUTPATIENT [id number] Notes Entered by: TON NARANJO 17 Nov 2018 1605 ------- ------- ------- ------- -- DRHA4 MHA ROUTINE TON NARANJO 11/17 Released w/o Limitations [employer]([facility]) [employer]([facility]) OUTPATIENT [id number] [facility] KAROL BOOKER 11/26 Released w/o Limitations [employer]([facility]) [employer]([facility]metry Clinic) OUTPATIENT [id number] CMR JEWELS GARY 11/29 Released w/o Limitations [employer](O ptometr y Clinic) [employer]([facility] Hearing Consv) OUTPATIENT [id number] CMR 135A JEAN-PIERRE PACK 11/29 Released w/o Limitations [employer]([facility] Hearing Consv) [employer]([facility]) OUTPATIENT [id number] CMR/OH1 YESENIA OHLLAND 11/29 Released w/o Limitations [employer]([facility]) [employer]([facility]) OUTPATIENT [id number] CMR/OH2 /PE JACOB MOLINA 12/02 Released w/o Limitations [employer]([facility]) [employer]([facility]) OUTPATIENT [id number] DRHA5 MHA ROUTINE TON NARANJO 11/07 Released w/o Limitations [employer]([facility]) [employer]([facility] [place]) OUTPATIENT [id number] CMR YOVANI ALDANA 12/07 Released w/o Limitations [employer]([facility] [place]) [employer]([facility]) OUTPATIENT [id number] CMR/PE JACOB MOLINA N 12/13 Released w/o Limitations [employer]([facility]) [employer]([facility]) OUTPATIENT [id number] CMR JEWELS GARY 12/14 Released w/o Limitations [employer](O ptometr y Clinic) [employer]([facility] Hearing Consv) OUTPATIENT [id number] CMR AUDIO 135A ESTEFANY GUAJARDO 12/14 Released w/o Limitations [employer](D [facility] Hearing Consv) [employer]([facility]) OUTPATIENT [id number] CMR/SPE GEORGINA JOEL 12/14 Released w/o Limitations [employer](P ublic Health) [employer](Chi ropractic Clinic) OUTPATIENT [id number] RITO SMITH 01/04 Released w/o Limitations [employer](C hiropra ctic Clinic) [employer]([facility]) OUTPATIENT [id number] adj/2nd RITO SMITH 01/25 Released w/o Limitations [employer](C hiropra ctic Clinic) [employer]([facility]ic Clinic) OUTPATIENT [id number] adj/3rd RITO SMITH 02/06 Released w/o Limitations [employer](C hiropra ctic Clinic) [employer]([facility]ractic Clinic) OUTPATIENT [id number] RITO SMITH 03/01 Released w/o Limitations [employer](C hiropra ctic Clinic) 0310A-AF- C-[facility] [employer] Between Visit [id number] 09/08 Discharge Disposition: Home or Self Care 0310A-A F-C-66t [facility] [employer] 7379C-[facility] Outpatient [id number] Encount er for issue of other medical certifi tad ELIZONDO 09/08 Discharge Disposition: Home or Self Care [id number] 0310C-AF- C-[facility] [employer] Dental [id number] CESAR MANN 12/14 Discharge Disposition: Home or Self Care 0310C-A F-C-66t [facility] [employer] 0310A-AF- C-66th [employer] Between Visit [id number] 12/30 Discharge Disposition: Home or Self Care [...] hand surgery x2 Last 2021 309 C-AF -C- [employer] WTE [id number] -C-66 [employer] PURE TONE AUDIOMETRY (THRESHOLD); AIR ONLY 2011 DoD PATIENT EDUCATION, NOT OTHERWISE CLASSIFIED, NON-PHYSICIAN PROVIDER, INDIVIDUAL, PER SESSION 2011 [facility] THERAPEUTIC, PROPHYLACTIC, OR DIAGNOSTIC INJECTION (SPECIFY SUBSTANCE OR DRUG); SUBCUTANEOUS OR INTRAMUSCULAR 2011 [facility] SCREENING TEST OF VISUAL ACUITY, QUANTITATIVE, BILATERAL 2011 [facility] PURE TONE AUDIOMETRY (THRESHOLD); AIR ONLY 2015 DoD CHIROPRACTIC MANIPULATIVE TREATMENT (CMT); SPINAL, 3-4 [...] PROVIDE W/IN THE PREV 7 DAYS,USE THE [employer] COMM NETWORK 2018 DoD SCREENING TEST, PURE TONE, AIR ONLY 2017 DoD ONLINE ASSESS &MANAG SERV PROVIDE,A QUAL NONPHYS HCP TO AN ESTABLISHED PAT/GUARDIAN,NOT ORIGINAT FRM RELAT ASSESS &MANAG SERV PROVIDE W/IN THE PREV 7 DAYS,USE THE [employer] COMM NETWORK 2017 DoD OPHTHALMIC ULTRASOUND, ECHOGRAPHY, [...] OTHER ACCUMULATED DATA FOR MEDICALDIAGNOSTIC PURPOSES 2016 [facility] NEUROPSYCHOLOGICAL TESTING (EG, [place] CARD SORTING TEST), ADMINISTERED BY A COMPUTER, WITH QUALIFIED HEALTH SUPERVISOR BOILER REPAIR INTERPRETATION AND REPORT 2016 DoD ADMINISTRATION OF PATIENT-FOCUSED HEALTH RISK ASSESSMENT INSTRUMENT (EG, HEALTH HAZARD APPRAISAL) WITH SCORING AND DOCUMENTATION, PER STANDARDIZED INSTRUMENT 2016 DoD ONLINE ASSESS &MANAG SERV PROVIDE,A QUAL NONPHYS HCP TO AN ESTABLISHED PAT/GUARDIAN,NOT ORIGINAT FRM RELAT ASSESS &MANAG SERV PROVIDE W/IN THE PREV 7 DAYS,USE THE [employer] NETWORK 2016 DoD PURE TONE AUDIOMETRY (THRESHOLD), AUTOMATED; AIR ONLY 2016 DoD FITTING OF SPECTACLES, EXCEPT FOR APHAKIA; MONOFOCAL 2016 DoD PRESCRIPTION OF OPTICAL AND PHYSICAL CHARACTERISTICS [...] SPECTACLES, EXCEPT FOR APHAKIA; MONOFOCAL 2011 DoD Audiogram (Screening) Audiogram (Screening) 75622 2017 JACOB MOLINA DoD Internet Med Svc Qual Nonphys Healthcare Prof Up To 7 Days Estab Patient Internet Med Svc Qual Nonphys Healthcare Prof Up To 7 Days Estab Patient 32094 2017 BECKIE PATEL [facility] Preventive Medicine Administration Of Health Risk Questionnaire Patient-Focused Preventive Medicine Administration Of Health Risk Questionnaire Patient-Focused 75507 2017 BECKIE PATEL Corneal Pachymetry Both Eyes Corneal Pachymetry Both Eyes 59517 2017 BRAULIO DELGADO Computerized Corneal Topography Computerized Corneal Topography 77478 2017 BRAULIO DELGADO Determination Of Refractive State Determination Of Refractive State 53481 2017 BRAULIO DELGADO Ophthalmological New Patient Start Comprehensive Care Ophthalmological New Patient Start Comprehensive Care 63343 2017 BRAULIO DELGADO Non-Physician Phone Call To Patient/Provider Brief (5-10min) Non-Physician Phone Call To Patient/Provider Brief (5-10min) 46884 2017 SHRUTI THOMPSON Preventive Medicine Administration Of Health Risk Questionnaire Patient-Focused Preventive Medicine Administration Of Health Risk Questionnaire Patient-Focused 15578 2017 ALFRED LAIRD Preventive Medicine Administration Of Health Risk Questionnaire Patient-Focused Preventive Medicine Administration Of Health Risk Questionnaire Patient-Focused 17259 2017 BECKIE PATEL Threshold Audiogram (Pure Tone) Automated Threshold Audiogram (Pure Tone) Automated 0208T 2017 MEL SPANGLER [facility] Psychiatric Diagnostic Evaluation Review of Records and Reports Psychiatric Diagnostic Evaluation Review of Records and Reports 35653 2016 DOROTHY QUEZADA Psychometric Neuropsych Testing Battery Admin By Computer Psychometric Neuropsych Testing Battery Admin By Computer 52630 2016 LELA WANG Preventive Medicine Administration Of Health Risk Questionnaire Patient-Focused Preventive Medicine Administration Of Health Risk Questionnaire Patient-Focused 09807 2016 BECKIE PATEL Internet Med Svc Qual Nonphys Healthcare Prof Up To 7 Days Estab Patient Internet Med Svc Qual Nonphys Healthcare Prof Up To 7 Days Estab Patient 41049 2016 TON NARANJO Preventive Medicine Administration Of Health Risk Questionnaire Patient-Focused Preventive Medicine Administration Of Health Risk Questionnaire Patient-Focused 89737 2016 TON NARANJO Threshold Audiogram (Pure Tone) Automated Threshold Audiogram (Pure Tone) Automated 0208T 2016 VITO PRIEST [employer] Fitting Monofocal Except For Aphakia Spectacles Services Fitting Monofocal Except For Aphakia 43579 2016 JESSIE MOREL Determination Of Refractive State Determination Of Refractive State 09373 2016 JESSIE MOREL Ophthalmological New Patient Start Comprehensive Care Ophthalmological New Patient Start Comprehensive Care 69507 2016 JESSIE MOREL Threshold Audiogram (Pure Tone) Threshold Audiogram (Pure Tone) 26427 2015 CHANELL LOOMIS [employer] Fitting Monofocal Except For Aphakia [employer]acles Services Fitting Monofocal Except For Aphakia 98288 2014 ENID PLEITEZ 1 FOC, 1 5A, 1 GMI. PD 65 Shiva Prescription And Fitting Bilateral Corneal Lenses (Not For Aphakia) Prescription And Fitting Bilateral Corneal Lenses (Not For Aphakia) 13556 2014 ENID PLEITEZ Ophthalmological New Patient Start Comprehensive Care Ophthalmological New Patient Start Comprehensive Care 92541 2014 ENID PLEITEZ Determination Of Refractive State Determination Of Refractive State 17681 2014 ENID PLEITEZ Mobilization Soft Ti ue Mobilization Soft Tissue 42611 2013 ENID GONZALEZ Chiropractic Manip Treatmt (CMT) Spinal Three To Four Region Chiropractic Manip Treatmt (CMT) Spinal Three To Four Region 77349 2013 ENID GONZALEZ Mobilization Soft Ti ue Mobilization Soft Tissue 11412 2013 ENID GONZALEZ Chiropractic Manip Treatmt (CMT) Spinal Three To Four Region Chiropractic Manip Treatmt (CMT) Spinal Three To Four Region 24993 2013 ENID GONZALEZ Mobilization Soft Ti ue Mobilization Soft Tissue 38965 2013 ENID GONZALEZ Chiropractic Manip Treatmt (CMT) Spinal Three To Four Region Chiropractic Manip Treatmt (CMT) Spinal Three To Four Region 29059 2013 ENID GONAZLEZ Physician Supervised Injection Intramuscular Physician Supervised Injection Intramuscular 99792 2013 PAUL CHUN Per Lt [place], ceftriaxone 250 mg IM now. Patient identifiers obtained. Allergies verified. Procedure explained to pt. Verified physician's order via AHLTA note. Ceftriaxone 250 mg drawn and given right dorsogluteal IM. [employer] Hospmamou, Lot [id number], Exp 25 Dec 2015. Ceftriaxone reconstituted with Lidocaine 1 %, [employer]ira, Lot [id number], Exp 23 Nov 2014. Pt in exam room x 15 mins for observation. No apparent s/e's noted. Pt instructed to contact FP should any adverse reactions occur. Pt verbalized agreement/unde rstanding. Shiva Mobilization Soft Ti ue Mobilization Soft Tissue 87354 2013 ENID GONZALEZ Chiropractic Manip Treatmt (CMT) Spinal Three To Four Region Chiropractic Manip Treatmt (CMT) Spinal Three To Four Region 60039 2013 ENID GONZALEZ Mobilization Soft Ti ue Mobilization Soft Tissue 53256 2013 ENID GONZALEZ Chiropractic Manip Treatmt (CMT) Spinal Three To Four Region Chiropractic Manip Treatmt (CMT) Spinal Three To Four Region 82257 2013 ENID GONZALEZ Mobilization Soft Ti ue Mobilization Soft Tissue 91415 2013 ENID GONZALEZ Chiropractic Manip Treatmt (CMT) Spinal Three To Four Region Chiropractic Manip Treatmt (CMT) Spinal Three To Four Region 67242 2013 ENID GONZALEZ Threshold Audiogram (Pure Tone) Threshold Audiogram (Pure Tone) 07466 2013 DARYN MALCOLM Normal [facility] Threshold Audiogram (Pure Tone) Threshold Audiogram (Pure Tone) 00684 2012 TOÑO ANDERS [employer] Fitting Monofocal Except For Aphakia Spectacles Services Fitting Monofocal Except For Aphakia 96892 2011 CAMERON AGUIRRE Determination Of Refractive State Determination Of Refractive State 13828 2011 CAMERON AGUIRRE Ophthalmological New Patient Start Comprehensive Care Ophthalmological New Patient Start Comprehensive Care 99937 2011 CAMERON AGUIRRE Threshold Audiogram (Pure Tone) Threshold Audiogram (Pure Tone) 81140 2011 ATIF GONZALEZ Audiometry Group Testing Audiometry Group Testing 72224 2011 ATIF GONZALEZ Patient education, not otherwise cla ified, non-physician provider, group, per se ion 2011 ATIF GONZALEZ Patient education, not otherwise cla ified, non-physician provider, individual, per se ion 2011 JONATAN RIVERO Screening Test Of Visual Acuity, Quantitative, Bilateral Screening Test Of Visual Acuity, Quantitative, Bilateral 18464 2011 ISA COWAN Determination Of Refractive State Determination Of Refractive State 58083 2011 ISA COWAN [employer] Services Fitting Monofocal Except For Aphakia Spectacles Services Fitting Monofocal Except For Aphakia 35058 2011 ISA COWAN Preventive Medicine Administration Of Health Risk Questionnaire Patient-Focused Preventive Medicine Administration Of Health Risk Questionnaire Patient-Focused 90381 TON NARANJO Internet Med Svc Qual Nonphys Healthcare Prof Up To 7 Days Estab Patient Internet Med Svc Qual Nonphys Healthcare Prof Up To 7 Days Estab Patient 19888 TON NARANJO Threshold Audiogram (Pure Tone) Automated Threshold Audiogram (Pure Tone) Automated 0208T JEAN-PIERRE PACK Ophthalmological Prior Patient Start Intermediate Level Care Ophthalmological Prior Patient Start Intermediate Level Care 14175 JEWELS GARY Determination Of Refractive State Determination Of Refractive State 70309 JEWELS GARY Psychometric Neuropsych Testing Battery Admin By Computer Psychometric Neuropsych Testing Battery Admin By Computer 95332 ANGÉLICA WHEATLEY Brief communication technology-based service, e.g. virtual check-in, by a physician or other qualified health care umm fregoso who can report evaluation and management services, provided to an established patient, not originating from a related E/M service provided within the previous 7 days nor leading to an E/M service or procedure within the next 24 hours or soonest available appointment; 5-10 minutes of medical discu ion TON NARANJO Ophthalmological Prior Patient Start Comprehensive Care Ophthalmological Prior Patient Start Comprehensive Care 27523 JEWELS GARY [employer] Services Fitting Monofocal Except For Aphakia Spectacles Services Fitting Monofocal Except For Aphakia 58810 JEWELS GARY Audiogram (Screening) Audiogram (Screening) 54428 JACOB MOLINA Spirometry Spirometry 41437 JACOB MOLINA Visual Function Screening Visual Function Screening 32659 JACOB MOLINA [facility] Chiropractic Manip Treatmt (CMT) Spinal Three To Four Region Chiropractic Manip Treatmt (CMT) Spinal Three To Four Region 91265 RITO SMITH [facility] Social History Combined list of available smoking, tobacco, and other 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 Social History Type Response Date Comment Sourc e Sex Representation Male 05/01/2020 Unknow n Organization Sexual Orientation Ambula tory Pharmacy Gender identity Ambulator y Pharmacy This section is an empty soc ial history section. [facility] Assessment and Plan Combined list of future [...] consults needed. Patient aware of services available ([facility], [facility], [employer], Walk in , Walk in ER, [...] at age 37. Compared medications reported by client service manager to active medication list in medical record and any variances were documented.? ? 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 See PHA document for additional information. Thirteen minutes of total time spent reviewing records, discussing health concerns and preventative health measures with Neuroscience Specialist. ? Extracted from:Title: Annual [facility] MHA/PHA Author: EVAN SOTOMAYOR NP Date: 10/01/22 1.?EXAM/ASSESSMENT, OCCUPATIONAL, DIE HOLDER PERIODIC HEALTH ASSESSMENT (PHA) This encounter contains [...] reduction achieving a healthy weight/BMI?(BMI 18.5-25.0); F/U with?PCM/Trawl Net Maker?as needed. 4.?GERD - Gastro-esophageal reflux disease Continue Omeprazole as prescribed along with avoiding triggers such as acidic/greasy/spicy food, heavy meals before bed, and caffeine;?achieving?a healthy diet and healthy weight. F/U with PCM for persistent or worsening symptoms.? 5.?Diarrhea Continue Fiber supplement as recommended by PCM, and continue F/U with PCM for management. Evan Sotomayor CTR?SPEECH COMMUNICATION INSTRUCTOR-C [facility] Provider Flight Medicine? ?[employer] [place]??[address] [facility] [phone] ? Extracted from:Title: DOD MHA/PHA Author: TON NARANJO PA-C Date: 11/07/20 1.?EXAM/ASSESSMENT, OCCUPATIONAL, DIE HOLDER PERIODIC HEALTH ASSESSMENT (PHA) Medical record review [...] 60 minutes before a meal, Pharmacy: [facility] [Not filled] [facility] [address] HIV-1/O/2 EPI 24742 Repository Sample [facility] 9340 Unlisted E&M Service 62828 ? 2.?ASSESSMENT, POST DEPLOYMENT, DOCUMENTED ON [id number] (MHA) ?MHA reviewed with member and closed.? No referrals needed. Ordered: omeprazole, 1 cap(s), Oral, Daily, 30 to 60 minutes before a meal, # 90 cap(s), 3 total refill(s), Maintenance, 1 cap(s) Oral Daily,Instr:30 to 60 minutes before a meal, Pharmacy: [facility] [Not filled] Administration,[facility] [address] HIV-1/O/2 EPI 36506 Repository Sample EPI 9340 Unlisted E&M Service 37830 ? 3.?GERD - Gastro-esophageal reflux disease ?Refilled Omeprazole 40mg qd prn for GERD symptoms.? Take 30 minutes before meal.? FU with PCM if symptoms not improving in 4 weeks. ? Orders: *Resuscitation Status ANNUAL PERIODIC HEALTH ASSESSMENT ? I. DIE HOLDER INFORMATION AND DEMOGRAPHICS (SMI) 1. Last Name: SRAVANI 2. First Name: DARYN 3. Middle Name: ROSHAN 4. Assessment Date: 5. : 6. Age: 30 7. Gender: M 8. [facility] ID Number: [id number] 9. Service Branch: [employer] 10. 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 Status: Active Duty 12. 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 Unit Name: [address] 14. Duty Station/Location: [facility] 15. [facility]: [id number] 16. Is this your first Periodic Health Assessment (PHA)?: N 17. Are you enrolled in a secure messaging system with your health care provider?:? Y ? 18. Current contact information: Preferred Method: Day Time Phone DSN: [id number] Day Time Phone: [phone] Night Time Phone: Email 1: [email or web address] Email 2: Address: [address] City: [place] State: [place] Zip Code: [address] ? 19. Point of contact who can always reach you: Name: abby jordan Phone 1: [phone] Phone 2: EMAIL: Address: City: State: Zip Code: ? II. DEPLOYMENT INFORMATION (DEP) 1. Total number of deployments in the PAST 5 YEARS: 1 2. Primary [facility] of last [facility] 3. 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 Are [...] watchful or easily startled? No 6. d. [place] numb or detached from others, activities, or your surroundings? No 6. e. [place] guilt or unable to stop blaming yourself [...] like to schedule a visit with a turpentiner, mental health care provider, or a community [...] Day(s) per week 8. What prescriptions or ylmv-rol-hxrauds medications are you CURRENTLY taking for health [...] health concerns?: No ? XI. SEPARATION AND HALF-WAY 1. Are you planning to separate or retire within the next year from Active Duty or [place] [employer] (activated for greater than 30 continuous days) OR do you intend to file a claim for disability compensation with the Veterans Benefits Administration?: No ? PART B. RECORD REVIEW AND RECOMMENDATIONS I. RECORD REVIEWER INFORMATION 1. Last Name: Armani 2. First Name: Ton 3. Middle Name: Cosmo 4. Service Branch: [employer] 5. 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 Title: Physician Negative Cutter (PA) 7. EMAIL: [email or web address] 8. Facility: [address] 9. Unit: [facility] 10. Address: [address] [place] [address] 11. State: [place] 12. Zip Code: [address] 13. Phone: [phone] 14. Date Record Review: ? II. MEDICAL SCREENING 1. Date of in flight crew member's most recent PHA: 2. in flight crew member's most recently documented height: 5 feet 7 inches? ?Date: 3. in flight crew member's most recently documented weight: 190 pounds? Date: 4. in flight crew member's most recently documented blood pressure readin/78? Date: 5. Does the in flight crew member have a history of abnormal blood pressure since their last PHA? No 6. What is the date of the in flight crew member's most recently documented cholesterol test? No Cholesterol Test Documented 8. List of in flight crew member's active medications listed in their permanent medical record: Methocarbamol 750mg PO PRN Ibuprofen 400mg PO, OTC, prn Omeprazole 40mg, PO, once daily 9. Is there a discrepancy between the active medication record review and the in flight crew member's self-reported list of medications?: No 10. List documented significant care the in flight crew member has received since their last PHA from a provider OUTSIDE the Health System: No Outside Care Documented 11. Is there a discrepancy between the in flight crew member's list of OUTSIDE care (from OT5), and the OUTSIDE care found in the record?: No 12. List documented significant care the in flight crew member has received since their last PHA from a provider INSIDE the Health System: No Inside Care Documented 14. Confirm that vaccine exemptions are listed in the medical record for each vaccine listed: Not Answered ? III. OCCUPATION-SPECIFIC EXAMINATIONS 2. When was the in flight crew member's most recently documented evaluation?: ? IV. FAMILY HISTORY AND LIFESTYLE 1. Does the [id number] reflect the in flight crew member's reported family history?: Yes ? VII. INDIVIDUAL MEDICAL READINESS 1. Does the in flight crew member have an Assignment Limitation Code C?: No 3. Most recently documented dental exam: Classification: 1 4. Is the in flight crew member current on all required immunizations in the immunization tracking system?: No: Influenza, [place] 5. Is the in flight crew member current with Service-specific requirements for glasses and gas mask inserts?: Yes 6. Does the in flight crew member have the following laboratory tests [...] need to be forwarded to the Health Capacity Analyst completing PART C: ? ? Date Record Review Completed: PART C. HEALTH CARE PROVIDER I. MENTAL HEALTH ASSESSMENT (MHA) PROVIDER INFORMATION 1. Last Name: Armani 2. First Name: Ton 3. Middle Name: Cosmo 4. Service Branch: [employer] 5. 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 Title: Physician Negative Cutter (PA) 7. EMAIL: [email or web address] 8. Facility: [facility] GP 9. Unit: [facility] 10. Address: [address] [place] [address] 11. State: [place] 12. Zip Code: [address] 13. Phone: [phone] 14. Date HCP Review initiated: ? 1.? [...] 3. Middle Name: Cosmo 4. Service Branch: [employer] 5. 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 Title: Physician Negative Cutter (PA) 7. EMAIL: [email or web address] 8. Facility: [facility] MEDICAL 9. Unit: [facility] 10. Address: [address] [place] [address] 11. State: [place] 12. Zip Code: [address] 13. Phone: [phone] 14. Date HCP Review initiated: ? IV. PERIODIC HEALTH ASSESSMENT PROVIDER RECOMMENDATIONS and REFERRALS 1. Provider concerns with this assessment: No issues or concerns identified ? V. SUMMARY AND COMMENTS 1. Additional information summarizing findings during the in flight crew member assessment: ? 2. Provider Comments: ? ? . INDIVIDUAL MEDICAL READINESS DISPOSITION DETERMINATION ? ? BIJU: Ready? ? DEN: Ready? ? IMM: Ready? ? LAB: Ready? ? ME: Ready ? ? IMR Status: Fully Medically Ready ? VII. SERVICE MEDICAL DEPLOYABILITY EVALUATION INDICATED Based on your review of all documentation, is the in flight crew member medically deployable without limitations?? Reference Yonis 6490.07 ? ?Yes (in flight crew member DOES NOT currently have a medical condition that limits deployability) ? Date PHA Completed: ? END OF [id number] REPORT -- ? [facility] Review Summary ? Does the member have [...] conditions that dictate a referral to [facility]?? No. ? Active Medical Conditions:? None. ? 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 Cleared for PRAP duties: NA ? Medical surveillance examination requirements up to date: NA ? 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 Cleared for continued service: Yes ? Cleared for mobility duties: Yes ? Cleared for participation in AF physical fitness program: Yes ? END OF [facility] SUMMARY -- ? 04/20/[address] [place] [address] Assessment and Plan Extracted from:Title : MHA/PHA [...] aware of services available (911, One source, [employer]st [employer], Walk in , Walk in ER, [...] at age 37. Compared medications reported by client service manager to active medication list in medical record and any variances were documented.? ? 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 See PHA document for additional information. Thirteen minutes of total time spent reviewing records, discussing health concerns and preventative health measures with Neuroscience Specialist. ? Extracted from:Title: Annual [facility] MHA/PHA Author: EVAN SOTOMAYOR NP Date: 10/01/22 1.?EXAM/ASSESSMENT, OCCUPATIONAL, DIE HOLDER PERIODIC HEALTH ASSESSMENT (PHA) This encounter contains [...] reduction achieving a healthy weight/BMI?(BMI 18.5-25.0); F/U with?PCM/Trawl Net Maker?as needed. 4.?GERD - Gastro-esophageal reflux disease Continue Omeprazole as prescribed along with avoiding triggers such as acidic/greasy/spicy food, heavy meals before bed, and caffeine;?achieving?a healthy diet and healthy weight. F/U with PCM for persistent or worsening symptoms.? 5.?Diarrhea Continue Fiber supplement as recommended by PCM, and continue F/U with PCM for management. Evan Sotomayor CTR?SPEECH COMMUNICATION INSTRUCTOR-C [facility] Provider Flight Medicine? ?[facility] [place]??[address] [facility] [phone] ? Extracted from:Title: [facility] MHA/PHA Author: TON NARANJO PA-C Date: 11/07/20 1.?EXAM/ASSESSMENT, OCCUPATIONAL, DIE HOLDER PERIODIC HEALTH ASSESSMENT (PHA) Medical record review accomplished.? Member not present today in clinic for annual PHAQ.? PHAQ completed 11/07/2020.? HIV, Repository labs ordered.? No issues or concerns at this time.? No DR,MR,FR profiles.? Member is WWQ.? ? IMR status of member reviewed in [facility].? Member is?yellow, due Influenza vaccine. ? ? ? Ordered: omeprazole, 1 cap(s), Oral, Daily, 30 to 60 minutes before a meal, # 90 cap(s), 3 total refill(s), Maintenance, 1 cap(s) Oral Daily,Instr:30 to 60 minutes before a meal, Pharmacy: [facility] [Not filled] Administration,[facility] [address] HIV-1/O/2 EPI 54326 Repository Sample EPI 9340 Unlisted E&M Service 91604 ? 2.?ASSESSMENT, POST DEPLOYMENT, DOCUMENTED ON SM0604 (MHA) ?MHA reviewed with member and closed.? No referrals needed. Ordered: omeprazole, 1 cap(s), Oral, Daily, 30 to 60 minutes before a meal, # 90 cap(s), 3 total refill(s), Maintenance, 1 cap(s) Oral Daily,Instr:30 to 60 minutes before a meal, Pharmacy: [facility] [Not filled] Administration,[facility] [address] HIV-1/O/2 EPI 50598 Repository Sample EPI 9340 Unlisted E&M Service 93609 ? 3.?GERD - Gastro-esophageal reflux disease ?Refilled Omeprazole 40mg qd prn for GERD symptoms.? Take 30 minutes before meal.? FU with PCM if symptoms not improving in 4 weeks. ? Orders: *Resuscitation Status ANNUAL PERIODIC HEALTH ASSESSMENT ? I. DIE HOLDER INFORMATION AND DEMOGRAPHICS (SMI) 1. Last Name: SRAVANI 2. First Name: DARYN 3. Middle Name: ROSHAN 4. Assessment Date: 5. : 6. Age: 30 7. Gender: M 8. [facility] ID Number: [id number] 9. Service Branch: [employer] 10. 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 Status: Active Duty 12. 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 Unit Name: [address] 14. Duty Station/Location: [facility] 15. UIC: [id number] 16. Is this your first Periodic Health Assessment (PHA)?: N 17. Are you enrolled in a secure messaging system with your health care provider?:? Y ? 18. Current contact information: Preferred Method: Day Time Phone DSN: [id number] Day Time Phone: [phone] Night Time Phone: Email 1: [email or web address] Email 2: Address: [address] City: [place] State: [place] Zip Code: [address] ? 19. Point of contact who can always reach you: Name: abby jordan Phone 1: [phone] Phone 2: EMAIL: Address: City: State: Zip Code: ? II. DEPLOYMENT INFORMATION (DEP) 1. Total number of deployments in the PAST 5 YEARS: 1 2. Primary [facility] of [facility] 3. 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 Are [...] watchful or easily startled? No 6. d. [place] numb or detached from others, activities, or your surroundings? No 6. e. [place] guilt or unable to stop blaming yourself [...] like to schedule a visit with a turpentiner, mental health care provider, or a community [...] Day(s) per week 8. What prescriptions or fpyf-msf-pqntyrg medications are you CURRENTLY taking for health [...] health concerns?: No ? XI. SEPARATION AND HALF-WAY 1. Are you planning to separate or retire within the next year from Active Duty or [place] Duty (activated for greater than 30 continuous days) OR do you intend to file a claim for disability compensation with the Veterans Benefits Administration?: No ? PART B. RECORD REVIEW AND RECOMMENDATIONS I. RECORD REVIEWER INFORMATION 1. Last Name: Armani 2. First Name: Ton 3. Middle Name: Cosmo 4. Service Branch: [employer] 5. 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 Title: Physician Negative Cutter (PA) 7. EMAIL: [email or web address] 8. Facility: [address] [place] [address] 9. Unit: [facility] 10. Address: [address] [place] [address] 11. State: [place] 12. Zip Code: [address] 13. Phone: [phone] 14. Date Record Review: ? II. MEDICAL SCREENING 1. Date of in flight crew member's most recent PHA: 2. in flight crew member's most recently documented height: 5 feet 7 inches? ?Date: 3. in flight crew member's most recently documented weight: 190 pounds? Date: 4. in flight crew member's most recently documented blood pressure readin/78? Date: 5. Does the in flight crew member have a history of abnormal blood pressure since their last PHA? No 6. What is the date of the in flight crew member's most recently documented cholesterol test? No Cholesterol Test Documented 8. List of in flight crew member's active medications listed in their permanent medical record: Methocarbamol 750mg PO PRN Ibuprofen 400mg PO, OTC, prn Omeprazole 40mg, PO, once daily 9. Is there a discrepancy between the active medication record review and the in flight crew member's self-reported list of medications?: No 10. List documented significant care the in flight crew member has received since their last PHA from a provider OUTSIDE the Health System: No Outside Care Documented 11. Is there a discrepancy between the in flight crew member's list of OUTSIDE care (from OTH5), and the OUTSIDE care found in the record?: No 12. List documented significant care the in flight crew member has received since their last PHA from a provider INSIDE the Health System: No Inside Care Documented 14. Confirm that vaccine exemptions are listed in the medical record for each vaccine listed: Not Answered ? III. OCCUPATION-SPECIFIC EXAMINATIONS 2. When was the in flight crew member's most recently documented evaluation?: ? IV. FAMILY HISTORY AND LIFESTYLE 1. Does the [id number] reflect the in flight crew member's reported family history?: Yes ? VII. INDIVIDUAL MEDICAL READINESS 1. Does the in flight crew member have an Assignment Limitation Code C?: No 3. Most recently documented dental exam: Classification: 1 4. Is the in flight crew member current on all required immunizations in the immunization tracking system?: No: Influenza, [place] 5. Is the in flight crew member current with Service-specific requirements for glasses and gas mask inserts?: Yes 6. Does the in flight crew member have the following laboratory tests [...] need to be forwarded to the Health Capacity Analyst completing PART C: ? ? Date Record Review Completed: PART C. HEALTH CARE PROVIDER I. MENTAL HEALTH ASSESSMENT (MHA) PROVIDER INFORMATION 1. Last Name: Armani 2. First Name: Ton 3. Middle Name: Cosmo 4. Service Branch: [employer] 5. 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 Title: Physician Negative Cutter (PA) 7. EMAIL: [email or web address] 8. Facility: [address] 9. Unit: [facility] 10. Address: [address] [place] [address] 11. State: [place] 12. Zip Code: [address] 13. Phone: [phone] 14. Date HCP Review initiated: ? 1.? [...] 3. Middle Name: Cosmo 4. Service Branch: [employer] 5. 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 Title: Physician Negative Cutter (PA) 7. EMAIL: [email or web address] 8. Facility: [address] [place] [address] 9. Unit: [facility] 10. Address: [address] [place] [address] 11. State: [place] 12. Zip Code: [address] 13. Phone: [phone] 14. Date HCP Review initiated: ? IV. PERIODIC HEALTH ASSESSMENT PROVIDER RECOMMENDATIONS and REFERRALS 1. Provider concerns with this assessment: No issues or concerns identified ? V. SUMMARY AND COMMENTS 1. Additional information summarizing findings during the in flight crew member assessment: ? 2. Provider Comments: ? ? . INDIVIDUAL MEDICAL READINESS DISPOSITION DETERMINATION ? ? BIJU: Ready? ? DEN: Ready? ? IMM: Ready? ? LAB: Ready? ? ME: Ready ? ? IMR Status: Fully Medically Ready ? VII. SERVICE MEDICAL DEPLOYABILITY EVALUATION INDICATED Based on your review of all documentation, is the in flight crew member medically deployable without limitations?? Reference Yonis 6490.07 ? ?Yes (in flight crew member DOES NOT currently have a medical condition that limits deployability) ? Date PHA Completed: ? END OF [id number] REPORT -- ? [facility] Review Summary ? Does the member have [...] conditions that dictate a referral to the [facility]?? No. ? Active Medical Conditions:? None. ? 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 Cleared for PRAP duties: NA ? Medical surveillance examination requirements up to date: NA ? 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 Cleared for continued service: Yes ? Cleared for mobility duties: Yes ? Cleared for participation in AF physical fitness program: Yes ? END OF [facility] SUMMARY -- ? 04/20/2024 [id number] [facility] Assessment and Plan Extracted from:Title : MHA/PHA [...] aware of services available (911, One source, [employer]st [employer], Walk in , Walk in ER, [...] at age 37. Compared medications reported by client service manager to active medication list in medical record and any variances were documented.? ? 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 See PHA document for additional information. Thirteen minutes of total time spent reviewing records, discussing health concerns and preventative health measures with Neuroscience Specialist. ? Extracted from:Title: Annual [facility] MHA/PHA Author: EVAN SOTOMAYOR NP Date: 10/01/22 1.?EXAM/ASSESSMENT, OCCUPATIONAL, DIE HOLDER PERIODIC HEALTH ASSESSMENT (PHA) This encounter contains [...] reduction achieving a healthy weight/BMI?(BMI 18.5-25.0); F/U with?PCM/Trawl Net Maker?as needed. 4.?GERD - Gastro-esophageal reflux disease Continue Omeprazole as prescribed along with avoiding triggers such as acidic/greasy/spicy food, heavy meals before bed, and caffeine;?achieving?a healthy diet and healthy weight. F/U with PCM for persistent or worsening symptoms.? 5.?Diarrhea Continue Fiber supplement as recommended by PCM, and continue F/U with PCM for management. Evan Sotomayor CTR?SPEECH COMMUNICATION INSTRUCTOR-C [facility] Provider Flight Medicine? 66th?[employer] [place]??[address] [facility] [phone] ? Extracted from:Title: DOD MHA/PHA Author: TON NARANJO PA-C Date: 11/07/20 1.?EXAM/ASSESSMENT, OCCUPATIONAL, DIE HOLDER PERIODIC HEALTH ASSESSMENT (PHA) Medical record review accomplished.? Member not present today in clinic for annual PHAQ.? PHAQ completed 11/07/2020.? HIV, Repository labs ordered.? No issues or concerns at this time.? No DR,MR,FR profiles.? Member is WWQ.? ? IMR status of member reviewed in [facility].? Member is?yellow, due Influenza vaccine. ? ? ? Ordered: omeprazole, 1 cap(s), Oral, Daily, 30 to 60 minutes before a meal, # 90 cap(s), 3 total refill(s), Maintenance, 1 cap(s) Oral Daily,Instr:30 to 60 minutes before a meal, Pharmacy: [facility] [Not filled] Administration,Pt-[facility]oc [facility] [address] HIV-1/O/2 EPI 33780 Repository Sample EPI 9340 Unlisted E&M Service 20806 ? 2.?ASSESSMENT, POST DEPLOYMENT, DOCUMENTED ON HR0459 (A) ?MHA reviewed with member and closed.? No referrals needed. Ordered: omeprazole, 1 cap(s), Oral, Daily, 30 to 60 minutes before a meal, # 90 cap(s), 3 total refill(s), Maintenance, 1 cap(s) Oral Daily,Instr:30 to 60 minutes before a meal, Pharmacy: [facility] [Not filled] Administration,Pt-[facility]oc [facility] [address] HIV-1/O/2 EPI 52838 Repository Sample EPI 9340 Unlisted E&M Service 30976 ? 3.?GERD - Gastro-esophageal reflux disease ?Refilled Omeprazole 40mg qd prn for GERD symptoms.? Take 30 minutes before meal.? FU with PCM if symptoms not improving in 4 weeks. ? Orders: *Resuscitation Status ANNUAL PERIODIC HEALTH ASSESSMENT ? I. DIE HOLDER INFORMATION AND DEMOGRAPHICS (SMI) 1. Last Name: SRAVANI 2. First Name: DARYN 3. Middle Name: ROSHAN 4. Assessment Date: 5. : 6. Age: 30 7. Gender: M 8. [employer] ID Number: [id number] 9. Service Branch: [employer] 10. 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 Status: Active Duty 12. 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 Unit Name: [address] 14. Duty Station/Location: [facility] 15. C: [id number] 16. Is this your first Periodic Health Assessment (PHA)?: N 17. Are you enrolled in a secure messaging system with your health care provider?:? Y ? 18. Current contact information: Preferred Method: Day Time Phone DSN: [id number] Day Time Phone: [phone] Night Time Phone: Email 1: [email or web address] Email 2: Address: [address] City: [place] State: [place] Zip Code: [address] ? 19. Point of contact who can always reach you: Name: abby jordan Phone 1: [phone] Phone 2: EMAIL: Address: City: State: Zip Code: ? II. DEPLOYMENT INFORMATION (DEP) 1. Total number of deployments in the PAST 5 YEARS: 1 2. Primary country of last deployment: [facility] 3. 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 Are you [...] watchful or easily startled? No 6. d. [place] numb or detached from others, activities, or your surroundings? No 6. e. [place] guilt or unable to stop blaming yourself [...] like to schedule a visit with a turpentiner, mental health care provider, or a community [...] Day(s) per week 8. What prescriptions or irvg-urx-qmpjxrd medications are you CURRENTLY taking for health [...] health concerns?: No ? XI. SEPARATION AND HALF-WAY 1. Are you planning to separate or retire within the next year from Active Duty or [place] Duty (activated for greater than 30 continuous days) OR do you intend to file a claim for disability compensation with the [employer]?: No ? PART B. RECORD REVIEW AND RECOMMENDATIONS I. RECORD REVIEWER INFORMATION 1. Last Name: Armani 2. First Name: Ton 3. Middle Name: Cosmo 4. Service Branch: [employer] 5. 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 Title: Physician Negative Cutter ([place]) 7. EMAIL: [email or web address] 8. Facility: [facility] 9. Unit: [facility] 10. Address: [address] [place] [address] 11. State: [place] 12. Zip Code: [address] 13. Phone: [phone] 14. Date Record Review: ? II. MEDICAL SCREENING 1. Date of in flight crew member's most recent PHA: 2. in flight crew member's most recently documented height: 5 feet 7 inches? ?Date: 3. in flight crew member's most recently documented weight: 190 pounds? Date: 4. in flight crew member's most recently documented blood pressure readin/78? Date: 5. Does the in flight crew member have a history of abnormal blood pressure since their last PHA? No 6. What is the date of the in flight crew member's most recently documented cholesterol test? No Cholesterol Test Documented 8. List of in flight crew member's active medications listed in their permanent medical record: Methocarbamol 750mg PO PRN Ibuprofen 400mg PO, OTC, prn Omeprazole 40mg, PO, once daily 9. Is there a discrepancy between the active medication record review and the in flight crew member's self-reported list of medications?: No 10. List documented significant care the in flight crew member has received since their last PHA from a provider OUTSIDE the Health System: No Outside Care Documented 11. Is there a discrepancy between the in flight crew member's list of OUTSIDE care (from OTH5), and the OUTSIDE care found in the record?: No 12. List documented significant care the in flight crew member has received since their last PHA from a provider INSIDE the Health System: No Inside Care Documented 14. Confirm that vaccine exemptions are listed in the medical record for each vaccine listed: Not Answered ? III. OCCUPATION-SPECIFIC EXAMINATIONS 2. When was the in flight crew member's most recently documented evaluation?: ? IV. FAMILY HISTORY AND LIFESTYLE 1. Does the [id number] reflect the in flight crew member's reported family history?: Yes ? VII. INDIVIDUAL MEDICAL READINESS 1. Does the in flight crew member have an Assignment Limitation Code C?: No 3. Most recently documented dental exam: Classification: 1 4. Is the in flight crew member current on all required immunizations in the immunization tracking system?: No: Influenza, [place] 5. Is the in flight crew member current with Service-specific requirements for glasses and gas mask inserts?: Yes 6. Does the in flight crew member have the following laboratory tests [...] need to be forwarded to the Health Capacity Analyst completing PART C: ? ? Date Record Review Completed: PART C. HEALTH CARE PROVIDER I. MENTAL HEALTH ASSESSMENT (MHA) PROVIDER INFORMATION 1. Last Name: Armani 2. First Name: Ton 3. Middle Name: Cosmo 4. Service Branch: [employer] 5. 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 Title: Physician Negative Cutter ([place]) 7. EMAIL: [email or web address] 8. Facility: [address] [place] [address] 9. Unit: [facility] 10. Address: [address] [place] [address] 11. State: [place] 12. Zip Code: [address] 13. Phone: [phone] 14. Date HCP Review initiated: ? 1.? [...] 3. Middle Name: Cosmo 4. Service Branch: [employer] 5. 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 Title: Physician Negative Cutter ([place]) 7. EMAIL: [email or web address] 8. Facility: [facility] 9. Unit: [facility] 10. Address: [address] [place] [address] 11. State: [place] 12. Zip Code: [address] 13. Phone: [phone] 14. Date HCP Review initiated: ? IV. PERIODIC HEALTH ASSESSMENT PROVIDER RECOMMENDATIONS and REFERRALS 1. Provider concerns with this assessment: No issues or concerns identified ? V. SUMMARY AND COMMENTS 1. Additional information summarizing findings during the in flight crew member assessment: ? 2. Provider Comments: ? ? . INDIVIDUAL MEDICAL READINESS DISPOSITION DETERMINATION ? ? BIJU: Ready? ? DEN: Ready? ? IMM: Ready? ? LAB: Ready? ? ME: Ready ? ? IMR Status: Fully Medically Ready ? VII. SERVICE MEDICAL DEPLOYABILITY EVALUATION INDICATED Based on your review of all documentation, is the in flight crew member medically deployable without limitations?? Reference [facility] 6490.07 ? ?Yes (in flight crew member DOES NOT currently have a medical condition that limits deployability) ? Date PHA Completed: ? END OF [id number] REPORT -- ? [facility] Review Summary ? Does the member have [...] conditions that dictate a referral to the [facility]?? No. ? Active Medical Conditions:? None. ? 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 Cleared for PRAP duties: NA ? Medical surveillance examination requirements up to date: NA ? 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 Cleared for continued service: Yes ? Cleared for mobility duties: Yes ? Cleared for participation in AF physical fitness program: Yes ? END OF [facility] SUMMARY -- ? 04/20/[address] [place] [address] Functional Status Combined list of recent functional and cognitive assessments recorded at [facility] of [employer] and [facility] (VA).VA Functional Garvin Measurement (FIM) Scale: 1 = Total Assistance (Subject = 0% +), 2 = Maximal Assistance (Subject = 25% +), 3 = Moderate Assistance (Subject = 50% +), 4 = Minimal Assistance (Subject = 75% +), 5 = Supervision, 6 = Modified Garvin (Device), 7 = Complete Garvin (Timely, Safely). Assessment Date/Time Source Assessment Type Assessment Skill Assessment Score Assessment Details No data available for this section
== END 2024-04-20 16:32 | disposition home or self-care (01) ==
PROVIDERS: PCP Family Medicine; Visit Provider Family Medicine
DX: R74.01 Elevation of levels of liver transaminase levels (principal); E78.5 Hyperlipidemia, unspecified

== ENCOUNTER → 2024-04-20 14:24 | Outpatient (BNVA) | payer OTHER, SELFPAY | PROVIDERS: PCP Family Medicine; Visit Provider Family Medicine | DX: R74.01 Elevation of levels of liver transaminase levels (principal); E78.5 Hyperlipidemia, unspecified | CPT/HCPCS: 99212 ==

== ENCOUNTER 2024-04-22 15:07 | Outpatient (AMB) | payer OTHER, SELFPAY ==
--- NOTE | 2024-04-22 15:08 | A.OFFVIS_ITS ---
Vital Signs 04/22/24 15:10 Height 5 ft 7 in Weight 208 lb 8.917 oz BMI 32.7 BP 126/68 Blood Pressure Location Rt brachial Position Sitting Pulse 70 Pulse Source Pulse Oximeter Pulse Oximetry (%) 97 Oxygen Delivery Method Room Air Intake Visit Reasons: 2 month follow up Intake Note: ESTABLISHED PATIENT for diarrhea / general sx mgmt. Imaging and Labs done. Chief Complaint; No changes to sx or presentation since last visit per pt. Pt has same concerns / sx. No changes made to therapy. Still taking omeprazole 20 mg. Environment Artist Required: No Accompanied by: Self / Same As Patient Allergies poison ave extract Allergy (Severe, Verified 04/22/24 15:12) Anaphylaxis HPI HPI 2 month follow up: Details: LAST VISIT: Elevated ALT measurement Diarrhea GERD (gastroesophageal reflux disease) Postprandial abdominal bloating Postprandial epigastric pain Plan Patient reports acid reflux currently on omeprazole. Patient will start taking famotidine and stop omeprazole will return for H pylori testing. Will stop famotidine 48 hours before coming to the office. Upper GI with barium swallow ordered to evaluate reflux, check for hiatal hernia. Will do lab work, thyroid study, vitamin B12, folate, vitamin-D levels. Epigastric pain postprandially not sure if it is related to food. Will check transglutaminase to rule out celiac. Patient was also encouraged to take probiotics and fiber. Low FODMAP diet discussed with patient. List of food recommended as well as list of food to avoid given to patient. Patient will follow-up in the office in 2 months, sooner on as needed basis. He is agreeable to this plan and verbalizes understanding of instructions. He was given the opportunity to ask questions and all questions answered. ? Thank you for allowing me to participate in his care Orders Orders FL upper GI w Ba Swallow 01/26/24 K21.9 Vitamin B12 and Folate 01/26/24 R19.7 TSH reflex Free T4 01/26/24 K59.00 H Pylori Breath Test 01/26/24 K21.9 Vitamin D 25-OH (D2 and D3) 01/26/24 E55.9 Transglutaminase Ab IgG 01/26/24 R10.9 Transglutaminase IgA 01/26/24 R10.9 Medications New famotidine (Pepcid) 20 mg PO BID 30 tabs 1RF K29.70 TODAY'S VISIT: Patient is here today for follow-up and to discuss lab results. Upper GI series with Barium swallow did not show actual reflux. Mild gastritis possible and small hernia. Patient has endoscopy scheduled for May 17. He continues to have loose stools. Postprandial abdominal bloating. He reports that he is taking fiber now he has time when he gets very constipated. Patient reports that he is drinking fluids. Will send him for colonoscopy and check inflammatory markers and fecal calprotectin. Patient continues to have elevated ALT. Saw PCP couple days ago and he ordered ultrasound with elastography which we will be reviewing. Patient denies any nausea or vomiting. Denies any melena, hematochezia, unintentional weight loss or ribbon like stools. Patient denies any family history of Crohn's or colitis. Symptoms of loose stools since he was a teenager. Patient denies melena, hematochezia, unintentional weight loss or ribbon like stools. 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 Current occupational exposures/hazards: No Cognitive needs: No Hearing needs: No Vision needs: Yes Review of Systems Const Denies weight gain and Denies weight loss ENT Reports no additional complaints, Denies dysphagia and Denies odynophagia Card Reports no additional complaints Resp Reports no additional complaints GI Reports abdominal pain (Cramping), Denies belching, Denies melena, Reports bloating, Denies change in bowel habits, Denies dysphagia, Denies excessive flatus, Denies dyspepsia, Reports heartburn, Denies diarrhea, Reports loose stools, Denies nausea, Denies odynophagia and Denies vomiting Reports no additional complaints Musc Reports no additional complaints Neuro Reports no additional complaints Psych Reports no additional complaints Endo Reports no additional complaints Physical Exam Vital Signs: Last Vital Signs Pulse 70 04/22/24 15:10 BP 126/68 04/22/24 15:10 Pulse Ox 97 04/22/24 15:10 Oxygen Delivery Method Room Air 04/22/24 15:10 BMI result Body Mass Index 32.7 Const General: healthy appearing and no acute distress Nutritional Appearance: obese Orientation/consciousness: patient oriented x3 Resp Effort & Inspection: normal respiratory effort, able to speak in complete sentences, no tracheal deviation and symmetric chest movement Auscultation: clear to auscultation bilaterally Cardio Rate: regular rate GI Inspection: Yes normal to inspection, No distended and Yes obesity Palpation (GI): Soft to palpation, not firm, nontender and No hepatosplenomegaly present Auscultation: normal bowel sounds General: Yes no CVA tenderness Back/Spine/Pelvis Back: no CVA tenderness Skin General skin exam: elasticity normal, turgor normal and dry skin Neuro General: patient oriented x3 Psych Appearance: grossly normal Mental Status: mental status grossly normal Assessment & Plan Assessment & Plan (1) Elevated ALT measurement: Code(s): R74.01 - Elevation of levels of liver transaminase levels Category: Medical (2) Diarrhea: Code(s): R19.7 - Diarrhea, unspecified Category: Medical Qualifiers: Diarrhea type: functional diarrhea Qualified Code(s): K59.1 - Functional diarrhea (3) GERD (gastroesophageal reflux disease): Code(s): K21.9 - Gastro-esophageal reflux disease without esophagitis Category: Medical Qualifiers: Esophagitis presence: esophagitis presence not specified Qualified Code(s): K21.9 - Gastro-esophageal reflux disease without esophagitis (4) Postprandial abdominal bloating: Code(s): R14.0 - Abdominal distension (gaseous) (5) Postprandial epigastric pain: Code(s): R10.13 - Epigastric pain Plan Patient will continue current treatment with omeprazole in the morning. Occasionally patient can take Tums as needed. Avoid dietary triggers and late night snacking. Staying upright for minimum 3 hours after meals discussed with patient. Patient will be sent for colonoscopy as he continues to have loose stools postprandially. Patient will be sent for blood work and fecal studies to rule out IBD. What to expect before during and after procedure discussed with patient. Patient is aware that he needs to be on clear liquid diet day before procedure. Stressed the importance of clear liquid diet and good bowel prep. Will send patient to check CRP and fecal calprotectin. He can start taking vitamin-D. I will see patient after colonoscopy and upper endoscopy. He is agreeable to current plan of care and verbalizes understanding of instructions. He was given the opportunity to ask questions and all questions answered. Thank you for allowing me to participate in his care Orders: Orders C Reactive Protein 04/22/24 K58.9 - Irritable bowel syndrome, unspecified Calprotectin, Fecal 04/22/24 R15.9 - Full incontinence of feces Medications: New cholecalciferol (vitamin D3) 50 mcg PO DAILY 90 caps 3RF R79.89 - Other speci fied abnormal findings of blood chemistry bisacodyl (Dulcolax (bisacodyl)) take 4 tabs at noon the day before your colonoscopy 20 mg (4 x 5 mg) PO ONCE 4 tabs 0RF 1 day Z12.11 - Encounter for screening for malignant neoplasm of colon polyethylene glycol 3350 (Miralax) As directed by gastroenterology department at [facility] 238 grams PO ONCE 238 grams 0RF Z12.11 - Encounter for screening for malignant neoplasm of colon Coding Level of Care Code Est Pt Level 4 (96657) Complex EM visit Add On G2211 Diagnoses Elevated ALT measurement R74.01 Functional diarrhea K59.1 Diarrhea type: functional diarrhea Gastroesophageal reflux disease, unspecified whether esophagitis present K21.9 Esophagitis presence: esophagitis presence not specified Postprandial abdominal bloating R14.0 Postprandial epigastric pain R10.13 Time Spent (min) 40 Comment 25 minutes spent with patient and additional 15 minutes spent reviewing his records
[2024-04-22 15:10] VITALS: BP 126/68; PULSE 70; O2SAT 97; BMI 32.7
--- OUTSIDE RECORDS SUMMARY | 2024-04-22 17:14 | XMS_ITS | Continuity of Care Document ---
Author Name [facility] Organization [facility] Care Team Providers Care Auto Service Advisor Name Role Phone [facility] Unavailable Unavailable Problems Combined list of problems from 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 It does not include entries that were removed or entered in error. Problem Status Onset Date Problem Type Date of Resolution Comments Source Encounter for issue of other medical certificate Active 09/09/2023 Diagnosis [id number] ASSESSMENT, POST-DEPLOYMENT, [place] [id number] Inactive 09/13/2017 Condition DoD Pain, unspecified Inactive [...] 0310C-AF-C- 66th [employer] [place] obesity Active Condition [facility] Outpatient Physician Consultation Active Condition DoD injury of upper extremity hand Inactive Condition [facility] visit for: services physical Inactive Condition DoD refractive error - hypermetropia Inactive Condition [facility] astigmatism regular Inactive Condition D oD visit: ears/hearing exam for hearing conservation, treatment Inactive Condition [facility] visit for: occupational health / fitness exam Inactive Condition [facility] visit for: administrative purpose Inactive Condition [facility] visit for: services physical accession Inactive Condition [...] (MELOXICAM) , 15 MG, TABLET, ORAL, CIPLA [employer] 100 ea. BOTTLE Active [id number] 4 2023 30 Pharmac y Data Transac tion Service Facilit y OMEPRAZOLE (omeprazole ), 40 MG, CAPSULE DR, ORAL, GLENMARK PHARMA, 1000 ea. BOTTLE Active [id number] 4 2023 30 Pharmac y Data Transac tion Service Facilit y OMEPRAZOLE (omeprazole ), 40 MG, CAPSULE DR, ORAL, GLENMARK PHARMA, 1000 ea. BOTTLE Active [id number] 2023 30 Pharmac y Data Transac tion Service Facilit y OMEPRAZOLE (omeprazole ), 40 MG, CAPSULE DR, ORAL, GLENMARK PHARMA, 1000 ea. BOTTLE Active [id number] 2023 30 Pharmac y Data Transac tion Service Facilit y OMEPRAZOLE (omeprazole ), 40 MG, CAPSULE DR, ORAL, GLENMARK PHARMA, 1000 ea. BOTTLE Active [id number] 4 2023 30 Pharmac y Data Transac tion Service Facilit y OMEPRAZOLE (OMEPRAZOLE ), 40 MG, CAPSULE DR, ORAL, ZYDUS PHARMACEU, 1000 ea. BOTTLE Active [id number] 3 2023 30 Pharmac y Data Transac [...] Site Reaction Lot Number CVX Code Drug Office Support Associate Status Comments Source COVID Vaccine Pfizer 2020 NELSYYGRUBER Leidy cassy, left (delt oid) [id number] PFIZER complet ed COVID Vaccine Pfizer 11/30/20 Given 0010C-D [facility] influenza, recombinant, quadrivalent, injectable, preservative free 2020 NEELA RAM, () Not Given influenza , recombina nt, quadrival ent,injec table, preservat wendy free [facility] COVID Vaccine Pfizer 2020 FENIXRMARTIN Leidy cassy, left (delt oid) [id number] PFIZER complet ed COVID Vaccine Pfizer 11/02/20 Given 0010C-D [facility] influenza virus vaccine, inactivated 2020 88 sanofi pasteur complet ed influenza virus vaccine, inactivat ed 03/17/20 Given Ambulat ory Pharmac y influenza, recombinant, quadrivalent, injectable, preservative free 2020 NEELA RA, () Not Given influenza , recombina nt, quadrival ent,injec table, preservat wendy free DoD influenza, injectable, quadrivalent- pf 2018 [id number] 150 Seqirus complet ed influenza , injectabl e, quadrival ent-pf 01/05/19 Given Ambulat ory Pharmac y Influenza, injectable, quadrivalent, preservative free 9 2018 [id number] 150 Seqirus (SEQ) complet ed Influenza , injectabl e, quadrival ent, preservat wendy free DoD anthrax vaccine 2018 [id number] Emergent Biosolutions complet ed anthrax vaccine 11/29/18 Given Ambulat ory Pharmac y anthrax vaccine 6 2018 [id number] 24 [employer] [place] (MIP) complet ed anthrax vaccine DoD influenza, injectable, quadrivalent- pf 2017 [id number] 150 Seqirus complet ed influenza , injectabl e, quadrival ent-pf 12/04/17 Given Ambulat ory Pharmac y Influenza, injectable, quadrivalent, preservative free 8 2017 [id number] 150 Seqirus (SEQ) comple t ed Influenza , injectabl e, quadrival ent, preservat wendy free DoD typhoid Vi capsular polysaccharid e vac 2016 [id number] 101 sanofi pasteur complet ed typhoid Vi capsular polysacch aride vac 12/19/16 Given Ambulat ory Pharmac y anthrax vaccine 2016 [id number] 24 [employer] complet ed anthrax vaccine 12/19/16 Given Ambulat ory Pharmac y Influenza, inj, MDCK, quadrivalent- pf 2016 [id number] Seqirus complet ed Influenza , inj, MDCK, quadrival ent-pf 12/19/16 Given Ambulat ory Pharmac y anthrax vaccine 5 2016 [id number] 24 [employer] [place] (MIP) complet ed anthrax vaccine DoD typhoid Vi capsular polysaccharid e vaccine 2 2016 [id number] 101 Sanofi Pasteur (PMC) complet ed typhoid Vi capsular polysacch aride vaccine DoD Influenza, injectable, Madin [place] Canine Kidney, preservative free, quadrivalent 7 2016 [id number] 171 Seqirus (SEQ) comple t ed Influenza , injectabl e, Madin Susan Canine Kidney, preservat wendy free, quadrival ent DoD tuberculin purified protein derivative 2016 [id number] 96 [facility] complet ed tuberculi n purified protein derivativ e 06/06/16 Given Ambulat ory Pharmac y tuberculin purified protein derivative 2016 [id number] 96 [facility] complet ed tuberculi n purified protein derivativ e 05/29/16 Given Ambulat ory Pharmac y Human Papillomaviru s 9-valent vaccine 2016 [id number] 165 Merck & Company Inc complet ed Human Papilloma virus 9-valent vaccine 03/04/16 Given Ambulat ory Pharmac y Human Papillomaviru s 9-valent vaccine 3 2016 [id number] 165 Merck (MSD) complet ed Human Papilloma virus 9-valent vaccine DoD Human Papillomaviru s 9-valent vaccine 2015 [id number] 165 Merck & Company Inc complet ed Human Papilloma virus 9-valent vaccine 11/02/15 Given Ambulat ory Pharmac y influenza, injectable, quadrivalent- pf 2015 [id number] 150 GlaxoSmithKli ne complet ed influenza , injectabl e, quadrival ent-pf 11/02/15 Given Ambulat ory Pharmac y Influenza, injectable, quadrivalent, preservative free 6 2015 [id number] 150 VirtualU (SKB) complet ed Influenza , injectabl e, quadrival ent, preservat wendy free DoD Human Papillomaviru s 9-valent vaccine 2 2015 [id number] 165 Merck (MSD) complet ed Human Papilloma virus 9-valent vaccine DoD Human Papillomaviru s 9-valent vaccine 2015 [id number] 165 Merck & Company Inc complet ed Human Papilloma virus 9-valent vaccine 08/23/15 Given Ambulat ory Pharmac y Vietnamese Encephalitis IM 2015 [id number] 134 Valneva complet ed Vietnamese Encephali tis IM 08/23/15 Given Ambulat ory Pharmac y anthrax vaccine 2015 [id number] 24 [employer] Biosolutions complet ed anthrax vaccine 08/23/15 Given Ambulat ory Pharmac y anthrax vaccine 4 2015 [id number] 24 [employer] [place]ela (MIP) complet ed anthrax vaccine DoD Vietnamese Encephalitis vaccine for intramuscular administratio n 3 2015 [id number] 134 Intercell Biomedical (INT) complet ed Vietnamese Encephali tis vaccine for intramusc ular administr ation DoD Human Papillomaviru s 9-valent vaccine 1 2015 [id number] 165 Merck (MSD) complet ed Human Papilloma virus 9-valent vaccine DoD anthrax vaccine 2014 [id number] 24 [employer] complet ed anthrax vaccine 02/09/15 Given Ambulat ory Pharmac y anthrax vaccine 3 2014 [id number] 24 [employer] [place] (MIP) complet ed anthrax vaccine DoD influenza, injectable, quadrivalent 2014 [id number] 158 GlaxoSmithKli ne complet ed influenza , injectabl e, quadrival ent 11/30/14 Given Ambulat ory Pharmac y influenza, injectable, quadrivalent, contains preservative 0 2014 [id number] 158 SmithKline (SKB) complet ed influenza , injectabl e, quadrival ent, contains preservat wendy DoD Vietnamese Encephalitis IM 2014 [id number] [id number] 134 Valneva complet ed Vietnamese Encephali tis IM 08/15/14 Given Ambulat ory Pharmac y anthrax vaccine 2014 [id number] 24 Emergent Biosolutions complet ed anthrax vaccine 08/15/14 Given Ambulat ory Pharmac y anthrax vaccine 2 2014 [id number] 24 [employer] [place] (MIP) complet ed anthrax vaccine DoD Vietnamese Encephalitis vaccine for intramuscular administratio n 2 2014 [id number] 134 Intercell Biomedical (INT) complet ed Vietnamese Encephali tis vaccine for intramusc ular administr ation DoD Vietnamese Encephalitis IM 2014 [id number] 2E 134 Valneva complet ed Vietnamese Encephali tis IM 06/08/14 Given Ambulat ory Pharmac y Vietnamese Encephalitis vaccine for intramuscular administratio n 1 2014 [id number] 2E 134 [facility] [employer]oeMob (INT) complet ed Vietnamese Encephali tis vaccine for intramusc ular administr ation DoD vaccinia (smallpox) vaccine 2014 [id number] 75 Sanofi Pasteur Incorporated complet ed vaccinia (smallpox ) vaccine 06/01/14 Given Ambulat ory Pharmac y vaccinia (smallpox) vaccine 1 2014 [id number] 75 (JASSON) complet ed vaccinia (smallpox ) vaccine DoD anthrax vaccine 2014 [id number] 24 Emergent Biosolutions complet ed anthrax vaccine 04/25/14 Given Ambulat ory Pharmac y anthrax vaccine 0 2014 [id number] 24 [employer] [place] (MIP) complet ed anthrax vaccine DoD typhoid Vi capsular polysaccharid e vac 2014 K1200 101 sanofi pasteur complet ed typhoid Vi capsular polysacch aride vac 04/24/14 Given Ambulat ory Pharmac y measles/mumps /rubella virus vaccine 2014 [id number] 03 Merck & Company Inc complet ed measles/m umps/rube lla virus vaccine 04/24/14 Given Ambulat ory Pharmac y measles, mumps and rubella virus vaccine 1 2014 [id number] 03 Merck (MSD) complet ed measles, mumps [...] wendy free DoD influenza, seasonal, injectable-pf 2012 [id number] 140 sanofi pasteur complet ed influenza , seasonal, injectabl e-pf 11/23/12 Given Ambulat ory Pharmac y Influenza, seasonal, injectable, preservative free 0 2012 [id number] 140 Sanofi Pasteur (PMC) complet ed Influenza , seasonal, injectabl e, preservat wendy free DoD influenza virus vaccine, live 2011 [id number] 111 [employer] comple t ed influenza virus vaccine, live 10/28/11 Given Ambulat ory Pharmac y influenza virus vaccine, live, attenuated, for intranasal use 0 2011 [id number] 111 [employer] Corporation[employer] Inc. (MED) complet ed influenza virus [...] y tetanus, diphtheria, acellular pertu is 2011 [id number] 115 GlaxoSmithKli ne complet ed tetanus, [...] acellular pertu is vaccine, adsorbed 1 2011 [id number] 115 SmithKline (SKB) complet ed tetanus toxoid, reduced diphtheri a toxoid, and acellular pertussis vaccine, adsorbed DoD tuberculin purified protein derivative 2011 [id number] 96 sanofi pasteur complet ed tuberculi n purified protein derivativ e 02/23/11 Given Ambulat ory Pharmac y adenovirus vaccine, live 2010 [id number] 143 Teva Pharmaceutica ls complet ed adenoviru s vaccine, live 02/21/11 Given Ambulat ory Pharmac y influenza, seasonal, injectable-pf 2010 [id number] 140 sanofi pasteur complet ed influenza , seasonal, injectabl e-pf 02/21/11 Given Ambulat ory Pharmac y meningococcal A,C,Y,W-135 (MCV4P) 2010 [id number] 114 sanofi pasteur complet ed meningoco ccal [...] diphtheria toxoid conjugate vaccine (MCV4P) 1 2010 [id number] 114 Sanofi Pasteur (PMC) complet ed meningoco ccal polysacch aride (groups A, C, Y and W-135) diphtheri a toxoid conjugate vaccine (MCV4P) DoD Influenza, seasonal, injectable, preservative free 1 2010 [id number] 140 Sanofi Pasteur (PMC) complet ed Influenza , seasonal, injectabl e, preservat wendy free DoD Adenovirus, type 4 and type 7, live, oral 1 2010 [id number] 143 [employer] (BRR) complet ed [...] Prevention' s HIV diagnostic algorithm. Refer to [facility] Lab Guide for additional information : [email or web address]. [email or web address]/ kj/kx5/EPIL ab/Pages/la b_[email or web address].asp x Testing performed [...] Prevention' s HIV diagnostic algorithm. Refer to [facility] Lab Guide for additional information : [email or web address] .[email or web address]/k j/kx5/Gilda shelton/Pages/lab _guide.aspx Testing performed by Marjorie brooke. Performed by: Epidemiolog y Laboratory Service [facility] [address] [place] [address], [place] [address] Miscellan eous Sendouts Repository Sample.EPI RECEIVED 11/07 Result Comment: INTERPRETAT ION(S): Performed by: Epidemiolog y Laboratory Service [facility] [address] [place] [address], [place] [address] [facility] Encounters Combined list of: 1) Encounters from Department of [facility] Affairs facilities going backup to the last 18 months, not all VA inpatient encounters are included; 2) Encounters from the Department of Defense facilities going backup to 280 months. Location Location Details Encounter Type Encounter Number Reason For Visit Attending Provider ADM Date DC Date Status Disposition [place] [address](Opt ometry Clinic BMT [facility]) OUTPATIENT [id number] SHELLY GRANDE 02/27 Released w/o Limitations [facility] [place] [address](O ptometr y Clinic BMT [facility]) [place] [address](MAS Delta) OUTPATIENT [id number] Cold Symptom s KAL MAO 04/07 Released w/o Limitations [facility] [place] [address](M Delta) [place], [place](NASP Occupatio nal Health) OUTPATIENT [id number] [employer] RPP 0800 JONATAN RIVERO 05/07 Released w/o Limitations [place] Occup[place] Hearing Conserv[place]) OUTPATIENT [id number] [employer] AUDIO. ATIF GONZALEZ 05/08 Released w/o Limitations [place]NA[place] [facility] Medical Group(Opt ometry) OUTPATIENT [id number] CAMERON Young 09/15 Released w/o Limitations [facility] Medical Group(O ptometr y) [facility] Group([facility]) OUTPATIENT [id number] 58MXS Physica l showtim e 0830 TOÑO ANDERS Srinivasa 09/02 Released w/o Limitations [facility] Medical Group(F light Medicin e Clinic) [facility]([place]_FHC _Team_Lob o) TELE CONSULT [id number] Notes Entered by: SANJANA MICHAELS 16 Sep 2012 1308 ------- ------- ------- ------- -- EMA BEEBE 09/16 Referred for Appointment [facility]([place] _FHC_Te am_Lobo ) [facility]([place]_F[facility] _Team_Lob o) OUTPATIENT [id number] f/u ER visit [place] NENA CAMPBELL 10/27 Released with Work/Duty Limitations [facility]([place] _FHC_Te am_[place]obo ) [facility]([place]_FHC _Team_Lob o) TELE CONSULT [id number] Notes Entered by: TRAVIS MERINO 15 Nov 2012 1109 ------- ------- ------- ------- -- NETWORK RESULTS - OTHOPED ICS - [id number] [place] NENA CAMPBELL 11/15 [facility]([place] _FHC_Te am_Lobo ) [facility]([place]_FHC _Team_Lob o) TELE CONSULT [id number] Notes Entered by: JONN GALVIN 16 Nov 2012 1115 ------- ------- ------- ------- -- NETWORK RESULTS ---ORTH OPAEDIC [id number] OF [facility] [place] NENA CAMPBELL 11/16 [facility]([place] _FHC_Te am_Lobo ) [facility](Kir [facility] _Team_[place]) OUTPATIENT [id number] sore throat ad MONIKA VOGT 06/28 Released w/o Limitations [facility](K irjudy _[facility]_Te am_Road runner) [facility]) OUTPATIENT [id number] vladislav peterson mte [facility] DARYN Simental 08/11 Released w/o Limitations [facility] Medical Group(F light Medicin e Clinic) [facility] Team E) TELE CONSULT [id number] Notes Entered by: Fauzia OROZCO 19 Aug 2013 1418 ------- ------- ------- ------- -- ANNUAL PHA, UPDATE EMA CROCKER 08/19 Other Not Elsewhere Classified [facility] Team E) [facility] OUT[facility] [id number] New visit ENID GONZALEZ 09/27 Released w/o Limitations [facility] Medical [facility] _Team_[place]) OUTPATIENT [id number] POSSIBL E STD-PT PROVIDE D LIMITED SYMPTOM S RAFAT RAPP 09/28 Released w/o Limitations [facility] _[facility]_Te am_Road runner) [facility] Medical [facility]) OUTPATIENT [id number] Follow up ENID GONZALEZ 09/29 Released w/o Limitations [facility] Medical Group(C hiropra ctic [facility]) [facility] _Team_[place]) TELE CONSULT [id number] Notes Entered by: JIM ROMANO 30 Sep 2013 1419 ------- ------- ------- ------- -- LAB PAUL CHUN 09/30 Referred for Appointment [facility] _FHC_Te am_Road runner) [facility](Chi ropractic Clinic) OUTPATIENT [id number] Follow up ENID GONZALEZ 10/03 Released w/o Limitations [employer](C hiropra ctic Clinic) [employer](Deondre bibjudy_[facility] _Team_[place]) TELE CONSULT [id number] Notes Entered by: SA TD RAPP 03 Oct 2013 1304 ------- ------- ------- ------- -- Need follow up PAUL CHUN 10/03 Referred for Appointment [employer](K irjudy _C_Te am_Road runner) [facility]) OUTPATIENT [id number] Notes Entered by: YU MCCURDY 04 Oct 2013 1337 ------- ------- ------- ------- -- STI Chlamyd ia HUNG MCCURDY 10/04 Released w/o Limitations [employer]([facility]) [facility](Chi ropractic Clinic) OUTPATIENT [id number] Follow up ENID GONZALEZ 10/07 Released w/o Limitations [employer](C hiropra ctic Clinic) [facility] Group(Chi ropractic Clinic) OUTPATIENT [id number] Follow up ENID GONZALEZ 10/13 Released w/o Limitations [facility](C hiropra ctic Clinic) [facility] ropractic Clinic) OUTPATIENT [id number] Follow up ENID GONZALEZ 10/27 Released w/o Limitations [employer](C hiropra ctic Clinic) [facility](Kir biband_[facility] _Team_Maurice barrientos) OUTPATIENT [id number] [facility] LA NENA Pierson 04/25 Released w/o Limitations [employer]([place] _FHC_Te am_Road runner) [employer] [facility] [employer]([facility]) OUTPATIENT [id number] 60[address] 24 y/o glasses wear-wa DARYN Gutierrez 09/14 Released w/o Limitations [employer] [facility] [employer](F light Medicin e Clinic) [employer] [facility] [employer](Deondre judy_[facility] _Team_Maurice barrientos) TELE CONSULT [id number] Notes Entered by: ALEJANDRA MCKENZIE 14 Sep 2014 1445 ------- ------- ------- ------- -- PHA ROUTINE LASHAE PICHARDO 09/14 Other Not Elsewhere Classified [employer](K alisiajudy _[facility]_Te am_Road runner) [employer](Opt ometry) OUTPATIENT [id number] NEID MCFARLAND 09/25 Released w/o Limitations [facility](O ptometr y) [facility] Team A) TELE CONSULT [id number] Notes Entered by: HENRY MOE 02 Feb 2015 1351 ------- ------- ------- ------- -- Medical In-proc HENRY Cherry 02/02 Released to Self Care [facility] Team A) OUTPATIENT [id number] check up thyrhoi DENNYS Srinivasan 04/13 Released w/o Limitations [facility]) [facility] Team A) TELE CONSULT [id number] Notes Entered by: HENRY MOE 17 Apr 2015 1634 ------- ------- ------- ------- -- Normal Lab Result HENRY MOE 04/17 Released to Self Care [facility] [employer]([facility] Team A) OUTPATIENT [id number] f/u lab DENNYS SOLANO 05/05 Released w/o Limitations [facility]) [facility] Team A) TELE CONSULT [id number] Notes Entered by: HENRY MOE 14 May 2015 1421 ------- ------- ------- ------- -- Normal Lab Results HENRY MOE 05/13 Released to Self Care [facility](Fauzia [facility] Team A) [facility] Team A) TELE CONSULT [id number] Notes Entered by: HENRY MOE 16 May 2015 1302 ------- ------- ------- ------- -- Normal Lab Result HENRY MOE 05/15 Released to Self Care [facility](Fauzia [facility] Team A) [facility] Team A) TELE CONSULT [id number] Notes Entered by: HENRY MOE 18 May 2015 0928 ------- ------- ------- ------- -- Normal Lab Result HENRY MOE 05/17 Released to Self Care [facility](Fauzia [facility] Team A) [facility] Medicine [facility]) OUTPATIENT [id number] CAMERON Boggs 08/22 Released w/o Limitations [facility]( light Medicin e Clinic) [facility] Medicine [facility]) OUTPATIENT [id number] [facility] CHANELL CABRAL 08/27 Released w/o Limitations [facility]( light Medicin e Clinic) [facility] 1) TELE CONSULT [id number] Notes Entered by: MANUEL COCHRAN 01 Oct 2015 1425 ------- ------- ------- ------- -- [facility] 10 Year Record Reviews ALEJANDRA HENSLEY 09/30 [facility]) [facility] Medical [facility]) TELE CONSULT [id number] Notes Entered by: JUAN C SALAS 21 Feb 2016 1241 ------- ------- ------- ------- -- In/Out Process ing AVEL HAAS 02/20 [employer](D [facility]) [employer]([facility]) OUTPATIENT [id number] resp questio YESENIA Grant 03/11 Released w/o Limitations [employer](P [facility]) [employer] [facility] [employer](Opt ometry Clinic) OUTPATIENT [id number] ANNUAL NEW PT MOREL JESSIE B 06/19 Released w/o Limitations [employer](O [facility]) [employer]([facility] Hearing Consv) OUTPATIENT [id number] audio/O H CEM VITO J 07/28 Released w/o Limitations [employer]([facility] Hearing Consv) [employer]([facility]) OUTPATIENT [id number] OH1/aud YESENIA Melvin 07/28 Released w/o Limitations [employer]([facility]) [employer]([facility]) OUTPATIENT [id number] OH2/PE DI DA SILVA 07/31 Released w/o Limitations [employer]([facility]) [employer]([facility]) OUTPATIENT [id number] [facility] [id number] TON NARANJO 10/14 Released w/o Limitations [employer]([facility]) [facility]) OUTPATIENT [id number] Notes Entered by: Rigo OSBORN 16 Oct 2016 1450 ------- ------- ------- ------- -- Tri Service ELINOR TALBOT 10/16 Released w/o Limitations [employer]([facility]) [employer]([facility]) OUTPATIENT [id number] PAULETTE PAGE 12/23 Released w/o Limitations [facility]) Theater Facility OUTPATIENT [id number] Theater Provider 09/03 Released w/o Limitations Theater Facilit y Theater Facility OUTPATIENT [id number] Theater Provider 09/13 Released w/o Limitations Theater Facilit y [employer]([facility] Hearing Consv) OUTPATIENT [id number] Notes Entered by: BURTON GONZALEZ 25 Sep 2017 0957 ------- ------- ------- ------- -- walk in audiogr am for CHITO Woody NMI 09/25 Released w/o Limitations [address] [place] [address]([facility] Hearing Consv) [address] [place] [address]([facility]) OUTPATIENT [id number] Notes Entered by: GIGI GASTON 15 Oct 2017 1256 ------- ------- ------- ------- -- Walk In STI Check GIGI GASTON 10/15 Released w/o Limitations [address] [place] [address]([facility]) [address] [place] [address]([facility]) OUTPATIENT [id number] [facility] [phone] PAULETTE PATEL 10/20 Released w/o Limitations [address] [place] [address]([facility]) [address] [place] [address]([facility]) TELE CONSULT [id number] Notes Entered by: CURTIS SAM 20 Oct 2017 1531 ------- ------- ------- ------- -- Lab results AVEL SALAS 10/[address] [place] [address]([facility]) [address] [place] [address]([facility]) OUTPATIENT [id number] Notes Entered by: Bg AGUILAR 28 Oct 2017 1126 ------- ------- ------- ------- -- Annual DOD ALFRED RODRIGUES V 10/28 Released w/o Limitations [address] [place] [address]([facility]) [address] [place] [address]([facility]) OUTPATIENT [id number] Notes Entered by: CARMELINA PULIDO P 12 Nov 2017 1305 ------- ------- ------- ------- -- TAYLOR Melchor 11/12 Released w/o Limitations [facility]) [address] [place] [address]([facility]) TELE CONSULT [id number] Notes Entered by: JESSICA HOGUE UE X 17 Nov 2017 1154 ------- ------- ------- ------- -- Optomet eliseo Newton l - SHRUTI THOMPSON 11/17 [facility]) [facility]) TELE CONSULT [id number] Notes Entered by: SHYAM COKER 01 Dec 2017 1024 ------- ------- ------- ------- -- CRS email DI MCCURDY 12/01 [facility]) [facility] Medical [facility]metry [facility]) OUTPATIENT [id number] preop BRAULIO DELGADO 12/16 Released w/o Limitations [facility]) [address] [place] [address]([facility]) OUTPATIENT [id number] [phone] PAULETTE PATEL 01/06 Released w/o Limitations [address] [place] [address]([facility]) [facility] Medical [facility](Opt [facility]metry Clinic) OUTPATIENT [id number] Notes Entered by: CARMELINA PULIDO P 04 Feb 2018 0806 ------- ------- ------- ------- -- CRS TAYLOR CANTU 02/04 Released w/o Limitations [facility] pt[facility] y [facility]) [address] [place] [address]([facility]) OUTPATIENT [id number] Notes Entered by: YESENIA HOLLAND 08 Feb 2018 0746 ------- ------- ------- ------- -- OH2/JACOB MELISSA 02/08 Released w/o Limitations [address] [place] [address]([facility]) [address] [place] [address]([facility]) TELE CONSULT [id number] Notes Entered by: Rigo ROMEO 23 Mar 2018 1602 ------- ------- ------- ------- -- Network Results - Optomet ry 018 REYNA YI 03/[address] [place] [address]([facility] [address] [place] [address]([facility]) TELE CONSULT [id number] Notes Entered by: DARIUS DEL RIO 27 Apr 2018 1408 ------- ------- ------- ------- -- SYMPTOM S/UC FOLLOWU P/REFER RAL-MAYI ANDRADE 04/[address] [place] [address]([facility] [place]) [address] [place] [address]([facility] [place]) OUTPATIENT [id number] back pain CHEYANNE PRADO 04/27 Released with Work/Duty Limitations [address] [place] [address]([facility] [place]) [address] [place] [address]([facility] [place]) TELE CONSULT [id number] Notes Entered by: DARIUS DEL RIO 16 Aug 2018 1624 ------- ------- ------- ------- -- Network Results -URGENT CARE W/ RADIOLO GY 2018 REYNA YI 08/[address] [place] [address]([facility] [place]) [address] [place] [address] TELE CONSULT [id number] Notes Entered by: YASHIRA PULIDO 23 Aug 2018 1135 ------- ------- ------- ------- -- Network Results -Physic al Therapy 9-06/28 REYNA YI 08/[address] [place] [address]( [facility] [address] [place] [address]([facility]) OUTPATIENT [id number] Notes Entered by: TON NARANJO 17 Nov 2018 1605 ------- ------- ------- ------- -- DRHA4 MHA ROUTINE TON NARANJO 11/17 Released w/o Limitations [employer]([facility]) [employer]([facility]) OUTPATIENT [id number] [facility] KAROL BOOKER 11/26 Released w/o Limitations [employer]([facility]) [employer]([facility]) OUTPATIENT [id number] CMR JEWELS GARY 11/29 Released w/o Limitations [employer]([facility]) [employer]([facility] Hearing Consv) OUTPATIENT [id number] CMR 135A JEAN-PIERRE PACK 11/29 Released w/o Limitations [employer]([facility] Hearing Consv) [employer]([facility]) OUTPATIENT [id number] CMR/OH1 YESENIA HOLLAND 11/29 Released w/o Limitations [employer]([facility]) [employer]([facility]) OUTPATIENT [id number] CMR/OH2 /PE JACOB MOLINA 12/02 Released w/o Limitations [employer]([facility]) [employer]([facility]) OUTPATIENT [id number] DRHA5 MHA ROUTINE TON NARANJO 11/07 Released w/o Limitations [employer]([facility]) [employer]([facility] [place]) OUTPATIENT [id number] CMR YOVANI ALDANA 12/07 Released w/o Limitations [employer]([facility] [place]) [employer]([facility]) OUTPATIENT [id number] CMR/PE JACOB MOLINA N 12/13 Released w/o Limitations [employer]([facility]) [employer]([facility]) OUTPATIENT [id number] CMR JEWELS GARY 12/14 Released w/o Limitations [employer]([facility]) [employer]([facility] Hearing Consv) OUTPATIENT [id number] CMR AUDIO 135A ESTEFANY GUAJARDO 12/14 Released w/o Limitations [employer](D [facility] Hearing Consv) [employer]([facility]) OUTPATIENT [id number] CMR/SPE GEORGINA JOEL 12/14 Released w/o Limitations [employer](P ublic Health) [employer]([facility]) OUTPATIENT [id number] RITO SMITH 01/04 Released w/o Limitations [employer](C hiropra ctic Clinic) [employer]([facility]) OUTPATIENT [id number] adj/2nd RITO SMITH 01/25 Released w/o Limitations [employer]([facility]) [employer]([facility]) OUTPATIENT [id number] adj/3rd RITO SMITH 02/06 Released w/o Limitations [employer]([facility]) [employer]([facility]) OUTPATIENT [id number] RITO SMITH 03/01 Released w/o Limitations [employer](C hiropra ctic Clinic) 0310A-AF- C-[employer] [employer] Between Visit [id number] 09/08 Discharge Disposition: Home or Self Care 0310A-A F-C-[facility]t [facility] [employer] 7379C-[facility] Outpatient [id number] Encount er for issue of other medical certifi tad ELIZONDO 09/08 Discharge Disposition: Home or Self Care [id number] 0310C-AF- C-[facility] [employer] Dental [id number] CESAR MANN 12/14 Discharge Disposition: Home or Self Care 0310C-A F-C-66t [facility] [employer] 0310A-AF- C-[facility] [employer] Between Visit [id number] 12/30 Discharge Disposition: Home or Self Care [...] 2021 309 C-AF -C-[facility] [employer] WTE 309C-AF -C-66 [employer] PURE TONE AUDIOMETRY (THRESHOLD); AIR ONLY 2011 DoD PATIENT EDUCATION, NOT OTHERWISE CLASSIFIED, NON-PHYSICIAN PROVIDER, INDIVIDUAL, PER SESSION 2011 DoD THERAPEUTIC, PROPHYLACTIC, OR DIAGNOSTIC INJECTION (SPECIFY SUBSTANCE OR DRUG); SUBCUTANEOUS OR INTRAMUSCULAR 2011 DoD SCREENING TEST OF VISUAL ACUITY, QUANTITATIVE, BILATERAL 2011 DoD PURE TONE AUDIOMETRY (THRESHOLD); AIR [...] PROVIDE W/IN THE PREV 7 DAYS,USE THE [employer]/SIMILAR [employer] COMM NETWORK 2018 DoD SCREENING TEST, PURE TONE, AIR ONLY 2017 DoD ONLINE ASSESS &MANAG SERV PROVIDE,A QUAL NONPHYS HCP TO AN ESTABLISHED PAT/GUARDIAN,NOT ORIGINAT FRM RELAT ASSESS &MANAG SERV PROVIDE W/IN THE PREV 7 DAYS,USE THE [employer]cription [employer] COMM NETWORK 2017 DoD OPHTHALMIC ULTRASOUND, ECHOGRAPHY, [...] ADMINISTERED BY A COMPUTER, WITH QUALIFIED HEALTH GENERAL ASSEMBLER INTERPRETATION AND REPORT 2016 DoD ADMINISTRATION OF PATIENT-FOCUSED HEALTH RISK ASSESSMENT INSTRUMENT (EG, HEALTH HAZARD APPRAISAL) WITH SCORING AND DOCUMENTATION, PER STANDARDIZED INSTRUMENT 2016 DoD ONLINE ASSESS &MANAG SERV PROVIDE,A QUAL NONPHYS HCP TO AN ESTABLISHED PAT/GUARDIAN,NOT ORIGINAT FRM RELAT ASSESS &MANAG SERV PROVIDE W/IN THE PREV 7 DAYS,USE THE [employer] COMM NETWORK 2016 DoD PURE TONE AUDIOMETRY (THRESHOLD), AUTOMATED; AIR ONLY 2016 DoD FITTING OF SPECTACLES, EXCEPT FOR APHAKIA; MONOFOCAL 2016 DoD Audiogram (Screening) Audiogram (Screening) 21840 2017 JACOB MOLINA DoD Internet Med Svc Qual Nonphys Healthcare Prof Up To 7 Days Estab Patient Internet Med Svc Qual Nonphys Healthcare Prof Up To 7 Days Estab Patient 69074 2017 BECKIE PATEL [facility] Preventive Medicine Administration Of Health Risk Questionnaire Patient-Focused Preventive Medicine Administration Of Health Risk Questionnaire Patient-Focused 54039 2017 BECKIE PATEL Corneal Pachymetry Both Eyes Corneal Pachymetry Both Eyes 83386 2017 BRAULIO DELGADO Computerized Corneal Topography Computerized Corneal Topography 55050 2017 BRAULIO DELGADO Determination Of Refractive State Determination Of Refractive State 87731 2017 BRAULIO DELGADO Ophthalmological New Patient Start Comprehensive Care Ophthalmological New Patient Start Comprehensive Care 26593 2017 BRAULIO DELGADO Non-Physician Phone Call To Patient/Provider Brief (5-10min) Non-Physician Phone Call To Patient/Provider Brief (5-10min) 15016 2017 SHRUTI THOMPSON Preventive Medicine Administration Of Health Risk Questionnaire Patient-Focused Preventive Medicine Administration Of Health Risk Questionnaire Patient-Focused 84764 2017 ALFRED LAIRD Preventive Medicine Administration Of Health Risk Questionnaire Patient-Focused Preventive Medicine Administration Of Health Risk Questionnaire Patient-Focused 25145 2017 BECKIE PATEL Threshold Audiogram (Pure Tone) Automated Threshold Audiogram (Pure Tone) Automated 0208T 2017 MEL SPANGLER [facility] Psychiatric Diagnostic Evaluation Review of Records and Reports Psychiatric Diagnostic Evaluation Review of Records and Reports 17121 2016 DOROTHY QUEZADA Psychometric Neuropsych Testing Battery Admin By Computer Psychometric Neuropsych Testing Battery Admin By Computer 31576 2016 LELA WANG Preventive Medicine Administration Of Health Risk Questionnaire Patient-Focused Preventive Medicine Administration Of Health Risk Questionnaire Patient-Focused 43584 2016 BECKIE PATEL Internet Med Svc Qual Nonphys Healthcare Prof Up To 7 Days Estab Patient Internet Med Svc Qual Nonphys Healthcare Prof Up To 7 Days Estab Patient 25295 2016 TON NARANJO Preventive Medicine Administration Of Health Risk Questionnaire Patient-Focused Preventive Medicine Administration Of Health Risk Questionnaire Patient-Focused 45406 2016 TON NARANJO Threshold Audiogram (Pure Tone) Automated Threshold Audiogram (Pure Tone) Automated 0208T 2016 VITO PRIEST [employer] [facility] Fitting Monofocal Except For Aphakia [facility] Fitting Monofocal Except For Aphakia 52691 2016 JESSIE MOREL Determination Of Refractive State Determination Of Refractive State 75502 2016 JESSIE MOREL Ophthalmological New Patient Start Comprehensive Care Ophthalmological New Patient Start Comprehensive Care 00166 2016 JESSIE MOREL Threshold Audiogram (Pure Tone) Threshold Audiogram (Pure Tone) 98997 2015 CHANELL LOOMIS [employer] [facility] Fitting Monofocal Except For Aphakia [employer] [facility] Fitting Monofocal Except For Aphakia 82974 2014 ENID PLEITEZ 1 FOC, 1 5A, 1 GMI. PD 65 Shiva Prescription And Fitting Bilateral Corneal Lenses (Not For Aphakia) Prescription And Fitting Bilateral Corneal Lenses (Not For Aphakia) 79589 2014 ENID PLEITEZ Ophthalmological New Patient Start Comprehensive Care Ophthalmological New Patient Start Comprehensive Care 85801 2014 ENID PLEITEZ Determination Of Refractive State Determination Of Refractive State 87925 2014 ENID PLEITEZ Mobilization Soft Ti ue Mobilization Soft Tissue 99776 2013 ENID GONZALEZ Chiropractic Manip Treatmt (CMT) Spinal Three To Four Region Chiropractic Manip Treatmt (CMT) Spinal Three To Four Region 08408 2013 ENID GONZALEZ Mobilization Soft Ti ue Mobilization Soft Tissue 08527 2013 ENID GONZALEZ Chiropractic Manip Treatmt (CMT) Spinal Three To Four Region Chiropractic Manip Treatmt (CMT) Spinal Three To Four Region 50584 2013 ENID GONZALEZ Mobilization Soft Ti ue Mobilization Soft Tissue 91577 2013 ENID GONZALEZ Chiropractic Manip Treatmt (CMT) Spinal Three To Four Region Chiropractic Manip Treatmt (CMT) Spinal Three To Four Region 75415 2013 ENID GONZALEZ Physician Supervised Injection Intramuscular Physician Supervised Injection Intramuscular 45474 2013 PAUL CHUN Per Lt [place], ceftriaxone 250 mg IM now. Patient identifiers obtained. Allergies verified. Procedure explained to pt. Verified physician's order via [facility] note. Ceftriaxone 250 mg drawn and given right dorsogluteal IM. [employer]rer Hospde smet, Lot [id number], Exp 25 Dec 2015. Ceftriaxone reconstituted with Lidocaine 1 %, [employer] Hospira, Lot [id number], Exp 23 Nov 2014. Pt in exam room x 15 mins for observation. No apparent s/e's noted. Pt instructed to contact FP should any adverse reactions occur. Pt verbalized agreement/unde rstanding. Shiva Mobilization Soft Ti ue Mobilization Soft Tissue 94698 2013 ENID GONZALEZ Chiropractic Manip Treatmt (CMT) Spinal Three To Four Region Chiropractic Manip Treatmt (CMT) Spinal Three To Four Region 19427 2013 ENID GONZALEZ Mobilization Soft Ti ue Mobilization Soft Tissue 47560 2013 ENID GONZALEZ Chiropractic Manip Treatmt (CMT) Spinal Three To Four Region Chiropractic Manip Treatmt (CMT) Spinal Three To Four Region 93741 2013 ENID GONZALEZ Mobilization Soft Ti ue Mobilization Soft Tissue 08457 2013 ENID GONZALEZ Chiropractic Manip Treatmt (CMT) Spinal Three To Four Region Chiropractic Manip Treatmt (CMT) Spinal Three To Four Region 43742 2013 ENID GONZALEZ Threshold Audiogram (Pure Tone) Threshold Audiogram (Pure Tone) 02912 2013 DARYN MALCOLM Normal [facility] Threshold Audiogram (Pure Tone) Threshold Audiogram (Pure Tone) 15928 2012 TOÑO ANDERS [employer] [facility] Fitting Monofocal Except For Aphakia Spectacles Services Fitting Monofocal Except For Aphakia 54177 2011 CAMERON AGUIRRE Determination Of Refractive State Determination Of Refractive State 71548 2011 CAMERON AGUIRRE Ophthalmological New Patient Start Comprehensive Care Ophthalmological New Patient Start Comprehensive Care 13178 2011 CAMERON AGUIRRE Threshold Audiogram (Pure Tone) Threshold Audiogram (Pure Tone) 60039 2011 ATIF GONZALEZ Audiometry Group Testing Audiometry Group Testing 98267 2011 ATIF GONZALEZ Patient education, not otherwise cla ified, non-physician provider, group, per se ion 2011 ATIF GONZALEZ Patient education, not otherwise cla ified, non-physician provider, individual, per se ion 2011 JONATAN RIVERO Screening Test Of Visual Acuity, Quantitative, Bilateral Screening Test Of Visual Acuity, Quantitative, Bilateral 37996 2011 ISA COWAN Determination Of Refractive State Determination Of Refractive State 68123 2011 ISA COWAN [facility] [facility] Fitting Monofocal Except For Aphakia [employer] Services Fitting Monofocal Except For Aphakia 27086 2011 ISA COWAN Preventive Medicine Administration Of Health Risk Questionnaire Patient-Focused Preventive Medicine Administration Of Health Risk Questionnaire Patient-Focused 92466 TON NARANJO Internet Med Svc Qual Nonphys Healthcare Prof Up To 7 Days Estab Patient Internet Med Svc Qual Nonphys Healthcare Prof Up To 7 Days Estab Patient 93737 TON NARNAJO Threshold Audiogram (Pure Tone) Automated Threshold Audiogram (Pure Tone) Automated 0208T JEAN-PIERRE PACK Ophthalmological Prior Patient Start Intermediate Level Care Ophthalmological Prior Patient Start Intermediate Level Care 33087 JEWELS GARY Determination Of Refractive State Determination Of Refractive State 89008 JEWELS GARY Psychometric Neuropsych Testing Battery Admin By Computer Psychometric Neuropsych Testing Battery Admin By Computer 29853 ANGÉLICA WHEATLEY Brief communication technology-based service, e.g. [...] Care Ophthalmological Prior Patient Start Comprehensive Care 14610 JEWELS GARY [facility] Services Fitting Monofocal Except For Aphakia [facility]acles Services Fitting Monofocal Except For Aphakia 28289 JEWELS GARY Audiogram (Screening) Audiogram (Screening) 46487 JACOB MOLINA Spirometry Spirometry 32001 JACOB MOLINA Visual Function Screening Visual Function Screening 76533 JACOB MOLINA [facility] Chiropractic Manip Treatmt (CMT) Spinal Three To Four Region Chiropractic Manip Treatmt (CMT) Spinal Three To Four Region 04992 RITO SMITH [facility] Social History Combined list of available smoking, tobacco, and other 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 Social History Type Response Date Comment Sourc e Sex Representation Male 05/01/2020 Unknow n Organization Sexual Orientation Ambula tory Pharmacy Gender identity Ambulator y Pharmacy This section is an empty soc ial history section. [facility] Assessment and Plan Combined list of future [...] consults needed. Patient aware of services available ([facility], [facility], Supervisor Pressing Department Services, Walk in , Walk in ER, [...] at age 37. Compared medications reported by marketing services vice president to active medication list in medical record and any variances were documented.? ? 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 See PHA document for additional information. Thirteen minutes of total time spent reviewing records, discussing health concerns and preventative health measures with Accounting Supervisor. ? Extracted from:Title: Annual [facility] MHA/PHA Author: EVAN SOTOMAYOR NP Date: 10/01/22 1.?EXAM/ASSESSMENT, OCCUPATIONAL, SIDE LASTER STAPLE PERIODIC HEALTH ASSESSMENT (PHA) This encounter contains [...] reduction achieving a healthy weight/BMI?(BMI 18.5-25.0); F/U with?PCM/Oil Treater?as needed. 4.?GERD - Gastro-esophageal reflux disease Continue Omeprazole as prescribed along with avoiding triggers such as acidic/greasy/spicy food, heavy meals before bed, and caffeine;?achieving?a healthy diet and healthy weight. F/U with PCM for persistent or worsening symptoms.? 5.?Diarrhea Continue Fiber supplement as recommended by PCM, and continue F/U with PCM for management. Evan Sotomayor CTR?[employer] Provider Flight Medicine? ?[employer] [place]??[address] [facility] [phone] ? Extracted from:Title: DOD MHA/PHA Author: TON NARANJO PA-C Date: 11/07/20 1.?EXAM/ASSESSMENT, OCCUPATIONAL, SIDE LASTER STAPLE PERIODIC HEALTH ASSESSMENT (PHA) Medical record review [...] to 60 minutes before a meal, Pharmacy: [facility] [Not filled] [facility] [address] HIV-1/O/2 EPI 29334 Repository Sample [facility] 9340 Unlisted E&M Service 80881 ? 2.?ASSESSMENT, POST DEPLOYMENT, DOCUMENTED ON [id number] (MHA) ?MHA reviewed with member and closed.? No referrals needed. Ordered: omeprazole, 1 cap(s), Oral, Daily, 30 to 60 minutes before a meal, # 90 cap(s), 3 total refill(s), Maintenance, 1 cap(s) Oral Daily,Instr:30 to 60 minutes before a meal, Pharmacy: [facility] [Not filled] [facility] [address] HIV-1/O/2 EPI 29477 Repository Sample EPI 9340 Unlisted E&M Service 64581 ? 3.?GERD - Gastro-esophageal reflux disease ?Refilled Omeprazole 40mg qd prn for GERD symptoms.? Take 30 minutes before meal.? FU with PCM if symptoms not improving in 4 weeks. ? Orders: *Resuscitation Status ANNUAL PERIODIC HEALTH ASSESSMENT ? I. SIDE LASTER STAPLE INFORMATION AND DEMOGRAPHICS (SMI) 1. Last Name: SRAVANI 2. First Name: DARYN 3. Middle Name: ROSHAN 4. Assessment Date: 5. : 6. Age: 30 7. Gender: M 8. [facility] ID Number: [id number] 9. Service Branch: [employer] 10. 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 Status: Active Duty 12. 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 Unit Name: [address] 14. Duty Station/Location: [facility] 15. [facility]: [id number] 16. Is this your first Periodic Health Assessment (PHA)?: N 17. Are you enrolled in a secure messaging system with your health care provider?:? Y ? 18. Current contact information: Preferred Method: Day Time Phone DSN: [id number] Day Time Phone: [phone] Night Time Phone: Email 1: [email or web address] Email 2: Address: [address] City: [place] State: [place] Zip Code: [address] ? 19. Point of contact who can always reach you: Name: abby jordan Phone 1: [phone] Phone 2: EMAIL: Address: City: State: Zip Code: ? II. DEPLOYMENT INFORMATION (DEP) 1. Total number of deployments in the PAST 5 YEARS: 1 2. [place] [facility] 3. 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 Are [...] watchful or easily startled? No 6. d. [place] numb or detached from others, activities, or your surroundings? No 6. e. [place] guilt or unable to stop blaming yourself [...] like to schedule a visit with a chief construction inspector, mental health care provider, or a community [...] Day(s) per week 8. What prescriptions or tkqf-svi-mvafona medications are you CURRENTLY taking for health [...] health concerns?: No ? XI. SEPARATION AND FPC 1. Are you planning to separate or retire within the next year from Active Duty or Spruce Duty (activated for greater than 30 continuous days) OR do you intend to file a claim for disability compensation with the Veterans Benefits Administration?: No ? PART B. RECORD REVIEW AND RECOMMENDATIONS I. RECORD REVIEWER INFORMATION 1. Last Name: Armani 2. First Name: Ton 3. Middle Name: Cosmo 4. Service Branch: [employer] 5. 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 Title: Physician Supervisor Lamp [place]ades ([place]) 7. EMAIL: [email or web address] 8. Facility: [address] 9. Unit: [facility] 10. Address: [address] [place] [address] 11. State: [place] 12. Zip Code: [address] 13. Phone: [phone] 14. Date Record Review: ? II. MEDICAL SCREENING 1. Date of restaurant team member's most recent PHA: 2. restaurant team member's most recently documented height: 5 feet 7 inches? ?Date: 3. restaurant team member's most recently documented weight: 190 pounds? Date: 4. restaurant team member's most recently documented blood pressure readin/78? Date: 5. Does the restaurant team member have a history of abnormal blood pressure since their last PHA? No 6. What is the date of the restaurant team member's most recently documented cholesterol test? No Cholesterol Test Documented 8. List of restaurant team member's active medications listed in their permanent medical record: Methocarbamol 750mg PO PRN Ibuprofen 400mg PO, OTC, prn Omeprazole 40mg, PO, once daily 9. Is there a discrepancy between the active medication record review and the restaurant team member's self-reported list of medications?: No 10. List documented significant care the restaurant team member has received since their last PHA from a provider OUTSIDE the Health System: No Outside Care Documented 11. Is there a discrepancy between the restaurant team member's list of OUTSIDE care (from OT5), and the OUTSIDE care found in the record?: No 12. List documented significant care the restaurant team member has received since their last PHA from a provider INSIDE the Health System: No Inside Care Documented 14. Confirm that vaccine exemptions are listed in the medical record for each vaccine listed: Not Answered ? III. OCCUPATION-SPECIFIC EXAMINATIONS 2. When was the restaurant team member's most recently documented evaluation?: ? IV. FAMILY HISTORY AND LIFESTYLE 1. Does the [id number] reflect the restaurant team member's reported family history?: Yes ? VII. INDIVIDUAL MEDICAL READINESS 1. Does the restaurant team member have an Assignment Limitation Code C?: No 3. Most recently documented dental exam: Classification: 1 4. Is the restaurant team member current on all required immunizations in the immunization tracking system?: No: Influenza, [place] 5. Is the restaurant team member current with Service-specific requirements for glasses and gas mask inserts?: Yes 6. Does the restaurant team member have the following laboratory tests [...] need to be forwarded to the Health Rehab Consultant completing PART C: ? ? Date Record Review Completed: PART C. HEALTH CARE PROVIDER I. MENTAL HEALTH ASSESSMENT (MHA) PROVIDER INFORMATION 1. Last Name: Armani 2. First Name: Ton 3. Middle Name: Cosmo 4. Service Branch: [employer] 5. 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 Title: Physician Supervisor L[place]ades ([place]) 7. EMAIL: [email or web address] 8. Facility: [facility] 9. Unit: [facility] 10. Address: [address] [place] [address] 11. State: [place] 12. Zip Code: [address] 13. Phone: [phone] 14. Date HCP Review initiated: ? 1.? [...] 3. Middle Name: Cosmo 4. Service Branch: [employer] 5. 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 Title: Physician Supervisor Lamp [place]ades ([place]) 7. EMAIL: [email or web address] 8. Facility: [facility] 9. Unit: [facility] 10. Address: [address] [place] [address] 11. State: [place] 12. Zip Code: [address] 13. Phone: [phone] 14. Date HCP Review initiated: ? IV. PERIODIC HEALTH ASSESSMENT PROVIDER RECOMMENDATIONS and REFERRALS 1. Provider concerns with this assessment: No issues or concerns identified ? V. SUMMARY AND COMMENTS 1. Additional information summarizing findings during the restaurant team member assessment: ? 2. Provider Comments: ? ? . INDIVIDUAL MEDICAL READINESS DISPOSITION DETERMINATION ? ? BIJU: Ready? ? DEN: Ready? ? IMM: Ready? ? LAB: Ready? ? ME: Ready ? ? IMR Status: Fully Medically Ready ? VII. SERVICE MEDICAL DEPLOYABILITY EVALUATION INDICATED Based on your review of all documentation, is the restaurant team member medically deployable without limitations?? Reference Yonis 6490.07 ? ?Yes (restaurant team member DOES NOT currently have a medical condition that limits deployability) ? Date PHA Completed: ? END OF FD2338 REPORT -- ? [facility] Review Summary ? Does [...] conditions that dictate a referral to the [facility]?? No. ? Active Medical Conditions:? None. ? 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 Cleared for PRAP duties: NA ? Medical surveillance examination requirements up to date: NA ? 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 Cleared for continued service: Yes ? Cleared for mobility duties: Yes ? Cleared for participation in AF physical fitness program: Yes ? END OF [facility] SUMMARY -- ? 04/22/[address] [place] [address] Assessment and Plan Extracted from:Title : MHA/PHA [...] aware of services available (911, One source, Supervisor Pressing Department Services, Walk in , Walk in ER, [...] at age 37. Compared medications reported by marketing services vice president to active medication list in medical record and any variances were documented.? ? 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 See PHA document for additional information. Thirteen minutes of total time spent reviewing records, discussing health concerns and preventative health measures with Accounting Supervisor. ? Extracted from:Title: Annual [facility] MHA/PHA Author: EVAN SOTOMAYOR NP Date: 10/01/22 1.?EXAM/ASSESSMENT, OCCUPATIONAL, SIDE LASTER STAPLE PERIODIC HEALTH ASSESSMENT (PHA) This encounter contains [...] reduction achieving a healthy weight/BMI?(BMI 18.5-25.0); F/U with?PCM/Oil Treater?as needed. 4.?GERD - Gastro-esophageal reflux disease Continue Omeprazole as prescribed along with avoiding triggers such as acidic/greasy/spicy food, heavy meals before bed, and caffeine;?achieving?a healthy diet and healthy weight. F/U with PCM for persistent or worsening symptoms.? 5.?Diarrhea Continue Fiber supplement as recommended by PCM, and continue F/U with PCM for management. Evan Sotomayor CTR?PLASTIC JOINT MAKER-[facility] Provider Flight Medicine? ?[facility] [place]??[address] [facility] [phone] ? Extracted from:Title: [facility] MHA/PHA Author: TON NARANJO PA-C Date: 11/07/20 1.?EXAM/ASSESSMENT, OCCUPATIONAL, SIDE LASTER STAPLE PERIODIC HEALTH ASSESSMENT (PHA) Medical record review accomplished.? Member not present today in clinic for annual PHAQ.? PHAQ completed 11/07/2020.? HIV, Repository labs ordered.? No issues or concerns at this time.? No DR,MR,FR profiles.? Member is WWQ.? ? IMR status of member reviewed in [facility].? Member is?yellow, due Influenza vaccine. ? ? ? Ordered: omeprazole, 1 cap(s), Oral, Daily, 30 to 60 minutes before a meal, # 90 cap(s), 3 total refill(s), Maintenance, 1 cap(s) Oral Daily,Instr:30 to 60 minutes before a meal, Pharmacy: [facility] [Not filled] Administration,[facility] [address] HIV-1/O/2 EPI 50139 Repository Sample EPI 9340 Unlisted E&M Service 19909 ? 2.?ASSESSMENT, POST DEPLOYMENT, DOCUMENTED ON ZE0001 (MHA) ?MHA reviewed with member and closed.? No referrals needed. Ordered: omeprazole, 1 cap(s), Oral, Daily, 30 to 60 minutes before a meal, # 90 cap(s), 3 total refill(s), Maintenance, 1 cap(s) Oral Daily,Instr:30 to 60 minutes before a meal, Pharmacy: [facility] [Not filled] [facility] [address] HIV-1/O/2 EPI 83643 Repository Sample EPI 9340 Unlisted E&M Service 53318 ? 3.?GERD - Gastro-esophageal reflux disease ?Refilled Omeprazole 40mg qd prn for GERD symptoms.? Take 30 minutes before meal.? FU with PCM if symptoms not improving in 4 weeks. ? Orders: *Resuscitation Status ANNUAL PERIODIC HEALTH ASSESSMENT ? I. SIDE LASTER STAPLE INFORMATION AND DEMOGRAPHICS (SMI) 1. Last Name: SRAVANI 2. First Name: DARYN 3. Middle Name: ROSHAN 4. Assessment Date: 5. : 6. Age: 30 7. Gender: M 8. [facility] ID Number: [id number] 9. Service Branch: [employer] 10. 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 Status: Active Duty 12. 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 Unit Name: [address] 14. Duty Station/Location: [facility] 15. UIC: [id number] 16. Is this your first Periodic Health Assessment (PHA)?: N 17. Are you enrolled in a secure messaging system with your health care provider?:? Y ? 18. Current contact information: Preferred Method: Day Time Phone DSN: [id number] Day Time Phone: [phone] Night Time Phone: Email 1: [email or web address] Email 2: Address: [address] [facility] City: [place] State: [place] Zip Code: [address] ? 19. Point of contact who can always reach you: Name: abby jordan Phone 1: [phone] Phone 2: EMAIL: Address: City: State: Zip Code: ? II. DEPLOYMENT INFORMATION (DEP) 1. Total number of deployments in the PAST 5 YEARS: 1 2. Primary [facility] of [facility] 3. 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 Are [...] watchful or easily startled? No 6. d. [place] numb or detached from others, activities, or your surroundings? No 6. e. [place] guilt or unable to stop blaming yourself [...] like to schedule a visit with a chief construction inspector, mental health care provider, or a community [...] Day(s) per week 8. What prescriptions or goyy-kej-dmrxxsc medications are you CURRENTLY taking for health [...] health concerns?: No ? XI. SEPARATION AND FPC 1. Are you planning to separate or retire within the next year from Active Duty or Spruce Duty (activated for greater than 30 continuous days) OR do you intend to file a claim for disability compensation with the Veterans Benefits Administration?: No ? PART B. RECORD REVIEW AND RECOMMENDATIONS I. RECORD REVIEWER INFORMATION 1. Last Name: Armani 2. First Name: Ton 3. Middle Name: Cosmo 4. Service Branch: [employer] 5. 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 Title: Physician Supervisor Lamp [place]ades ([place]) 7. EMAIL: [email or web address] 8. Facility: [address] [place] [address] 9. Unit: [facility] 10. Address: [address] [place] [address] 11. State: [place] 12. Zip Code: [address] 13. Phone: [phone] 14. Date Record Review: ? II. MEDICAL SCREENING 1. Date of restaurant team member's most recent PHA: 2. restaurant team member's most recently documented height: 5 feet 7 inches? ?Date: 3. restaurant team member's most recently documented weight: 190 pounds? Date: 4. restaurant team member's most recently documented blood pressure readin/78? Date: 5. Does the restaurant team member have a history of abnormal blood pressure since their last PHA? No 6. What is the date of the restaurant team member's most recently documented cholesterol test? No Cholesterol Test Documented 8. List of restaurant team member's active medications listed in their permanent medical record: Methocarbamol 750mg PO PRN Ibuprofen 400mg PO, OTC, prn Omeprazole 40mg, PO, once daily 9. Is there a discrepancy between the active medication record review and the restaurant team member's self-reported list of medications?: No 10. List documented significant care the restaurant team member has received since their last PHA from a provider OUTSIDE the Health System: No Outside Care Documented 11. Is there a discrepancy between the restaurant team member's list of OUTSIDE care (from OTH5), and the OUTSIDE care found in the record?: No 12. List documented significant care the restaurant team member has received since their last PHA from a provider INSIDE the Health System: No Inside Care Documented 14. Confirm that vaccine exemptions are listed in the medical record for each vaccine listed: Not Answered ? III. OCCUPATION-SPECIFIC EXAMINATIONS 2. When was the restaurant team member's most recently documented evaluation?: ? IV. FAMILY HISTORY AND LIFESTYLE 1. Does the [id number] reflect the restaurant team member's reported family history?: Yes ? VII. INDIVIDUAL MEDICAL READINESS 1. Does the restaurant team member have an Assignment Limitation Code C?: No 3. Most recently documented dental exam: Classification: 1 4. Is the restaurant team member current on all required immunizations in the immunization tracking system?: No: Influenza, [place] 5. Is the restaurant team member current with Service-specific requirements for glasses and gas mask inserts?: Yes 6. Does the restaurant team member have the following laboratory tests [...] need to be forwarded to the Health Rehab Consultant completing PART C: ? ? Date Record Review Completed: PART C. HEALTH CARE PROVIDER I. MENTAL HEALTH ASSESSMENT (MHA) PROVIDER INFORMATION 1. Last Name: Armani 2. First Name: Ton 3. Middle Name: Cosmo 4. Service Branch: [employer] 5. 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 Title: Physician Supervisor Lamp [place]ades ([place]) 7. EMAIL: [email or web address] 8. Facility: [address] 9. Unit: [facility] 10. Address: [address] [place] [address] 11. State: [place] 12. Zip Code: [address] 13. Phone: [phone] 14. Date HCP Review initiated: ? 1.? [...] 3. Middle Name: Cosmo 4. Service Branch: [employer] 5. 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 Title: Physician Supervisor Lamp [place]ades ([place]) 7. EMAIL: [email or web address] 8. Facility: [address] [place] [address] 9. Unit: [facility] 10. Address: [address] [place] [address] 11. State: [place] 12. Zip Code: [address] 13. Phone: [phone] 14. Date HCP Review initiated: ? IV. PERIODIC HEALTH ASSESSMENT PROVIDER RECOMMENDATIONS and REFERRALS 1. Provider concerns with this assessment: No issues or concerns identified ? V. SUMMARY AND COMMENTS 1. Additional information summarizing findings during the restaurant team member assessment: ? 2. Provider Comments: ? ? . INDIVIDUAL MEDICAL READINESS DISPOSITION DETERMINATION ? ? BIJU: Ready? ? DEN: Ready? ? IMM: Ready? ? LAB: Ready? ? ME: Ready ? ? IMR Status: Fully Medically Ready ? VII. SERVICE MEDICAL DEPLOYABILITY EVALUATION INDICATED Based on your review of all documentation, is the restaurant team member medically deployable without limitations?? Reference Yonis 6490.07 ? ?Yes (restaurant team member DOES NOT currently have a medical condition that limits deployability) ? Date PHA Completed: ? END OF [id number] REPORT -- ? [facility] Review Summary ? Does [...] conditions that dictate a referral to the [facility] Board?? No. ? Active Medical Conditions:? None. ? 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 Cleared for PRAP duties: NA ? Medical surveillance examination requirements up to date: NA ? 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 Cleared for continued service: Yes ? Cleared for mobility duties: Yes ? Cleared for participation in AF physical fitness program: Yes ? END OF [facility] SUMMARY -- ? 04/22/2024 [id number] [facility] Assessment and Plan Extracted from:Title : MHA/PHA [...] aware of services available (911, One source, Supervisor Pressing Department Services, Walk in , Walk in ER, [...] at age 37. Compared medications reported by marketing services vice president to active medication list in medical record and any variances were documented.? ? 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 See PHA document for additional information. Thirteen minutes of total time spent reviewing records, discussing health concerns and preventative health measures with Accounting Supervisor. ? Extracted from:Title: Annual [facility] MHA/PHA Author: EVAN SOTOMAYOR NP Date: 10/01/22 1.?EXAM/ASSESSMENT, OCCUPATIONAL, SIDE LASTER STAPLE PERIODIC HEALTH ASSESSMENT (PHA) This encounter contains [...] reduction achieving a healthy weight/BMI?(BMI 18.5-25.0); F/U with?PCM/Oil Treater?as needed. 4.?GERD - Gastro-esophageal reflux disease Continue Omeprazole as prescribed along with avoiding triggers such as acidic/greasy/spicy food, heavy meals before bed, and caffeine;?achieving?a healthy diet and healthy weight. F/U with PCM for persistent or worsening symptoms.? 5.?Diarrhea Continue Fiber supplement as recommended by PCM, and continue F/U with PCM for management. Evan Sotomayor CTR?[employer] [facility]ER[facility] Provider Flight Medicine? [employer] [place]??[address] [facility] [phone] ? Extracted from:Title: [facility] MHA/PHA Author: TON NARANJO PA-C Date: 11/07/20 1.?EXAM/ASSESSMENT, OCCUPATIONAL, SIDE LASTER STAPLE PERIODIC HEALTH ASSESSMENT (PHA) Medical record review accomplished.? Member not present today in clinic for annual PHAQ.? PHAQ completed 11/07/2020.? HIV, Repository labs ordered.? No issues or concerns at this time.? No DR,MR,FR profiles.? Member is WWQ.? ? IMR status of member reviewed in [facility].? Member is?yellow, due Influenza vaccine. ? ? ? Ordered: omeprazole, 1 cap(s), Oral, Daily, 30 to 60 minutes before a meal, # 90 cap(s), 3 total refill(s), Maintenance, 1 cap(s) Oral Daily,Instr:30 to 60 minutes before a meal, Pharmacy: [facility] [Not filled] Administration,Pt-Foc [facility] [address] HIV-1/O/2 EPI 21218 Repository Sample EPI 9340 Unlisted E&M Service 04883 ? 2.?ASSESSMENT, POST DEPLOYMENT, DOCUMENTED ON LD2308 (A) ?MHA reviewed with member and closed.? No referrals needed. Ordered: omeprazole, 1 cap(s), Oral, Daily, 30 to 60 minutes before a meal, # 90 cap(s), 3 total refill(s), Maintenance, 1 cap(s) Oral Daily,Instr:30 to 60 minutes before a meal, Pharmacy: [facility] [Not filled] Administration,Pt-Foc [facility] [address] HIV-1/O/2 EPI 64173 Repository Sample EPI 9340 Unlisted E&M Service 00031 ? 3.?GERD - Gastro-esophageal reflux disease ?Refilled Omeprazole 40mg qd prn for GERD symptoms.? Take 30 minutes before meal.? FU with PCM if symptoms not improving in 4 weeks. ? Orders: *Resuscitation Status ANNUAL PERIODIC HEALTH ASSESSMENT ? I. SIDE LASTER STAPLE INFORMATION AND DEMOGRAPHICS (SMI) 1. Last Name: SRAVANI 2. First Name: DARYN 3. Middle Name: ROSHAN 4. Assessment Date: 5. : 6. Age: 30 7. Gender: M 8. [employer] ID Number: [id number] 9. Service Branch: [employer] 10. 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 Status: Active Duty 12. 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 Unit Name: [address] 14. Duty Station/Location: [facility] 15. C: [id number] 16. Is this your first Periodic Health Assessment (PHA)?: N 17. Are you enrolled in a secure messaging system with your health care provider?:? Y ? 18. Current contact information: Preferred Method: Day Time Phone DSN: [id number] Day Time Phone: [phone] Night Time Phone: Email 1: [email or web address] Email 2: Address: [address] City: [place] State: [place] Zip Code: [address] ? 19. Point of contact who can always reach you: Name: abby jordan Phone 1: [phone] Phone 2: EMAIL: Address: City: State: Zip Code: ? II. DEPLOYMENT INFORMATION (DEP) 1. Total number of deployments in the PAST 5 YEARS: 1 2. Primary country of last deployment: [facility] 3. 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 Are [...] watchful or easily startled? No 6. d. [place] numb or detached from others, activities, or your surroundings? No 6. e. [place] guilt or unable to stop blaming yourself [...] like to schedule a visit with a chief construction inspector, mental health care provider, or a community [...] Day(s) per week 8. What prescriptions or fpsp-yiw-cxjcahh medications are you CURRENTLY taking for health [...] health concerns?: No ? XI. SEPARATION AND FPC 1. Are you planning to separate or retire within the next year from Active Duty or Spruce Duty (activated for greater than 30 continuous days) OR do you intend to file a claim for disability compensation with the [employer] Administration?: No ? PART B. RECORD REVIEW AND RECOMMENDATIONS I. RECORD REVIEWER INFORMATION 1. Last Name: Armani 2. First Name: Ton 3. Middle Name: Cosmo 4. Service Branch: [employer] 5. 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 Title: Physician Supervisor Lamp [place]ades ([place]) 7. EMAIL: [email or web address] 8. Facility: [facility] 9. Unit: [facility] 10. Address: [address] [place] [address] 11. State: [place] 12. Zip Code: [address] 13. Phone: [phone] 14. Date Record Review: ? II. MEDICAL SCREENING 1. Date of restaurant team member's most recent PHA: 2. restaurant team member's most recently documented height: 5 feet 7 inches? ?Date: 3. restaurant team member's most recently documented weight: 190 pounds? Date: 4. restaurant team member's most recently documented blood pressure readin/78? Date: 5. Does the restaurant team member have a history of abnormal blood pressure since their last PHA? No 6. What is the date of the restaurant team member's most recently documented cholesterol test? No Cholesterol Test Documented 8. List of restaurant team member's active medications listed in their permanent medical record: Methocarbamol 750mg PO PRN Ibuprofen 400mg PO, OTC, prn Omeprazole 40mg, PO, once daily 9. Is there a discrepancy between the active medication record review and the restaurant team member's self-reported list of medications?: No 10. List documented significant care the restaurant team member has received since their last PHA from a provider OUTSIDE the Health System: No Outside Care Documented 11. Is there a discrepancy between the restaurant team member's list of OUTSIDE care (from OTH5), and the OUTSIDE care found in the record?: No 12. List documented significant care the restaurant team member has received since their last PHA from a provider INSIDE the Health System: No Inside Care Documented 14. Confirm that vaccine exemptions are listed in the medical record for each vaccine listed: Not Answered ? III. OCCUPATION-SPECIFIC EXAMINATIONS 2. When was the restaurant team member's most recently documented evaluation?: ? IV. FAMILY HISTORY AND LIFESTYLE 1. Does the [id number] reflect the restaurant team member's reported family history?: Yes ? VII. INDIVIDUAL MEDICAL READINESS 1. Does the restaurant team member have an Assignment Limitation Code C?: No 3. Most recently documented dental exam: Classification: 1 4. Is the restaurant team member current on all required immunizations in the immunization tracking system?: No: Influenza, [place] 5. Is the restaurant team member current with Service-specific requirements for glasses and gas mask inserts?: Yes 6. Does the restaurant team member have the following laboratory tests [...] need to be forwarded to the Health Rehab Consultant completing PART C: ? ? Date Record Review Completed: PART C. HEALTH CARE PROVIDER I. MENTAL HEALTH ASSESSMENT (MHA) PROVIDER INFORMATION 1. Last Name: Armani 2. First Name: Ton 3. Middle Name: Cosmo 4. Service Branch: [employer] 5. 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 Title: Physician Supervisor [place] ([place]) 7. EMAIL: [email or web address] 8. Facility: [address] [place] [address] 9. Unit: [facility] 10. Address: [address] [place] [address] 11. State: [place] 12. Zip Code: [address] 13. Phone: [phone] 14. Date HCP Review initiated: ? 1.? [...] 3. Middle Name: Cosmo 4. Service Branch: [employer] 5. 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 Title: Physician Supervisor [place] ([place]) 7. EMAIL: [email or web address] 8. Facility: [facility] 9. Unit: [facility] 10. Address: [address] [place] [address] 11. State: [place] 12. Zip Code: [address] 13. Phone: [phone] 14. Date HCP Review initiated: ? IV. PERIODIC HEALTH ASSESSMENT PROVIDER RECOMMENDATIONS and REFERRALS 1. Provider concerns with this assessment: No issues or concerns identified ? V. SUMMARY AND COMMENTS 1. Additional information summarizing findings during the restaurant team member assessment: ? 2. Provider Comments: ? ? . INDIVIDUAL MEDICAL READINESS DISPOSITION DETERMINATION ? ? BIJU: Ready? ? DEN: Ready? ? IMM: Ready? ? LAB: Ready? ? ME: Ready ? ? IMR Status: Fully Medically Ready ? VII. SERVICE MEDICAL DEPLOYABILITY EVALUATION INDICATED Based on your review of all documentation, is the restaurant team member medically deployable without limitations?? Reference [facility] 6490.07 ? ?Yes (restaurant team member DOES NOT currently have a medical condition that limits deployability) ? Date PHA Completed: ? END OF [id number] REPORT -- ? [facility] Review Summary ? Does [...] conditions that dictate a referral to the [facility]?? No. ? Active Medical Conditions:? None. ? 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 Cleared for PRAP duties: NA ? Medical surveillance examination requirements up to date: NA ? 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 Cleared for continued service: Yes ? Cleared for mobility duties: Yes ? Cleared for participation in AF physical fitness program: Yes ? END OF [facility] SUMMARY -- ? 04/22/[address] [place] [address] Functional Status Combined list of recent functional and cognitive assessments recorded at [employer] [facility] [employer] (VA[facility]VA Functional [place] Measurement (FIM) Scale: 1 = Total Assistance (Subject = 0% +), 2 = Maximal Assistance (Subject = 25% +), 3 = Moderate Assistance (Subject = 50% +), 4 = Minimal Assistance (Subject = 75% +), 5 = Supervision, 6 = Modified [place] (Device), 7 = Complete [place] (Timely, Safely). Assessment Date/Time Source Assessment Type Assessment Skill Assessment Score Assessment Details No data available for this section
== END 2024-04-22 16:10 | disposition home or self-care (01) ==
PROVIDERS: PCP Family Medicine; Visit Provider Nurse Practitioner Family
DX: R74.01 Elevation of levels of liver transaminase levels (principal); K59.1 Functional diarrhea; K21.9 Gastro-esophageal reflux disease without esophagitis; R14.0 Abdominal distension (gaseous); R10.13 Epigastric pain
CPT/HCPCS: 99214; G2211

== ENCOUNTER → 2024-04-22 15:07 | Outpatient (BNVA) | payer OTHER, SELFPAY | PROVIDERS: PCP Family Medicine; Visit Provider Nurse Practitioner Family | DX: K21.9 Gastro-esophageal reflux disease without esophagitis (principal); R74.01 Elevation of levels of liver transaminase levels; K59.1 Functional diarrhea; R14.0 Abdominal distension (gaseous); R10.13 Epigastric pain; Z79.899 Other long term (current) drug therapy | CPT/HCPCS: 99212 ==

== ENCOUNTER 2024-05-17 08:44 | Day surgery (SDC) | payer OTHER, SELFPAY ==
[2024-05-13 13:17] VITALS: BMI 32.7
--- NOTE | 2024-05-17 08:54 | MHC.SHP ---
Pre-Procedural Eval Section A - 24 Hr Update-Section A only Date of Service: 05/17/24 Section B - Complete if H&P > 30 days Chief Complaint: abd pain, chronic diarrhea Present Medications: see Short Stay Collaborative assessment Medical History: No relevant PMH History of Previous Operations: No relevant previous surgery Allergies: Allergies Allergy/AdvReac Type Severity Reaction Status Date / Time poison ave extract Allergy Severe Anaphylaxis Verified 04/22/24 15:12 Review of Systems Review of Systems Comment: Ten point ROS negative Exam Exam Comment: Gen appear: No acute distress HEENT: no icterus Chest: No overt resp distress Abd: soft, nontender, nondistended Psych: Stable affect, answering questions appropriately Neuro: A/Ox3 noted to move all extremities spontaneously Ext: no peripheral edema Plan Diagnosis/Plan: Unchanged I have reviewed the history and physical and performed a pertinent physical examination on my patient. No changes have occurred unless specified. Time Spent With Patient Time: Total time managing care of this patient today ____ minutes.
[2024-05-17 09:05] VITALS: BP 116/82; PULSE 70; RESP 14; TEMP 36.8; O2SAT 99; BMI 31.4
[2024-05-17] MEDS: Lactated Ringers 1,000 ML 80 ML IVCONT (09:28)
--- NOTE | 2024-05-17 09:55 | HO.ANESPROP2 ---
HPI - Anesthesia Eval Consult details Narrative: for EGD and colonoscopy. PMFSH Active Problems Active Problems: All Active Problems Elevated ALT measurement (Acute) Foot pain (Acute) Burn of skin (Acute) Keloid scar of skin (Acute) Olecranon bursitis of right elbow (Acute) Encounter for counseling regarding immunization (Acute) Hyperlipidemia (Acute) Diarrhea (Acute) GERD (gastroesophageal reflux disease) (Acute) Dermatitis due to plants, including poison ave, sumac, and oak (Acute) Bilateral patellofemoral syndrome (Acute) Adult general medical exam (Acute) Elevated transaminase level (Acute) Back pain (Acute) Knee pain (Acute) Neoplasm of uncertain behavior of skin (Acute) Screening for STD (sexually transmitted disease) (Acute) Laboratory exam ordered as part of routine general medical examination (Acute) Injury of right hand (Acute) Past Medical History Medical History Back pain Hyperlipidemia GERD (gastroesophageal reflux disease) Family History Family history of problems with anesthesia: No Surgical History Surgical History H/O hand surgery History of Problems with Anesthesia: No Social History Social History Housing: House Are you a primary resident care coordinator to a significant other at home: No Do you presently have visiting nurse or other home services: No Alcohol intake: current Alcohol intake frequency: a few times a week Patient Tobacco Use Status: Never used Tobacco e-Cigarette/Vaping Use: Never Used Second Hand Smoke Exposure: No Use of substances other than those prescribed or required for medical reasons: No Have you been hit, kicked, punched, or otherwise hurt by someone within the past year? 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 Current occupational exposures/hazards: No Cognitive needs: No Hearing needs: No Vision needs: Yes Meds Allergies Allergy/AdvReac Type Severity Reaction Status Date / Time poison ave extract Allergy Severe Anaphylaxis Verified 05/17/24 08:54 Active Medications: Current Medications Lactated Ringer's (Lr) 1,000 mls @ 80 mls/hr IVCONT .[id number] JOO Last Admin: 05/17/24 09:28 Dose: 80 mls/hr Home Medications ?Medication ?Instructions ?Recorded ?Confirmed ?Last Taken ?Type epinephrine 0.3 mg/0.3 mL 0.3 mg IM ONCE PRN Anaphylaxis 01/26/24 05/17/24 Unknown History injection, auto-injector Exam Height,Weight and Vital Signs: Height 5 ft 7 in Weight 91 kg Last Vital Signs Temp 98.3 F 05/17/24 09:05 Pulse 70 05/17/24 09:05 Resp 14 05/17/24 09:05 BP 116/82 05/17/24 09:05 Pulse Ox 99 05/17/24 09:05 O2 Del Method Room Air 05/17/24 09:05 Airway Mallampati Class: I TM Dist: <=3cm Neck ROM: Full Loose/Missing/Broken Teeth: No Heart: ok Lungs: ok Assessment and Plan Assessment Anesthesia Assessment: Anesthesia Plan Discussed and Chart Reviewed Final Anesthetic Review Family History of Problems with Anesthesia: No History of Problems with Anesthesia: No NPO: Yes ASA Class: II Final Preanesthetic Review: No Changes in Pt Med Stat, Meds/Allgs Chart Reviewed, Consent Obtained/Reviewed and Anes Risks/Benef Reviewed Patient Risk: Low Procedure Risk: Intermediate Anesthetic Plan Anesthetic Plan: Agree w/ Assess. and Plan and TIVA Disposition: Standard PACU
--- NOTE | 2024-05-17 10:36 | P.OPN-COLO_ITS ---
Colonoscopy Operative Note Operative Note Date of Service: 05/17/24 Narrative: Procedure: Upper endoscopy and colonoscopy Indication: Abd pain, diarrhea Endoscopist: Pati Cortes MD Anesthesia Provider: Anesthesia type: MAC Instrument: [id number] and [id number] EGD Procedure:?? The procedure, indications, preparation and potential complications were reviewed with the patient, who indicated understanding and gave written informed consent to proceed. The endoscope was introduced through the mouth, and advanced to the 2nd part of the duodenum. The mucosa was carefully examined on slow withdrawal of the endoscope. The patient tolerated the procedure well. There were no immediate complications.? EGD Findings:? * Esophagus:? Normal esophageal mucosa was noted. The Z-line was at 42 cm and irregular up to 41 cm. Cold forceps biopsies were taken from GE junction to rule out Wise's esophagus. This will also be sent for tissue cypher if Wise's confirmed. Middle esophagus biopsies were taken to rule out eosinophilic esophagitis. * Stomach:? Erythema and erosions in the antrum. Retroflexion was performed in the cardia. Random cold forceps biopsies were taken from the stomach. * Duodenum:? Normal duodenal mucosa. Cold forceps biopsies were taken from the duodenal bulb and 2nd portion of the duodenum to rule out celiac sprue. Colonoscopy Procedure:? The patient was then turned for the colonoscopy. A digital rectal exam was performed which was normal.? A distal attachment cap was affixed to the tip of the scope and the colonoscope was then inserted through the anus and advanced through the colon and advanced to the cecum at 75 cm and terminal ileum.? Appendiceal orifice and ileocecal valve were identified. Mucosa was carefully examined under high definition white light as the instrument was slowly withdrawn in a retrograde panoramic fashion. Retroflexion was performed in rectum. The procedure was not difficult. The quality of the prep was BBPS: 3+2+3 = adequate Withdrawal time 6 minutes Limitations: No limitations Findings: Mucosa: Normal colon and terminal ileum mucosa. Cold forceps biopsies were taken from the right and left side of the colon to rule out microscopic colitis. Protruding lesions: * Small internal hemorrhoids without stigmata of recent bleeding. Impression: 1. Irregular Z line r/o Wise's (biopsy, tissue cypher) 2. Gastritis (biopsy) 3. Normal duodenum (biopsy) 4. Normal colon and terminal ileum mucosa (biopsy) 5. Internal and external hemorrhoids Recommendations:?? * Follow-up path results * Avoid NSAIDs * H Pylori treatment if biopsies + * Asymptomatic CRC screening to begin at 47 y.o
[2024-05-17 10:45] VITALS: BP 101/65; PULSE 61; RESP 16; TEMP 36.3; O2SAT 97
[2024-05-17 11:00] VITALS: BP 116/81; PULSE 61; RESP 16; TEMP 36.3; O2SAT 100
== END 2024-05-17 12:38 | disposition home or self-care (01) ==
PROVIDERS: PCP Family Medicine; Visit Provider Internal Medicine
PROC: (CPT 45380; principal; 2024-05-17 10:00)
DX: R10.9 Unspecified abdominal pain (principal); K52.9 Noninfective gastroenteritis and colitis, unspecified; K64.8 Other hemorrhoids; K64.4 Residual hemorrhoidal skin tags; K21.9 Gastro-esophageal reflux disease without esophagitis; K29.50 Unspecified chronic gastritis without bleeding; K22.89 Other specified disease of esophagus; E78.5 Hyperlipidemia, unspecified
CPT/HCPCS: 45380; 43239; 88305; 88313; 88342; J2003; J2704; J3010

== ENCOUNTER → 2024-05-17 08:44 | Outpatient (BNV) | payer OTHER, SELFPAY | PROVIDERS: PCP Family Medicine; Visit Provider Internal Medicine | DX: R10.9 Unspecified abdominal pain (principal); K29.70 Gastritis, unspecified, without bleeding; R19.7 Diarrhea, unspecified; K64.8 Other hemorrhoids | CPT/HCPCS: 43239; 45380 ==

== ENCOUNTER 2024-05-23 08:50 | Outpatient (REF) | payer OTHER, SELFPAY ==
--- NOTE | ~2024-05-23 | US_ITS ---
EXAMINATION: US ABDOMEN LIMITED WITH LIVER ELASTOGRAPHY HISTORY: R74.01 - Elevation of levels of liver transaminase levels TECHNIQUE: Real-time grayscale ultrasound imaging of the right upper quadrant was performed and images were reviewed. COMPARISON: There are no prior studies for comparison. FINDINGS: Liver: The right lobe of the liver measures 17.2 cm in size. The left lobe of the liver measures 1.8 cm in size. The liver demonstrates normal homogeneous echotexture. No focal mass or intrahepatic biliary ductal dilatation is identified. There is normal hepatopedal flow in the portal vein. Ultrasound elastography of the liver was performed with 10 separate measurements of the liver parenchyma with the patient in the supine position. Measurements were obtained approximately 2 cm below Remi's capsule and perpendicular to the capsule. Images are of satisfactory quality. The median shear wave velocity is 1.56 m/s. The interquartile range/median (IQR/median) is 0.15. Gallbladder and biliary tree: The gallbladder is unremarkable, without evidence of calculi, wall thickening, or pericholecystic fluid. There is no sonographic Estrada sign. The common bile duct is normal in caliber measuring 5 mm. Right Kidney: The right kidney measures 11.0 cm in length. The right kidney is unremarkable, without evidence of masses, hydronephrosis, or calculi. Pancreas: The pancreatic head, neck, and body are unremarkable. The pancreatic tail is obscured by bowel gas. Abdominal aorta and inferior vena cava: The visualized portions of the abdominal aorta and inferior vena cava are normal in caliber. There is no free fluid in the right upper quadrant. US/US abdomen medina w elastography IMPRESSION: Mild hepatomegaly. Otherwise unremarkable right upper quadrant ultrasound. The median shear wave velocity in the liver is 1.56 m/s, corresponding to a median liver stiffness of 7.49 kPa. The IQR/median value is 0.15. This is indicative of a poor quality data set, and the estimated liver stiffness may be unreliable. Findings are indicative of a low elastography value which rules out advanced chronic liver disease in asymptomatic patients. REFERENCE: Society of Radiologists in Ultrasound Liver Stiffness Thresholds (2020): LIVER STIFFNESS THRESHOLDS: *Shear wave velocity less than 1.3 m/s (Liver Stiffness equal or less than 5 kPa): High probability of being normal. *Shear wave velocity less than 1.7 m/s (Liver Stiffness less than 9 kPa): In the absence of other known clinical signs, rules out compensated advanced chronic liver disease. *Shear wave velocity between 1.7-2.1 m/s (Liver Stiffness 9-13 kPa): Suggestive of compensated advanced chronic liver disease but need further test for confirmation. *Shear wave velocity between 2.1-2.4 m/s (Liver Stiffness 13-17 kPa): Rules in compensated advanced chronic liver disease. *Shear wave velocity greater than 2.4 m/s (Liver Stiffness over 17 kPa): Suggestive of clinically significant portal hypertension. QUALITY OF DATA SET: *IQR/Median value equal or less than 0.15 implies a quality data set. *IQR/Median value over 0.15 implies a poor quality data set. SIGNIFICANT CHANGE FROM PRIOR EXAM: Significant change if liver stiffness measurement is 10% or greater from prior exam. OTHER CONSIDERATIONS: The stage of liver fibrosis may be overestimated in the setting of acute hepatitis, liver inflammation, elevated liver function tests, hepatic vascular congestion, obstructive cholestasis, non-fasting state, and infiltrative diseases such as amyloidosis and lymphoma. In some patients with NAFLD, the liver stiffness thresholds for compensated advanced chronic liver disease may be lower. In causes other than viral hepatitis and NAFLD, liver stiffness thresholds are not well established. Electronically signed by: Laureano Khan MD 05/23/2024 09:52 AM EDT
== END 2024-05-23 08:51 | disposition home or self-care (01) ==
LOC: HO.US 08:50
PROVIDERS: PCP Family Medicine; Visit Provider Family Medicine
DX: R74.01 Elevation of levels of liver transaminase levels (principal)
CPT/HCPCS: 76705; 76981

== ENCOUNTER → 2024-05-23 08:52 | Outpatient (BNV) | payer OTHER, SELFPAY | PROVIDERS: PCP Family Medicine; Visit Provider Radiology Diagnostic Radiology | DX: R74.01 Elevation of levels of liver transaminase levels (principal) | CPT/HCPCS: 76705; 76981 ==

== ENCOUNTER → 2024-06-02 09:04 | Outpatient (BNVA) | payer OTHER, SELFPAY | PROVIDERS: PCP Family Medicine; Visit Provider Family Medicine ==

== ENCOUNTER 2024-06-07 15:51 | Outpatient (AMB) | payer OTHER, SELFPAY ==
[2024-06-07 15:56] VITALS: BP 118/70; PULSE 78; O2SAT 96; BMI 31.9
--- NOTE | 2024-06-07 15:56 | A.OFFVIS_ITS ---
Vital Signs 06/07/24 15:56 Height 5 ft 7 in Weight 203 lb 12 oz BMI 31.9 BP 118/70 Blood Pressure Location Rt brachial Position Sitting Pulse 78 Pulse Source Pulse Oximeter Pulse Oximetry (%) 96 Oxygen Delivery Method Room Air Intake Visit Reasons: Post op Intake Note: ESTABLISHED PATIENT for diarrhea / general sx mgmt. S/P duo. Chief Complaint; Pt denies any sx or concerns at this time. Pt reports sx well managed. Blueprint Assembler Required: No Accompanied by: Self / Same As Patient Allergies poison ave extract Allergy (Severe, Verified 06/07/24 15:59) Anaphylaxis HPI HPI Post op: Details: LAST VISIT: Elevated ALT measurement Diarrhea GERD (gastroesophageal reflux disease) Postprandial abdominal bloating Postprandial epigastric pain Plan Patient will continue current treatment with omeprazole in the morning. Occasionally patient can take Tums as needed. Avoid dietary triggers and late night snacking. Staying upright for minimum 3 hours after meals discussed with patient. Patient will be sent for colonoscopy as he continues to have loose stools postprandially. Patient will be sent for blood work and fecal studies to rule out IBD. What to expect before during and after procedure discussed with patient. Patient is aware that he needs to be on clear liquid diet day before procedure. Stressed the importance of clear liquid diet and good bowel prep. Will send patient to check CRP and fecal calprotectin. He can start taking vitamin-D. I will see patient after colonoscopy and upper endoscopy. He is agreeable to current plan of care and verbalizes understanding of instructions. He was given the opportunity to ask questions and all questions answered. ? Thank you for allowing me to participate in his care Orders Orders C Reactive Protein 04/22/24 K58.9 Calprotectin, Fecal 04/22/24 R15.9 Medications New cholecalciferol (vitamin D3) 50 mcg PO DAILY 90 caps 3RF R79.89 bisacodyl (Dulcolax (bisacodyl)) take 4 tabs at noon the day before your colonoscopy 20 mg (4 x 5 mg) PO ONCE 4 tabs 0RF 1 day Z12.11 polyethylene glycol 3350 (Miralax) As directed by gastroenterology department at [facility] 238 grams PO ONCE 238 grams 0RF Z12.11 UPPER ENDOSCOPY AND COLONOSCOPY EGD Findings:? * Esophagus:? Normal esophageal mucosa was noted. The Z-line was at 42 cm and irregular up to 41 cm. Cold forceps biopsies were taken from GE junction to rule out Wise's esophagus. This will also be sent for tissue cypher if Wise's confirmed. Middle esophagus biopsies were taken to rule out eosinophilic esophagitis. * Stomach:? Erythema and erosions in the antrum. Retroflexion was performed in the cardia. Random cold forceps biopsies were taken from the stomach. * Duodenum:? Normal duodenal mucosa. Cold forceps biopsies were taken from the duodenal bulb and 2nd portion of the duodenum to rule out celiac sprue. Colonoscopy Procedure:? The patient was then turned for the colonoscopy. A digital rectal exam was performed which was normal.? A distal attachment cap was affixed to the tip of the scope and the colonoscope was then inserted through the anus and advanced through the colon and advanced to the cecum at 75 cm and terminal ileum.? Appendiceal orifice and ileocecal valve were identified. Mucosa was carefully examined under high definition white light as the instrument was slowly withdrawn in a retrograde panoramic fashion. Retroflexion was performed in rectum. The procedure was not difficult. The quality of the prep was BBPS: 3+2+3 = adequate Withdrawal time 6 minutes Limitations: No limitations Findings: Mucosa: Normal colon and terminal ileum mucosa. Cold forceps biopsies were taken from the right and left side of the colon to rule out microscopic colitis. Protruding lesions: * Small internal hemorrhoids without stigmata of recent bleeding.Impression: 1. Irregular Z line r/o Wise's (biopsy, tissue cypher) 2. Gastritis (biopsy) 3. Normal duodenum (biopsy) 4. Normal colon and terminal ileum mucosa (biopsy) 5. Internal and external hemorrhoids Recommendations:?? * Follow-up path results * Avoid NSAIDs * H Pylori treatment if biopsies + * Asymptomatic CRC screening to begin at 47 y.o PATHOLOGY RESULTS Diagnosis A. Duodenum, biopsy: Duodenal mucosa with preserved villi and no specific change. B. Stomach, random, biopsy: Gastric body mucosa with focal minimal chronic inactive inflammation; negative for H. pylori, intestinal metaplasia and dysplasia. C. Gastroesophageal junction, biopsy: Squamocolumnar and gastric cardia-fundic mucosa with minimal chronic inflammation; negative for intestinal metaplasia and dysplasia. D. Esophagus, middle, biopsy: Squamous mucosa with no specific change; no columnar mucosa present. E. Colon, right, biopsy: Colonic mucosa with no specific change; no evidence of microscopic colitis. F. Colon, left, biopsy: Colonic mucosa with lymphoid aggregate and no specific change; no evidence of microscopic colitis. TODAY'S VISIT Patient is here today for follow-up and to discuss upper endoscopy and colon oscopy results. Patient denies any ill effects from the prep, anesthesia or procedure itself. Patient had normal colonoscopy, recommendation was to screen when he turns 47 if asymptomatic. Upper endoscopy showed no intestinal dysplasia, no H pylori and no Barretts. Minimal chronic inactive inflammation seen. Patient currently is taking omeprazole daily and his symptoms are suppressed for the most part. Patient reports that since he started taking fiber he no longer has diarrhea. Patient denies any melena, hematochezia, unintentional weight loss or ribbon like stools. Denies any dyspepsia, dysphagia or odynophagia. PCP did liver ultrasound with elastography that showed fatty liver. Patient had mildly increased ALT, normal AST and normal alk phosphate. Patient denies any abdominal pain or discomfort postprandially. 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 Current occupational exposures/hazards: No Cognitive needs: No Hearing needs: No Vision needs: Yes Review of Systems Const Denies weight gain and Denies weight loss ENT Reports no additional complaints, Denies dysphagia and Denies odynophagia Card Reports no additional complaints Resp Reports no additional complaints GI Denies abdominal pain, Denies belching, Denies melena, Denies bloating, Denies change in bowel habits, Denies dysphagia, Denies excessive flatus, Denies dyspepsia, Denies heartburn, Denies diarrhea, Denies loose stools, Denies nausea, Denies odynophagia and Denies vomiting Reports no additional complaints Musc Reports no additional complaints Neuro Reports no additional complaints Psych Reports no additional complaints Endo Reports no additional complaints Physical Exam Vital Signs: Last Vital Signs Pulse 78 06/07/24 15:56 BP 118/70 06/07/24 15:56 Pulse Ox 96 06/07/24 15:56 Oxygen Delivery Method Room Air 06/07/24 15:56 BMI result Body Mass Index 31.9 Const General: healthy appearing and no acute distress Nutritional Appearance: obese Orientation/consciousness: patient oriented x3 Resp Effort & Inspection: normal respiratory effort, able to speak in complete sentences, no tracheal deviation and symmetric chest movement Auscultation: clear to auscultation bilaterally Cardio Rate: regular rate GI Inspection: Yes normal to inspection, No distended and Yes obesity Palpation (GI): Soft to palpation, not firm, nontender and No hepatosplenomegaly present Auscultation: normal bowel sounds General: Yes no CVA tenderness Back/Spine/Pelvis Back: no CVA tenderness Skin General skin exam: elasticity normal, turgor normal and dry skin Neuro General: patient oriented x3 Psych Appearance: grossly normal Mental Status: mental status grossly normal Assessment & Plan Assessment & Plan (1) Elevated ALT measurement: Code(s): R74.01 - Elevation of levels of liver transaminase levels Category: Medical (2) Diarrhea: Code(s): R19.7 - Diarrhea, unspecified Category: Medical Qualifiers: Diarrhea type: functional diarrhea Qualified Code(s): K59.1 - Functional diarrhea (3) GERD (gastroesophageal reflux disease): Code(s): K21.9 - Gastro-esophageal reflux disease without esophagitis Category: Medical Qualifiers: Esophagitis presence: esophagitis presence not specified Qualified Code(s): K21.9 - Gastro-esophageal reflux disease without esophagitis (4) Postprandial abdominal bloating: Code(s): R14.0 - Abdominal distension (gaseous) (5) Postprandial epigastric pain: Code(s): R10.13 - Epigastric pain Plan Continue omeprazole daily. Avoid dietary triggers and late night snacking. Staying upright for minimum 3 hours after meals discussed with patient. Continue taking fiber. Avoid dietary triggers. Continue following low FODMAP diet as much as he can. Follow-up in 6 months, sooner on as needed basis. He is agreeable to this plan and verbalizes understanding of instructions. She was given the opportunity to ask questions and all questions answered. Thank you for allowing me to participate in his care Coding Level of Care Code Est Pt Level 4 (96552) Complex EM visit Add On G2211 Diagnoses Elevated ALT measurement R74.01 Functional diarrhea K59.1 Diarrhea type: functional diarrhea Gastroesophageal reflux disease, unspecified whether esophagitis present K21.9 Esophagitis presence: esophagitis presence not specified Postprandial abdominal bloating R14.0 Postprandial epigastric pain R10.13 Time Spent (min) 35 Comment 20 minutes spent with patient and additional 15 minutes spent reviewing his records
--- OUTSIDE RECORDS SUMMARY | 2024-06-07 18:48 | XMS_ITS | Continuity of Care Document ---
Author Name [facility] Organization [facility] Care Team Providers Care Social Work Program Coordinator Name Role Phone [facility] Unavailable Unavailable Problems Combined list of problems from 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 It does not include entries that were removed or entered in error. Problem Status Onset Date Problem Type Date of Resolution Comments Source Encounter for issue of other medical certificate Active 09/09/2023 Diagnosis [facility] Diarrhea Active Condition 2186M-VB-G-6 [facility] GERD - Gastro-esophageal reflux disease Active Condition 0310C-AF-C -6 [facility] Hyperlipidemia Active Condition 0310A-A F-C-6 [facility] LBP - Low back pain Active Condition 03 10C-AF-C-6 [facility] Obesity Active Condition 3261K-FI-N-6 [facility] Immunizations Combined list of available immunizations from the 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 Immunization Series Date Given Administered By Site Reaction Lot Number CVX Code Drug Cosmetic Chemist Status Comments Source COVID Vaccine Pfizer 2020 WENDYGRUBER Irisul cassy, left (delt oid) [id number] PFIZER complet ed COVID Vaccine Pfizer 11/30/20 [facility] COVID Vaccine Pfizer 2020 FENIXRMARTIN Irisul cassy, left (delt oid) [id number] PFIZER complet ed COVID Vaccine Pfizer 11/02/20 Given [facility]10C[facility] influenza virus vaccine, inactivated 2020 88 sanofi pasteur complet ed influenza virus vaccine, inactivat ed 03/17/20 Given Ambulat ory Pharmac y influenza, injectable, quadrivalent- pf 2018 [id number] 150 Seqirus complet ed influenza , injectabl e, quadrival ent-pf 01/05/19 Given Ambulat ory Pharmac y anthrax vaccine 2018 [id number] 24 Emergent Biosolutions complet ed anthrax vaccine 11/29/18 Given Ambulat ory Pharmac y influenza, injectable, quadrivalent- pf 2017 [id number] 150 Seqirus complet ed influenza , injectabl e, quadrival ent-pf 12/04/17 Given Ambulat ory Pharmac y typhoid Vi capsular polysaccharid e vac 2016 [id number] 101 sanofi pasteur complet ed typhoid Vi capsular polysacch aride vac 12/19/16 Given Ambulat ory Pharmac y anthrax vaccine 2016 [id number] 24 [employer] complet ed anthrax vaccine 12/19/16 Given Ambulat ory Pharmac y Influenza, inj, MDCK, quadrivalent- pf 2016 [id number] 171 Seqirus complet ed Influenza , inj, MDCK, quadrival ent-pf 12/19/16 Given Ambulat ory Pharmac y tuberculin purified protein derivative 2016 [id number] 96 [facility] complet ed tuberculi n purified protein derivativ e 06/06/16 Given Ambulat ory Pharmac y tuberculin purified protein derivative 2016 [id number] 96 [facility] complet ed tuberculi n purified protein derivativ e 05/29/16 Given Ambulat ory Pharmac y Human Papillomaviru s 9-valent vaccine 2016 [id number] 165 Merck & Company Inc complet ed Human Papilloma virus 9-valent vaccine 03/04/16 Given Ambulat ory Pharmac y Human Papillomaviru s 9-valent vaccine 2015 [id number] 165 Merck & Company Inc complet ed Human Papilloma virus 9-valent vaccine 11/02/15 Given Ambulat ory Pharmac y influenza, injectable, quadrivalent- pf 2015 [id number] 150 GlaxoSmithKli ne complet ed influenza , injectabl e, quadrival ent-pf 11/02/15 Given Ambulat ory Pharmac y Human Papillomaviru s 9-valent vaccine 2015 [id number] 165 Merck & Company Inc complet ed Human Papilloma virus 9-valent vaccine 08/23/15 Given Ambulat ory Pharmac y [place] Encephalitis IM 2015 [id number] [address] [place] Encephali tis IM 08/23/15 Given Ambulat ory Pharmac y anthrax vaccine 2015 [id number] 24 Emergent Biosolutions complet ed anthrax vaccine 08/23/15 Given Ambulat ory Pharmac y anthrax vaccine 2014 [id number] 24 Emergent Biosolutions complet ed anthrax vaccine 02/09/15 Given Ambulat ory Pharmac y influenza, injectable, quadrivalent 2014 [id number] 158 GlaxoSmithKli ne complet ed influenza , injectabl e, quadrival ent 11/30/14 Given Ambulat ory Pharmac y [place] Encephalitis IM 2014 [id number] [id number] [address] [place] Encephali tis IM 08/15/14 Given Ambulat ory Pharmac y anthrax vaccine 2014 [id number] 24 Emergent Biosolutions complet ed anthrax vaccine 08/15/14 Given Ambulat ory Pharmac y [place] Encephalitis IM 2014 [id number] [id number] [address] [place] Encephali tis IM 06/08/14 Given Ambulat ory Pharmac y vaccinia (smallpox) vaccine 2014 [id number] 75 Sanofi Pasteur Incorporated complet ed vaccinia (smallpox ) vaccine 06/01/14 Given Ambulat ory Pharmac y anthrax vaccine 2014 [id number] 24 Emergent Biosolutions complet ed anthrax vaccine 04/25/14 Given Ambulat ory Pharmac y typhoid Vi capsular polysaccharid e vac 2014 [id number] 101 sanofi pasteur complet ed typhoid Vi capsular polysacch aride vac 04/24/14 Given Ambulat ory Pharmac y measles/mumps /rubella virus vaccine 2014 [id number] 03 Merck & Company Inc complet ed measles/m umps/rube lla virus vaccine 04/24/14 Given Ambulat ory Pharmac y influenza, injectable, quadrivalent- pf 2013 [id number] 150 ID Biomedical comple t ed influenza , injectabl e, quadrival ent-pf 12/02/13 Given Ambulat ory Pharmac y influenza, seasonal, injectable-pf 2012 [id number] 140 sanofi pasteur complet ed influenza , seasonal, injectabl e-pf 11/23/12 Given Ambulat ory Pharmac y influenza virus vaccine, live 2011 [id number] 111 iRx Reminder Inc comple t ed influenza virus vaccine, live 10/28/11 Given Ambulat ory Pharmac y hepatitis A adult vaccine 2011 [id number] [id number] 52 GlaxoSmithKli ne complet ed hepatitis A adult vaccine 09/12/11 Given Ambulat ory Pharmac y Hep A, pediatric, unspecified formul 2011 [id number] 3BA 31 GlaxoSmithKli ne complet ed Hep A, pediatric , unspecifi ed formul 02/26/11 Given Ambulat ory Pharmac y tetanus, diphtheria, acellular pertu is 2011 [id number] 115 GlaxoSmithKli ne complet ed tetanus, diphtheri a, acellular pertussis 02/26/11 Given Ambulat ory Pharmac y measles/mumps /rubella virus vaccine 2011 [id number] 03 Merck & Company Inc complet ed measles/m umps/rube lla virus vaccine 02/26/11 Given Ambulat ory Pharmac y tuberculin purified protein derivative 2011 [id number] 96 sanofi pasteur complet ed tuberculi n purified protein derivativ e 02/23/11 Given Ambulat ory Pharmac y adenovirus vaccine, live 2010 [id number] 143 Teva Pharmaceutica ls complet ed adenoviru s vaccine, live 02/21/11 Given Ambulat ory Pharmac y influenza, seasonal, injectable-pf 2010 [id number] 140 sanofi pasteur complet ed influenza , seasonal, injectabl e-pf 02/21/11 Given Ambulat ory Pharmac y meningococcal A,C,Y,W-135 (MCV4P) 2010 [id number] 114 sanofi pasteur complet ed meningoco ccal A,C,Y,W-1 35 (MCV4P) 02/21/11 Given Ambulat ory Pharmac y poliovirus vaccine, inactivated 2010 [id number] 10 sanofi pasteur complet ed polioviru s vaccine, inactivat ed 02/21/11 Given Ambulat ory Pharmac y Results Combined list of recent chemistry, hematology [...] Prevention' s HIV diagnostic algorithm. Refer to [facility] Lab Guide for additional information : https://[employer]x. [facility]/ kj/kx5/EPIL ab/Pages/la b_guide.asp x Testing performed by [employer] iluminHydrostorcen ce. 5600A-US AFSAM EPILAB Miscellan eous Sendouts [...] Prevention' s HIV diagnostic algorithm. Refer to [facility] Lab Guide for additional information : [email or web address]://[email or web address] .[facility]/k j/kx5/EPILa b/Pages/lab _guide.aspx Testing performed by Marjorie brooke. Performed by: Epidemiolog y Laboratory Service [facility] [address] [place] [address], [place] [address] 0010A-[facility] Miscellan eous Sendouts Repository Sample.EPI RECEIVED 11/07 Result Comment: INTERPRETAT ION(S): Performed by: Epidemiolog y Laboratory Service [facility] [address] [place] [address], [place] [address] 0010A-[facility] Encounters Combined list of: 1) Encounters from Department of [facility] facilities going backup to the last 18 months, not all [place] inpatient encounters are included; 2) Encounters from the Department of [facility] facilities going backup to 280 months. Location Location Details Encounter Type Encounter Number Reason For Visit Attending Provider ADM Date DC Date Status Disposition Source 0310A-AF- C-[facility] Between Visit [id number] 09/08 Discharge Disposition: Home or Self Care 0310A-A F-C-66t h [facility] 7379C-[facility] Outpatient [id number] Encount er for issue of other medical certifi tad PADILLANAZLAM 09/08 Discharge Disposition: Home or Self Care 7379C-[facility][note 2] 0C-AF- C-[facility] Dental [id number] CESAR MANN 12/14 Discharge Disposition: Home or Self Care 0310C-A F-C-[facility]t [facility] 0310A-AF- C-[facility] Between Visit [id number] 12/30 Discharge Disposition: Home or Self Care 0310A-A F-C-[facility] Procedures Combined list of: 1) Procedures from Department of Veterans Affairs facilities going back up to thelast 18 months, not all [place] non-surgical procedures are included; 2) All procedures from the Department of Defense facilities. Procedure Procedure Type Code Date Perfomer Comments [facility] e R hand surgery x2 Last 2021 309 C-AF-C [facility] WTE 5460F-EK-P [facility] Social History Combined list of available smoking, tobacco, and other 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 Social History Type Response Date Comment Sour e Sex Representation Male (finding) 05/01/2020 Un known Organization Sexual Orientation Ambula tory Pharmacy Gender identity Ambulator y Pharmacy Assessment and Plan Combined list of future [...] needed. Patient aware of services available (911, [employer] One source, [facility] Current Inspector Services, Walk in , Walk in ER, [...] at age 37. Compared medications reported by community service representative to active medication list in medical record and any variances were documented.? ? Any complaints or issues identified while conducting the PHA have been addressed and or referred back to the patient s ?PCM for care.?merchandise flow team member advised to follow up with PCM, Behavioral Health, ED/911, or [employer] One Source as needed for continuation of care, and/or further evaluation during exacerbations of physical and/or psychological illness or injury. See PHA document for additional information. Thirteen minutes of total time spent reviewing records, discussing health concerns and preventative health measures with Instructional Designer. ? Extracted from:Title: Annual DoD MHA/PHA Author: EVAN BROWN NP Date: 10/01/22 1.?EXAM/ASSESSMENT, OCCUPATIONAL, RN TRANSITION PERIODIC HEALTH ASSESSMENT (PHA) This encounter contains [...] reduction achieving a healthy weight/BMI?(BMI 18.5-25.0); F/U with?PCM/Street Light Cleaner?as needed. 4.?GERD - Gastro-esophageal reflux disease Continue Omeprazole as prescribed along with avoiding triggers such as acidic/greasy/spicy food, heavy meals before bed, and caffeine;?achieving?a healthy diet and healthy weight. F/U with PCM for persistent or worsening symptoms.? 5.?Diarrhea Continue Fiber supplement as recommended by PCM, and continue F/U with PCM for management. Evan Brown CTR?AUDIO VISUAL TECHNICIAN-C [facility] Provider Flight Medicine? 66?[employer]??[address] [facility] [phone] ? Extracted from:Title: DOD MHA/PHA Author: HOLLIE NARANJO PA-C Date: 11/07/20 1.?EXAM/ASSESSMENT, OCCUPATIONAL, RN TRANSITION PERIODIC HEALTH ASSESSMENT (PHA) Medical record review [...] to 60 minutes before a meal, Pharmacy: [facility] [Not filled] Administration,[facility] [address] HIV-1/O/2 EPI 55093 Repository Sample EPI 9340 Unlisted [employer] 58336 ? 2.?ASSESSMENT, POST DEPLOYMENT, DOCUMENTED ON FD6308 (MHA) ?MHA reviewed with member and closed.? No referrals needed. Ordered: omeprazole, 1 cap(s), Oral, Daily, 30 to 60 minutes before a meal, # 90 cap(s), 3 total refill(s), Maintenance, 1 cap(s) Oral Daily,Instr:30 to 60 minutes before a meal, Pharmacy: [facility] [Not filled] Administration,[facility] [address] HIV-1/O/2 EPI 25124 Repository Sample EPI 9340 Unlisted [employer] 30025 ? 3.?GERD - Gastro-esophageal reflux disease ?Refilled Omeprazole 40mg qd prn for GERD symptoms.? Take 30 minutes before meal.? FU with PCM if symptoms not improving in 4 weeks. ? Orders: *Resuscitation Status ANNUAL PERIODIC HEALTH ASSESSMENT ? I. RN TRANSITION INFORMATION AND DEMOGRAPHICS (SMI) 1. Last Name: SRAVANI 2. First Name: DARYN 3. Middle Name: ROSHAN 4. Assessment Date: 5. : 6. Age: 30 7. Gender: M 8. DoD ID Number: [id number] 9. Service Branch: [employer] 10. 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 Status: Active Duty 12. 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 Unit Name: [address] 14. Duty Station/Location: [facility] 15. UIC: [id number] 16. Is this your first Periodic Health Assessment (PHA)?: N 17. Are you enrolled in a secure messaging system with your health care provider?:? Y ? 18. Current contact information: Preferred Method: Day Time Phone DSN: [id number] Day Time Phone: [phone] Night Time Phone: Email 1: [email or web address] Email 2: Address: [address] City: [place] State: [place] Zip Code: [address] ? 19. Point of contact who can always reach you: Name: abby jordan Phone 1: [phone] Phone 2: EMAIL: Address: City: State: Zip Code: ? II. DEPLOYMENT INFORMATION (DEP) 1. Total number of deployments in the PAST 5 YEARS: 1 2. Primary country of last deployment: [place] 3. 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 Are you [...] watchful or easily startled? No 6. d. [place] numb or detached from others, activities, or your surroundings? No 6. e. [place] guilt or unable to stop blaming yourself [...] like to schedule a visit with a manager operations research, mental health care provider, or a community [...] Day(s) per week 8. What prescriptions or uzzo-dnc-uxslqfr medications are you CURRENTLY taking for health [...] health concerns?: No ? XI. SEPARATION AND LONG TERM 1. Are you planning to separate or retire within the next year from Active Duty or [place] Duty (activated for greater than 30 continuous days) OR do you intend to file a claim for disability compensation with the [employer]?: No ? PART B. RECORD REVIEW AND RECOMMENDATIONS I. RECORD REVIEWER INFORMATION 1. Last Name: Armani 2. First Name: Hollie 3. Middle Name: Cosmo 4. Service Branch: [facility] 5. 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 Title: Physician Brim Setter ([place]) 7. EMAIL: [email or web address] 8. Facility: [facility] 9. Unit: [facility] 10. Address: [address] [place] [address] 11. State: [place] 12. Zip Code: [address] 13. Phone: [phone] 14. Date Record Review: ? II. MEDICAL SCREENING 1. Date of merchandise flow team member's most recent PHA: 2. merchandise flow team member's most recently documented height: 5 feet 7 inches? ?Date: 3. merchandise flow team member's most recently documented weight: 190 pounds? Date: 4. merchandise flow team member's most recently documented blood pressure readin/78? Date: 5. Does the merchandise flow team member have a history of abnormal blood pressure since their last PHA? No 6. What is the date of the merchandise flow team member's most recently documented cholesterol test? No Cholesterol Test Documented 8. List of merchandise flow team member's active medications listed in their permanent medical record: Methocarbamol 750mg PO PRN Ibuprofen 400mg PO, OTC, prn Omeprazole 40mg, PO, once daily 9. Is there a discrepancy between the active medication record review and the merchandise flow team member's self-reported list of medications?: No 10. List documented significant care the merchandise flow team member has received since their last PHA from a provider OUTSIDE the Health System: No Outside Care Documented 11. Is there a discrepancy between the merchandise flow team member's list of OUTSIDE care (from OT5), and the OUTSIDE care found in the record?: No 12. List documented significant care the merchandise flow team member has received since their last PHA from a provider INSIDE the Health System: No Inside Care Documented 14. Confirm that vaccine exemptions are listed in the medical record for each vaccine listed: Not Answered ? III. OCCUPATION-SPECIFIC EXAMINATIONS 2. When was the merchandise flow team member's most recently documented evaluation?: ? IV. FAMILY HISTORY AND LIFESTYLE 1. Does the JI1125 reflect the merchandise flow team member's reported family history?: Yes ? VII. INDIVIDUAL MEDICAL READINESS 1. Does the merchandise flow team member have an Assignment Limitation Code C?: No 3. Most recently documented dental exam: Classification: 1 4. Is the merchandise flow team member current on all required immunizations in the immunization tracking system?: No: Influenza, [place] 5. Is the merchandise flow team member current with Service-specific requirements for glasses and gas mask inserts?: Yes 6. Does the merchandise flow team member have the following laboratory tests [...] need to be forwarded to the Health Ornamental Metal Worker Helper completing PART C: ? ? Date Record Review Completed: PART C. HEALTH CARE PROVIDER I. MENTAL HEALTH ASSESSMENT (MHA) PROVIDER INFORMATION 1. Last Name: Armani 2. First Name: Hollie 3. Middle Name: Cosmo 4. Service Branch: [employer] 5. 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 Title: Physician Brim Setter ([place]) 7. EMAIL: [email or web address] 8. Facility: [address] [place] [address] 9. Unit: [facility] 10. Address: [address] [place] [address] 11. State: [place] 12. Zip Code: [address] 13. Phone: [phone] 14. Date HCP Review initiated: ? 1.? [...] (nothing required) ? 4.? Member did not karen yes on two or more of questions 6a through 6e. 5.? Member did not karen More than half the days or nearly [...] 1. Last Name: Armani 2. First Name: Hollie 3. Middle Name: Cosmo 4. Service Branch: [facility] 5. 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 Title: Physician Brim Setter ([place]) 7. EMAIL: [email or web address] 8. Facility: [address] 9. Unit: [facility] 10. Address: [address] [place] [address] 11. State: [place] 12. Zip Code: [address] 13. Phone: [phone] 14. Date HCP Review initiated: ? IV. PERIODIC HEALTH ASSESSMENT PROVIDER RECOMMENDATIONS and REFERRALS 1. Provider concerns with this assessment: No issues or concerns identified ? V. SUMMARY AND COMMENTS 1. Additional information summarizing findings during the merchandise flow team member assessment: ? 2. Provider Comments: ? ? . INDIVIDUAL MEDICAL READINESS DISPOSITION DETERMINATION ? ? BIJU: Ready? ? DEN: Ready? ? IMM: Ready? ? LAB: Ready? ? ME: Ready ? ? IMR Status: Fully Medically Ready ? VII. SERVICE MEDICAL DEPLOYABILITY EVALUATION INDICATED Based on your review of all documentation, is the merchandise flow team member medically deployable without limitations?? Reference Yonis 6490.07 ? ?Yes (merchandise flow team member DOES NOT currently have a medical condition that limits deployability) ? Date PHA Completed: ? END OF SY5747 REPORT -- ? [facility] Review Summary ? Does the member have [...] that dictate a [facility] to [facility]?? No. ? Active Medical Conditions:? None. ? 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 Cleared for PRAP duties: NA ? Medical surveillance examination requirements up to date: NA ? 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 Cleared for continued service: Yes ? Cleared for mobility duties: Yes ? Cleared for participation in AF physical fitness program: Yes ? END OF [facility] SUMMARY -- ? 06/07/[address] [place] [address] Assessment and Plan Extracted from:Title : MHA/PHA [...] aware of services available (911, One source, Eddy Current Inspector Services, Walk in , Walk in ER, [...] at age 37. Compared medications reported by community service representative to active medication list in medical record and any variances were documented.? ? Any complaints or issues identified while conducting the PHA have been addressed and or referred back to the patient s ?PCM for care.?merchandise flow team member advised to follow up with PCM, Behavioral Health, ED/911, or One Source as needed for continuation of care, and/or further evaluation during exacerbations of physical and/or psychological illness or injury. See PHA document for additional information. Thirteen minutes of total time spent reviewing records, discussing health concerns and preventative health measures with Instructional Designer. ? Extracted from:Title: Annual DoD MHA/PHA Author: EVAN BROWN NP Date: 10/01/22 1.?EXAM/ASSESSMENT, OCCUPATIONAL, RN TRANSITION PERIODIC HEALTH ASSESSMENT (PHA) This encounter contains [...] reduction achieving a healthy weight/BMI?(BMI 18.5-25.0); F/U with?PCM/Street Light Cleaner?as needed. 4.?GERD - Gastro-esophageal reflux disease Continue Omeprazole as prescribed along with avoiding triggers such as acidic/greasy/spicy food, heavy meals before bed, and caffeine;?achieving?a healthy diet and healthy weight. F/U with PCM for persistent or worsening symptoms.? 5.?Diarrhea Continue Fiber supplement as recommended by PCM, and continue F/U with PCM for management. Evan Brown CTR?AUDIO VISUAL TECHNICIAN-C [facility] Provider Flight Medicine? ?[facility] [employer] [id number] office- [phone] ? Extracted from:Title: [facility] MHA/PHA Author: HOLLIE NARANJO PA-C Date: 11/07/20 1.?EXAM/ASSESSMENT, OCCUPATIONAL, RN TRANSITION PERIODIC HEALTH ASSESSMENT (PHA) Medical record review [...] to 60 minutes before a meal, Pharmacy: [facility] [Not filled] Administration,[facility] [address] HIV-1/O/2 EPI 32556 Repository Sample EPI 9340 Unlisted E&M Service 42313 ? 2.?ASSESSMENT, POST DEPLOYMENT, DOCUMENTED ON XI3758 (A) ?MHA reviewed with member and closed.? No referrals needed. Ordered: omeprazole, 1 cap(s), Oral, Daily, 30 to 60 minutes before a meal, # 90 cap(s), 3 total refill(s), Maintenance, 1 cap(s) Oral Daily,Instr:30 to 60 minutes before a meal, Pharmacy: [facility] [Not filled] Administration,[facility] [address] HIV-1/O/2 EPI 11083 Repository Sample EPI 9340 Unlisted E[employer]M Service 72479 ? 3.?GERD - Gastro-esophageal reflux disease ?Refilled Omeprazole 40mg qd prn for GERD symptoms.? Take 30 minutes before meal.? FU with PCM if symptoms not improving in 4 weeks. ? Orders: *Resuscitation Status ANNUAL PERIODIC HEALTH ASSESSMENT ? I. RN TRANSITION INFORMATION AND DEMOGRAPHICS ([facility]) 1. Last Name: SRAVANI 2. First Name: DARYN 3. Middle Name: ROSHAN 4. Assessment Date: 5. : 6. Age: 30 7. Gender: M 8. DoD ID Number: [id number] 9. Service Branch: [employer] 10. 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 Status: Active Duty 12. 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 Unit Name: [address] 14. Duty Station/Location: [facility] 15. UIC: [id number] 16. Is this your first Periodic Health Assessment (PHA)?: N 17. Are you enrolled in a secure messaging system with your health care provider?:? Y ? 18. Current contact information: Preferred Method: Day Time Phone DSN: [id number] Day Time Phone: [phone] Night Time Phone: Email 1: [email or web address] Email 2: Address: [address] City: [place] State: [place] Zip Code: [address] ? 19. Point of contact who can always reach you: Name: abby jordan Phone 1: [phone] Phone 2: EMAIL: Address: City: State: Zip Code: ? II. DEPLOYMENT INFORMATION (DEP) 1. Total number of deployments in the PAST 5 YEARS: 1 2. Primary [facility] of last [facility] 3. 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 [...] watchful or easily startled? No 6. d. [place] numb or detached from others, activities, or your surroundings? No 6. e. [place] guilt or unable to stop blaming yourself [...] like to schedule a visit with a manager operations research, mental health care provider, or a community [...] Day(s) per week 8. What prescriptions or quzh-per-gxzwuof medications are you CURRENTLY taking for health [...] health concerns?: No ? XI. SEPARATION AND LONG TERM 1. Are you planning to separate or retire within the next year from Active Duty or [place] Duty (activated for greater than 30 continuous days) OR do you intend to file a claim for disability compensation with the Veterans Benefits Administration?: No ? PART B. RECORD REVIEW AND RECOMMENDATIONS I. RECORD REVIEWER INFORMATION 1. Last Name: Armani 2. First Name: Hollie 3. Middle Name: Cosmo 4. Service Branch: [facility] 5. 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 Title: Physician Brim Setter ([place]) 7. EMAIL: [email or web address] 8. Facility: [facility] 9. Unit: [facility] 10. Address: [address] [place] [address] 11. State: [place] 12. Zip Code: [address] 13. Phone: [phone] 14. Date Record Review: ? II. MEDICAL SCREENING 1. Date of merchandise flow team member's most recent PHA: 2. merchandise flow team member's most recently documented height: 5 feet 7 inches? ?Date: 3. merchandise flow team member's most recently documented weight: 190 pounds? Date: 4. merchandise flow team member's most recently documented blood pressure readin/78? Date: 5. Does the merchandise flow team member have a history of abnormal blood pressure since their last PHA? No 6. What is the date of the merchandise flow team member's most recently documented cholesterol test? No Cholesterol Test Documented 8. List of merchandise flow team member's active medications listed in their permanent medical record: Methocarbamol 750mg PO PRN Ibuprofen 400mg PO, OTC, prn Omeprazole 40mg, PO, once daily 9. Is there a discrepancy between the active medication record review and the merchandise flow team member's self-reported list of medications?: No 10. List documented significant care the merchandise flow team member has received since their last PHA from a provider OUTSIDE the Health System: No Outside Care Documented 11. Is there a discrepancy between the merchandise flow team member's list of OUTSIDE care (from OTH5), and the OUTSIDE care found in the record?: No 12. List documented significant care the merchandise flow team member has received since their last PHA from a provider INSIDE the Health System: No Inside Care Documented 14. Confirm that vaccine exemptions are listed in the medical record for each vaccine listed: Not Answered ? III. OCCUPATION-SPECIFIC EXAMINATIONS 2. When was the merchandise flow team member's most recently documented evaluation?: ? IV. FAMILY HISTORY AND LIFESTYLE 1. Does the [id number] reflect the merchandise flow team member's reported family history?: Yes ? VII. INDIVIDUAL MEDICAL READINESS 1. Does the merchandise flow team member have an Assignment Limitation Code C?: No 3. Most recently documented dental exam: Classification: 1 4. Is the merchandise flow team member current on all required immunizations in the immunization tracking system?: No: Influenza, [place] 5. Is the merchandise flow team member current with Service-specific requirements for glasses and gas mask inserts?: Yes 6. Does the merchandise flow team member have the following laboratory tests [...] need to be forwarded to the Health Ornamental Metal Worker Helper completing PART C: ? ? Date Record Review Completed: PART C. HEALTH CARE PROVIDER I. MENTAL HEALTH ASSESSMENT (MHA) PROVIDER INFORMATION 1. Last Name: Armani 2. First Name: Hollie 3. Middle Name: Cosmo 4. Service Branch: [facility] 5. 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 Title: Physician Brim Setter (PA) 7. EMAIL: [email or web address] 8. Facility: [facility] 9. Unit: [facility] 10. Address: [address] [place] [address] 11. State: [place] 12. Zip Code: [address] 13. Phone: [phone] 14. Date HCP Review initiated: ? 1.? [...] (nothing required) ? 4.? Member did not karen yes on two or more of questions 6a through 6e. 5.? Member did not karen More than half the days or nearly [...] 1. Last Name: Armani 2. First Name: Hollie 3. Middle Name: Cosmo 4. Service Branch: [facility] 5. 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 Title: Physician Brim Setter (PA) 7. EMAIL: [email or web address] 8. Facility: [address] [place] [address] 9. Unit: [facility] 10. Address: [address] [place] [address] 11. State: [place] 12. Zip Code: [address] 13. Phone: [phone] 14. Date HCP Review initiated: ? IV. PERIODIC HEALTH ASSESSMENT PROVIDER RECOMMENDATIONS and REFERRALS 1. Provider concerns with this assessment: No issues or concerns identified ? V. SUMMARY AND COMMENTS 1. Additional information summarizing findings during the merchandise flow team member assessment: ? 2. Provider Comments: ? ? . INDIVIDUAL MEDICAL READINESS DISPOSITION DETERMINATION ? ? BIJU: Ready? ? DEN: Ready? ? IMM: Ready? ? LAB: Ready? ? ME: Ready ? ? IMR Status: Fully Medically Ready ? VII. SERVICE MEDICAL DEPLOYABILITY EVALUATION INDICATED Based on your review of all documentation, is the merchandise flow team member medically deployable without limitations?? Reference [facility] 6490.07 ? ?Yes (merchandise flow team member DOES NOT currently have a medical condition that limits deployability) ? Date PHA Completed: ? END OF [id number] REPORT -- ? [facility] Review Summary ? Does the member have [...] physical fitness program: Yes ? END OF [facility] SUMMARY -- ? 06/07/2024 [id number] [facility] Assessment and Plan Extracted from:Title : [...] aware of services available (911, One source, Eddy Current Inspector Services, Walk in , Walk in ER, [...] at age 37. Compared medications reported by community service representative to active medication list in medical record and any variances were documented.? ? Any complaints or issues identified while conducting the PHA have been addressed and or referred back to the patient s ?PCM for care.?merchandise flow team member advised to follow up with PCM, Behavioral Health, ED/911, or One Source as needed for continuation of care, and/or further evaluation during exacerbations of physical and/or psychological illness or injury. See PHA document for additional information. Thirteen minutes of total time spent reviewing records, discussing health concerns and preventative health measures with Instructional Designer. ? Extracted from:Title: Annual [facility] MHA/PHA Author: EVAN BROWN NP Date: 10/01/22 1.?EXAM/ASSESSMENT, OCCUPATIONAL, RN TRANSITION PERIODIC HEALTH ASSESSMENT (PHA) This encounter contains [...] reduction achieving a healthy weight/BMI?(BMI 18.5-25.0); F/U with?PCM/Street Light Cleaner?as needed. 4.?GERD - Gastro-esophageal reflux disease Continue Omeprazole as prescribed along with avoiding triggers such as acidic/greasy/spicy food, heavy meals before bed, and caffeine;?achieving?a healthy diet and healthy weight. F/U with PCM for persistent or worsening symptoms.? 5.?Diarrhea Continue Fiber supplement as recommended by PCM, and continue F/U with PCM for management. Evan Brown CTR?AUDIO VISUAL TECHNICIAN-C [facility] Provider Flight Medicine? [address] [place]??[address] Mjxhsa [phone] ? Extracted from:Title: DOD MHA/PHA Author: HOLLIE NARANJO PA-C Date: 11/07/20 1.?EXAM/ASSESSMENT, OCCUPATIONAL, RN TRANSITION PERIODIC HEALTH ASSESSMENT (PHA) Medical record review accomplished.? Member not present today in clinic for annual PHAQ.? PHAQ completed 11/07/2020.? HIV, Repository labs ordered.? No issues or concerns at this time.? No DR,MR,FR profiles.? Member is WWQ.? ? IMR status of member reviewed in [facility].? Member is?yellow, due Influenza vaccine. ? ? ? Ordered: omeprazole, 1 cap(s), Oral, Daily, 30 to 60 minutes before a meal, # 90 cap(s), 3 total refill(s), Maintenance, 1 cap(s) Oral Daily,Instr:30 to 60 minutes before a meal, Pharmacy: [facility] [Not filled] Administration,[facility] [place] [address] HIV-1/O/2 EPI 93028 Repository Sample EPI 9340 Unlisted [employer] Service 74973 ? 2.?ASSESSMENT, POST DEPLOYMENT, DOCUMENTED ON [id number] (A) ?MHA reviewed with member and closed.? No referrals needed. Ordered: omeprazole, 1 cap(s), Oral, Daily, 30 to 60 minutes before a meal, # 90 cap(s), 3 total refill(s), Maintenance, 1 cap(s) Oral Daily,Instr:30 to 60 minutes before a meal, Pharmacy: [facility] [Not filled] Administration,[facility] [place] [address] HIV-1/O/2 EPI 52720 Repository Sample EPI 9340 Unlisted [facility] Service 65346 ? 3.?GERD - Gastro-esophageal reflux disease ?Refilled Omeprazole 40mg qd prn for GERD symptoms.? Take 30 minutes before meal.? FU with PCM if symptoms not improving in 4 weeks. ? Orders: *Resuscitation Status ANNUAL PERIODIC HEALTH ASSESSMENT ? I. RN TRANSITION INFORMATION AND DEMOGRAPHICS (SMI) 1. Last Name: SRAVANI 2. First Name: DARYN 3. Middle Name: ROSHAN 4. Assessment Date: 5. : 6. Age: 30 7. Gender: M 8. Do[employer] ID Number: [id number] 9. Service Branch: [employer] 10. 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 Status: Active Duty 12. 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 Unit Name: [address] 14. Duty Station/Location: [facility] 15. UIC: [id number] 16. Is this your first Periodic Health Assessment (PHA)?: N 17. Are you enrolled in a secure messaging system with your health care provider?:? Y ? 18. Current contact information: Preferred Method: Day Time Phone DSN: [id number] Day Time Phone: [phone] Night Time Phone: Email 1: [email or web address] Email 2: Address: [address] City: [place] State: [place] Zip Code: [address] ? 19. Point of contact who can always reach you: Name: abby jordan Phone 1: [phone] Phone 2: EMAIL: Address: City: State: Zip [...] watchful or easily startled? No 6. d. [place] numb or detached from others, activities, or your surroundings? No 6. e. [place] guilt or unable to stop blaming yourself [...] like to schedule a visit with a manager operations research, mental health care provider, or a community [...] Day(s) per week 8. What prescriptions or zcba-jha-xebuuel medications are you CURRENTLY taking for health [...] health concerns?: No ? XI. SEPARATION AND LONG TERM 1. Are you planning to separate or retire within the next year from Active Duty or [place] Duty (activated for greater than 30 continuous days) OR do you intend to file a claim for disability compensation with the [employer] Benefits Administration?: No ? PART B. RECORD REVIEW AND RECOMMENDATIONS I. RECORD REVIEWER INFORMATION 1. Last Name: Armani 2. First Name: Hollie 3. Middle Name: Wil[place] 4. Service Branch: [facility] 5. 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 Title: Physician Brim Setter (PA) 7. EMAIL: [email or web address] 8. Facility: [facility] 9. Unit: [facility] 10. Address: [address] [place] [address] 11. State: [place] 12. Zip Code: [address] 13. Phone: [phone] 14. Date Record Review: ? II. MEDICAL SCREENING 1. Date of merchandise flow team member's most recent PHA: 2. merchandise flow team member's most recently documented height: 5 feet 7 inches? ?Date: 3. merchandise flow team member's most recently documented weight: 190 pounds? Date: 4. merchandise flow team member's most recently documented blood pressure readin/78? Date: 5. Does the merchandise flow team member have a history of abnormal blood pressure since their last PHA? No 6. What is the date of the merchandise flow team member's most recently documented cholesterol test? No Cholesterol Test Documented 8. List of merchandise flow team member's active medications listed in their permanent medical record: Methocarbamol 750mg PO PRN Ibuprofen 400mg PO, OTC, prn Omeprazole 40mg, PO, once daily 9. Is there a discrepancy between the active medication record review and the merchandise flow team member's self-reported list of medications?: No 10. List documented significant care the merchandise flow team member has received since their last PHA from a provider OUTSIDE the Health System: No Outside Care Documented 11. Is there a discrepancy between the merchandise flow team member's list of OUTSIDE care (from OTH5), and the OUTSIDE care found in the record?: No 12. List documented significant care the merchandise flow team member has received since their last PHA from a provider INSIDE the Health System: No Inside Care Documented 14. Confirm that vaccine exemptions are listed in the medical record for each vaccine listed: Not Answered ? III. OCCUPATION-SPECIFIC EXAMINATIONS 2. When was the merchandise flow team member's most recently documented evaluation?: ? IV. FAMILY HISTORY AND LIFESTYLE 1. Does the [id number] reflect the merchandise flow team member's reported family history?: Yes ? VII. INDIVIDUAL MEDICAL READINESS 1. Does the merchandise flow team member have an Assignment Limitation Code C?: No 3. Most recently documented dental exam: Classification: 1 4. Is the merchandise flow team member current on all required immunizations in the immunization tracking system?: No: Influenza, [place] 5. Is the merchandise flow team member current with Service-specific requirements for glasses and gas mask inserts?: Yes 6. Does the merchandise flow team member have the following laboratory tests [...] need to be forwarded to the Health Ornamental Metal Worker Helper completing PART C: ? ? Date Record Review Completed: PART C. HEALTH CARE PROVIDER I. MENTAL HEALTH ASSESSMENT (MHA) PROVIDER INFORMATION 1. Last Name: Armani 2. First Name: Hollie 3. Middle Name: Cosmo 4. Service Branch: [facility] 5. 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 Title: Physician Brim Setter (PA) 7. EMAIL: [email or web address] 8. Facility: [address] [place] [address] 9. Unit: [facility] 10. Address: [address] [place] [address] 11. State: [place] 12. Zip Code: [address] 13. Phone: [phone] 14. Date HCP Review initiated: ? 1.? [...] (nothing required) ? 4.? Member did not karen yes on two or more of questions 6a through 6e. 5.? Member did not karen More than half the days or nearly [...] 1. Last Name: Armani 2. First Name: Hollie 3. Middle Name: Wilburn 4. Service Branch: [facility] 5. 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 Title: Physician Brim Setter (PA) 7. EMAIL: [email or web address] 8. Facility: [facility] 9. Unit: [facility] 10. Address: [address] [place] [address] 11. State: [place] 12. Zip Code: [address] 13. Phone: [phone] 14. Date HCP Review initiated: ? IV. PERIODIC HEALTH ASSESSMENT PROVIDER RECOMMENDATIONS and REFERRALS 1. Provider concerns with this assessment: No issues or concerns identified ? V. SUMMARY AND COMMENTS 1. Additional information summarizing findings during the merchandise flow team member assessment: ? 2. Provider Comments: ? ? . INDIVIDUAL MEDICAL READINESS DISPOSITION DETERMINATION ? ? BIJU: Ready? ? DEN: Ready? ? IMM: Ready? ? LAB: Ready? ? ME: Ready ? ? IMR Status: Fully Medically Ready ? VII. SERVICE MEDICAL DEPLOYABILITY EVALUATION INDICATED Based on your review of all documentation, is the merchandise flow team member medically deployable without limitations?? Reference [facility] 6490.07 ? ?Yes (merchandise flow team member DOES NOT currently have a medical condition that limits deployability) ? Date PHA Completed: ? END OF [id number] REPORT -- ? [facility] Review Summary ? Does the member have [...] physical fitness program: Yes ? END OF [facility] SUMMARY -- ? 06/07/[address] [place] [address] Functional Status Combined list of recent functional and cognitive assessments recorded at Department of Defense and Veterans Affairs (VA).VA Functional [place] Measurement (FIM) Scale: 1 = Total Assistance (Subject = 0% +), 2 = Maximal Assistance (Subject = 25% +), 3 = Moderate Assistance (Subject = 50% +), 4 = Minimal Assistance (Subject = 75% +), 5 = Supervision, 6 = Modified [place] (Device), 7 = Complete [place] (Timely, Safely). Assessment Date/Time Source Assessment Type Assessment Skill Assessment Score Assessment Details No data available for this section
== END 2024-06-07 16:16 | disposition home or self-care (01) ==
LOC: HO.HGI 15:51
PROVIDERS: PCP Family Medicine; Visit Provider Nurse Practitioner Family
DX: R74.01 Elevation of levels of liver transaminase levels (principal); K59.1 Functional diarrhea; K21.9 Gastro-esophageal reflux disease without esophagitis; R14.0 Abdominal distension (gaseous); R10.13 Epigastric pain
CPT/HCPCS: 99214; G2211

== ENCOUNTER → 2024-06-07 15:51 | Outpatient (BNVA) | payer OTHER, SELFPAY | PROVIDERS: PCP Family Medicine; Visit Provider Nurse Practitioner Family | DX: K59.1 Functional diarrhea (principal); K21.9 Gastro-esophageal reflux disease without esophagitis; R74.01 Elevation of levels of liver transaminase levels; R14.0 Abdominal distension (gaseous); R10.13 Epigastric pain | CPT/HCPCS: 99212 ==

== ENCOUNTER 2024-09-01 08:32 | Outpatient (REF) | payer OTHER, SELFPAY ==
[2024-09-01 11:11] LABS: Alanine Aminotransferase 48 U/L (0-40); Albumin Level 4.8 g/dL (3.5-5.0); Alkaline Phosphatase 67 U/L (39-117); Anion Gap 9 (12-20); Aspartate Amino Transferase 31 U/L (5-37); Blood Urea Nitrogen 16 mg/dL (9-16); Calcium 9.5 mg/dL (8.4-10.2); Carbon Dioxide 28 mmol/L (22-29); Chloride 105 mmol/L (96-108); Cholesterol 153 mg/dL (<200); Estimated Glomerular Filt Rate > 60; HDL Cholesterol 38 mg/dL (>40); Potassium 4.5 mmol/L (3.3-5.1); Sodium 137 mmol/L (135-145); Total Protein 7.5 g/dL (6.5-8.0); Triglycerides 118 mg/dL (<150)
== END 2024-09-01 08:33 | disposition home or self-care (01) ==
LOC: HO.HMGCLDS 08:32
PROVIDERS: PCP Family Medicine; Visit Provider Family Medicine
DX: Z00.00 Encounter for general adult medical examination without abnormal findings (principal); E78.5 Hyperlipidemia, unspecified; R74.01 Elevation of levels of liver transaminase levels; E55.9 Vitamin D deficiency, unspecified
CPT/HCPCS: 36415; 80053; 80061; 82306

== ENCOUNTER 2024-09-06 15:39 | Outpatient (AMB) | payer OTHER, SELFPAY ==
--- NOTE | 2024-09-06 15:52 | MHC.PC.OV ---
Vital Signs 09/06/24 15:54 Height 5 ft 7 in Weight 207 lb BMI 32.4 BP 120/60 Blood Pressure Location Lt brachial Position Sitting Respiration 16 Pulse 70 Pulse Source Pulse Oximeter Temp 98.7 F Temp Source Oral Pulse Oximetry (%) 95 Oxygen Delivery Method Room Air Intake Visit Reasons: f/u lipids, labs Intake Note: patient is scheduled to follow up for lab results Employment Specialist/Program Manager Required: No Allergies poison ave extract Allergy (Severe, Verified 09/06/24 15:53) Anaphylaxis Medication List - Last Reconciled 09/06/24 by Mikey Greenberg MD atorvastatin 10 mg PO BEDTIME 90 days cholecalciferol (vitamin D3) 50 mcg PO DAILY diclofenac sodium 1% 2 grams topical QID 30 days epinephrine 0.3 mg IM ONCE PRN omeprazole 20 mg PO DAILY 30 days Tobacco use date assessed: 03/25/23 Dental Screening Dental Screen Date: 03/25/23 HPI f/u lipids, labs HPI Details 34 y/o male presents to f/u lipids, labs. Labs drawn 09/01/24. Reviewed labs with pt. AST 31. Elevated ALT of 48. Triglycerides 118. TC 153. LDL 92. HDL low at 38. He is on artovastatin 10mg. Vitamin D 70.4. Pt reports ongoing foot pain. HPI Comments History of Present Illness Details Documentation assistance for Mikey Greenberg MD, was provided by Jai He,? Tamping Machine Operator on 09/06/2024 at 4:25 PM EST. I, Dr. Greenberg, have read, observed, and verified documentation. ? 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 Current occupational exposures/hazards: No Cognitive needs: No Hearing needs: No Vision needs: Yes Questionnaire Thrive Questionnaire Date Thrive assessed: 04/13/24 I am a: Patient What is your living situation today?: I have a steady place to live Within the past 12 months, did the food you bought not last and you didn't have the money to get more?: Never true Within the past 12 months, did you worry whether your food would run out before you got money to buy more?: Never true Do you have trouble paying for medicines?: No Do you have trouble getting transportation to medical appointments?: No Do you have trouble paying your heating and electricity bill?: No Do you have trouble taking care of your child, family member or friend?: No Do you have trouble with day-to-day activities such as bathing, preparing meals, shopping, managing finances, etc.?: No Are you currently unemployed and looking for a job?: No Are you interested in more education?: No Please select the resources that you would like help with: None Currently or been in a relationship where the following occur: No concerns reported THRIVE Score: 0 OXANA-7 AMB Questionnaire OXANA-7 Date OXANA - 7 assessed: 10/02/23 Source: Developed by Drs. Laureano Garcia, Yahaira Phan, Odilon Souza and colleagues, with an educational radha from [employer]. Review of Systems Const Denies chills, Denies fatigue, Denies fever(s), Denies headache(s) and Denies weakness ENT Denies dizziness and Denies headache(s) Card Denies dyspnea Resp Denies cough, Denies dyspnea, Denies wheezing and Denies other (shortness of breath) Musc Details: Foot pain Denies numbness and Denies tingling Neuro Denies dizziness, Denies headache(s), Denies numbness, Denies tingling and Denies weakness Psych Denies anxiety and Denies depression Endo Denies fatigue Aller/Immun Denies wheezing Physical exam (Primary Care) Vital Signs: Last Vital Signs Temp 98.7 F 09/06/24 15:54 Pulse 70 09/06/24 15:54 Resp 16 09/06/24 15:54 BP 120/60 09/06/24 15:54 Pulse Ox 95 09/06/24 15:54 Oxygen Delivery Method Room Air 09/06/24 15:54 BMI result Body Mass Index 32.4 Tobacco/Smoking Status: Tobacco use Status Tobacco use date assessed 03/25/23 09/06/24 15:58 Patient Tobacco Use Status Never used Tobacco 09/06/24 15:58 e-Cigarette/Vaping Use Never Used 09/06/24 15:58 Thrive Assessment: Date of Thrive Assessment Date Thrive assessed 04/13/24 09/06/24 15:58 Currently or been in a relationship where the following occur: No concerns reported Const General: well developed; No acute distress Nutritional Appearance: well nourished Orientation/consciousness: patient oriented x3 HENMT Head: Yes normocephalic and Yes atraumatic Eyes General: appearance normal, both eyes and all related structures Pupils: Equal, round and reactive pupils present EOM: EOMs intact bilaterally Resp Effort & Inspection: normal respiratory effort Auscultation: clear to auscultation bilaterally Cardio Rate: regular rate Rhythm: regular rhythm Heart sounds: S1 normal heart sound present, S2 normal heart sound present, no gallops, no murmurs and no rubs Neuro General: patient oriented x3 and gait normal Cranial nerves: Yes Equal, round and reactive pupils present Psych Affect: normal affect Coding Level of Care Code Est Pt Level 3 (08961) Diagnoses Elevated ALT measurement R74.01 Hyperlipidemia E78.5 Low HDL (under 40) E78.6 Foot pain M79.673 Assessment & Plan Assessment & Plan (1) Elevated ALT measurement: Code(s): R74.01 - Elevation of levels of liver transaminase levels Category: Medical Plan: Ongoing ALT elevation Ultrasound shows hepatomegaly but no masses. He is already follow-up by Gastroenterology Elastography ruled out compensated advanced chronic liver disease Encouraged weight loss and good hydration Will continue to monitor Follow-up with Gastroenterology (2) Hyperlipidemia: Code(s): E78.5 - Hyperlipidemia, unspecified Category: Medical Plan: HDL cholesterol is low His LDL is controlled with atorvastatin Continue atorvastatin Encouraged exercise in [place] 3 fatty acids in diet (3) Low HDL (under 40): Code(s): E78.6 - Lipoprotein deficiency Category: Medical Plan: As above (4) Foot pain: Code(s): M79.673 - Pain in unspecified foot Category: Medical Plan: Right foot pain Referred to Podiatry at patient request Orders: Referrals Podiatry Referral M79.671 - Pain in right foot
[2024-09-06 15:54] VITALS: BP 120/60; PULSE 70; RESP 16; TEMP 37.1; O2SAT 95; BMI 32.4
== END 2024-09-06 16:37 | disposition home or self-care (01) ==
LOC: HO.HMCFM 15:40
PROVIDERS: PCP Family Medicine; Visit Provider Family Medicine
DX: R74.01 Elevation of levels of liver transaminase levels (principal); E78.5 Hyperlipidemia, unspecified; E78.6 Lipoprotein deficiency; M79.673 Pain in unspecified foot

== ENCOUNTER → 2024-09-06 15:39 | Outpatient (BNVA) | payer OTHER, SELFPAY | PROVIDERS: PCP Family Medicine; Visit Provider Family Medicine | DX: R74.01 Elevation of levels of liver transaminase levels (principal); E78.5 Hyperlipidemia, unspecified; E78.6 Lipoprotein deficiency; M79.673 Pain in unspecified foot | CPT/HCPCS: 99212 ==

== ENCOUNTER 2024-10-18 14:43 | Outpatient (AMB) | payer OTHER, SELFPAY ==
--- NOTE | 2024-10-18 14:54 | MHC.PC.OV ---
Vital Signs 10/18/24 14:58 Height 5 ft 7 in Weight 205 lb BMI 32.1 BP 124/72 Blood Pressure Location Lt brachial Position Sitting Respiration 12 Pulse 75 Pulse Source Pulse Oximeter Temp 97.1 F Temp Source Oral Pulse Oximetry (%) 99 Oxygen Delivery Method Room Air Intake Visit Reasons: CPE Intake Note: CPE Greenhouse Manager Required: No Allergies poison ave extract Allergy (Severe, Verified 10/18/24 14:56) Anaphylaxis Medication List - Last Reconciled 10/18/24 by Mikey Greenebrg MD atorvastatin 10 mg PO BEDTIME 90 days cholecalciferol (vitamin D3) 50 mcg PO DAILY diclofenac sodium 1% 2 grams topical QID 30 days epinephrine 0.3 mg IM ONCE PRN omeprazole 20 mg PO DAILY Tobacco use date assessed: 10/18/24 Dental Screening Dental Screen Date: 10/18/24 Did you have a dental visit in the last 12 months?: Yes Did you have a dental problem in the last 6 months where you did not have access to dental care?: No Was dental information given to patient?: Patient has dentist HPI CPE HPI Details 34 y/o male presents for a CPE with f/u labs and health maint. Labs drawn 09/01/24. Reviewed labs with pt. Elevated ALT of 48. Triglycerides 118. TC 153. LDL 92. HDL low at 38. 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 1. Little interest or pleasure in doing things: not at all 2. Feeling down, depressed, or hopeless: not at all 3. Trouble falling or staying asleep, or sleeping too much: not at all 4. Feeling tired or having little energy: not at all 5. Poor appetite or overeating: not at all 6. Feeling bad about yourself - or that you are a failure or have let yourself or your family down: not at all 7. Trouble concentrating on things, such as reading the newspaper or watching television: not at all 8. Moving or speaking so slowly that other people could have noticed. Or the opposite - being so fidgety or restless that you have been moving around a lot more than usual: not at all 9. Thoughts that you would be better off or of hurting yourself in some way: not at all Total score: 0 Depression Screening Interpretation: Negative Depression Screening Done: Yes 54831 - PHQ-9 Billing: Yes Source: Developed by Drs. Laureano Garcia, Yahaira Phan, Odilon Souza and colleagues, with an educational radha from [employer]. Thrive Questionnaire Date Thrive assessed: 10/18/24 I am a: Patient What is your living situation today?: I have a steady place to live Within the past 12 months, did the food you bought not last and you didn't have the money to get more?: Never true Within the past 12 months, did you worry whether your food would run out before you got money to buy more?: Never true Do you have trouble paying for medicines?: No Do you have trouble getting transportation to medical appointments?: No Do you have trouble paying your heating and electricity bill?: No Do you have trouble taking care of your child, family member or friend?: No Do you have trouble with day-to-day activities such as bathing, preparing meals, shopping, managing finances, etc.?: No Are you currently unemployed and looking for a job?: No Are you interested in more education?: No Please select the resources that you would like help with: None Currently or been in a relationship where the following occur: No concerns reported THRIVE Score: 0 OXANA-7 AMB Questionnaire OXANA-7 Date OXANA - 7 assessed: 10/18/24 Feeling nervous, anxious, or on edge: 0 = Not at all Not being able to stop or control worryin = Not at all Worrying too much about different things: 0 = Not at all Trouble relaxin = Not at all Being so restless that it is hard to sit still: 0 = Not at all Becoming easily annoyed or irritable: 0 = Not at all Feeling afraid as if something awful might happen: 0 = Not at all Total OXANA-7 score (0-4 normal; 5-9 mild; 10-14 moderate; 15-21 severe): 0 Source: Developed by Drs. Laureano Garcia, Yahaira Phan, Odilon Souza and colleagues, with an educational radha from [employer]. OXANA-7 Assessment Billing OXANA-7 Assessment Tool: OXANA-7 Assessment 89466 Review of Systems Const Denies chills, Denies fatigue, Denies fever(s), Denies headache(s) and Denies weakness Eyes Denies change in vision ENT Denies dizziness, Denies headache(s), Denies hearing loss, Denies nasal congestion, Denies sinus pain, Denies sinus pressure and Denies sore throat Card Denies chest pain, Denies lightheadedness, Denies dyspnea and Denies other (palpitations) Resp Denies cough, Denies dyspnea and Denies wheezing GI Denies abdominal pain, Denies melena, Denies hematochezia, Denies change in bowel habits, Denies dyspepsia and Denies nausea Denies hematuria and Denies dysuria Musc Denies abnormal gait, Denies myalgias, Denies arthralgias, Denies numbness and Denies tingling Skin/Breast Denies rash, Denies unusual bruising and Denies wounds Neuro Denies abnormal gait, Denies dizziness, Denies headache(s), Denies memory loss, Denies numbness, Denies Sensory deficit (Neuro), Denies tingling and Denies weakness Psych Denies anxiety, Denies depression and Denies memory loss Endo Denies cold intolerance, Denies fatigue, Denies heat intolerance, Denies polydipsia and Denies polyuria José Miguel/Lymph Denies easy bleeding and Denies easy bruising Aller/Immun Denies wheezing Physical exam (Primary Care) Vital Signs: Last Vital Signs Temp 97.1 F 10/18/24 14:58 Pulse 75 10/18/24 14:58 Resp 12 10/18/24 14:58 BP 124/72 10/18/24 14:58 Pulse Ox 99 10/18/24 14:58 Oxygen Delivery Method Room Air 10/18/24 14:58 BMI result Body Mass Index 32.1 Tobacco/Smoking Status: Tobacco use Status Tobacco use date assessed 10/18/24 10/18/24 14:56 Patient Tobacco Use Status Never used Tobacco 10/18/24 14:56 e-Cigarette/Vaping Use Never Used 10/18/24 14:56 PHQ-9: PHQ-9 Score PHQ-9: Total score 0 10/18/24 15:00 Depression Screening Interpretation: Negative Thrive Assessment: Date of Thrive Assessment Date Thrive assessed 10/18/24 10/18/24 14:56 Currently or been in a relationship where the following occur: No concerns reported Const General: no acute distress, well developed, alert and awake Nutritional Appearance: well nourished Orientation/consciousness: patient oriented x3 HENMT Head: Yes normocephalic and Yes atraumatic Ears: hearing grossly normal bilaterally and TM's normal bilaterally General nose exam: Normal external nose present and Normal nares present Mouth: Normal oral and palatal mucosa present and moist mucous membranes Teeth and gingiva: dentition normal Throat: Yes posterior oropharynx normal Eyes General: appearance normal, both eyes and all related structures Pupils: Equal, round and reactive pupils present and Pupil accommodation reflex normal EOM: EOMs intact bilaterally Neck Neck: Yes normal visual inspection, Yes no lymphadenopathy and Yes trachea midline Thyroid: Thyroid normal Carotids: no bruits Lymphatic: no lymphadenopathy noted Chest Chest palpation & inspection: normal inspection of the chest Resp Effort & Inspection: normal respiratory effort Auscultation: clear to auscultation bilaterally Cardio Rate: regular rate Rhythm: regular rhythm Heart sounds: S1 normal heart sound present, S2 normal heart sound present, no gallops, no murmurs and no rubs Bruits: no abdominal aortic bruits and no carotid bruits GI Palpation (GI): No Abdominal aortic bruit present, Soft to palpation, nontender, No hepatosplenomegaly present and No Rebound tenderness present Auscultation: normal bowel sounds General: Yes no CVA tenderness Back/Spine/Pelvis Back: no CVA tenderness Cervical Spine: cervical ROM normal and No Cervical spine tenderness Thoracic/Lumbar Spine: thoraco-lumbar ROM normal, No pain with thoraco-lumbar ROM, No thoracic spinal tenderness and No lumbar spinal tenderness Skin Lesions: no lesions Rashes: no rashes Trauma: no lacerations or abrasions Wounds: no wounds Nails: normal Neuro General: patient oriented x3 Cranial nerves: Yes Equal, round and reactive pupils present Cognition (Neuro): normal cognition Gait exam (Neuro): Normal gait present Motor exam (neuro): 5/5 motor strength present throughout Sensory Exam: No Sensory deficit (Neuro) Deep tendon reflexes (DTR's): Right patellar reflex intensity grade: 2+ and Left patellar reflex intensity grade: 2+ Extrem General: Yes normal to inspection and No edema Psych Appearance: grossly normal Affect: normal affect Attitude: cooperative Thought process: Normal thought process present Coding Level of Care Code Est Pt Level 3 (69372) Est Pt Prev Care 18-39y(73485) Diagnoses Adult general medical exam Z00.00 Gastroesophageal reflux disease, unspecified whether esophagitis present K21.9 Esophagitis presence: esophagitis presence not specified Throat discomfort R07.0 Hyperlipidemia E78.5 Low HDL (under 40) E78.6 Elevated ALT measurement R74.01 Additional Codes OXANA-7 Assessment Billing - OXANA-7 Assessment Tool: OXANA-7 Assessment 13150 ([id number]) PHQ-9 - 09248 - PHQ-9 Billing: Yes ([id number]) Assessment & Plan Assessment & Plan (1) Adult general medical exam: Code(s): Z00.00 - Encounter for general adult medical examination without abnormal findings Category: Medical Plan: 34-year-old male presents for complete physical exam Encouraged healthy diet with active lifestyle and plenty of exercise (2) GERD (gastroesophageal reflux disease): Code(s): K21.9 - Gastro-esophageal reflux disease without esophagitis Category: Medical Qualifiers: Esophagitis presence: esophagitis presence not specified Qualified Code(s): K21.9 - Gastro-esophageal reflux disease without esophagitis Plan: Ongoing GERD and gastritis as well as esophagitis Taking omeprazole daily Avoiding food triggers Still get issues with upper GI and throat discomfort-see below (3) Throat discomfort: Code(s): R07.0 - Pain in throat Category: Medical Plan: Patient gets paroxysmal throat spasms with significant throat discomfort that he says is alleviated by hyperextending his neck and also drinking water until spasm resolves. Affects swallowing to some degree Does not affect his voice May be secondary to reflux. Unclear cause. Will refer him to ENT (4) Hyperlipidemia: Code(s): E78.5 - Hyperlipidemia, unspecified Category: Medical Plan: TC and LDL are controlled with atorvastatin 10 mg daily HDL is low. He is increasing [place] threes in diet Will recheck lipids with next blood draw (5) Low HDL (under 40): Code(s): E78.6 - Lipoprotein deficiency Category: Medical Plan: As above (6) Elevated ALT measurement: Code(s): R74.01 - Elevation of levels of liver transaminase levels Category: Medical Plan: Elevated liver enzymes Recent ultrasound showed mild hepatomegaly. Elastography rules out advanced chronic liver disease in asymptomatic patient. Following liver enzymes Orders: Orders Microalbumin, Random (w Creat) Today I10 - Essential (primary) hypertension TSH reflex Free T4 Today Z00.00 - Encounter for general adult medical examination without abnormal findings Comprehensive [place]. Panel Fast Today Z00.00 - Encounter for general adult medical examination without abnormal findings Lipid Panel Today Z00.00 - Encounter for general adult medical examination without abnormal findings UA CC w/rflx Micro + Cult Today Z00.00 - Encounter for general adult medical examination without abnormal findings Referrals Ear/Nose/Throat Referral R07.0 - Pain in throat, R13.10 - Dysphagia, unspecified
[2024-10-18 14:58] VITALS: BP 124/72; PULSE 75; RESP 12; TEMP 36.2; O2SAT 99; BMI 32.1
--- OUTSIDE RECORDS SUMMARY | 2024-10-18 15:37 | XMS_ITS | Clinical Summary ---
Author Organization 175 [facility] Address [address] [place] [address] Phone Care Team Providers Care Antitank Assault Gunner Name Role Phone Mikey Greenberg MD Primary Care Provider [phone] Social History Tobacco Use Types Packs/Day Years Used Date Smoking Tobacco: Never Assessed Sex and Gender Information Value Date Recorded Sex Assigned at Not on file Legal Sex Male 9:30 AM EDT Gender Identity Not on file Sexual Orientation Not on file Plan of Treatment Upcoming Encounters Date Type Department Care Team ([facility] Contact Info) Description 10/26/2024 3:00 PM EDT Consult Orthopedic Surgery - [place] [address] [address] Pelon Oliveira, DPDavonte [address] [place] [id number] Health Maintenance Due Date Last Done Comments DTaP,Tdap,and Td Vaccines (1 - Tdap) 06/22/2011 Hepatitis B Vaccines (1 of 3 - 19+ 3-dose series) 06/22/2011 COVID-19 Vaccine ( - 2023-2 5 season) 2023 Depression Screening 02/24/2024 HIV Screening 09/09/2024 Hepatitis C Screening 09/09/2024 Social Influencers of Health Screening 09/09/2024 Influenza Vaccine (#1) 2024 HIB Vaccines Aged Out No longer eligi ble based on patient's age to complete this topic HPV Vaccines Aged Out No longer eligi ble based on patient's age to complete this topic Hepatitis A Vaccines Aged Out No long er eligible based on patient's age to complete this topic IPV Vaccines Aged Out No longer eligi ble based on patient's age to complete this topic MMR Vaccines Aged Out No longer eligi ble based on patient's age to complete this topic Meningococcal ACWY Vaccine Aged Out N o longer eligible based on patient's age to complete this topic Meningococcal B Vaccine Aged Out No l onger eligible based on patient's age to complete this topic Pneumococcal Vaccine: Pediat rics (0 to 5 Years) and At-Risk Patients (6 to 49 Years) Aged Out No longer eligible b ased on patient's age to complete this topic RSV Immunization Patients Un cassy 20 months Aged Out No longer eligible b ased on patient's age to complete this topic Varicella Vaccines Aged Out No longer eligible based on patient's age to complete this topic Insurance [facility] [employer] on file Care Teams Antitank Assault Gunner Relationship Specialty Start Date End Date Mikey Greenberg MD [address] [place] [address] Dr Nicola [place] PCP - General Family Medicine 09/08/24
== END 2024-10-18 15:55 | disposition home or self-care (01) ==
LOC: HO.HMCFM 14:44
PROVIDERS: PCP Family Medicine; Visit Provider Family Medicine
DX: Z00.00 Encounter for general adult medical examination without abnormal findings (principal); K21.9 Gastro-esophageal reflux disease without esophagitis; R07.0 Pain in throat; E78.5 Hyperlipidemia, unspecified; E78.6 Lipoprotein deficiency; R74.01 Elevation of levels of liver transaminase levels

== ENCOUNTER → 2024-10-18 14:43 | Outpatient (BNVA) | payer OTHER, SELFPAY | PROVIDERS: PCP Family Medicine; Visit Provider Family Medicine | DX: Z00.00 Encounter for general adult medical examination without abnormal findings (principal); K21.9 Gastro-esophageal reflux disease without esophagitis; R07.0 Pain in throat; E78.5 Hyperlipidemia, unspecified; E78.6 Lipoprotein deficiency; R74.01 Elevation of levels of liver transaminase levels | CPT/HCPCS: 96127; 99212 ==

== ENCOUNTER 2024-11-21 08:36 | Outpatient (REF) | payer OTHER, SELFPAY ==
--- OUTSIDE RECORDS SUMMARY | 2024-11-21 09:03 | XMS_ITS | Clinical Summary ---
Author Organization 175 [facility] Address [address] [place] [address] Phone Care Team Providers Care Envelope Machine Operator Name Role Phone Mikey Greenberg MD Primary Care Provider Allergies No known active allergies Medications clotrimazole (LOTRIMIN) 1 % cream Apply topically 2 (two) times a day. 30 g 3 5 11/26/19 25 Active Encounters Date Type Department Care Team Description 10/26/2024 3:00 PM EDT Consult Orthopedic Surgery - [place] [address] [address] Pelon Oliveira, DPM Plantar fascial fibromatosis (Primary Dx); Right foot pain; Tinea pedis of both feet from Last 3 Months Social History Tobacco Use Types Packs/Day Years Used Date Smoking Tobacco: Never Assessed Sex and Gender Information Value Date Recorded Sex Assigned at Not on file Legal Sex Male 9:30 AM EDT Gender Identity Not on file Sexual Orientation Not on file Last Filed Vital Signs Vital Sign Reading Time Taken Comments Blood Pressure - - Pulse - - Temperature - - Respiratory Rate - - Oxygen Saturation - - Inhaled Oxygen Concentration - - Weight 93.9 kg (207 lb) 10/26/2024 2:54 PM EDT Height 170.2 cm (5' 7 ) 10/26/2024 2:54 PM EDT Body Mass Index 32.42 10/26/2024 2:54 PM EDT Plan of Treatment Health Maintenance Due Date Last Done Comments IPV Vaccines (2 of 3 - Adult catch-up series) 03/21/2011 02/21/2011 Hepatitis B Vaccines (1 of 3 - 19+ 3-dose series) 06/22/2011 DTaP,Tdap,and Td Vaccines (2 - Td or Tdap) 02/26/2021 02/26/2011 Depression Screening 02/24/2024 Cholesterol Screening (Lipid Panel) 09/09/2024 HIV Screening 09/09/2024 Hepatitis C Screening 09/09/2024 Social Influencers of Health Screening 09/09/2024 COVID-19 Vaccine (3 - season) 2024 11/30/2020, 11/02/2020 Influenza Vaccine (#1) 2024 , 03/17/2020, 01/05/2019, Additional history exists RSV Immunization Adult Patients (1 - 1-dose 75+ series) 06/22/2067 Meningococcal ACWY Vaccine Completed 02/21/2011 Hepatitis A Vaccines Completed 09/12/2011, 02/26/19 MMR Vaccines Completed 04/24/2014, 02/26/2011 HPV Vaccines Completed 03/04/2016, 10/2015, 08/23/2015 HIB Vaccines Aged Out No longer eligi ble based on patient's age to complete this topic Meningococcal B Vaccine Aged Out No l onger eligible based on patient's age to complete this topic Pneumococcal Vaccine: Pediatrics (0 to 5 Years) and At-Risk Patients (6 to 49 Years) Aged Out No longer eligible based on patient's age to complete this topic RSV Immunization Patients Under 20 months Aged Out No longer eligible based on patient's age to complete this topic Varicella Vaccines Aged Out No longer eligible based on patient's age to complete this topic Insurance [facility] Care Teams Envelope Machine Operator Relationship Specialty Start Date End Date Mikey Greenberg MD [address] [place] [address] Dr Nicola [place] PCP - General Family Medicine 09/08/24
[2024-11-21 10:07] LABS: Appearance Urine Clear; Glucose Urine UA Negative (Negative); PH 6.0 (5.0-9.0); Specific Gravity - Urine 1.025 (1.005-1.025)
[2024-11-21 10:54] LABS: Alanine Aminotransferase 46 U/L (0-40); Albumin Level 4.7 g/dL (3.5-5.0); Alkaline Phosphatase 73 U/L (39-117); Anion Gap 11 (12-20); Aspartate Amino Transferase 31 U/L (5-37); Blood Urea Nitrogen 15 mg/dL (9-16); Calcium 9.2 mg/dL (8.4-10.2); Carbon Dioxide 28 mmol/L (22-29); Chloride 107 mmol/L (96-108); Cholesterol 156 mg/dL (<200); Estimated Glomerular Filt Rate > 60; HDL Cholesterol 45 mg/dL (>40); Potassium 4.5 mmol/L (3.3-5.1); Sodium 141 mmol/L (135-145); Total Protein 7.1 g/dL (6.5-8.0); Triglycerides 98 mg/dL (<150)
[2024-11-21 11:07] LABS: Microalbum/Creatinine Ratio Ur 3.8 ug/mg cr (<30)
== END 2024-11-21 08:37 | disposition home or self-care (01) ==
LOC: HO.HMGCLDS 08:36
PROVIDERS: PCP Family Medicine; Visit Provider Family Medicine
DX: Z00.00 Encounter for general adult medical examination without abnormal findings (principal); I10 Essential (primary) hypertension
CPT/HCPCS: 36415; 80053; 80061; 81003; 82043; 82570; 84443

== ENCOUNTER 2024-11-22 16:34 | Outpatient (AMB) | payer OTHER, SELFPAY ==
--- NOTE | 2024-11-22 16:31 | MHC.PC.OV ---
Intake Visit Reasons: f/u CPE-Labs, Lipids & Elevated Liver enzymes Intake Note: Daryn presents in the office today for a lab review. Allergies poison ave extract Allergy (Severe, Verified 11/22/24 16:32) Anaphylaxis Medication List - Last Reconciled 11/22/24 by Mikey Greenberg MD atorvastatin 10 mg PO BEDTIME 90 days diclofenac sodium 1% 2 grams topical QID 30 days epinephrine 0.3 mg IM ONCE PRN omeprazole 20 mg PO DAILY Tobacco use date assessed: 11/22/24 Dental Screening Dental Screen Date: 11/22/24 Did you have a dental visit in the last 12 months?: Yes Did you have a dental problem in the last 6 months where you did not have access to dental care?: No Was dental information given to patient?: Patient has dentist HPI f/u CPE-Labs, Lipids & Elevated Liver enzymes HPI Details 34 y/o male presents to f/u labs via telemedicine. Labs drawn 11/21/24. Reviewed labs with pt. Elevated ALT of 46. Triglycerides 98. TC 156. LDL 92. HDL 45. He is on artovastatin 10mg. 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 Laureano Garcia, Yahaira Phan, Odilon Souza and colleagues, with an educational radha from [employer]. Review of Systems Const Denies chills, Denies fatigue, Denies fever(s), Denies headache(s) and Denies weakness ENT Denies dizziness and Denies headache(s) Card Denies dyspnea Resp Denies cough, Denies dyspnea, Denies wheezing and Denies other (shortness of breath) Musc Denies numbness and Denies tingling Neuro Denies dizziness, Denies headache(s), Denies numbness, Denies tingling and Denies weakness Psych Denies anxiety and Denies depression Endo Denies fatigue Aller/Immun Denies wheezing Physical exam (Primary Care) Tobacco/Smoking Status: Tobacco use Status Tobacco use date assessed 11/22/24 11/22/24 16:34 Patient Tobacco Use Status Never used Tobacco 11/22/24 16:34 e-Cigarette/Vaping Use Never Used 11/22/24 16:34 Thrive Assessment: Date of Thrive Assessment Date Thrive assessed 10/18/24 11/22/24 16:34 Telehealth Telehealth Telehealth Platform: Telephone Location of provider rendering services: practice address Location of patient: address on file Patient Identification confirmed using: Name, : Yes Telehealth method: voice only Patient verbally consented to treatment: Yes Patient verbally consented to billing insurance company: Yes Patient informed of any privacy concerns related to visit: Yes Minutes spent on Phone/Video with Pt.: 8 Coding Level of Care Code Tele Est Pt Level 2 (56504) Diagnoses Hyperlipidemia E78.5 Elevated ALT measurement R74.01 Assessment & Plan Assessment & Plan (1) Hyperlipidemia: Code(s): E78.5 - Hyperlipidemia, unspecified Category: Medical Plan: LDL cholesterol is controlled on atorvastatin 10 mg daily HDL was low but has improved and is now in normal range Continue current medication Work on weight loss and diet low in saturated fats and cholesterol We discussed that at a subsequent visit we could trial off of atorvastatin if he can brain LDL cholesterol lower (2) Elevated ALT measurement: Code(s): R74.01 - Elevation of levels of liver transaminase levels Category: Medical Plan: Mild persistent elevation in ALT Prior ultrasound showed no masses though did show mild hepatomegaly He has an appointment with Gastroenterology Plan Patient was referred to ENT for some swallowing difficulties He will call them for an appointment He is also followed for gastroenterology for lower esophageal issues and will also see them regarding liver enzymes Orders: Orders Complete Blood Count Auto Diff 6 Months Z00.00 - Encounter for general adult medical examination without abnormal findings Lipid Panel 6 Months Z00.00 - Encounter for general adult medical examination without abnormal findings Comprehensive [place]. Panel Fast 6 Months Z00.00 - Encounter for general adult medical examination without abnormal findings Microalbumin, Random (w Creat) 6 Months I10 - Essential (primary) hypertension TSH reflex Free T4 6 Months Z00.00 - Encounter for general adult medical examination without abnormal findings UA CC w/rflx Micro + Cult 6 Months Z00.00 - Encounter for general adult medical examination without abnormal findings
--- OUTSIDE RECORDS SUMMARY | 2024-11-22 17:18 | XMS_ITS | Clinical Summary ---
Author Organization 175 [facility] Address [address] [place] [address] Phone Care Team Providers Care Hand Patcher Name Role Phone Mikey Greenberg MD Primary Care Provider Allergies No known active allergies Medications clotrimazole (LOTRIMIN) 1 % cream Apply topically 2 (two) times a day. 30 g 3 5 11/26/19 25 Active Encounters Date Type Department Care Team Description 10/26/2024 3:00 PM EDT Consult Orthopedic Surgery - [place] [address] [address] Pelon Oliveira, DPM Plantar fascial [...] patient's age to complete this topic Insurance [facility] Care Teams Hand Patcher Relationship Specialty Start Date End Date Mikey Greenberg MD [address] [place] [address] Dr Nicola [place] PCP - General Family Medicine 09/08/24
== END 2024-11-22 17:05 | disposition home or self-care (01) ==
LOC: HO.HMCFM 16:34
PROVIDERS: PCP Family Medicine; Visit Provider Family Medicine
DX: E78.5 Hyperlipidemia, unspecified (principal); R74.01 Elevation of levels of liver transaminase levels

== ENCOUNTER 2025-01-31 14:43 | Outpatient (AMB) | payer OTHER, SELFPAY ==
[2025-01-31 14:48] VITALS: BP 142/78; PULSE 80; O2SAT 96; BMI 32.1
--- NOTE | 2025-01-31 14:48 | A.OFFVIS_ITS ---
Vital Signs 01/31/25 14:48 Height 5 ft 7 in Weight 205 lb BMI 32.1 BP 142/78 H Blood Pressure Location Rt brachial Position Sitting Pulse 80 Pulse Source Pulse Oximeter Pulse Oximetry (%) 96 Oxygen Delivery Method Room Air Intake Visit Reasons: 6 mo F/U Intake Note: ESTABLISHED PATIENT for GERD + BM Irregularities mgmt. Chief Complaint; Pt denies any GI sx or concerns at this time. English Composition Instructor Required: No Accompanied by: Self / Same As Patient Allergies poison ave extract Allergy (Severe, Verified 11/22/24 16:32) Anaphylaxis HPI HPI 6 mo F/U: Details: LAST VISIT: Elevated ALT measurement Diarrhea GERD (gastroesophageal reflux disease) Postprandial abdominal bloating Postprandial epigastric pain Plan Continue omeprazole daily. Avoid dietary triggers and late night snacking. Staying upright for minimum 3 hours after meals discussed with patient. Continue taking fiber. Avoid dietary triggers. Continue following low FODMAP diet as much as he can. Follow-up in 6 months, sooner on as needed basis. He is agreeable to this plan and verbalizes understanding of instructions. He was given the opportunity to ask questions and all questions answered. ? TODAY'S VISIT Patient is here today for follow-up. Patient reports that he has been doing fairly well. Patient reports occasional reflux not sure what is causing it. Occasional globus sensation. Patient was seen by PCP in the summer and was referred to ENT. Patient reports that he has not seen anyone yet. History of allergic rhinitis and allergies as a child. Patient does admit having allergies to wheat as he has rhinitis every summer. Patient denies dyspepsia, dysphagia or odynophagia. Patient denies any nausea vomiting. Patient reports that he usually eats healthy. He does not eat fast food. Patient reports occasional abdominal discomfort and bloating depending on what he eats. Moving his bowels without any issues. Denies melena, hematochezia, unintentional weight loss or ribbon like stools. [facility] Medical History Back pain Hyperlipidemia GERD (gastroesophageal reflux disease) Surgical History H/O hand surgery Social History (Updated 11/22/24 @ 16:33 by Adwoa Victor [facility]) Housing: House Are you a primary patient care representative to a significant other at home: No Do you presently have visiting nurse or other home services: No Alcohol intake: current Alcohol intake frequency: a few times a week Patient Tobacco Use Status: Never used Tobacco e-Cigarette/Vaping Use: Never Used Second Hand Smoke Exposure: No service: Yes Current occupational status: employed 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 Current occupational exposures/hazards: No Cognitive needs: No Hearing needs: No Vision needs: Yes Review of Systems Const Denies weight gain and Denies weight loss ENT Reports no additional complaints, Denies dysphagia and Denies odynophagia Card Reports no additional complaints Resp Reports no additional complaints GI Denies abdominal pain, Denies belching, Denies melena, Denies bloating, Denies change in bowel habits, Denies dysphagia, Denies excessive flatus, Denies dyspepsia, Denies heartburn, Denies diarrhea, Denies loose stools, Denies nausea, Denies odynophagia and Denies vomiting Reports no additional complaints Musc Reports no additional complaints Neuro Reports no additional complaints Psych Reports no additional complaints Endo Reports no additional complaints Physical Exam Vital Signs: BMI result Body Mass Index 32.1 Const General: healthy appearing and no acute distress Nutritional Appearance: obese Orientation/consciousness: patient oriented x3 Resp Effort & Inspection: normal respiratory effort, able to speak in complete sentences, no tracheal deviation and symmetric chest movement Auscultation: clear to auscultation bilaterally Cardio Rate: regular rate GI Inspection: Yes normal to inspection, No distended and Yes obesity Palpation (GI): Soft to palpation, not firm, nontender and No hepatosplenomegaly present Auscultation: normal bowel sounds General: Yes no CVA tenderness Back/Spine/Pelvis Back: no CVA tenderness Skin General skin exam: elasticity normal, turgor normal and dry skin Neuro General: patient oriented x3 Psych Appearance: grossly normal Mental Status: mental status grossly normal Assessment & Plan Assessment & Plan (1) Elevated ALT measurement: Code(s): R74.01 - Elevation of levels of liver transaminase levels Category: Medical (2) Diarrhea: Code(s): R19.7 - Diarrhea, unspecified Category: Medical Qualifiers: Diarrhea type: functional diarrhea Qualified Code(s): K59.1 - Functional diarrhea (3) GERD (gastroesophageal reflux disease): Code(s): K21.9 - Gastro-esophageal reflux disease without esophagitis Category: Medical Qualifiers: Esophagitis presence: esophagitis presence not specified Qualified Code(s): K21.9 - Gastro-esophageal reflux disease without esophagitis (4) Postprandial abdominal bloating: Code(s): R14.0 - Abdominal distension (gaseous) (5) Postprandial epigastric pain: Code(s): R10.13 - Epigastric pain (6) Globus sensation: Code(s): R09.A2 - Foreign body sensation, throat Plan Patient screens is globus sensation occasionally. History of allergies in the past. Will send him for RAST allergen testing as well as to see Allergy and immunology. Increased echogenicity on last ultrasound. Will send patient to repeat complete ultrasound with elastography to also evaluate the spleen. Continue low-fat, low-salt, low carb diet. Follow-up in 6 months. Patient was encouraged to call us if he will have any GI concerning symptoms. Continue PPI. Avoid dietary triggers like night snacking. Staying upright for minimum 3 hours after meals discussed with patient. Patient is agreeable to current plan of care and verbalizes understanding of instructions. He was given the opportunity to ask questions and all questions answered. Thank you for allowing me to participate in his care Orders: Orders Rast Allergen Today K21.9 - Gastro-esophageal reflux disease without esophagitis US abdomen comp w elastography Today R79.89 - Other specified abnormal findings of blood chemistry Referrals Allergy & Immunology Referral R09.82 - Postnasal drip, Z87.09 - Personal history of other diseases of the respiratory system Coding Level of Care Code Est Pt Level 4 (22966) Complex visit Add On G2211 Diagnoses Elevated ALT measurement R74.01 Functional diarrhea K59.1 Diarrhea type: functional diarrhea Gastroesophageal reflux disease, unspecified whether esophagitis present K21.9 Esophagitis presence: esophagitis presence not specified Postprandial abdominal bloating R14.0 Postprandial epigastric pain R10.13 Globus sensation R09.A2 Time Spent (min) 40 Comment 25 minute spent with patient and additional 15 minutes spent reviewing his records
== END 2025-01-31 15:18 | disposition home or self-care (01) ==
LOC: HO.HGI 14:44
PROVIDERS: PCP Family Medicine; Visit Provider Nurse Practitioner Family
DX: R74.01 Elevation of levels of liver transaminase levels (principal); K59.1 Functional diarrhea; K21.9 Gastro-esophageal reflux disease without esophagitis; R14.0 Abdominal distension (gaseous); R10.13 Epigastric pain; R09.A2 Foreign body sensation, throat
CPT/HCPCS: 99214; G2211

== ENCOUNTER → 2025-01-31 14:43 | Outpatient (BNVA) | payer OTHER, SELFPAY | PROVIDERS: PCP Family Medicine; Visit Provider Nurse Practitioner Family | DX: K21.9 Gastro-esophageal reflux disease without esophagitis (principal); K59.1 Functional diarrhea; R09.A2 Foreign body sensation, throat; R10.13 Epigastric pain; R14.0 Abdominal distension (gaseous); R74.01 Elevation of levels of liver transaminase levels | CPT/HCPCS: 99212 ==

== ENCOUNTER 2025-02-01 09:26 | Outpatient (REF) | payer OTHER, SELFPAY ==
[2025-02-03 05:58] LABS: Class Almond 0; Class Brazil Nut 0; Class Cashew 0; Class Codfish 0; Class Cow's Milk 0; Class Egg white 0; Class Hazelnut 0; Class Macadamia Nut 0; Class Peanut 0; Class Salmon 0; Class Scallop 0; Class Sesame Seed 0; Class Shrimp 0; Class Soybean 0; Class Tuna 0; Class Walnut 0; Class Wheat 0; F345-IgE Macadmia Nut <0.10 kU/L
== END 2025-02-01 09:27 ==
LOC: HO.WFDLDS 09:26
PROVIDERS: Visit Provider Nurse Practitioner Family
DX: K21.9 Gastro-esophageal reflux disease without esophagitis (principal); R19.7 Diarrhea, unspecified
CPT/HCPCS: 36415; 86003